=== PATIENT | male | born 1975 | race Caucasian/White ===

== ENCOUNTER → 2022-11-17 12:52 | Outpatient (BNVA) | payer OTHER, SELFPAY | PROVIDERS: Visit Provider Physician Assistant Medical | DX: S00.93XA Contusion of unspecified part of head, initial encounter (principal); S39.012A Strain of muscle, fascia and tendon of lower back, initial encounter; W17.89XA Other fall from one level to another, initial encounter; E11.9 Type 2 diabetes mellitus without complications; H54.62 Unqualified visual loss, left eye, normal vision right eye; Z91.148 Patient's other noncompliance with medication regimen for other reason | CPT/HCPCS: 99203 ==

== ENCOUNTER → 2022-12-01 14:37 | Outpatient (BNVA) | payer OTHER, SELFPAY | PROVIDERS: Visit Provider Physician Assistant Medical | DX: S00.93XA Contusion of unspecified part of head, initial encounter (principal); S39.012A Strain of muscle, fascia and tendon of lower back, initial encounter; W17.89XA Other fall from one level to another, initial encounter; H05.223 Edema of bilateral orbit | CPT/HCPCS: 72100; 99214 ==

== ENCOUNTER → 2022-12-12 09:30 | Outpatient (BNVA) | payer OTHER, SELFPAY | PROVIDERS: Visit Provider Physician Assistant Medical | DX: S00.93XD Contusion of unspecified part of head, subsequent encounter (principal); S39.012D Strain of muscle, fascia and tendon of lower back, subsequent encounter; W17.89XD Other fall from one level to another, subsequent encounter; H35.81 Retinal edema; H53.9 Unspecified visual disturbance | CPT/HCPCS: 99213 ==

== ENCOUNTER → 2023-01-05 09:33 | Outpatient (BNVA) | payer OTHER, SELFPAY | PROVIDERS: Visit Provider Physician Assistant Medical | DX: S06.9X0D Unspecified intracranial injury without loss of consciousness, subsequent encounter (principal); S39.012D Strain of muscle, fascia and tendon of lower back, subsequent encounter; W17.89XD Other fall from one level to another, subsequent encounter; H54.62 Unqualified visual loss, left eye, normal vision right eye | CPT/HCPCS: 99213 ==

== ENCOUNTER 2023-01-09 07:00 | Outpatient (RCR) | payer OTHER, SELFPAY ==
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
--- NOTE | 2023-02-16 14:16 | MHC.PT.DC ---
[facility] [place] Office [place] Office [place] Office [address] Claudine Thompson [address] [phone] F: [phone] F: [phone] F: [phone] F: [phone] Physical Therapy Discharge Report Diagnosis: lumbar strain from fall Date of Surgery: n/a Date of Evaluation: 12/18/22 Date of Discharge: 02/16/23 Treatments to Date: 5 Cancellations to Date: 2 No Shows to Date: 0 Discharge Status: Patient Elected to Stop Discharge Summary: 02/16/2023: Pt cancelled his last scheduled appointment. He has not reached out in >30 days to be scheduled so pt to be d/c at this time. Electronically signed by: Kinza Barr, PT, DPT, ATC Please sign and return to therapist. Thank you for your referral.
== END 2023-02-16 14:16 | disposition home or self-care (01) ==
LOC: HO.PTCHIC 07:00
PROVIDERS: Visit Provider Physician Assistant Medical
DX: S39.012D Strain of muscle, fascia and tendon of lower back, subsequent encounter (principal)
CPT/HCPCS: 97110; 97140; 97161

== ENCOUNTER → 2023-01-26 07:45 | Outpatient (BNVA) | payer OTHER, SELFPAY | PROVIDERS: Visit Provider Physician Assistant Medical | DX: S00.93XD Contusion of unspecified part of head, subsequent encounter (principal); S39.012D Strain of muscle, fascia and tendon of lower back, subsequent encounter; W17.89XD Other fall from one level to another, subsequent encounter; H35.81 Retinal edema | CPT/HCPCS: 99213 ==

== ENCOUNTER → 2023-02-26 07:54 | Outpatient (BNVA) | payer OTHER, SELFPAY | PROVIDERS: Visit Provider Physician Assistant Medical | DX: S00.93XD Contusion of unspecified part of head, subsequent encounter (principal); S39.012D Strain of muscle, fascia and tendon of lower back, subsequent encounter; W17.89XD Other fall from one level to another, subsequent encounter; H35.81 Retinal edema | CPT/HCPCS: 99213 ==

== ENCOUNTER 2023-12-29 11:51 | Inpatient (IN) | payer MEDICAID, SELFPAY ==
[2023-12-29] VITALS (8 sets, daily range): BP systolic 106–205; BP diastolic 65–111; PULSE 85–104; RESP 14–22; TEMP 36.2–37.4; O2SAT 97–99; BMI 32.4
--- NOTE | ~2023-12-29 | US_ITS ---
EXAMINATION: NONINVASIVE ASSESSMENT OF THE ARTERIES OF RIGHT LOWER EXTREMITY CLINICAL INFORMATION: Nonhealing wounds of the right lower extremity COMPARISON: None TECHNIQUE: duplex Doppler techniques with wave form analysis and measurement of velocities in the right common femoral, profunda femoral, superficial femoral, popliteal, tibial and peroneal arteries. The study was performed only at rest. FINDINGS: RIGHT LEG Common femoral artery: 128 cm/s, Multiphasic Profunda femoris artery: 110 cm/s, Multiphasic Superficial femoral artery (proximal): 95 cm/s, Multiphasic Superficial femoral artery (mid): 83 cm/s, Multiphasic Superficial femoral artery (distal): 196 cm/s, Multiphasic Proximal Popliteal artery: 88 cm/s, Multiphasic Mid posterior tibial artery: 135 cm/s, Multiphasic Prominent right inguinal lymph node measuring 1.9 cm. US/US arterial duplex LE RT IMPRESSION: No hemodynamically significant stenosis in the right lower extremity.
--- NOTE | 2023-12-29 12:13 | ED.GENADULT ---
HPI - General Adult General Chief complaint: ETOH/Substance Use Stated complaint: Dizziness, lightheaded Time Seen by Provider: 12/29/23 12:57 Source: patient Mode of arrival: ambulatory Limitations: no limitations History of Present Illness ED Provider: DALLAS WINSLOW PA-C HPI narrative: 48-year-old male with pmhx significant for uncontrolled T2DM, alcohol dependence presents to the ED today for evaluation of generalized weakness and lightheadedness which began prior to arrival in ED today. Patient reports recent concerns with his job as he has had to miss multiple shifts due to his health. After speaking with employer, he was advised to come to the ED for FMLA paperwork to save my job . On the drive over here, began to feel increasingly more weak and light headed. He had to last puller and sit down until someone was able to pick him up and drive him to the ED for further evaluation. Denies fevers, chills, nausea or vomiting, sore throat, syncope, headache, vision changes, abdominal pain, constipation, diarrhea, dysuria, hematuria. Patient reports history of T2DM however has not seen his PCP in over 15 years and does not currently take medications for this. He does not monitor his sugars at home. He admits to alcohol dependence. He currently drinks at least a 5th of vodka daily along with 10 alcoholic seltzers. His last etoh drink was around midnight. Admits to history of withdrawal however denies history of withdrawal seizures or DT. Endorses feeling tremulous at present. Related Data Previous Rx's ?Medication ?Instructions ?Recorded alcohol swabs 1 pad topical QIDACHS #100 ea 12/31/23 amlodipine 5 mg tablet 5 mg PO DAILY #30 tabs 12/31/23 blood sugar diagnostic (FreeStyle #100 ea 12/31/23 Lite Strips) blood-glucose meter (FreeStyle #1 ea 12/31/23 Lite Meter kit) cephalexin 500 mg capsule 500 mg PO Q8H #15 caps 12/31/23 glipizide 10 mg tablet, extended 10 mg PO DAILY #30 tabs 12/31/23 release 24 hr insulin glargine 100 unit/mL (3 25 unit (0.25 mL) subcut QPM #15 mL 12/31/23 mL) subcutaneous pen (Lantus Solostar U-100 Insulin) lancets 28 gauge (FreeStyle #100 ea 12/31/23 Lancets) magnesium oxide 400 mg (241.3 mg 400 mg PO BIDPC #60 tabs 12/31/23 magnesium) tablet pen needle, diabetic 32 gauge x #100 ea 12/31/23 1 Allergies Allergy/AdvReac Type Severity Reaction Status Date / Time No Known Allergies Allergy Unverified 12/29/23 12:11 Review of Systems Review of Systems: Constitutional: No fever, chills, fatigue, night sweats, weight changes ENT/Mouth: No ear pain, hearing loss, nasal congestion, sinus pain, rhinorrhea, sore throat Eyes: No eye pain, swelling, redness, vision changes, discharge Cardio: No chest pain, palpitations, NIELSON, orthopnea, peripheral edema Pulm: No SOB, cough, sputum, wheezing, dyspnea, hemoptysis GI: No nausea, vomiting, hematemesis, abdominal pain, diarrhea, constipation, hematochezia, melena : No irregular bleeding, dysuria, frequency, urgency, hesitancy, hematuria, flank pain, urinary flow changes, urinary incontinence or retention MSK: No back pain, neck pain, joint pain, myalgias Skin: No lesions, rashes Neuro: No numbness, paresthesias, LOC, headache, +weakness, +lightheaded Psych: No anxiety/panic, depression, SI/HI, AH/VH All other systems reviewed and are negative. [facility] Past Medical History Attestation statement: The following information was validated with the patient. Source: old records reviewed and nursing notes reviewed Medical History Alcohol use disorder Hypertension Type 2 diabetes mellitus Social History Social History Household Members: None Housing: Apartment Do you presently have visiting nurse or other home services: No Patient Tobacco Use Status: Never used Tobacco service: No Physical Exam ED Vital Signs: Vital Signs - 24 hr 12/29/23 12:06 12/29/23 14:18 12/29/23 15:25 Temperature 99.3 F 98.0 F 98.0 F Pulse Rate 94 98 104 H Respiratory Rate 18 18 15 Blood Pressure 106/65 165/87 H 205/111 H Pulse Oximetry 99 98 97 Oxygen Delivery Method Room Air Room Air Room Air 12/29/23 15:57 12/29/23 15:59 Temperature Pulse Rate 102 H Respiratory Rate 14 Blood Pressure 180/80 H 187/96 H Pulse Oximetry Oxygen Delivery Method BMI result Body Mass Index 32.4 Vital signs stable Const Other: tremulous General: cooperative and no acute distress Orientation/consciousness: patient oriented x3 Limitations: no limitations HENMT Head: Yes normal to inspection, Yes No palpable skull fracture present, Yes normocephalic and Yes atraumatic Eyes General: appearance normal, both eyes and all related structures Conjunctivae: conjunctivae normal Sclerae: sclerae normal Pupils: Equal, round and reactive pupils present Neck Neck: Yes normal visual inspection, Yes full ROM and Yes no lymphadenopathy Resp Effort & Inspection: normal respiratory effort and able to speak in complete sentences Auscultation: clear to auscultation bilaterally Cardio Rate: regular rate Rhythm: regular rhythm GI Inspection: Yes normal to inspection Skin Other: + areas of hyperpigmentation noted to RLE. Non-healing ulceration to anterior tbia and plantar surface of right great toe. no surrounding erythema or warmth. no purulent drainage. Neuro General: patient oriented x3 Cranial nerves: Yes Equal, round and reactive pupils present Course Course Course Narrative: RME: Done by ROSELINE Potts. [age] male history of alcohol abuse and diabetes presents to ED for dizziness and lightheadedness. Patient states drinks every day and last drink was around midnight. Patient also states she has diabetic has not taken medication in 10 years. Glucose POC 509. Labs ordered fluids or ordered. Charge nurse informed to bring patient in the ED. patient was detox Reevaluation(s) Reevaluation #1: 1300 -- CBC without leukocytosis or left shift. Slightly anemic to 12.9/36.9. No priors to compare to. No concern for acute blood loss at this time. Chemistry showing sodium of 130, BUN 25, creatinine 1.94 > patient receiving 2 L IV fluids. Initial POC glucose 509. Serum glucose 516. 10 insulin ordered. Will recheck POC. Beta hydroxybutyrate 0.39. No anion gap. Ethanol undetectable. No concern for acute intoxication however will observe for withdrawal symptoms. CIWA ordered. Total bili 1.7, AST 61 and ALT 50 > likely secondary to chronic ETOH abuse. 1425-- Repeat POC glucose improved to 362 after 2L and 10 insulin. will order another liter of fluids and re-evaluate. 1601-- Repeat POC improved to 273. His BP is noted to be elevated to 205/111 after 3 L of IV fluids. ativan ordered for CIWA 5. 1631-- BUN/Cr only slightly improved after 3L of fluid. No longer hyponatremic. random glucose 301. urine positive for UTI. IV abx ordered. will present to hospitalist for admission. 1700-- Hospitalist has accepted admission for CONSTANCE, hyperglycemia, and acute etoh withdrawal Medications Administered Discontinued Medications Generic Name Dose Route Start Last Admin Trade Name Freq PRN Reason Stop Dose Admin Amlodipine Besylate 5 mg 12/29/23 17:00 12/31/23 08:07 Amlodipine Besylate 5 Mg Tablet PO 5 mg DAILY AYO Administration Protocol Enoxaparin Sodium 40 mg 12/29/23 18:00 12/29/23 18:14 Enoxaparin Sodium 40 Mg/0.4 Ml Syringe SUBCUT 40 mg Q24H AYO Administration Glipizide 5 mg 12/30/23 13:45 12/31/23 08:08 Glipizide Xl 5 Mg Tab.Er.24 PO 5 mg DAILY AYO Administration Sodium Chloride 1,000 mls @ 999 mls/hr 12/29/23 12:13 12/29/23 13:46 Ns IV 12/29/23 13:13 Infused .Q1H1M STA Infusion Sodium Chloride 1,000 mls @ 999 mls/hr 12/29/23 12:14 12/29/23 13:46 Ns IV 12/29/23 13:14 Infused .Q1H1M STA Infusion Sodium Chloride 1,000 mls @ 999 mls/hr 12/29/23 14:30 12/29/23 15:30 Ns IV 12/29/23 15:30 Infused .Q1H1M AYO Infusion Ceftriaxone Sodium 1 gm/ 50 mls @ 100 mls/hr 12/29/23 15:47 12/29/23 16:30 Sodium Chloride IV 12/29/23 16:16 Infused ONCE ONE Infusion Thiamine HCl 100 mg/ Sodium 101 mls @ 202 mls/hr 12/29/23 17:00 12/31/23 09:09 Chloride IV Infused DAILY AYO Infusion Folic Acid 1 mg/ Sodium 50.2 mls @ 100.4 mls/hr 12/29/23 17:00 12/31/23 09:32 Chloride IV 12/31/23 09:29 Infused DAILY AYO Infusion Sodium Chloride 1,000 mls @ 100 mls/hr 12/29/23 17:00 12/30/23 15:42 Ns IVCONT Infused .Q10H AYO Infusion Magnesium Sulfate 2 gm in 50 mls @ 25 mls/hr 12/29/23 19:28 12/29/23 21:39 Magnesium Sulfate/H2o IV 12/29/23 21:27 Infused ONCE ONE Infusion Ceftriaxone Sodium 1 gm/ 50 mls @ 100 mls/hr 12/31/23 16:00 12/31/23 16:29 Sodium Chloride IV Not Given Q24H [facility] Insulin Glargine 18 unit 12/29/23 21:00 12/29/23 21:00 Insulin Glargine,Hum.Rec.Anlog 100 Unit/Ml 10 Ml Vial SUBCUT 18 unit BEDTIME AYO Administration Insulin Glargine 25 unit 12/30/23 21:00 12/30/23 23:24 Insulin Glargine,Hum.Rec.Anlog 100 Unit/Ml 10 Ml Vial SUBCUT 25 unit BEDTIME AYO Administration Insulin Human Lispro 0 unit 12/29/23 19:00 12/31/23 16:29 Insulin Lispro 100 Unit/Ml 3 Ml Vial SUBCUT Not Given QIDACHS [facility] Protocol Insulin Human Regular 10 unit 12/29/23 13:07 12/29/23 13:44 Insulin Regular, Human 100 Unit/Ml 10 Ml Vial IVPUSH 12/29/23 13:08 10 unit ONCE ONE Administration Lorazepam 2 mg 12/29/23 15:46 12/29/23 15:50 Lorazepam 1 Mg Tablet PO 12/29/23 15:47 2 mg ONCE ONE Administration Magnesium Oxide 400 mg 12/30/23 08:30 12/31/23 16:30 Magnesium Oxide 400 Mg Tablet PO Not Given BIDPC AYO Phenobarbital 45 mg 12/30/23 09:00 12/31/23 08:07 Phenobarbital 15 Mg Tablet PO 12/31/23 21:01 45 mg BID AYO Administration Phenobarbital Sodium 295 mg 12/29/23 17:15 12/29/23 18:05 Phenobarbital Sodium 130 Mg/Ml Im Once IM 12/29/23 17:16 295 mg ONCE ONE Administration Phenobarbital Sodium 221 mg 12/29/23 22:00 12/30/23 02:04 Phenobarbital Sodium 130 Mg/Ml Vial Im Q3hx2 IM 12/30/23 01:01 221 mg Q3H AYO Administration Phenobarbital Sodium 130 mg 12/29/23 19:52 12/29/23 20:01 Phenobarbital Sodium 130 Mg/Ml Vial IM 12/29/23 19:53 130 mg ONCE ONE Administration Sodium Chloride 3 ml 12/30/23 00:00 12/31/23 16:29 0.9 % Sodium Chloride Flush 3 Ml Syringe IVFLUSH Not Given QSHIFT [facility] Medical Decision Making Medical Decision Making [facility] Narrative: 48-year-old male with pmhx significant for uncontrolled T2DM, alcohol dependence presents to the ED today for evaluation of generalized weakness and lightheadedness which began prior to arrival in ED today. Vital signs stable. Patient tremulous on exam. No diaphoresis or asterixis. PERRLA. exam nonfocal. abdomen is soft, midly distended, nontender to palpation without rebound tenderness or guarding. normoactive bs x4. ambulating wtih steady gait. Differential diagnosis includes acute alcohol intoxication, alcohol withdrawal, hyperglycemia, DKA, anemia, electrolyte abnormality, dehydration Plan for labs, poc glucose, beta hydroxybutyrate, urinalysis, ethanol level, IVF, insulin, and re-evaluation. Differential Diagnosis Differential Diagnoses: The differential diagnosis associated with the presentation includes as above. Admission/Observation Consideration of admission/observation: Escalation of care including admission/observation considered Patient admitted to medicine for CONSTANCE, diabetic hyperglycemia, and etoh withdrawal. Consult Healthcare Provider Management of the patient was discussed with: Hospitalist (Toña Sandoval PA-C, Dr. David) Lab Data [facility] Lab Attestation statement: I reviewed the patient's lab results. As above 12/30/23 06:00 12/30/23 06:00 Labs: Lab Results 12/29/23 12/29/23 12/29/23 Range/Units 12:13 12:36 14:17 WBC 7.7 (4.8-10.8) X10*3/uL RBC 4.15 L (4.60-5.80) X10*6/uL Hgb 12.9 L (14.0-18.0) g/dl Hct 36.9 L (42.0-52.0) % MCV 88.9 (80.0-98.0) fL MCH 31.1 (27.0-33.0) pg MCHC 35.0 (31.0-36.0) g/dl RDW 11.5 (11.0-16.0) % Plt Count 137 L (160-400) X10*3/uL MPV 10.7 (9.4-12.4) fL Immature Gran % (Auto) 0.4 (0.0-0.4) % Neut % (Auto) 71.7 (45-73) % Lymph % (Auto) 17.9 L (20-40) % [place] % (Auto) 8.7 (2-11) % Eos % (Auto) 0.5 (0-4) % Baso % (Auto) 0.8 (0-2) % Lymph # (Auto) 1.4 (1.2-4.9) X10*3/uL [place] # (Auto) 0.7 (0.1-1.2) X10*3/uL Eos # (Auto) 0.0 (0.0-0.4) X10*3/uL Baso # (Auto) 0.1 (0.0-0.2) X10*3/uL Abs Immat Gran (auto) 0.03 (0.00-0.03) X10*3/uL Absolute Neuts (auto) 5.5 (2.0-8.3) x10*3/uL Absolute Nucleated RBC 0.000 (0.0-0.012) X10*3/uL Nucleated RBC % (auto) 0.0 (0.0-0.2) /100WBC Sodium 130 L (135-145) mmol/L Potassium 4.7 (3.3-5.1) mmol/L Chloride 90 L (96-108) mmol/L Carbon Dioxide 28 (22-29) mmol/L Anion Gap 17 (12-20) BUN 25 H (9-16) mg/dL Creatinine 1.94 H (0.5-1.4) mg/dL Estim Creat Clear Calc 46.5 Estimated GFR 37 POC Glucose 509 H* 362 H* (60-115) mg/dL Random Glucose 516 H* (60-115) mg/dL Calcium 9.8 (8.4-10.2) mg/dL Magnesium (1.6-2.6) mg/dL Total Bilirubin 1.7 H (0.0-1.0) mg/dL AST 61 H (5-37) U/L ALT 50 H (0-40) U/L Alkaline Phosphatase 115 (39-117) U/L Total Protein 8.7 H (6.5-8.0) g/dL Albumin 4.0 (3.5-5.0) g/dL Beta-Hydroxybutyrate 0.39 H (0.02-0.27) mmol/L Urine Color Urine Appearance Urine pH (5.0-9.0) Ur Specific [place] (1.005-1.025) Urine Protein (Neg-Trace) mg/dL Urine Glucose (UA) (Negative) mg/dL Urine Ketones (Negative) mg/dL Urine Blood (Negative) Urine Nitrite (Negative) Ur Leukocyte Esterase (Negative) Urine RBC (0-2) /HPF Urine WBC (0-5) /HPF Ur Squamous Epith Cells (0-2) /HPF Urine Bacteria (None Seen) Hyaline Casts (0-2) /LPF Urine Opiates Screen (Not Detect) Ur Buprenorphine Scrn (Not Detect) ng/mL Ur Oxycodone Screen (Not Detect) ng/mL Urine Methadone Screen (Not Detect) ng/mL Urine Fentanyl Screen (Not Detect) Ur Barbiturates Screen (Not Detect) Ur Phencyclidine Scrn (Not Detect) Ur Amphetamines Screen (Not Detect) U Benzodiazepines Scrn (Not Detect) Urine Cocaine Screen (Not Detect) U Marijuana (THC) Screen (Not Detect) Ethyl Alcohol < 10 mg/dL 12/29/23 12/29/23 12/29/23 Range/Units 14:57 14:58 15:42 WBC (4.8-10.8) X10*3/uL RBC (4.60-5.80) X10*6/uL Hgb (14.0-18.0) g/dl Hct (42.0-52.0) % MCV (80.0-98.0) fL MCH (27.0-33.0) pg MCHC (31.0-36.0) g/dl RDW (11.0-16.0) % Plt Count (160-400) X10*3/uL MPV (9.4-12.4) fL Immature Gran % (Auto) (0.0-0.4) % Neut % (Auto) (45-73) % Lymph % (Auto) (20-40) % [place]ferro % (Auto) (2-11) % Eos % (Auto) (0-4) % Baso % (Auto) (0-2) % Lymph # (Auto) (1.2-4.9) X10*3/uL [place] # (Auto) (0.1-1.2) X10*3/uL Eos # (Auto) (0.0-0.4) X10*3/uL Baso # (Auto) (0.0-0.2) X10*3/uL Abs Immat Gran (auto) (0.00-0.03) X10*3/uL Absolute Neuts (auto) (2.0-8.3) x10*3/uL Absolute Nucleated RBC (0.0-0.012) X10*3/uL Nucleated RBC % (auto) (0.0-0.2) /100WBC Sodium (135-145) mmol/L Potassium (3.3-5.1) mmol/L Chloride (96-108) mmol/L Carbon Dioxide (22-29) mmol/L Anion Gap (12-20) BUN (9-16) mg/dL Creatinine (0.5-1.4) mg/dL Estim Creat Clear Calc Estimated GFR POC Glucose 273 H (60-115) mg/dL Random Glucose (60-115) mg/dL Calcium (8.4-10.2) mg/dL Magnesium (1.6-2.6) mg/dL Total Bilirubin (0.0-1.0) mg/dL AST (5-37) U/L ALT (0-40) U/L Alkaline Phosphatase (39-117) U/L Total Protein (6.5-8.0) g/dL Albumin (3.5-5.0) g/dL Beta-Hydroxybutyrate (0.02-0.27) mmol/L Urine Color Yellow Urine Appearance Turbid Urine pH 6.5 (5.0-9.0) Ur Specific [place] 1.015 (1.005-1.025) Urine Protein 100 (2+) H (Neg-Trace) mg/dL Urine Glucose (UA) >=1000 H (Negative) mg/dL Urine Ketones Negative (Negative) mg/dL Urine Blood Moderate (2+) H (Negative) Urine Nitrite Negative (Negative) Ur Leukocyte Esterase Large (3+) H (Negative) Urine RBC 3-5 H (0-2) /HPF Urine WBC >50 H (0-5) /HPF Ur Squamous Epith Cells 6-10 (0-2) /HPF Urine Bacteria 3+ (None Seen) Hyaline Casts 0-2 (0-2) /LPF Urine Opiates Screen Not Detected (Not Detect) Ur Buprenorphine Scrn Not Detected (Not Detect) ng/mL Ur Oxycodone Screen Not Detected (Not Detect) ng/mL Urine Methadone Screen Not Detected (Not Detect) ng/mL Urine Fentanyl Screen Not Detected (Not Detect) Ur Barbiturates Screen Not Detected (Not Detect) Ur Phencyclidine Scrn Not Detected (Not Detect) Ur Amphetamines Screen Not Detected (Not Detect) U Benzodiazepines Scrn Not Detected (Not Detect) Urine Cocaine Screen Not Detected (Not Detect) U Marijuana (THC) Screen Not Detected (Not Detect) Ethyl Alcohol mg/dL 12/29/23 Range/Units 15:54 WBC (4.8-10.8) X10*3/uL RBC (4.60-5.80) X10*6/uL Hgb (14.0-18.0) g/dl Hct (42.0-52.0) % MCV (80.0-98.0) fL MCH (27.0-33.0) pg MCHC (31.0-36.0) g/dl RDW (11.0-16.0) % Plt Count (160-400) X10*3/uL MPV (9.4-12.4) fL Immature Gran % (Auto) (0.0-0.4) % Neut % (Auto) (45-73) % Lymph % (Auto) (20-40) % [place] % (Auto) (2-11) % Eos % (Auto) (0-4) % Baso % (Auto) (0-2) % Lymph # (Auto) (1.2-4.9) X10*3/uL [place] # (Auto) (0.1-1.2) X10*3/uL Eos # (Auto) (0.0-0.4) X10*3/uL Baso # (Auto) (0.0-0.2) X10*3/uL Abs Immat Gran (auto) (0.00-0.03) X10*3/uL Absolute Neuts (auto) (2.0-8.3) x10*3/uL Absolute Nucleated RBC (0.0-0.012) X10*3/uL Nucleated RBC % (auto) (0.0-0.2) /100WBC Sodium 140 (135-145) mmol/L Potassium 4.7 (3.3-5.1) mmol/L Chloride 101 (96-108) mmol/L Carbon Dioxide 30 H (22-29) mmol/L Anion Gap 14 (12-20) BUN 22 H (9-16) mg/dL Creatinine 1.52 H (0.5-1.4) mg/dL Estim Creat Clear Calc 59.4 Estimated GFR 49 POC Glucose (60-115) mg/dL Random Glucose 301 H (60-115) mg/dL Calcium 9.6 (8.4-10.2) mg/dL Magnesium 1.3 L* (1.6-2.6) mg/dL Total Bilirubin (0.0-1.0) mg/dL AST (5-37) U/L ALT (0-40) U/L Alkaline Phosphatase (39-117) U/L Total Protein (6.5-8.0) g/dL Albumin (3.5-5.0) g/dL Beta-Hydroxybutyrate (0.02-0.27) mmol/L Urine Color Urine Appearance Urine pH (5.0-9.0) Ur Specific [place] (1.005-1.025) Urine Protein (Neg-Trace) mg/dL Urine Glucose (UA) (Negative) mg/dL Urine Ketones (Negative) mg/dL Urine Blood (Negative) Urine Nitrite (Negative) Ur Leukocyte Esterase (Negative) Urine RBC (0-2) /HPF Urine WBC (0-5) /HPF Ur Squamous Epith Cells (0-2) /HPF Urine Bacteria (None Seen) Hyaline Casts (0-2) /LPF Urine Opiates Screen (Not Detect) Ur Buprenorphine Scrn (Not Detect) ng/mL Ur Oxycodone Screen (Not Detect) ng/mL Urine Methadone Screen (Not Detect) ng/mL Urine Fentanyl Screen (Not Detect) Ur Barbiturates Screen (Not Detect) Ur Phencyclidine Scrn (Not Detect) Ur Amphetamines Screen (Not Detect) U Benzodiazepines Scrn (Not Detect) Urine Cocaine Screen (Not Detect) U Marijuana (THC) Screen (Not Detect) Ethyl Alcohol mg/dL Chronic Conditions Patient?s care impacted by: Diabetes, Hypertension and Other (alcohol dependence) Social Determinants Patient?s care significantly limited by Social Determinants of Health including: Alcoholism and drug addiction in family and Other Social Determinant of Health Critical Care Time Critical Care Time Critical Care Time: Yes Total Critical Care Time: 33 Attestation: Critical care time in the amount of 33 minutes has been provided to the patient in terms of direct patient care, frequent reevaluation of labs after IVF, consultation with addiction med and hospitalist, review and interpretation of medical data and results, and management of potentially life-threatening conditions. This is all outside of any medical procedures. Discharge Plan Discharge Clinical Impression: CONSTANCE (acute kidney injury), Alcohol withdrawal, Elevated BP without diagnosis of hypertension Patient Disposition: Admitted As Inpatient Interventions: Admission Worksheet (ED) Last Done: 12/29/23 20:27 Discharge Date/Time: 12/29/23 21:22
[2023-12-29] MEDS: 0.9 % Sodium Chloride 1,000 ML 999 ML IV ×3 (12:37→14:56)
[2023-12-29 12:39] LABS: MANUAL DIFF FLAG NO
[2023-12-29 12:42] LABS: Basophils Absolute Auto 0.1 X10*3/uL (0.0-0.2); Basophils Percent Auto 0.8 % (0-2); Eosinophils Percent Auto 0.5 % (0-4); Hematocrit 36.9 % (42.0-52.0); Hemoglobin 12.9 g/dl (14.0-18.0); Imm Gran Abs Auto 0.03 X10*3/uL (0.00-0.03); Imm Gran Pct Auto 0.4 % (0.0-0.4); Lymphocytes Absolute Auto 1.4 X10*3/uL (1.2-4.9); Lymphocytes Percent Auto 17.9 % (20-40); Mean Corpuscular Hemoglobin 31.1 pg (27.0-33.0); Mean Corpuscular Volume 88.9 fL (80.0-98.0); Mean Platelet Volume 10.7 fL (9.4-12.4); Monocytes Absolute Auto 0.7 X10*3/uL (0.1-1.2); Monocytes Percent Auto 8.7 % (2-11); Neutrophils Absolute Auto 5.5 x10*3/uL (2.0-8.3); Neutrophils Percent Auto 71.7 % (45-73); Platelet Count 137 X10*3/uL (160-400); Red Blood Count 4.15 X10*6/uL (4.60-5.80); Red Cell Distribution Width 11.5 % (11.0-16.0); White Blood Count 7.7 X10*3/uL (4.8-10.8)
[2023-12-29 12:56] LABS: Beta-Hydroxybutyrate 0.39 mmol/L (0.02-0.27)
[2023-12-29 13:03] LABS: Alanine Aminotransferase 50 U/L (0-40); Alkaline Phosphatase 115 U/L (39-117); Anion Gap 17 (12-20); Aspartate Amino Transferase 61 U/L (5-37); Bilirubin Total 1.7 mg/dL (0.0-1.0); Blood Urea Nitrogen 25 mg/dL (9-16); Calcium 9.8 mg/dL (8.4-10.2); Carbon Dioxide 28 mmol/L (22-29); Chloride 90 mmol/L (96-108); Creatinine Clr Calc Pharmacy 46.5; Estimated Glomerular Filt Rate 37; Ethanol < 10 mg/dL; Glucose Random 516 mg/dL (60-115); Potassium 4.7 mmol/L (3.3-5.1); Sodium 130 mmol/L (135-145); Total Protein 8.7 g/dL (6.5-8.0)
[2023-12-29 13:19] LABS: Glucose, Whole Blood 509 mg/dL (60-115)
[2023-12-29] MEDS: Insulin Regular, Human 100 UNIT/ML 10 ML VIAL 10 UNIT IVPUSH (13:44)
[2023-12-29 14:22] LABS: Glucose, Whole Blood 362 mg/dL (60-115)
--- NOTE | 2023-12-29 14:39 | PC.NURSE ---
ambulating to the bathroom independently to provide urine sample. poc 362, plan to receive 3rd liter of fluids. patient continues to deny any pain at this time.
--- NOTE | 2023-12-29 14:56 | PC.NURSE ---
upon ambulating back from the bathroom, patient states he began to feel dizzy and lightheaded once again, states this improves with him laying down in bed.
[2023-12-29 15:08] LABS: Appearance Urine Turbid; Color Urine Yellow; Glucose Urine UA >=1000 mg/dL (Negative); Leukocyte Esterase Urine Large (3+) (Negative); Nitrite Urine Negative (Negative); PH 6.5 (5.0-9.0); Specific Gravity - Urine 1.015 (1.005-1.025); UMIC TRIGGER UACC YES; Urine Blood Moderate (2+) (Negative); Urine Ketones Negative (Negative); Urine Protein 100 (2+) mg/dL (Neg-Trace)
[2023-12-29 15:43] LABS: Bacteria Urine 3+ (None Seen); Hyaline Casts Urine 0-2 /LPF (0-2); UACC Culture Trigger YES; WBC Urine >50 /HPF (0-5)
[2023-12-29 15:47] LABS: Glucose, Whole Blood 273 mg/dL (60-115)
[2023-12-29] MEDS: LORazepam 1 MG TABLET 2 MG PO (15:50)
[2023-12-29 15:57] LABS: Amphetamine Screen Urine Not Detected (Not Detect); Barbiturates, Urine Not Detected (Not Detect); Benzodiazepines Screen Urine Not Detected (Not Detect); Buprenorphine Scr Not Detected (Not Detect); Cannabinoid Screen Urine Not Detected (Not Detect); Cocaine Screen Urine Not Detected (Not Detect); Fentanyl, urine Not Detected (Not Detect); Methadone Screen, Urine Not Detected (Not Detect); Opiate Screen Urine Not Detected (Not Detect); Oxycodone Screen Urine Not Detected (Not Detect); Phencyclidine Screen Urine Not Detected (Not Detect)
[2023-12-29] MEDS: cefTRIAXone sodium 1 GM in 0.9 % Sodium Chloride 50 ML IV (16:00)
--- NOTE | 2023-12-29 16:08 | ECG_ITS ---
Test Reason : ETOH Blood Pressure : / mmHG Vent. Rate : 096 BPM Atrial Rate : 096 BPM P-R Int : 154 ms QRS Dur : 086 ms QT Int : 346 ms P-R-T Axes : 033 -51 037 degrees QTc Int : 437 ms Normal sinus rhythm Possible Left atrial enlargement Left anterior fascicular block Abnormal ECG No previous ECGs available Referred By: Alisa Barillas Electronically Signed By:Jitendra Barr
[2023-12-29 16:25] LABS: Anion Gap 14 (12-20); Blood Urea Nitrogen 22 mg/dL (9-16); Calcium 9.6 mg/dL (8.4-10.2); Carbon Dioxide 30 mmol/L (22-29); Chloride 101 mmol/L (96-108); Creatinine Clr Calc Pharmacy 59.4; Estimated Glomerular Filt Rate 49; Glucose Random 301 mg/dL (60-115); Potassium 4.7 mmol/L (3.3-5.1); Sodium 140 mmol/L (135-145)
--- NOTE | 2023-12-29 16:50 | PHA.MEDREC ---
Pharmacy Consult ? Medication Reconciliation Pharmacy has completed the medication reconciliation.
--- NOTE | 2023-12-29 17:00 | P.HPHOSP_ITS ---
History of Present Illness Date of Service: 12/29/23 Attending physician on admission: Maral David Chief Complaint: alcohol detox 48-year-old male with history of uncontrolled type 2 diabetes, hypertension, alcohol use disorder who has been noncompliant with outpatient follow-up and has not seen a provider in 15 years presented to the ED earlier today desiring alcohol detox. He reports that he has been drinking nearly at least a fifth of vodka daily and alcoholic seltzers on a daily basis. He states he will drink throughout the day if he has no where to be but otherwise only drinks after work. He denies history of alcohol withdrawal, w/d seizures, or DTs. He states he has been increasingly weak and lightheadedness and today his job told him he could not safely work and needed FMLA paperwork so that he could manage his uncontrolled medical issues. Otherwise he has no complaints. Denies symptoms of current withdrawal. No fevers, chills, abdominal pain, nausea, vomiting, diarrhea, urinary symptoms, melena, hematochezia, cough, shortness of breath, palpitations, syncope, or chest pains. Since arrival, has been hypertensive to 205/111 improved to 187/96 on admission. Mild tachycardia of 104, vitals otherwise stable. Hematology studies show a normocytic anemia with H/H 12.9/36.9%. On arrival, creatinine 1.94, baseline unknown, improved to 1.52 with 3 L IVF. Initial sodium 130 improved to 140. Glucose on arrival 509, improved to 301 on admission following IV fluids and 10 units regular insulin. No evidence of acidosis or elevated anion gap. Total bilirubin 1.7, AST 61, ALT 50. Urinalysis significant for 3+ leukocytes, 2+ blood, negative nitrites, significant glucose, 2+ protein, positive urinary sediment with 6-10 squamous epithelial cells, 3+ bacteria. In ED, has been given 1 g ceftriaxone, 2 mg Ativan, 10 units regular insulin, and 3 L IVF. Review of Systems 2 Review of Systems: Yes all other systems are reviewed and are negative [facility] Medical History Alcohol use disorder Hypertension Type 2 diabetes mellitus Social History Advance Directives: No Advance Directives Information Provided: No Do you have a plan to hurt others: No Plan Meds Allergies Allergy/AdvReac Type Severity Reaction Status Date / Time No Known Allergies Allergy Unverified 12/29/23 12:11 Active Medications: Current Medications Acetaminophen (Acetaminophen 325 Mg Tablet) 650 mg PO Q6H PRN PRN Reason: Pain, Mild (Pain Scale 1-3), fever or headache Amlodipine Besylate (Amlodipine Besylate 5 Mg Tablet) 5 mg PO DAILY [facility]; Protocol Calcium Carbonate (Calcium Carbonate 750 Mg Tab.Chew) 750 mg PO Q4H PRN PRN Reason: Heartburn Enoxaparin Sodium (Enoxaparin Sodium 40 Mg/0.4 Ml Syringe) 40 mg SUBCUT Q24H [facility] Glucose (Glucose Gel 15 Gm Gel..Gram.) 15 gm PO Q15M PRN; Protocol PRN Reason: per Hypoglycemia Standing Ord. Thiamine HCl 100 mg/ Sodium (Chloride) 101 mls @ 202 mls/hr IV DAILY [facility] Folic Acid 1 mg/ Sodium (Chloride) 50.2 mls @ 100.4 mls/hr IV DAILY [facility] Stop: 12/31/23 09:29 Sodium Chloride (Ns) 1,000 mls @ 100 mls/hr IVCONT .Q10H [facility] Dextrose (D10) 250 mls @ 750 mls/hr IV Q15M PRN; Protocol PRN Reason: per Hypoglycemia Standing Ord. Insulin Human Lispro (Insulin Lispro 100 Unit/Ml 3 Ml Vial) 0 unit SUBCUT QIDACHS [facility]; Protocol Magnesium Hydroxide (Milk Of Magnesia 30 Ml Oral.Susp) 30 ml PO DAILY PRN PRN Reason: Constipation Melatonin (Melatonin 3 Mg Tablet) 6 mg PO BEDTIME PRN PRN Reason: Insomnia Pharmacy Consult (Consult Rx Etoh Phenob Im/Po) 1 each MISCELLANE ONCE PRN; Protocol PRN Reason: Consult order Sodium Chloride (0.9 % Sodium Chloride Flush 3 Ml Syringe) 3 ml IVFLUSH QSHIFT [facility] Home Medications ?Medication ?Instructions ?Recorded ?Confirmed ?Last Taken ?Type No Known Home Meds 12/29/23 12/29/23 Unknown History Physical Exam 2 Vital Signs and Narrative: Vital Signs: Last Vital Signs Temp 98.0 F 12/29/23 15:25 Pulse 102 H 12/29/23 15:57 Resp 14 12/29/23 15:57 BP 187/96 H 12/29/23 15:59 Pulse Ox 97 12/29/23 15:25 O2 Del Method Room Air 12/29/23 15:25 BMI result Body Mass Index 32.4 Constitutional - Awake and Alert, No apparent distress Eyes - PERRLA, EOMI Cardiovascular - S1S2, RRR, No edema. 2+ L pedal pulse, 1+/weak R pedal pulse Respiratory - Normal lung expansion, Normal respiratory effort, No respiratory distress, CTA bilaterally Gastrointestinal - NT / ND; +BS; No rebound or guarding Extremities - no calf tenderness bilaterally, no swelling Skin - Warm/Dry. Hyperpigmentation to RLE with nonhealing ulceration anterior tibia. Nonhealing ulceration/callus plantar surface R great toe. NO erythema or warmth. No purulent drainage Neurological - Alert & oriented x3, CN II-XII in tact, 5/5 strength BUE and BLE, decreased sensation distal aspect BLE Psychological - Appropriate affect Results Labs 12/29/23 12:36 12/29/23 15:54 Labs: Laboratory Results - last 24 hr 12/29/23 12/29/23 12/29/23 12:13 12:36 14:17 MCV 88.9 MCH 31.1 MCHC 35.0 RDW 11.5 Plt Count 137 L MPV 10.7 Immature Gran % (Auto) 0.4 Neut % (Auto) 71.7 Lymph % (Auto) 17.9 L [place] % (Auto) 8.7 Eos % (Auto) 0.5 Baso % (Auto) 0.8 Lymph # (Auto) 1.4 [place] # (Auto) 0.7 Eos # (Auto) 0.0 Baso # (Auto) 0.1 Abs Immat Gran (auto) 0.03 Absolute Neuts (auto) 5.5 Absolute Nucleated RBC 0.000 Nucleated RBC % (auto) 0.0 Anion Gap 17 Estim Creat Clear Calc 46.5 Estimated GFR 37 POC Glucose 509 H* 362 H* Random Glucose 516 H* Calcium 9.8 Total Bilirubin 1.7 H AST 61 H ALT 50 H Alkaline Phosphatase 115 Total Protein 8.7 H Albumin 4.0 Beta-Hydroxybutyrate 0.39 H Urine Color Urine Appearance Urine pH Ur Specific [place] Urine Protein Urine Glucose (UA) Urine Ketones Urine Blood Urine Nitrite Ur Leukocyte Esterase Urine RBC Urine WBC Ur Squamous Epith Cells Urine Bacteria Hyaline Casts Urine Opiates Screen Ur Buprenorphine Scrn Ur Oxycodone Screen Urine Methadone Screen Urine Fentanyl Screen Ur Barbiturates Screen Ur Phencyclidine Scrn Ur Amphetamines Screen U Benzodiazepines Scrn Urine Cocaine Screen U Marijuana (THC) Screen Ethyl Alcohol < 10 12/29/23 12/29/23 12/29/23 14:57 14:58 15:42 MCV MCH MCHC RDW Plt Count MPV Immature Gran % (Auto) Neut % (Auto) Lymph % (Auto) [place] % (Auto) Eos % (Auto) Baso % (Auto) Lymph # (Auto) [place] # (Auto) Eos # (Auto) Baso # (Auto) Abs Immat Gran (auto) Absolute Neuts (auto) Absolute Nucleated RBC Nucleated RBC % (auto) Anion Gap Estim Creat Clear Calc Estimated GFR POC Glucose 273 H Random Glucose Calcium Total Bilirubin AST ALT Alkaline Phosphatase Total Protein Albumin Beta-Hydroxybutyrate Urine Color Yellow Urine Appearance Turbid Urine pH 6.5 Ur Specific [place] 1.015 Urine Protein 100 (2+) H Urine Glucose (UA) >=1000 H Urine Ketones Negative Urine Blood Moderate (2+) H Urine Nitrite Negative Ur Leukocyte Esterase Large (3+) H Urine RBC 3-5 H Urine WBC >50 H Ur Squamous Epith Cells 6-10 Urine Bacteria 3+ Hyaline Casts 0-2 Urine Opiates Screen Not Detected Ur Buprenorphine Scrn Not Detected Ur Oxycodone Screen Not Detected Urine Methadone Screen Not Detected Urine Fentanyl Screen Not Detected Ur Barbiturates Screen Not Detected Ur Phencyclidine Scrn Not Detected Ur Amphetamines Screen Not Detected U Benzodiazepines Scrn Not Detected Urine Cocaine Screen Not Detected U Marijuana (THC) Screen Not Detected Ethyl Alcohol 12/29/23 15:54 MCV MCH MCHC RDW Plt Count MPV Immature Gran % (Auto) Neut % (Auto) Lymph % (Auto) [place] % (Auto) Eos % (Auto) Baso % (Auto) Lymph # (Auto) [place] # (Auto) Eos # (Auto) Baso # (Auto) Abs Immat Gran (auto) Absolute Neuts (auto) Absolute Nucleated RBC Nucleated RBC % (auto) Anion Gap 14 Estim Creat Clear Calc 59.4 Estimated GFR 49 POC Glucose Random Glucose 301 H Calcium 9.6 Total Bilirubin AST ALT Alkaline Phosphatase Total Protein Albumin Beta-Hydroxybutyrate Urine Color Urine Appearance Urine pH Ur Specific [place] Urine Protein Urine Glucose (UA) Urine Ketones Urine Blood Urine Nitrite Ur Leukocyte Esterase Urine RBC Urine WBC Ur Squamous Epith Cells Urine Bacteria Hyaline Casts Urine Opiates Screen Ur Buprenorphine Scrn Ur Oxycodone Screen Urine Methadone Screen Urine Fentanyl Screen Ur Barbiturates Screen Ur Phencyclidine Scrn Ur Amphetamines Screen U Benzodiazepines Scrn Urine Cocaine Screen U Marijuana (THC) Screen Ethyl Alcohol Assessment and Plan (1) Alcohol withdrawal: Status: Acute (2) CONSTANCE (acute kidney injury): Status: Acute (3) Hypertensive urgency: Status: Acute (4) Type 2 diabetes mellitus with hyperglycemia: Status: Acute Plan 48-year-old male with history of uncontrolled type 2 diabetes, hypertension, alcohol use disorder who has been noncompliant with outpatient follow-up and has not seen a provider in 15 years admitted for further management of CONSTANCE, hypertensive urgency, and acute alcohol withdrawal. #Acute kidney injury- likely prerenal -creat on arrival 1.96 improved to 1.5. Baseline unknown, suspect has some degree of CKD -continue ivf -avoid nephrotoxins -monitor I&O, low sodium diet -follow renal function/lytes #Alcohol use disorder with alcohol withdrawal -drinks at least a fifth per night with alcoholic seltzers, last drink last night. ethyl etoh on arrival <10 -monitor on ciwa -initiate phenobarbital per protocol -iv thiamine and folic acid -addiction medicine consult #Hypertensive urgency -likely long standing uncontrolled htn -initiate amlodipine 5mg daily now. Will likely benefit from TIM/ARB in setting of uncontrolled DM with probable diabetic nephropathy, but defer for now in setting of CONSTANCE -monitor blood pressures. Monitor on tele #Uncontrolled type 2 diabetes with hyperglycemia -POC 509 on arrival. 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 He will also require close glucose monitoring and medication titration due to uncontrolled glucose levels and blood pressures. Quality Stroke Does the patient have a stroke diagnosis?: No VTE Prior VTE?: No VTE Risk Level:: Medical - moderate - high VTE Device Contraindication: Treatment Not Indicated VTE Drug Contraindication: N/A - Med Ordered
[2023-12-29 17:37] LABS: Magnesium 1.3 mg/dL (1.6-2.6)
[2023-12-29] MEDS: PHENobarbitaL sodium 130 MG/ML IM ONCE 295 MG IM (18:05)
[2023-12-29] MEDS: Folic Acid 1 MG in 0.9 % Sodium Chloride 50 ML 100.4 MG IV (18:06)
[2023-12-29 18:09] LABS: Hemoglobin A1c % > 14.0 % (<6.0)
[2023-12-29] MEDS: amLODIPine Besylate 5 MG TABLET PO (18:12)
[2023-12-29] MEDS: 0.9 % Sodium Chloride 1,000 ML 100 ML IVCONT (18:12)
[2023-12-29] MEDS: Thiamine HCL 100 MG in 0.9 % Sodium Chloride 100 ML 202 MG IV (18:14)
[2023-12-29] MEDS: Enoxaparin Sodium 40 MG/0.4 ML SYRINGE SUBCUT (18:14)
[2023-12-29 18:32] LABS: Glucose, Whole Blood 271 mg/dL (60-115)
[2023-12-29] MEDS: Insulin Lispro 100 UNIT/ML 3 ML VIAL SUBCUT ×2 (19:03→21:00)
[2023-12-29] MEDS: Magnesium Sulfate/H2O 2 GM/50 ML PIGGYBACK IV (19:35)
[2023-12-29] MEDS: PHENobarbitaL sodium 130 MG/ML VIAL IM (20:01)
[2023-12-29 20:55] LABS: Glucose, Whole Blood 345 mg/dL (60-115)
[2023-12-29] MEDS: Insulin Glargine,Hum.rec.anlog 100 UNIT/ML 10 ML VIAL 18 UNIT SUBCUT (21:00)
[2023-12-29 21:41] LABS: Glucose, Whole Blood 292 mg/dL (60-115)
[2023-12-29] MEDS: PHENobarbitaL sodium 130 MG/ML VIAL IM Q3Hx2 221 MG IM (22:50)
[2023-12-30] VITALS (8 sets, daily range): BP systolic 133–181; BP diastolic 71–89; PULSE 79–87; RESP 18–20; TEMP 36.2–36.7; O2SAT 95–98
[2023-12-30] MEDS: 0.9 % Sodium Chloride Flush 3 ML SYRINGE IVFLUSH ×3 (02:03→15:38)
[2023-12-30] MEDS: PHENobarbitaL sodium 130 MG/ML VIAL IM Q3Hx2 221 MG IM (02:04)
[2023-12-30] MEDS: 0.9 % Sodium Chloride 1,000 ML 100 ML IVCONT ×2 (02:11→11:15)
[2023-12-30 06:11] LABS: MANUAL DIFF FLAG NO
[2023-12-30 06:17] LABS: Basophils Percent Auto 0.6 % (0-2); Eosinophils Absolute Auto 0.1 X10*3/uL (0.0-0.4); Eosinophils Percent Auto 0.8 % (0-4); Hematocrit 32.4 % (42.0-52.0); Hemoglobin 11.2 g/dl (14.0-18.0); Imm Gran Abs Auto 0.02 X10*3/uL (0.00-0.03); Imm Gran Pct Auto 0.3 % (0.0-0.4); Lymphocytes Absolute Auto 2.2 X10*3/uL (1.2-4.9); Lymphocytes Percent Auto 29.7 % (20-40); Mean Corpuscular HGB Conc 34.6 g/dl (31.0-36.0); Mean Corpuscular Hemoglobin 30.9 pg (27.0-33.0); Mean Corpuscular Volume 89.3 fL (80.0-98.0); Mean Platelet Volume 10.6 fL (9.4-12.4); Monocytes Absolute Auto 0.7 X10*3/uL (0.1-1.2); Monocytes Percent Auto 9.2 % (2-11); Neutrophils Absolute Auto 4.3 x10*3/uL (2.0-8.3); Neutrophils Percent Auto 59.4 % (45-73); Platelet Count 92 X10*3/uL (160-400); Red Blood Count 3.63 X10*6/uL (4.60-5.80); Red Cell Distribution Width 11.1 % (11.0-16.0); White Blood Count 7.3 X10*3/uL (4.8-10.8)
[2023-12-30 06:30] LABS: Anion Gap 12 (12-20); Blood Urea Nitrogen 20 mg/dL (9-16); Calcium 9.1 mg/dL (8.4-10.2); Carbon Dioxide 27 mmol/L (22-29); Chloride 99 mmol/L (96-108); Creatinine Clr Calc Pharmacy 72.2; Estimated Glomerular Filt Rate > 60; Glucose Random 255 mg/dL (60-115); Magnesium 1.6 mg/dL (1.6-2.6); Potassium 3.7 mmol/L (3.3-5.1); Sodium 134 mmol/L (135-145)
[2023-12-30 06:58] LABS: Glucose, Whole Blood 231 mg/dL (60-115)
[2023-12-30] MEDS: Thiamine HCL 100 MG in 0.9 % Sodium Chloride 100 ML 202 MG IV (08:18)
[2023-12-30] MEDS: Folic Acid 1 MG in 0.9 % Sodium Chloride 50 ML 100.4 MG IV (08:19)
[2023-12-30] MEDS: PHENobarbitaL 15 MG TABLET 45 MG PO ×2 (08:19→22:46)
[2023-12-30] MEDS: amLODIPine Besylate 5 MG TABLET PO (08:19)
[2023-12-30] MEDS: Insulin Lispro 100 UNIT/ML 3 ML VIAL SUBCUT ×4 (08:19→23:25)
[2023-12-30] MEDS: Magnesium Oxide 400 MG TABLET PO ×2 (08:19→16:54)
[2023-12-30 10:47] LABS: Glucose, Whole Blood 344 mg/dL (60-115)
--- NOTE | 2023-12-30 13:07 | HO.PM.IMPN ---
Subjective Subjective Date of Service: 12/30/23 Interval History: Being followed for alcohol withdrawal, hypertensive urgency and hyperglycemia. Feeling better this morning denies lightheadedness, no dizziness, tolerating diet, no acute events overnight. Review of Systems All other system reviewed and are negative. Physical Exam Vital Signs: Vital Signs: Last Vital Signs Temp 98.1 F 12/30/23 11:10 Pulse 86 12/30/23 11:10 Resp 20 12/30/23 11:10 BP 133/71 12/30/23 11:10 Pulse Ox 96 12/30/23 11:10 O2 Del Method Room Air 12/30/23 11:10 BMI result Body Mass Index 32.4 Const: Other: General awake alert x3, in no acute distress. Neck supple no JVD. CVS regular rate rhythm, Respiratory lungs clear to auscultation, no respiratory distress, no wheeze, no rhonchi. Gastrointestinal abdomen soft, non tender, bowel sounds audible. Extremities no edema. Neuro non focal Skin hyper pigmentation to right lower extremity with non healing ulceration anterior tibia, and callus plantar surface right great toe. Psych appropriate affect Objective Data Active Medications Acetaminophen (Acetaminophen 325 Mg Tablet) 650 mg PO Q6H PRN PRN Reason: Pain, Mild (Pain Scale 1-3), fever or headache Amlodipine Besylate (Amlodipine Besylate 5 Mg Tablet) 5 mg PO DAILY [facility]; Protocol Last Admin: 12/30/23 08:19 Dose: 5 mg Documented By: KEVIN Calcium Carbonate (Calcium Carbonate 750 Mg Tab.Chew) 750 mg PO Q4H PRN PRN Reason: Heartburn Enoxaparin Sodium (Enoxaparin Sodium 40 Mg/0.4 Ml Syringe) 40 mg SUBCUT Q24H [facility] Last Admin: 12/29/23 18:14 Dose: 40 mg Documented By: JOSE Glucose (Glucose Gel 15 Gm Gel..Gram.) 15 gm PO Q15M PRN; Protocol PRN Reason: per Hypoglycemia Standing Ord. Thiamine HCl 100 mg/ Sodium (Chloride) 101 mls @ 202 mls/hr IV DAILY [facility] Last Infusion: 12/30/23 08:55 Dose: Infused Documented By: KEVIN Folic Acid 1 mg/ Sodium (Chloride) 50.2 mls @ 100.4 mls/hr IV DAILY [facility] Stop: 12/31/23 09:29 Last Infusion: 12/30/23 09:30 Dose: Infused Documented By: KEVIN Sodium Chloride (Ns) 1,000 mls @ 100 mls/hr IVCONT .Q10H [facility] Last Admin: 12/30/23 11:15 Dose: 100 mls/hr Documented By: KEVIN Dextrose (D10) 250 mls @ 750 mls/hr IV Q15M PRN; Protocol PRN Reason: per Hypoglycemia Standing Ord. Insulin Glargine (Insulin Glargine,Hum.Rec.Anlog 100 Unit/Ml 10 Ml Vial) 18 unit SUBCUT BEDTIME [facility] Last Admin: 12/29/23 21:00 Dose: 18 unit Documented By: THAO Insulin Human Lispro (Insulin Lispro 100 Unit/Ml 3 Ml Vial) 0 unit SUBCUT QIDACHS [facility]; Protocol Last Admin: 12/30/23 11:14 Dose: 8 unit Documented By: KEVIN Magnesium Hydroxide (Milk Of Magnesia 30 Ml Oral.Susp) 30 ml PO DAILY PRN PRN Reason: Constipation Magnesium Oxide (Magnesium [facility]ide 400 Mg Tablet) [facility] Last Admin: 12/30/23 08:19 Dose: 400 mg Documented By: KEVIN Melatonin (Melatonin 3 Mg Tablet) 6 mg PO BEDTIME PRN PRN Reason: Insomnia Pharmacy Consult (Consult Rx Etoh Phenob Im/Po) 1 each MISCELLANE ONCE PRN; Protocol PRN Reason: Consult order Phenobarbital (Phenobarbital 15 Mg Tablet) 45 mg PO BID [facility] Stop: 12/31/23 21:01 Last Admin: 12/30/23 08:19 Dose: 45 mg Documented By: KEVIN Phenobarbital (Phenobarbital 30 Mg Tablet) 30 mg PO BID [facility] Stop: 01/02/24 21:01 Phenobarbital (Phenobarbital 15 Mg Tablet) 15 mg PO DAILY [facility] Stop: 01/04/24 09:01 Sodium Chloride (0.9 % Sodium Chloride Flush 3 Ml Syringe) 3 ml IVFLUSH QSHIFT [facility] Last Admin: 12/30/23 08:20 Dose: 3 ml Documented By: KEVIN Labs 12/30/23 06:00 12/30/23 06:00 Labs: Laboratory Results - last 24 hr 12/29/23 12/29/23 12/29/23 12:13 14:17 14:57 MCV MCH MCHC RDW Plt Count MPV Immature Gran % (Auto) Neut % (Auto) Lymph % (Auto) [place] % (Auto) Eos % (Auto) Baso % (Auto) Lymph # (Auto) [place]cd[place] # (Auto) Eos # (Auto) Baso # (Auto) Abs Immat Gran (auto) Absolute Neuts (auto) Absolute Nucleated RBC Nucleated RBC % (auto) Anion Gap Estim Creat Clear Calc Estimated GFR POC Glucose 509 H* 362 H* Random Glucose Estimat Average Glucose Hemoglobin A1c % Calcium Magnesium Urine Color Yellow Urine Appearance Turbid Urine pH 6.5 Ur Specific [place] 1.015 Urine Protein 100 (2+) H Urine Glucose (UA) >=1000 H Urine Ketones Negative Urine Blood Moderate (2+) H Urine Nitrite Negative Ur Leukocyte Esterase Large (3+) H Urine RBC 3-5 H Urine WBC >50 H Ur Squamous Epith Cells 6-10 Urine Bacteria 3+ Hyaline Casts 0-2 Urine Opiates Screen Ur Buprenorphine Scrn Ur Oxycodone Screen Urine Methadone Screen Urine Fentanyl Screen Ur Barbiturates Screen Ur Phencyclidine Scrn Ur Amphetamines Screen U Benzodiazepines Scrn Urine Cocaine Screen U Marijuana (THC) Screen 12/29/23 12/29/23 12/29/23 14:58 15:42 15:54 MCV MCH MCHC RDW Plt Count MPV Immature Gran % (Auto) Neut % (Auto) Lymph % (Auto) [place] % (Auto) Eos % (Auto) Baso % (Auto) Lymph # (Auto) [place]cd[place] # (Auto) Eos # (Auto) Baso # (Auto) Abs Immat Gran (auto) Absolute Neuts (auto) Absolute Nucleated RBC Nucleated RBC % (auto) Anion Gap 14 Estim Creat Clear Calc 59.4 Estimated GFR 49 POC Glucose 273 H Random Glucose 301 H Estimat Average Glucose Hemoglobin A1c % Calcium 9.6 Magnesium 1.3 L* Urine Color Urine Appearance Urine pH Ur Specific [place] Urine Protein Urine Glucose (UA) Urine Ketones Urine Blood Urine Nitrite Ur Leukocyte Esterase Urine RBC Urine WBC Ur Squamous Epith Cells Urine Bacteria Hyaline Casts Urine Opiates Screen Not Detected Ur Buprenorphine Scrn Not Detected Ur Oxycodone Screen Not Detected Urine Methadone Screen Not Detected Urine Fentanyl Screen Not Detected Ur Barbiturates Screen Not Detected Ur Phencyclidine Scrn Not Detected Ur Amphetamines Screen Not Detected U Benzodiazepines Scrn Not Detected Urine Cocaine Screen Not Detected U Marijuana (THC) Screen Not Detected 12/29/23 12/29/23 12/29/23 17:33 18:28 20:51 MCV MCH MCHC RDW Plt Count MPV Immature Gran % (Auto) Neut % (Auto) Lymph % (Auto) [place]cd[place] % (Auto) Eos % (Auto) Baso % (Auto) Lymph # (Auto) [place]cd[place] # (Auto) Eos # (Auto) Baso # (Auto) Abs Immat Gran (auto) Absolute Neuts (auto) Absolute Nucleated RBC Nucleated RBC % (auto) Anion Gap Estim Creat Clear Calc Estimated GFR POC Glucose 271 H 345 H Random Glucose Estimat Average Glucose TNP Hemoglobin A1c % > 14.0 H Calcium Magnesium Urine Color Urine Appearance Urine pH Ur Specific [place] Urine Protein Urine Glucose (UA) Urine Ketones Urine Blood Urine Nitrite Ur Leukocyte Esterase Urine RBC Urine WBC Ur Squamous Epith Cells Urine Bacteria Hyaline Casts Urine Opiates Screen Ur Buprenorphine Scrn Ur Oxycodone Screen Urine Methadone Screen Urine Fentanyl Screen Ur Barbiturates Screen Ur Phencyclidine Scrn Ur Amphetamines Screen U Benzodiazepines Scrn Urine Cocaine Screen U Marijuana (THC) Screen 12/29/23 12/30/23 12/30/23 21:35 06:00 06:54 MCV 89.3 MCH 30.9 MCHC 34.6 RDW 11.1 Plt Count 92 L D MPV 10.6 Immature Gran % (Auto) 0.3 Neut % (Auto) 59.4 Lymph % (Auto) 29.7 [place]cd[place] % (Auto) 9.2 Eos % (Auto) 0.8 Baso % (Auto) 0.6 Lymph # (Auto) 2.2 [place]cdonald # (Auto) 0.7 Eos # (Auto) 0.1 Baso # (Auto) 0.0 Abs Immat Gran (auto) 0.02 Absolute Neuts (auto) 4.3 Absolute Nucleated RBC 0.000 Nucleated RBC % (auto) 0.0 Anion Gap 12 Estim Creat Clear Calc 72.2 Estimated GFR > 60 POC Glucose 292 H 231 H Random Glucose 255 H Estimat Average Glucose Hemoglobin A1c % Calcium 9.1 Magnesium 1.6 Urine Color Urine Appearance Urine pH Ur Specific [place] Urine Protein Urine Glucose (UA) Urine Ketones Urine Blood Urine Nitrite Ur Leukocyte Esterase Urine RBC Urine WBC Ur Squamous Epith Cells Urine Bacteria Hyaline Casts Urine Opiates Screen Ur Buprenorphine Scrn Ur Oxycodone Screen Urine Methadone Screen Urine Fentanyl Screen Ur Barbiturates Screen Ur Phencyclidine Scrn Ur Amphetamines Screen U Benzodiazepines Scrn Urine Cocaine Screen U Marijuana (THC) Screen 12/30/23 10:44 MCV MCH MCHC RDW Plt Count MPV Immature Gran % (Auto) Neut % (Auto) Lymph % (Auto) [place]cd[place] % (Auto) Eos % (Auto) Baso % (Auto) Lymph # (Auto) [place]cd[place] # (Auto) Eos # (Auto) Baso # (Auto) Abs Immat Gran (auto) Absolute Neuts (auto) Absolute Nucleated RBC Nucleated RBC % (auto) Anion Gap Estim Creat Clear Calc Estimated GFR POC Glucose 344 H Random Glucose Estimat Average Glucose Hemoglobin A1c % Calcium Magnesium Urine Color Urine Appearance Urine pH Ur Specific [place] Urine Protein Urine Glucose (UA) Urine Ketones Urine Blood Urine Nitrite Ur Leukocyte Esterase Urine RBC Urine WBC Ur Squamous Epith Cells Urine Bacteria Hyaline Casts Urine Opiates Screen Ur Buprenorphine Scrn Ur Oxycodone Screen Urine Methadone Screen Urine Fentanyl Screen Ur Barbiturates Screen Ur Phencyclidine Scrn Ur Amphetamines Screen U Benzodiazepines Scrn Urine Cocaine Screen U Marijuana (THC) Screen Assessment and Plan (1) Type 2 diabetes mellitus with hyperglycemia: Status: Acute (2) Hypertensive urgency: Status: Acute (3) CONSTANCE (acute kidney injury): Status: Acute (4) Alcohol withdrawal: Status: Acute Plan 48-year-old male with history of uncontrolled type 2 diabetes, hypertension, alcohol use disorder who has been noncompliant with outpatient follow-up and has not seen a provider in 15 years admitted for further management of CONSTANCE, hypertensive urgency, and acute alcohol withdrawal. #Acute kidney injury- likely prerenal -creat on arrival 1.96 improved to 1.25. -dc ivf, avoid nephrotoxins #Alcohol use disorder with alcohol withdrawal -ethyl etoh on arrival <10, continue phenobarb protocol,thiamine and folic acid -follow addiction medicine consult #Hypertensive urgency -likely long standing uncontrolled htn -on amlodipine 5mg daily,will need TIM/ARB in setting of uncontrolled DM with probable diabetic nephropathy, but defer for now in setting of CONSTANCE -monitor blood pressures. #Uncontrolled type 2 diabetes with hyperglycemia -POC 509 on arrival. No DKA -hgb a1c >14 -increase dose of lantus to 25 u nightly, add glipizide XL 5 mg, continue ISS, obtain nutrition consult, provide teaching so to administer insulin and check blood sugars # acute hypo magnesemia likely due to poor nutrition repleted #Nonhealing non pressure ulcer R anterior tibia/nonhealing stage 2 pressure ulcer/callus plantar surface R great toe -underlying PAD given weak pulses, RLE arterial doppler showed no hemodynamically significant stenosis. 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 #Thombocytopenia- likely chronic in setting of alcohol use avoid blood thinners #Normocytic anemia- suspect chronic -h/h above transfusion threshold, monitor h/h #Elevated LFTs -due to etoh use, no abdominal pain, no nausea recommend to abstain from alcohol dvt prophylaxis-dc lovenox due to thrombocytopenia, recommend early ambulation. full code pt requires continued inpt stay for management of acute kidney injury , as well as management of acute alcohol withdrawal and patient desiring detox on phenobarbital per protocol,will also require close glucose monitoring and medication titration due to uncontrolled glucose levels and blood pressures. Quality Stroke Does the patient have a stroke diagnosis?: No VTE Prior VTE?: No VTE Risk Level:: Medical - moderate - high VTE Device Contraindication: Treatment Not Indicated VTE Drug Contraindication: N/A - Med Ordered
--- NOTE | 2023-12-30 13:34 | MHC.CM.PN ---
Pt lives alone, is independent, does not have health insurance, referral submitted to financial counselors. He does not have a PCP. He does not use DME or health services. HCP to be completed here and added to chart. DCP: home, self care. CM to follow for DC planning needs.
--- NOTE | 2023-12-30 14:06 | MHC.CLN ---
Re: CONSULT pt referred for diabetic education with a1c level 14%. reviewed foods that affect blood sugar ie Carbohydrates, dairy products and fruit/juices. Pt reports he does consume soda and juices often-willing to switch to zero calorie soda at this time. Pt has not seen provider in over 15 years. Recommend referral to out patient RD for future F/U and re-enforcement, handout with RD names and contact info given to pt see teaching record
[2023-12-30] MEDS: glipiZIDE XL 5 MG TAB.ER.24 PO (15:38)
[2023-12-30 16:01] LABS: Glucose, Whole Blood 334 mg/dL (60-115)
[2023-12-30 21:58] LABS: Glucose, Whole Blood 173 mg/dL (60-115)
[2023-12-30] MEDS: Insulin Glargine,Hum.rec.anlog 100 UNIT/ML 10 ML VIAL 25 UNIT SUBCUT (23:24)
[2023-12-30 23:40] LABS: Glucose, Whole Blood 198 mg/dL (60-115)
[2023-12-31] VITALS: BP 167/85; PULSE 85; RESP 20; TEMP 36.3; O2SAT 94
[2023-12-31] MEDS: 0.9 % Sodium Chloride Flush 3 ML SYRINGE IVFLUSH ×2 (00:29→08:09)
[2023-12-31 04:00] VITALS: BP 103/60; PULSE 92; RESP 18; TEMP 36.1; O2SAT 96
[2023-12-31 06:58] LABS: Glucose, Whole Blood 213 mg/dL (60-115)
[2023-12-31 07:24] VITALS: BP 159/84; PULSE 85; RESP 20; TEMP 36.2; O2SAT 96
[2023-12-31 08:07] VITALS: BP 159/84
[2023-12-31] MEDS: PHENobarbitaL 15 MG TABLET 45 MG PO (08:07)
[2023-12-31] MEDS: Magnesium Oxide 400 MG TABLET PO (08:07)
[2023-12-31] MEDS: amLODIPine Besylate 5 MG TABLET PO (08:07)
[2023-12-31] MEDS: Thiamine HCL 100 MG in 0.9 % Sodium Chloride 100 ML 202 MG IV (08:08)
[2023-12-31] MEDS: glipiZIDE XL 5 MG TAB.ER.24 PO (08:08)
[2023-12-31] MEDS: Folic Acid 1 MG in 0.9 % Sodium Chloride 50 ML 100.4 MG IV (08:09)
[2023-12-31] MEDS: Insulin Lispro 100 UNIT/ML 3 ML VIAL SUBCUT ×2 (08:10→12:05)
--- NOTE | 2023-12-31 10:47 | HO.ADDICT_ITS ---
History of Present Illness Date of Service: 12/31/2023 Chief Complaint: Hypertensive urgency, etoh withdrawal, neo Reason for Consult: alcohol use disorder Sources of Information: patient interviewed and chart reviewed HPI Narrative: Patient is a 48 year old male who presented to ED seeking treatment for AUD and ultimately admitted with hypertensive urgency and alcohol withdrawal. Patient seen in room 473. He is awake, alert, and engaged in interview. He reports he has been drinking daily for the last 15 years. Several shots of vodka along with High Noon seltzers after work. Over the last 2 years he has been getting several warnings from work related to attendance and just prior to admission he was told that unless he sought treatment he could not return to work. Denies any history of treatment for AUD. Has attempted to stop on his own several time, but becomes tremulous and anxious and begins drinking again. Denies any history of alcohol withdrawal seizures. Denies family history of AUD Denies any other substance use Denies any BH history States that he is single and lives alone Employed FT at a [employer] (unsure if he still has a job) Reporting that his goal is to completely abstain from alcohol and would like to enter treatment Review of Systems Constitutional: Reports lethargy and Reports malaise Psychiatric: Reports depression, Reports difficulty concentrating, Reports anhedonia and Denies suicidal ideation Diagnostics Vital Signs (24Hr): Vital Signs - 24 hr 12/30/23 11:10 12/30/23 15:44 12/30/23 15:48 Temperature 98.1 F 97.3 F Pulse Rate 86 86 Respiratory Rate 20 18 Blood Pressure 133/71 181/87 H 156/88 H Pulse Oximetry 96 95 Oxygen Delivery Method Room Air Room Air 12/30/23 19:59 12/31/23 00:00 12/31/23 04:00 Temperature 97.6 F 97.3 F 97.0 F Pulse Rate 87 85 92 Respiratory Rate 18 20 18 Blood Pressure 133/73 167/85 H 103/60 Pulse Oximetry 97 94 96 Oxygen Delivery Method Room Air Room Air Room Air 12/31/23 07:24 12/31/23 08:07 Temperature 97.2 F Pulse Rate 85 Respiratory Rate 20 Blood Pressure 159/84 H 159/84 H Pulse Oximetry 96 Oxygen Delivery Method Room Air BMI result Body Mass Index 32.4 Labs 12/30/23 06:00 12/30/23 06:00 Labs: Laboratory Results - last 48 hr 12/29/23 12/29/23 12/29/23 12:13 12:36 14:17 WBC 7.7 RBC 4.15 L Hgb 12.9 L Hct 36.9 L MCV 88.9 MCH 31.1 MCHC 35.0 RDW 11.5 Plt Count 137 L MPV 10.7 Immature Gran % (Auto) 0.4 Neut % (Auto) 71.7 Lymph % (Auto) 17.9 L [place] % (Auto) 8.7 Eos % (Auto) 0.5 Baso % (Auto) 0.8 Lymph # (Auto) 1.4 [place] # (Auto) 0.7 Eos # (Auto) 0.0 Baso # (Auto) 0.1 Abs Immat Gran (auto) 0.03 Absolute Neuts (auto) 5.5 Absolute Nucleated RBC 0.000 Nucleated RBC % (auto) 0.0 Sodium 130 L Potassium 4.7 Chloride 90 L Carbon Dioxide 28 Anion Gap 17 BUN 25 H Creatinine 1.94 H Estim Creat Clear Calc 46.5 Estimated GFR 37 POC Glucose 509 H* 362 H* Random Glucose 516 H* Estimat Average Glucose Hemoglobin A1c % Calcium 9.8 Magnesium Total Bilirubin 1.7 H AST 61 H ALT 50 H Alkaline Phosphatase 115 Total Protein 8.7 H Albumin 4.0 Beta-Hydroxybutyrate 0.39 H Urine Color Urine Appearance Urine pH Ur Specific [place] Urine Protein Urine Glucose (UA) Urine Ketones Urine Blood Urine Nitrite Ur Leukocyte Esterase Urine RBC Urine WBC Ur Squamous Epith Cells Urine Bacteria Hyaline Casts Urine Opiates Screen Ur Buprenorphine Scrn Ur Oxycodone Screen Urine Methadone Screen Urine Fentanyl Screen Ur Barbiturates Screen Ur Phencyclidine Scrn Ur Amphetamines Screen U Benzodiazepines Scrn Urine Cocaine Screen U Marijuana (THC) Screen Ethyl Alcohol < 10 12/29/23 12/29/23 12/29/23 14:57 14:58 15:42 WBC RBC Hgb Hct MCV MCH MCHC RDW Plt Count MPV Immature Gran % (Auto) Neut % (Auto) Lymph % (Auto) [place] % (Auto) Eos % (Auto) Baso % (Auto) Lymph # (Auto) [place] # (Auto) Eos # (Auto) Baso # (Auto) Abs Immat Gran (auto) Absolute Neuts (auto) Absolute Nucleated RBC Nucleated RBC % (auto) Sodium Potassium Chloride Carbon Dioxide Anion Gap BUN Creatinine Estim Creat Clear Calc Estimated GFR POC Glucose 273 H Random Glucose Estimat Average Glucose Hemoglobin A1c % Calcium Magnesium Total Bilirubin AST ALT Alkaline Phosphatase Total Protein Albumin Beta-Hydroxybutyrate Urine Color Yellow Urine Appearance Turbid Urine pH 6.5 Ur Specific [place] 1.015 Urine Protein 100 (2+) H Urine Glucose (UA) >=1000 H Urine Ketones Negative Urine Blood Moderate (2+) H Urine Nitrite Negative Ur Leukocyte Esterase Large (3+) H Urine RBC 3-5 H Urine WBC >50 H Ur Squamous Epith Cells 6-10 Urine Bacteria 3+ Hyaline Casts 0-2 Urine Opiates Screen Not Detected Ur Buprenorphine Scrn Not Detected Ur Oxycodone Screen Not Detected Urine Methadone Screen Not Detected Urine Fentanyl Screen Not Detected Ur Barbiturates Screen Not Detected Ur Phencyclidine Scrn Not Detected Ur Amphetamines Screen Not Detected U Benzodiazepines Scrn Not Detected Urine Cocaine Screen Not Detected U Marijuana (THC) Screen Not Detected Ethyl Alcohol 12/29/23 12/29/23 12/29/23 15:54 17:33 18:28 WBC RBC Hgb Hct MCV MCH MCHC RDW Plt Count MPV Immature Gran % (Auto) Neut % (Auto) Lymph % (Auto) [place] % (Auto) Eos % (Auto) Baso % (Auto) Lymph # (Auto) [place] # (Auto) Eos # (Auto) Baso # (Auto) Abs Immat Gran (auto) Absolute Neuts (auto) Absolute Nucleated RBC Nucleated RBC % (auto) Sodium 140 Potassium 4.7 Chloride 101 Carbon Dioxide 30 H Anion Gap 14 BUN 22 H Creatinine 1.52 H Estim Creat Clear Calc 59.4 Estimated GFR 49 POC Glucose 271 H Random Glucose 301 H Estimat Average Glucose TNP Hemoglobin A1c % > 14.0 H Calcium 9.6 Magnesium 1.3 L* Total Bilirubin AST ALT Alkaline Phosphatase Total Protein Albumin Beta-Hydroxybutyrate Urine Color Urine Appearance Urine pH Ur Specific [place] Urine Protein Urine Glucose (UA) Urine Ketones Urine Blood Urine Nitrite Ur Leukocyte Esterase Urine RBC Urine WBC Ur Squamous Epith Cells Urine Bacteria Hyaline Casts Urine Opiates Screen Ur Buprenorphine Scrn Ur Oxycodone Screen Urine Methadone Screen Urine Fentanyl Screen Ur Barbiturates Screen Ur Phencyclidine Scrn Ur Amphetamines Screen U Benzodiazepines Scrn Urine Cocaine Screen U Marijuana (THC) Screen Ethyl Alcohol 12/29/23 12/29/23 12/30/23 20:51 21:35 06:00 WBC 7.3 RBC 3.63 L Hgb 11.2 L Hct 32.4 L MCV 89.3 MCH 30.9 MCHC 34.6 RDW 11.1 Plt Count 92 L D MPV 10.6 Immature Gran % (Auto) 0.3 Neut % (Auto) 59.4 Lymph % (Auto) 29.7 [place] % (Auto) 9.2 Eos % (Auto) 0.8 Baso % (Auto) 0.6 Lymph # (Auto) 2.2 [place] # (Auto) 0.7 Eos # (Auto) 0.1 Baso # (Auto) 0.0 Abs Immat Gran (auto) 0.02 Absolute Neuts (auto) 4.3 Absolute Nucleated RBC 0.000 Nucleated RBC % (auto) 0.0 Sodium 134 L Potassium 3.7 D Chloride 99 Carbon Dioxide 27 Anion Gap 12 BUN 20 H Creatinine 1.25 Estim Creat Clear Calc 72.2 Estimated GFR > 60 POC Glucose 345 H 292 H Random Glucose 255 H Estimat Average Glucose Hemoglobin A1c % Calcium 9.1 Magnesium 1.6 Total Bilirubin AST ALT Alkaline Phosphatase Total Protein Albumin Beta-Hydroxybutyrate Urine Color Urine Appearance Urine pH Ur Specific [place] Urine Protein Urine Glucose (UA) Urine Ketones Urine Blood Urine Nitrite Ur Leukocyte Esterase Urine RBC Urine WBC Ur Squamous Epith Cells Urine Bacteria Hyaline Casts Urine Opiates Screen Ur Buprenorphine Scrn Ur Oxycodone Screen Urine Methadone Screen Urine Fentanyl Screen Ur Barbiturates Screen Ur Phencyclidine Scrn Ur Amphetamines Screen U Benzodiazepines Scrn Urine Cocaine Screen U Marijuana (THC) Screen Ethyl Alcohol 12/30/23 12/30/23 12/30/23 06:54 10:44 15:39 WBC RBC Hgb Hct MCV MCH MCHC RDW Plt Count MPV Immature Gran % (Auto) Neut % (Auto) Lymph % (Auto) [place] % (Auto) Eos % (Auto) Baso % (Auto) Lymph # (Auto) [place] # (Auto) Eos # (Auto) Baso # (Auto) Abs Immat Gran (auto) Absolute Neuts (auto) Absolute Nucleated RBC Nucleated RBC % (auto) Sodium Potassium Chloride Carbon Dioxide Anion Gap BUN Creatinine Estim Creat Clear Calc Estimated GFR POC Glucose 231 H 344 H 334 H Random Glucose Estimat Average Glucose Hemoglobin A1c % Calcium Magnesium Total Bilirubin AST ALT Alkaline Phosphatase Total Protein Albumin Beta-Hydroxybutyrate Urine Color Urine Appearance Urine pH Ur Specific [place] Urine Protein Urine Glucose (UA) Urine Ketones Urine Blood Urine Nitrite Ur Leukocyte Esterase Urine RBC Urine WBC Ur Squamous Epith Cells Urine Bacteria Hyaline Casts Urine Opiates Screen Ur Buprenorphine Scrn Ur Oxycodone Screen Urine Methadone Screen Urine Fentanyl Screen Ur Barbiturates Screen Ur Phencyclidine Scrn Ur Amphetamines Screen U Benzodiazepines Scrn Urine Cocaine Screen U Marijuana (THC) Screen Ethyl Alcohol 12/30/23 12/30/23 12/31/23 21:32 23:32 06:54 WBC RBC Hgb Hct MCV MCH MCHC RDW Plt Count MPV Immature Gran % (Auto) Neut % (Auto) Lymph % (Auto) [place] % (Auto) Eos % (Auto) Baso % (Auto) Lymph # (Auto) [place] # (Auto) Eos # (Auto) Baso # (Auto) Abs Immat Gran (auto) Absolute Neuts (auto) Absolute Nucleated RBC Nucleated RBC % (auto) Sodium Potassium Chloride Carbon Dioxide Anion Gap BUN Creatinine Estim Creat Clear Calc Estimated GFR POC Glucose 173 H 198 H 213 H Random Glucose Estimat Average Glucose Hemoglobin A1c % Calcium Magnesium Total Bilirubin AST ALT Alkaline Phosphatase Total Protein Albumin Beta-Hydroxybutyrate Urine Color Urine Appearance Urine pH Ur Specific [place] Urine Protein Urine Glucose (UA) Urine Ketones Urine Blood Urine Nitrite Ur Leukocyte Esterase Urine RBC Urine WBC Ur Squamous Epith Cells Urine Bacteria Hyaline Casts Urine Opiates Screen Ur Buprenorphine Scrn Ur Oxycodone Screen Urine Methadone Screen Urine Fentanyl Screen Ur Barbiturates Screen Ur Phencyclidine Scrn Ur Amphetamines Screen U Benzodiazepines Scrn Urine Cocaine Screen U Marijuana (THC) Screen Ethyl Alcohol Imaging Radiology Impressions: ITS Impressions Duplex Scan Lower Extremity Artery 12/29/23 18:17 IMPRESSION: No hemodynamically significant stenosis in the right lower extremity. Mental Status Exam Mental Status Exam Level of Consciousness: Awake and Appropriate Patient Behavior: Appropriate Mood Description: Flat Affect Description: Flat Speech Pattern: Clear Medications Medications Current Medications Acetaminophen (Acetaminophen 325 Mg Tablet) 650 mg PO Q6H PRN PRN Reason: Pain, Mild (Pain Scale 1-3), fever or headache Amlodipine Besylate (Amlodipine Besylate 5 Mg Tablet) 5 mg PO DAILY AY[facility]; Protocol Last Admin: 12/31/23 08:07 Dose: 5 mg Calcium Carbonate (Calcium Carbonate 750 Mg Tab.Chew) 750 mg PO Q4H PRN PRN Reason: Heartburn Glipizide (Glipizide Xl 5 Mg Tab.Er.24) 5 mg PO DAILY [facility] Last Admin: 12/31/23 08:08 Dose: 5 mg Glucose (Glucose Gel 15 Gm Gel..Gram.) 15 gm PO Q15M PRN; Protocol PRN Reason: per Hypoglycemia Standing Ord. Thiamine HCl 100 mg/ Sodium (Chloride) 101 mls @ 202 mls/hr IV DAILY [facility] Last Infusion: 12/31/23 09:09 Dose: Infused Dextrose (D10) 250 mls @ 750 mls/hr IV Q15M PRN; Protocol PRN Reason: per Hypoglycemia Standing Ord. Ceftriaxone Sodium 1 gm/ (Sodium Chloride) 50 mls @ 100 mls/hr IV Q24H [facility] Insulin Glargine (Insulin Glargine,Hum.Rec.Anlog 100 Unit/Ml 10 Ml Vial) 25 unit SUBCUT BEDTIME [facility] Last Admin: 12/30/23 23:24 Dose: 25 unit Insulin Human Lispro (Insulin Lispro 100 Unit/Ml 3 Ml Vial) 0 unit SUBCUT QIDACHS [facility]; Protocol Last Admin: 12/31/23 08:10 Dose: 4 unit Magnesium Hydroxide (Milk Of Magnesia 30 Ml Oral.Susp) 30 ml PO DAILY PRN PRN Reason: Constipation Magnesium Oxide (Magnesium [facility]ide 400 Mg Tablet) [facility] Last Admin: 12/31/23 08:07 Dose: 400 mg Melatonin (Melatonin 3 Mg Tablet) 6 mg PO BEDTIME PRN PRN Reason: Insomnia Pharmacy Consult (Consult Rx Etoh Phenob Im/Po) 1 each MISCELLANE ONCE PRN; Protocol PRN Reason: Consult order Phenobarbital (Phenobarbital 15 Mg Tablet) 45 mg PO BID [facility] Stop: 12/31/23 21:01 Last Admin: 12/31/23 08:07 Dose: 45 mg Phenobarbital (Phenobarbital 30 Mg Tablet) 30 mg PO BID [facility] Stop: 01/02/24 21:01 Phenobarbital (Phenobarbital 15 Mg Tablet) 15 mg PO DAILY [facility] Stop: 01/04/24 09:01 Sodium Chloride (0.9 % Sodium Chloride Flush 3 Ml Syringe) 3 ml IVFLUSH QSHIFT [facility] Last Admin: 12/31/23 08:09 Dose: 3 ml Allergies Allergies Allergy/AdvReac Type Severity Reaction Status Date / Time No Known Allergies Allergy Unverified 12/29/23 12:11 Assessment & Plan Assessment & Plan (1) Alcohol use disorder, severe, dependence: Status: Acute Code(s): F10.20 - Alcohol dependence, uncomplicated Assessment and Plan: * per hospitalist medically cleared * referrals to be placed for continuation of ATS * additional resources provided to patient to review Total time managing care of this patient today _45___ minutes. PMFSH Past Medical History Medical History Alcohol use disorder Hypertension Type 2 diabetes mellitus Social History Social History Household Members: None Housing: Apartment Do you presently have visiting nurse or other home services: No Patient Tobacco Use Status: Never used Tobacco service: No
[2023-12-31 11:02] LABS: Glucose, Whole Blood 333 mg/dL (60-115)
[2023-12-31 11:10] VITALS: BP 174/88; PULSE 85; RESP 18; TEMP 36.2; O2SAT 95
--- NOTE | 2023-12-31 14:52 | MHC.RECOVRN ---
Met with pt in 473 to discuss ATS placement. Pts insurance is accepted at [facility]. T/w and pt both spoke with [facility] rep, James, who reports pt can obtain bed at ATS tomorrow 12/31. [place] plan for pt to dc today to go home and gather clothes/belongings. Pt to call James at [phone] at 8 am to schedule transportation to facility. Pt denies questions or concerns. Luna Vergara APRN, as well as provider aware.
--- NOTE | 2023-12-31 15:10 | MHC.CM.PN ---
Pt has been medically cleared for DC, he will go home via private transport, self care.
--- NOTE | 2023-12-31 15:49 | PM.DS ---
DS: Providers Provider Date of Service: 12/31/23 Date of admission: 12/29/23 16:51 Primary care physician: None Physician Consults: 12/29/23 14:03 Addiction Medicine Stat Consulting Provider: Addiction Covering Reason for consultation: seeking detox from etoh 12/29/23 16:55 Consult to Wound Care Routine Reason for consultation: non healing wounds RLE 12/29/23 17:24 Addiction Medicine Routine Consulting Provider: Addiction Covering Reason for consultation: etoh use disorder, desires detox 12/31/23 05:57 Consult to Wound Care Routine Reason for consultation: blisters to fingers, non-healing ulcers to [place] and foot DS: Diagnosis Discharge Diagnosis (1) Alcohol use disorder, severe, dependence: Status: Acute DS: Summary Hospital Course Hospital Course: Date of Service: 12/29/23 Attending physician on admission: Maral David Chief Complaint: alcohol detox 48-year-old male with history of uncontrolled type 2 diabetes, hypertension, alcohol use disorder who has been noncompliant with outpatient follow-up and has not seen a provider in 15 years presented to the ED earlier today desiring alcohol detox. He reports that he has been drinking nearly at least a fifth of vodka daily and alcoholic seltzers on a daily basis. He states he will drink throughout the day if he has no where to be but otherwise only drinks after work. He denies history of alcohol withdrawal, w/d seizures, or DTs. He states he has been increasingly weak and lightheadedness and today his job told him he could not safely work and needed FMLA paperwork so that he could manage his uncontrolled medical issues. Otherwise he has no complaints. Denies symptoms of current withdrawal. No fevers, chills, abdominal pain, nausea, vomiting, diarrhea, urinary symptoms, melena, hematochezia, cough, shortness of breath, palpitations, syncope, or chest pains. Since arrival, has been hypertensive to 205/111 improved to 187/96 on admission. Mild tachycardia of 104, vitals otherwise stable. Hematology studies show a normocytic anemia with H/H 12.9/36.9%. On arrival, creatinine 1.94, baseline unknown, improved to 1.52 with 3 L IVF. Initial sodium 130 improved to 140. Glucose on arrival 509, improved to 301 on admission following IV fluids and 10 units regular insulin. No evidence of acidosis or elevated anion gap. Total bilirubin 1.7, AST 61, ALT 50. Urinalysis significant for 3+ leukocytes, 2+ blood, negative nitrites, significant glucose, 2+ protein, positive urinary sediment with 6-10 squamous epithelial cells, 3+ bacteria. In ED, has been given 1 g ceftriaxone, 2 mg Ativan, 10 units regular insulin, and 3 L IVF. Hospital course: 48-year-old male with history of uncontrolled type 2 diabetes, hypertension, alcohol use disorder who has been noncompliant with outpatient follow-up and has not seen a provider in 15 years admitted for further management of CONSTANCE, diabetes mellitus with hyperglycemia, hypertensive urgency, and acute alcohol withdrawal. #Acute kidney injury- likely prerenal in the setting of hyperglycemia resolved with IV fluids. #Alcohol use disorder with alcohol withdrawal, admitted to medical floor treated with phenobarb protocol thiamine and folic acid seen by Addiction Team ,and arrangements have been made for inpatient detox patient will be picked up by [facility] tomorrow for detox. # in regard to Hypertensive urgency likely due to alcohol withdrawal and longstanding uncontrolled hypertension patient treated with amlodipine 5 mg with good affect he might benefit with TIM inhibitors that were deferred due to CONSTANCE. #Uncontrolled type 2 diabetes with hyperglycemia, patient aware of history of diabetes but was not taking medication has not seen a physician in last 15 years no DKA noted hemoglobin A1c greater than 14 patient placed on Lantus 25 units nightly and glipizide 10 mg daily he receive nutrition consult, patient given teaching staff to administer insulin and check blood sugars but he has not comfortable to check blood sugar 3 times a day and use pre meal insulin recommend close outpatient follow-up with primary care physician for medication adjustment. # acute hypo magnesemia likely due to poor nutrition repleted and being discharged on Mag oxide 400 b.i.d. #Asymptomatic bacteriuria, urine culture grew strep agalactie will finish course of antibiotic for 7 days. #Thombocytopenia- likely chronic in setting of alcohol use. Time Attestation Discharge Coordination Time (in mins): 38 Quality: Safe Use of Opioids Does Pt have an Active Cancer Diagnosis on the Problem List?: No Quality: Stroke Does the patient have a stroke diagnosis?: No Physical Exam Vital Signs: Vital Signs: Last Vital Signs Temp 97.1 F 12/31/23 11:10 Pulse 85 12/31/23 11:10 Resp 18 12/31/23 11:10 BP 174/88 H 12/31/23 11:10 Pulse Ox 95 12/31/23 11:10 O2 Del Method Room Air 12/31/23 11:10 BMI result Body Mass Index 32.4 Const: Other: General awake alert x3, in no acute distress. Neck supple no JVD. CVS regular rate rhythm, Respiratory lungs clear to auscultation, no respiratory distress, no wheeze, no rhonchi. Gastrointestinal abdomen soft, non tender, bowel sounds audible. Extremities no edema. Neuro non focal Psych appropriate affect DS: Data Data Completed and Pending Labs on day of discharge: Laboratory Results - last 24 hr 12/30/23 12/30/23 12/30/23 15:39 21:32 23:32 POC Glucose 334 H 173 H 198 H 12/31/23 12/31/23 06:54 10:58 POC Glucose 213 H 333 H Preliminary micro results at discharge 12/29/23 18:45 Blood Culture - Preliminary Blood - Venous No growth after 24 hours. 12/29/23 17:19 Blood Culture - Preliminary Blood - Venous No growth after 24 hours. Discharge Plan Discharge Anticipated Discharge Date/Time: 12/31/23 14:43 Patient Disposition: Home, Self-Care Discharge Diagnosis: Diabetes mellitus with hyperglycemia Alcohol use disorder with alcohol withdrawal Hypertensive urgency Acute kidney injury Referrals: Physician,None [Primary Care Provider] - 1 Week Discharge Medications: New amlodipine 5 mg Tablet 5 mg PO DAILY Qty: 30 0RF Protocol: Hold for SBP< HOLD for SBP < : 90 magnesium oxide 400 mg (241.3 mg magnesium) Tablet 400 mg PO BIDPC Qty: 60 0RF cephalexin 500 mg capsule 500 mg PO Q8H Qty: 15 0RF glipizide 10 mg tablet extended release 24hr 10 mg PO DAILY Qty: 30 0RF (DME) FreeStyle Lite Strips Strip Qty: 100 0RF Rx Instructions: Test four times a day or as directed. (DME) blood-glucose meter [FreeStyle Lite Meter] Kit Qty: 1 0RF Rx Instructions: As Directed alcohol swabs Pads, Medicated 1 pad TOPICAL QIDACHS Qty: 100 0RF Rx Instructions: Use four times a day or as directed. (DME) pen needle, diabetic 32 gauge x 1/4 needle Qty: 100 0RF Rx Instructions: Use four times a day or as directed. (DME) lancets [FreeStyle Lancets] 28 gauge misc Qty: 100 0RF Rx Instructions: Test four times a day or as directed. insulin glargine [Lantus Solostar U-100 Insulin] 100 unit/mL (3 mL) Insulin Pen 25 unit SUBCUT QPM Qty: 15 2RF Discharge Orders: Discharge Order (Routine); Ordered 12/31/23 Ordered By: Maral David Diet: Diabetic diet Activity on Discharge: As tolerated Stand Alone Forms: Patient Portal Discharge page Print Language: Citizen Of [place] Care Plan Goals: Monitor blood sugars before meals 3 times a day and document in a diary for PCP Take Lantus 25 units at bedtime and glipizide 10 mg daily follow diabetic diet Take Keflex for urine infection Take Norvasc for blood pressure Health Concerns: Alcohol use disorder , recommend complete abstinence from alcohol Will be picked up by ad care at a.m. Plan of Treatment: Outpatient follow-up with primary care physician call for appointment in next 2-3 weeks Assessment: As above
[2023-12-31 16:00] VITALS: BP 157/84; PULSE 87; RESP 18; TEMP 36.6; O2SAT 94
[2023-12-31 16:24] LABS: Glucose, Whole Blood 258 mg/dL (60-115)
== END 2023-12-31 16:55 | disposition home or self-care (01) | DRG 425 ==
LOC: HO.ED 16:34 → HO.EDOVER 17:17 → HO.IMC 19:25
PROVIDERS: Physician Assistant; Physician Assistant Medical; Admitting Provider Physician Assistant; Emergency Provider Emergency Medicine Emergency Medical Services; Visit Provider Hospitalist
DX: E83.42 Hypomagnesemia (principal); N17.9 Acute kidney failure, unspecified; E11.51 Type 2 diabetes mellitus with diabetic peripheral angiopathy without gangrene; D69.59 Other secondary thrombocytopenia; L89.899 Pressure ulcer of other site, unspecified stage; E11.65 Type 2 diabetes mellitus with hyperglycemia; F10.239 Alcohol dependence with withdrawal, unspecified; L97.819 Non-pressure chronic ulcer of other part of right lower leg with unspecified severity; I10 Essential (primary) hypertension; I16.0 Hypertensive urgency; L84 Corns and callosities; Z91.199 Patient's noncompliance with other medical treatment and regimen due to unspecified reason; Z91.148 Patient's other noncompliance with medication regimen for other reason; Z79.899 Other long term (current) drug therapy
CPT/HCPCS: 36415; 80048; 80053; 80307; 81001; 82010; 82947; 83036; 83735; 85025; 87040; 87086; 87147; 93005; 93926; 99285; J0696; J1650; J2560; J3411; J3475

== ENCOUNTER → 2023-12-29 16:08 | Outpatient (BNV) | payer MEDICAID, SELFPAY | PROVIDERS: Admitting Provider Physician Assistant; Emergency Provider Emergency Medicine Emergency Medical Services; Visit Provider Internal Medicine Cardiovascular Disease | DX: R94.31 Abnormal electrocardiogram [ECG] [EKG] (principal) | CPT/HCPCS: 93010 ==

== ENCOUNTER → 2023-12-29 16:51 | Outpatient (BNV) | payer MEDICAID, SELFPAY | PROVIDERS: Admitting Provider Physician Assistant; Emergency Provider Emergency Medicine Emergency Medical Services; Visit Provider Physician Assistant | DX: E11.65 Type 2 diabetes mellitus with hyperglycemia (principal); I16.0 Hypertensive urgency; N17.9 Acute kidney failure, unspecified; F10.939 Alcohol use, unspecified with withdrawal, unspecified | CPT/HCPCS: 99223; 99233; 99239 ==

== ENCOUNTER → 2023-12-29 16:51 | Outpatient (BNV) | payer MEDICAID, SELFPAY | PROVIDERS: Admitting Provider Physician Assistant; Emergency Provider Emergency Medicine Emergency Medical Services; Visit Provider Nurse Practitioner Psychiatric/Mental Health | DX: F10.20 Alcohol dependence, uncomplicated (principal) | CPT/HCPCS: 99232 ==

== ENCOUNTER 2024-01-21 10:59 | Inpatient (IN) | payer OTHER, SELFPAY ==
[2024-01-21] VITALS (8 sets, daily range): BP systolic 105–179; BP diastolic 66–89; PULSE 92–104; RESP 15–26; TEMP 36.8–38.1; O2SAT 95–100
--- NOTE | ~2024-01-21 | CT_ITS ---
EXAMINATION: CT PELVIS WITHOUT CONTRAST CLINICAL INFORMATION: Scrotal abscess. COMPARISON: Ultrasound same day. CT abdomen and pelvis 12/22/2023. TECHNIQUE: Helical scanning was performed with submillimeter collimation through the pelvis. Sagittal and coronal multiplanar 2-D reconstructions were obtained. This CT examination was performed using dose optimization techniques as appropriate, variously including the following: *Automated exposure control *Adjustment of mA and/or kV according to patient size (this includes techniques or standardized protocols for targeted exams where dose is matched to indication/reason for exam; i.e. extremities or head) *Use of iterative reconstruction technique DLP: 431 mGy-cm FINDINGS: Significant scrotal skin thickening and edema. There is an ill-defined collection with numerous small locules of air in the left hemiscrotum extending posteriorly to the perineum and right gluteal region. Measuring approximately 3.9 cm in depth by 1.6 cm in width and approximately 12 cm in anterior to posterior length. This appears to be contained within the superficial subcutaneous tissues and not within the deep pelvis. No discrete fistula to the anorectal tissues but this would need to be correlated clinically There are mildly enlarged bilateral inguinal lymph nodes which are presumably reactive. Diffuse bladder wall thickening. Prostate appears normal in size. Visualized small and large bowel are normal in caliber with no acute inflammatory changes demonstrated. CT/CT pelvis wo IV con IMPRESSION: Diffuse cellulitis of the scrotum, perineum, and right gluteal region with a 3.9 x 1.6 x 2 12 cm air-filled collection concerning for gas-forming organism. This appears to be confined to the subcutaneous tissues without involvement of the musculature or deep pelvic tissues. No discrete anorectal fistula is seen but this needs to be correlated clinically.
--- NOTE | ~2024-01-21 | CT_ITS ---
EXAMINATION: CT ABDOMEN AND PELVIS WITHOUT CONTRAST CLINICAL INFORMATION: Abdominal pain COMPARISON: None available. TECHNIQUE: Multidetector volumetric imaging was performed from the superior aspect of the liver through the pubic symphysis. Sagittal and coronal reformatted images were obtained on the technologist's workstation. This CT examination was performed using dose optimization techniques as appropriate, variously including the following: *Automated exposure control *Adjustment of mA and/or kV according to patient size (this includes techniques or standardized protocols for targeted exams where dose is matched to indication/reason for exam; i.e. extremities or head) *Use of iterative reconstruction technique DLP: 554 mGy-cm FINDINGS: LUNG BASES: The visualized lung bases are unremarkable. LIVER, GALLBLADDER, AND BILIARY TREE: The liver is normal in size, shape, and attenuation. No focal hepatic lesion or biliary ductal dilatation is present. There are small calcified gallstones layer dependently in the gallbladder. Sludge within the gallbladder. No edema around the gallbladder. No dilatation of the bile ducts. PANCREAS: Unremarkable. SPLEEN: Unremarkable. ADRENAL GLANDS: Unremarkable. KIDNEYS AND URETERS: The kidneys are normal in size, shape, and attenuation. No hydronephrosis, hydroureter, or calculi seen. No perinephric stranding. BLADDER: Unremarkable. GASTROINTESTINAL TRACT: The small and large bowel are unremarkable. The appendix is unremarkable. ABDOMINAL WALL: No significant hernia is appreciated. LYMPH NODES: There are borderline lymph nodes in the groin bilaterally. VASCULAR: Vascular wall calcifications of aorta and iliac arteries. There is no aneurysm. PELVIC VISCERA: Unremarkable. OSSEOUS STRUCTURES: Unremarkable. CT/CT abdomen pelvis wo IV con IMPRESSION: No significant abnormality. Fleischner guidelines were followed.
--- NOTE | ~2024-01-21 | CT_ITS ---
EXAMINATION: CT CHEST WITHOUT CONTRAST CLINICAL INFORMATION: Cough and fever COMPARISON: None available. TECHNIQUE: Multidetector volumetric CT imaging of the chest was done. Axial MIP volume rendering provided. Sagittal and coronal reformatted images were obtained. This CT examination was performed using dose optimization techniques as appropriate, variously including the following: *Automated exposure control *Adjustment of mA and/or kV according to patient size (this includes techniques or standardized protocols for targeted exams where dose is matched to indication/reason for exam; i.e. extremities or head) *Use of iterative reconstruction technique DLP: 161 mGy-cm FINDINGS: FASHION PATTERNMAKER: Unremarkable LUNGS: The lungs are clear with no evidence of inflammation or nodules. MEDIASTINUM: The mediastinum is normal. CORONARY ARTERY CALCIFICATION: Mild PLEURA: There is no pleural effusion. No pleural mass or thickening. AXILLA: No lymphadenopathy. UPPER ABDOMEN: Unremarkable. OSSEOUS STRUCTURES: Unremarkable. CT/CT chest wo IV con IMPRESSION: Unremarkable examination. Fleischner guidelines were followed.
--- NOTE | ~2024-01-21 | US_ITS ---
EXAMINATION: US SCROTUM CLINICAL INFORMATION: Scrotal abscess. COMPARISON: CT pelvis same day. TECHNIQUE: A sonogram of the scrotum was performed assessing wright-scale appearance and color Doppler flow. Spectral Doppler analysis of the arterial and venous flow were performed in the testes bilaterally. FINDINGS: RIGHT: Right testicle measures 4.5 x 2.1 x 3.2 cm, volume 15.9 mL. No focal testicular parenchymal lesions are visualized. Spectral Doppler analysis of the arterial and venous flow is normal in the right testis. Small right epididymal head cyst measuring 4 mm. No right hydrocele or varicocele is seen. Right epididymal Doppler flow is normal. LEFT: Left testicle measures 4.2 x 2.2 x 3.3 cm, volume 15.7 mL. No focal testicular parenchymal lesions are visualized. Spectral Doppler analysis of the arterial and venous flow is normal in the left testis. Small left epididymal head cyst measuring 3 mm. No left hydrocele or varicocele is seen. Left epididymal Doppler flow is normal. Left scrotal skin thickening within ill-defined heterogeneous collection with echogenic reflectors and 30 shadowing consistent with air. Findings are consistent with reported scrotal abscess. This measures at least 2.6 x 4.5 cm. Depth is difficult to discern due to the acoustic shadowing from the air. US/US scrotum IMPRESSION: Collection of air in the left hemiscrotum consistent with reported history of abscess. Correlation with physical exam is recommended. If there is no opening to the skin surface, gas-forming organism is suspected.
--- NOTE | ~2024-01-21 | XR_ITS ---
EXAMINATION: XR CHEST CLINICAL INFORMATION: Shortness of breath. COMPARISON: None available. TECHNIQUE: Frontal view of the chest was obtained. FINDINGS: Lungs are well-inflated and clear. Trachea is midline in position. No interstitial disease, consolidation or mass. No pleural effusion or pneumothorax. Cardiac silhouette and pulmonary vessels are normal in size. The mediastinum and cassandra have normal contour. The visualized bones and upper abdomen are unremarkable. XR/XR chest 1V IMPRESSION: Lungs have a normal appearance. No acute cardiopulmonary abnormality.
--- NOTE | 2024-01-21 11:15 | ECG_ITS ---
Test Reason : weakness Blood Pressure : / mmHG Vent. Rate : 097 BPM Atrial Rate : 097 BPM P-R Int : 144 ms QRS Dur : 086 ms QT Int : 350 ms P-R-T Axes : 043 -40 025 degrees QTc Int : 444 ms Normal sinus rhythm Left axis deviation Pulmonary disease pattern Abnormal ECG When compared with ECG of 29-DEC-2023 16:58, No significant change was found Referred By: Generic ED Physician Electronically Signed By:Jitendra Barr
[2024-01-21 11:26] LABS: Glucose, Whole Blood 267 mg/dL (60-115)
[2024-01-21 11:50] LABS: Basophils Absolute Auto 0.1 X10*3/uL (0.0-0.2); Basophils Percent Auto 0.3 % (0-2); Eosinophils Absolute Auto 0.1 X10*3/uL (0.0-0.4); Eosinophils Percent Auto 0.3 % (0-4); Hematocrit 33.3 % (42.0-52.0); Hemoglobin 11.8 g/dl (14.0-18.0); Imm Gran Abs Auto 0.12 X10*3/uL (0.00-0.03); Imm Gran Pct Auto 0.6 % (0.0-0.4); Lymphocytes Absolute Auto 2.1 X10*3/uL (1.2-4.9); Lymphocytes Percent Auto 10.5 % (20-40); MANUAL DIFF FLAG SCAN; Mean Corpuscular HGB Conc 35.4 g/dl (31.0-36.0); Mean Corpuscular Hemoglobin 30.7 pg (27.0-33.0); Mean Corpuscular Volume 86.7 fL (80.0-98.0); Mean Platelet Volume 9.6 fL (9.4-12.4); Monocytes Absolute Auto 1.8 X10*3/uL (0.1-1.2); Monocytes Percent Auto 8.9 % (2-11); Neutrophils Absolute Auto 15.6 x10*3/uL (2.0-8.3); Neutrophils Percent Auto 79.4 % (45-73); Platelet Count 265 X10*3/uL (160-400); Red Blood Count 3.84 X10*6/uL (4.60-5.80); Red Cell Distribution Width 11.3 % (11.0-16.0); SCAN SMEAR FLAG 1; White Blood Count 19.6 X10*3/uL (4.8-10.8)
[2024-01-21 12:05] LABS: Beta-Hydroxybutyrate 1.25 mmol/L (0.02-0.27)
[2024-01-21 12:06] LABS: Alanine Aminotransferase 22 U/L (0-40); Albumin Level 3.5 g/dL (3.5-5.0); Alkaline Phosphatase 110 U/L (39-117); Anion Gap 15 (12-20); Aspartate Amino Transferase 30 U/L (5-37); Blood Urea Nitrogen 33 mg/dL (9-16); Calcium 9.8 mg/dL (8.4-10.2); Carbon Dioxide 25 mmol/L (22-29); Chloride 95 mmol/L (96-108); Creatinine Clr Calc Pharmacy 35.9; Estimated Glomerular Filt Rate 29; Glucose Random 285 mg/dL (60-115); Potassium 4.3 mmol/L (3.3-5.1); Sodium 131 mmol/L (135-145); Total Protein 8.1 g/dL (6.5-8.0)
[2024-01-21 12:17] LABS: SLIDE REVIEW VERIFIED
--- NOTE | 2024-01-21 12:33 | ED_ITS ---
HPI - Male Genitourinary General Chief complaint: Urogenital-Male Stated complaint: WEAK,BS 301,DIZZY PER EMS Time Seen by Provider: 01/21/24 12:08 History of Present Illness HPI Narrative: Patient is a 48-year-old male with a history of generalized malaise weakness. Positive history of urinary tract infection in the past. Patient has not been compliant with his medication on a daily basis. He drinks alcohol regularly. Slightly less than usual. Patient has not been checking his sugar or use his insulin. Has not been eating and feels generalized malaise. Patient is from home. Unable to urinate. Positive long history of coughing not new. Related Data Previous Rx's ?Medication ?Instructions ?Recorded alcohol swabs 1 pad topical QIDACHS #100 ea 12/31/23 amlodipine 5 mg tablet 5 mg PO DAILY #30 tabs 12/31/23 blood sugar diagnostic (FreeStyle #100 ea 12/31/23 Lite Strips) blood-glucose meter (FreeStyle #1 ea 12/31/23 Lite Meter kit) cephalexin 500 mg capsule 500 mg PO Q8H #15 caps 12/31/23 glipizide 10 mg tablet, extended 10 mg PO DAILY #30 tabs 12/31/23 release 24 hr insulin glargine 100 unit/mL (3 25 unit (0.25 mL) subcut QPM #15 mL 12/31/23 mL) subcutaneous pen (Lantus Solostar U-100 Insulin) lancets 28 gauge (FreeStyle #100 ea 12/31/23 Lancets) magnesium oxide 400 mg (241.3 mg 400 mg PO BIDPC #60 tabs 12/31/23 magnesium) tablet pen needle, diabetic 32 gauge x #100 ea 12/31/23 1/ Allergies Allergy/AdvReac Type Severity Reaction Status Date / Time No Known Allergies Allergy Verified 01/21/24 11:13 Review of Systems 2 Review of Systems: Positive generalized malaise weakness PMFSH Past Medical History Attestation statement: The following information was validated with the patient. Medical History Alcohol use disorder Hypertension Type 2 diabetes mellitus Social History Social History Household Members: None Housing: Apartment Do you presently have visiting nurse or other home services: No Alcohol intake: current Alcohol intake frequency: 3 or more drinks per day Alcohol type: hard liquor Patient Tobacco Use Status: Never used Tobacco Smoked in Last 30 Days: No Use of substances other than those prescribed or required for medical reasons: No Advance Directives: No Do you have a plan to hurt others: No Plan service: No Physical Exam 2 Vital Signs: Vital Signs: Last Vital Signs Temp 99.8 F 01/21/24 13:56 Pulse 101 H 01/21/24 13:56 Resp 24 H 01/21/24 13:56 BP 179/89 H 01/21/24 13:56 Pulse Ox 97 01/21/24 13:56 O2 Del Method Room Air 01/21/24 13:56 BMI result Body Mass Index 30.0 Appearance: Alert. Oriented X3. No acute distress. Eyes: Pupils equal, round and reactive to light. ENT: Pharynx normal. Neck: Normal inspection. Neck supple. No lymph nodes noted. No crepitus CVS: Normal heart rate and rhythm. Pulses normal. Normal S1 and S2 Respiratory: No respiratory distress. Breath sounds normal. No Wheezing. No rales Abdomen: Soft and nontender. No rigidity. No distention. good BS x4 Skin: Skin warm and dry. Normal skin color. Normal skin turgor. Extremities: No lower extremity edema. Neurovascular intact to all extremities. No Lacerations. No Rash Neuro: Oriented X 3. No motor deficit. No sensory deficit. Moving all extermities. No slurred speech Medications Administered Discontinued Medications Generic Name Dose Route Start Last Admin Trade Name Freq PRN Reason Stop Dose Admin Sodium Chloride 1,000 mls @ 999 mls/hr 01/21/24 12:45 01/21/24 13:57 Ns IV 01/21/24 13:45 Infused .Q1H1M AYO Infusion Sodium Chloride 1,000 mls @ 999 mls/hr 01/21/24 12:45 01/21/24 14:28 Ns IV 01/21/24 13:45 Infused .Q1H1M AYO Infusion Ceftriaxone Sodium 1 gm/ 50 mls @ 100 mls/hr 01/21/24 14:15 01/21/24 15:01 Sodium Chloride IV 01/21/24 14:44 Infused ONCE ONE Infusion Medical Decision Making Medical Decision Making MDM Narrative: Patient is 48 years old presents today with having generalized malaise weakness. Had a previous history of diabetes been noncompliant with medication. Also had a history of UTI was on an off antibiotics. Patient's bladder scan showed 150 cc of urine. When urine was finally obtained my interpretation is that is not grossly infected. Patient's electrolytes however show elevated creatinine acute on renal insufficiency. Will require admission for further evaluation IV hydration. Placed on a phenobarb protocol for alcohol withdrawal. CT scan of the abdomen by my interpretation was grossly okay. I reviewed radiology's reading which was no acute finding. Patient case discussed with him. Alcohol was negative. He is in stable condition will hydrate will monitor Differential Diagnosis Differential Diagnoses: The differential diagnosis associated with the presentation includes Acute on chronic renal insufficiency, alcohol withdrawal Admission/Observation Consideration of admission/observation: Escalation of care including admission/observation considered Consult Healthcare Provider Management of the patient was discussed with: Hospitalist Lab Data [facility] Lab Attestation statement: I reviewed the patient's lab results. 01/21/24 11:45 01/21/24 11:45 Labs: Lab Results 01/21/24 01/21/24 01/21/24 Range/Units 11:18 11:45 13:05 WBC 19.6 H (4.8-10.8) X10*3/uL RBC 3.84 L (4.60-5.80) X10*6/uL Hgb 11.8 L (14.0-18.0) g/dl Hct 33.3 L (42.0-52.0) % MCV 86.7 (80.0-98.0) fL MCH 30.7 (27.0-33.0) pg MCHC 35.4 (31.0-36.0) g/dl RDW 11.3 (11.0-16.0) % Plt Count 265 D (160-400) X10*3/uL MPV 9.6 (9.4-12.4) fL Immature Gran % (Auto) 0.6 H (0.0-0.4) % Neut % (Auto) 79.4 H (45-73) % Lymph % (Auto) 10.5 L (20-40) % Harris % (Auto) 8.9 (2-11) % Eos % (Auto) 0.3 (0-4) % Baso % (Auto) 0.3 (0-2) % Lymph # (Auto) 2.1 (1.2-4.9) X10*3/uL [place] # (Auto) 1.8 H (0.1-1.2) X10*3/uL Eos # (Auto) 0.1 (0.0-0.4) X10*3/uL Baso # (Auto) 0.1 (0.0-0.2) X10*3/uL Abs Immat Gran (auto) 0.12 H (0.00-0.03) X10*3/uL Absolute Neuts (auto) 15.6 H (2.0-8.3) x10*3/uL Absolute Nucleated RBC 0.000 (0.0-0.012) X10*3/uL Nucleated RBC % (auto) 0.0 (0.0-0.2) /100WBC Smear Tech's Comments VERIFIED VBG pH (7.32-7.43) VBG pCO2 mmHg VBG pO2 mmHg VBG HCO3 (22-26) mmol/L VBG O2 Saturation % VBG Base Excess mmol/L Sodium 131 L (135-145) mmol/L Potassium 4.3 (3.3-5.1) mmol/L Chloride 95 L (96-108) mmol/L Carbon Dioxide 25 (22-29) mmol/L Anion Gap 15 (12-20) BUN 33 H (9-16) mg/dL Creatinine 2.42 H (0.5-1.4) mg/dL Estim Creat Clear Calc 35.9 Estimated GFR 29 POC Glucose 267 H (60-115) mg/dL Random Glucose 285 H (60-115) mg/dL Lactic Acid 1.2 (0.5-2.0) mmol/L Calcium 9.8 D (8.4-10.2) mg/dL Total Bilirubin 1.0 (0.0-1.0) mg/dL AST 30 (5-37) U/L ALT 22 (0-40) U/L Alkaline Phosphatase 110 (39-117) U/L Total Protein 8.1 H (6.5-8.0) g/dL Albumin 3.5 (3.5-5.0) g/dL Beta-Hydroxybutyrate 1.25 H (0.02-0.27) mmol/L Urine Color Urine Appearance Urine pH (5.0-9.0) Ur Specific [place] (1.005-1.025) Urine Protein (Neg-Trace) mg/dL Urine Glucose (UA) (Negative) mg/dL Urine Ketones (Negative) mg/dL Urine Blood (Negative) Urine Nitrite (Negative) Ur Leukocyte Esterase (Negative) Urine RBC (0-2) /HPF Urine WBC (0-5) /HPF Ur Squamous Epith Cells (0-2) /HPF Urine Bacteria (None Seen) Hyaline Casts (0-2) /LPF Urine Opiates Screen (Not Detect) Ur Buprenorphine Scrn (Not Detect) ng/mL Ur Oxycodone Screen (Not Detect) ng/mL Urine Methadone Screen (Not Detect) ng/mL Urine Fentanyl Screen (Not Detect) Ur Barbiturates Screen (Not Detect) Ur Phencyclidine Scrn (Not Detect) Ur Amphetamines Screen (Not Detect) U Benzodiazepines Scrn (Not Detect) Urine Cocaine Screen (Not Detect) U Marijuana (THC) Screen (Not Detect) Ethyl Alcohol < 10 mg/dL Influenza Type A (PCR) NEGATIVE (Negative) Influenza Type B (PCR) NEGATIVE (Negative) RSV RNA Qual (PCR) NEGATIVE (Negative) SARS-CoV-2 RNA (RT-PCR) NEGATIVE (Negative) 01/21/24 01/21/24 01/21/24 Range/Units 13:09 14:21 14:22 WBC (4.8-10.8) X10*3/uL RBC (4.60-5.80) X10*6/uL Hgb (14.0-18.0) g/dl Hct (42.0-52.0) % MCV (80.0-98.0) fL MCH (27.0-33.0) pg MCHC (31.0-36.0) g/dl RDW (11.0-16.0) % Plt Count (160-400) X10*3/uL MPV (9.4-12.4) fL Immature Gran % (Auto) (0.0-0.4) % Neut % (Auto) (45-73) % Lymph % (Auto) (20-40) % [place] % (Auto) (2-11) % Eos % (Auto) (0-4) % Baso % (Auto) (0-2) % Lymph # (Auto) (1.2-4.9) X10*3/uL [place] # (Auto) (0.1-1.2) X10*3/uL Eos # (Auto) (0.0-0.4) X10*3/uL Baso # (Auto) (0.0-0.2) X10*3/uL Abs Immat Gran (auto) (0.00-0.03) X10*3/uL Absolute Neuts (auto) (2.0-8.3) x10*3/uL Absolute Nucleated RBC (0.0-0.012) X10*3/uL Nucleated RBC % (auto) (0.0-0.2) /100WBC Smear Tech's Comments VBG pH 7.42 (7.32-7.43) VBG pCO2 44 mmHg VBG pO2 41 mmHg VBG HCO3 29 H (22-26) mmol/L VBG O2 Saturation 63.0 % VBG Base Excess 4.5 mmol/L Sodium (135-145) mmol/L Potassium (3.3-5.1) mmol/L Chloride (96-108) mmol/L Carbon Dioxide (22-29) mmol/L Anion Gap (12-20) BUN (9-16) mg/dL Creatinine (0.5-1.4) mg/dL Estim Creat Clear Calc Estimated GFR POC Glucose (60-115) mg/dL Random Glucose (60-115) mg/dL Lactic Acid (0.5-2.0) mmol/L Calcium (8.4-10.2) mg/dL Total Bilirubin (0.0-1.0) mg/dL AST (5-37) U/L ALT (0-40) U/L Alkaline Phosphatase (39-117) U/L Total Protein (6.5-8.0) g/dL Albumin (3.5-5.0) g/dL Beta-Hydroxybutyrate (0.02-0.27) mmol/L Urine Color Yellow Urine Appearance Clear Urine pH 6.0 (5.0-9.0) Ur Specific [place] 1.015 (1.005-1.025) Urine Protein 300 (3+) H (Neg-Trace) mg/dL Urine Glucose (UA) >=1000 H (Negative) mg/dL Urine Ketones Trace (Negative) mg/dL Urine Blood Moderate (2+) H (Negative) Urine Nitrite Negative (Negative) Ur Leukocyte Esterase Negative (Negative) Urine RBC 0-2 (0-2) /HPF Urine WBC 0-5 (0-5) /HPF Ur Squamous Epith Cells 0-2 (0-2) /HPF Urine Bacteria None Seen (None Seen) Hyaline Casts 3-5 (0-2) /LPF Urine Opiates Screen Not Detected (Not Detect) Ur Buprenorphine Scrn Not Detected (Not Detect) ng/mL Ur Oxycodone Screen Not Detected (Not Detect) ng/mL Urine Methadone Screen Not Detected (Not Detect) ng/mL Urine Fentanyl Screen Not Detected (Not Detect) Ur Barbiturates Screen POSITIVE H (Not Detect) Ur Phencyclidine Scrn Not Detected (Not Detect) Ur Amphetamines Screen Not Detected (Not Detect) U Benzodiazepines Scrn Not Detected (Not Detect) Urine Cocaine Screen Not Detected (Not Detect) U Marijuana (THC) Screen Not Detected (Not Detect) Ethyl Alcohol mg/dL Influenza Type A (PCR) (Negative) Influenza Type B (PCR) (Negative) RSV RNA Qual (PCR) (Negative) SARS-CoV-2 RNA (RT-PCR) (Negative) Independent Interpretation I performed an independent interpretation of an: CT Scan (CT scan of the abdomen did not show any acute finding) Radiology Impression Discussion of test interpretation with radiology: I have reviewed the radiologist's reading. External Record Review External record reviewed: Inpatient record Discharge Plan Discharge Clinical Impression: Acute kidney insufficiency Patient Disposition: Admitted As Inpatient Prescriptions: No Action amlodipine 5 mg Tablet 5 mg PO DAILY Qty: 30 0RF Protocol: Hold for SBP< HOLD for SBP < : 90 magnesium oxide 400 mg (241.3 mg magnesium) Tablet 400 mg PO BIDPC Qty: 60 0RF cephalexin 500 mg capsule 500 mg PO Q8H Qty: 15 0RF glipizide 10 mg tablet extended release 24hr 10 mg PO DAILY Qty: 30 0RF (DME) FreeStyle Lite Strips Strip Qty: 100 0RF Rx Instructions: Test four times a day or as directed. (DME) blood-glucose meter [FreeStyle Lite Meter] Kit Qty: 1 0RF Rx Instructions: As Directed alcohol swabs Pads, Medicated 1 pad TOPICAL QIDACHS Qty: 100 0RF Rx Instructions: Use four times a day or as directed. (DME) pen needle, diabetic 32 gauge x 1/4 needle Qty: 100 0RF Rx Instructions: Use four times a day or as directed. (DME) lancets [FreeStyle Lancets] 28 gauge misc Qty: 100 0RF Rx Instructions: Test four times a day or as directed. insulin glargine [Lantus Solostar U-100 Insulin] 100 unit/mL (3 mL) Insulin Pen 25 unit SUBCUT QPM Qty: 15 2RF Print Language: Persian
[2024-01-21 12:41] LABS: Influenza A PCR NEGATIVE (Negative); Influenza B PCR NEGATIVE (Negative); Resp Syncy Virus RNA Qual PCR NEGATIVE (Negative); SARS COV2 PCR INHOUSE NEGATIVE (Negative)
[2024-01-21] MEDS: 0.9 % Sodium Chloride 1,000 ML 999 ML IV ×2 (12:57→13:17)
[2024-01-21 13:18] LABS: VBG Base Excess 4.5 mmol/L; VBG HCO3 29 mmol/L (22-26); VBG pCO2 44 mmHg; VBG pH 7.42 (7.32-7.43); VBG pO2 41 mmHg
[2024-01-21 13:30] LABS: Lactic Acid 1.2 mmol/L (0.5-2.0)
[2024-01-21 13:36] LABS: Ethanol < 10 mg/dL
[2024-01-21] MEDS: cefTRIAXone sodium 1 GM in 0.9 % Sodium Chloride 50 ML IV (14:26)
[2024-01-21 14:34] LABS: Appearance Urine Clear; Color Urine Yellow; Glucose Urine UA >=1000 mg/dL (Negative); Urine Blood Moderate (2+) (Negative)
[2024-01-21 14:35] LABS: Leukocyte Esterase Urine Negative (Negative); Nitrite Urine Negative (Negative); Specific Gravity - Urine 1.015 (1.005-1.025); UMIC TRIGGER UACC YES; Urine Ketones Trace mg/dL (Negative); Urine Protein 300 (3+) mg/dL (Neg-Trace)
[2024-01-21 14:41] LABS: Amphetamine Screen Urine Not Detected (Not Detect); Barbiturates, Urine POSITIVE (Not Detect); Benzodiazepines Screen Urine Not Detected (Not Detect); Buprenorphine Scr Not Detected (Not Detect); Cannabinoid Screen Urine Not Detected (Not Detect); Cocaine Screen Urine Not Detected (Not Detect); Fentanyl, urine Not Detected (Not Detect); Methadone Screen, Urine Not Detected (Not Detect); Opiate Screen Urine Not Detected (Not Detect); Oxycodone Screen Urine Not Detected (Not Detect); Phencyclidine Screen Urine Not Detected (Not Detect)
[2024-01-21 14:49] LABS: Venous Blood Gas Refer to POC result
[2024-01-21 15:04] LABS: Bacteria Urine None Seen (None Seen); RBC Urine 0-2 /HPF (0-2); Squamous Epithelial Cell Urine 0-2 /HPF (0-2); WBC Urine 0-5 /HPF (0-5)
--- NOTE | 2024-01-21 15:10 | PC.NURSE ---
Provider aware of BP and temp.
--- NOTE | 2024-01-21 16:15 | P.HPHOSP_ITS ---
History of Present Illness Date of Service: 01/21/24 Chief Complaint: Generalized weakness This is a 48 yaer old male with pertinent history of medication noncompliance, uncontrolled blood pressure, insulin-dependent diabetes mellitus, alcohol use disorder who presents to the emergency department for evaluation of generalized weakness. Patient admits that he has not been compliant with p.o. prescription medications. Patient states that for the last 2-3 days he has been feeling unwell. Reduced p.o. intake. He is only consuming alcohol. His last alcohol drink was on the day of presentation. Does have a history of alcohol withdrawal. No fever, chills, nausea, vomiting, abdominal pain, diarrhea. No chest discomfort, palpitations or shortness of breath. In the emergency department, creatinine found to be elevated. Patient was initiated on phenobarb protocol for concerns of alcohol withdrawal. Review of Systems 2 Constitutional: Constitutional: Reports fatigue, Reports malaise, Reports poor appetite and Reports weakness Cardiovascular: Cardiovascular: Reports no additional cardiovascular complaints Respiratory: Respiratory: Reports no additional respiratory complaints Gastrointestinal: Gastrointestinal: Reports no additional gastrointestinal complaints Genitourinary: Genitourinary: Reports no additional male genitourinary complaints Neurologic: Reports weakness Endocrine: Endocrine: Reports fatigue [facility] Medical History Alcohol use disorder Hypertension Type 2 diabetes mellitus Pertinent family history: No family history of early CAD Social History Household Members: None Housing: Apartment Do you presently have visiting nurse or other home services: No Alcohol intake: current Alcohol intake frequency: 3 or more drinks per day Alcohol type: hard liquor Patient Tobacco Use Status: Never used Tobacco Smoked in Last 30 Days: No Use of substances other than those prescribed or required for medical reasons: No Advance Directives: No Do you have a plan to hurt others: No Plan service: No Meds Allergies Allergy/AdvReac Type Severity Reaction Status Date / Time No Known Allergies Allergy Verified 01/21/24 11:13 Active Medications: Current Medications Pharmacy Consult (Consult Rx Etoh Phenob Po Only) 1 each MISCELLANE ONCE PRN; Protocol PRN Reason: Consult order Physical Exam 2 Vital Signs and Narrative: Vital Signs: Last Vital Signs Temp 99.8 F 07/11/24 13:56 Pulse 101 H 01/21/24 13:56 Resp 24 H 01/21/24 13:56 BP 179/89 H 01/21/24 13:56 Pulse Ox 97 01/21/24 13:56 O2 Del Method Room Air 01/21/24 13:56 BMI result Body Mass Index 30.0 Middle-aged male lying in bed in no distress Neck supple, no JVD Regular rate and rhythm, S1-S2 heard Regular breath sounds bilaterally, no wheezing or crackles appreciated Abdomen soft nontender, no guarding, no rigidity Patient is awake, alert and oriented to self, place, time and person ; no focal motor deficit Psych: Anxious No pedal edema Results Labs 01/21/24 11:45 01/21/24 11:45 Labs: Laboratory Results - last 24 hr 01/21/24 01/21/24 01/21/24 11:18 11:45 13:05 MCV 86.7 MCH 30.7 MCHC 35.4 RDW 11.3 Plt Count 265 D MPV 9.6 Immature Gran % (Auto) 0.6 H Neut % (Auto) 79.4 H Lymph % (Auto) 10.5 L [place] % (Auto) 8.9 Eos % (Auto) 0.3 Baso % (Auto) 0.3 Lymph # (Auto) 2.1 [place] # (Auto) 1.8 H Eos # (Auto) 0.1 Baso # (Auto) 0.1 Abs Immat Gran (auto) 0.12 H Absolute Neuts (auto) 15.6 H Absolute Nucleated RBC 0.000 Nucleated RBC % (auto) 0.0 Smear Tech's Comments VERIFIED VBG pH VBG pCO2 VBG pO2 VBG HCO3 VBG O2 Saturation VBG Base Excess Anion Gap 15 Estim Creat Clear Calc 35.9 Estimated GFR 29 POC Glucose 267 H Random Glucose 285 H Lactic Acid 1.2 Calcium 9.8 D Total Bilirubin 1.0 AST 30 ALT 22 Alkaline Phosphatase 110 Total Protein 8.1 H Albumin 3.5 Beta-Hydroxybutyrate 1.25 H Urine Color Urine Appearance Urine pH Ur Specific [place] Urine Protein Urine Glucose (UA) Urine Ketones Urine Blood Urine Nitrite Ur Leukocyte Esterase Urine RBC Urine WBC Ur Squamous Epith Cells Urine Bacteria Hyaline Casts Urine Opiates Screen Ur Buprenorphine Scrn Ur Oxycodone Screen Urine Methadone Screen Urine Fentanyl Screen Ur Barbiturates Screen Ur Phencyclidine Scrn Ur Amphetamines Screen U Benzodiazepines Scrn Urine Cocaine Screen U Marijuana (THC) Screen Ethyl Alcohol < 10 Influenza Type A (PCR) NEGATIVE Influenza Type B (PCR) NEGATIVE RSV RNA Qual (PCR) NEGATIVE SARS-CoV-2 RNA (RT-PCR) NEGATIVE 01/21/24 01/21/24 01/21/24 13:09 14:21 14:22 MCV MCH MCHC RDW Plt Count MPV Immature Gran % (Auto) Neut % (Auto) Lymph % (Auto) [place] % (Auto) Eos % (Auto) Baso % (Auto) Lymph # (Auto) [place] # (Auto) Eos # (Auto) Baso # (Auto) Abs Immat Gran (auto) Absolute Neuts (auto) Absolute Nucleated RBC Nucleated RBC % (auto) Smear Tech's Comments VBG pH 7.42 VBG pCO2 44 VBG pO2 41 VBG HCO3 29 H VBG O2 Saturation 63.0 VBG Base Excess 4.5 Anion Gap Estim Creat Clear Calc Estimated GFR POC Glucose Random Glucose Lactic Acid Calcium Total Bilirubin AST ALT Alkaline Phosphatase Total Protein Albumin Beta-Hydroxybutyrate Urine Color Yellow Urine Appearance Clear Urine pH 6.0 Ur Specific [place] 1.015 Urine Protein 300 (3+) H Urine Glucose (UA) >=1000 H Urine Ketones Trace Urine Blood Moderate (2+) H Urine Nitrite Negative Ur Leukocyte Esterase Negative Urine RBC 0-2 Urine WBC 0-5 Ur Squamous Epith Cells 0-2 Urine Bacteria None Seen Hyaline Casts 3-5 Urine Opiates Screen Not Detected Ur Buprenorphine Scrn Not Detected Ur Oxycodone Screen Not Detected Urine Methadone Screen Not Detected Urine Fentanyl Screen Not Detected Ur Barbiturates Screen POSITIVE H Ur Phencyclidine Scrn Not Detected Ur Amphetamines Screen Not Detected U Benzodiazepines Scrn Not Detected Urine Cocaine Screen Not Detected U Marijuana (THC) Screen Not Detected Ethyl Alcohol Influenza Type A (PCR) Influenza Type B (PCR) RSV RNA Qual (PCR) SARS-CoV-2 RNA (RT-PCR) Imaging Radiologist's Impressions: Impressions Abdomen/Pelvis CT 01/21/24 13:50 IMPRESSION: No significant abnormality. Fleischner guidelines were followed. Chest X-Ray 01/21/24 13:54 IMPRESSION: Lungs have a normal appearance. No acute cardiopulmonary abnormality. Assessment and Plan (1) Alcohol use disorder, severe, dependence: Status: Acute (2) Type 2 diabetes mellitus with hyperglycemia: Status: Acute Plan This is a 48 yaer old male with pertinent history of medication noncompliance, uncontrolled blood pressure, insulin-dependent diabetes mellitus, alcohol use disorder who presents to the emergency department for evaluation of generalized weakness. #. Alcohol use disorder with concerns for alcohol withdrawal: Initiated phenobarb protocol in the ER. Monitor CIWA. Initiated thiamine and folic acid. Consulting Addiction Team #. Acute kidney injury, nonoliguric: Monitor creatinine and urine output with crystalloid resuscitation. Avoid nephrotoxins #. Hypertensive urgency due to medication noncompliance: Continue amlodipine. Adding Coreg. Will initiate ACEI/ARB once CONSTANCE resolves #. Uncontrolled insulin-dependent diabetes mellitus with hyperglycemia: Due to medication compliance. Initiating basal plus regimen. #. Reactive leukocytosis DVT prophylaxis: Lovenox Full code Admit as inpatient and will require two night minimum hospital stay for monitoring of creatinine and kidney function (as above), which is not possible in a lesser acute setting. Quality Stroke Does the patient have a stroke diagnosis?: No VTE Prior VTE?: No VTE Risk Level:: Medical - moderate - high VTE Device Contraindication: Treatment Not Indicated VTE Drug Contraindication: N/A - Med Ordered
[2024-01-21] MEDS: Enoxaparin Sodium 40 MG/0.4 ML SYRINGE SUBCUT (16:51)
[2024-01-21] MEDS: Thiamine HCL 100 MG TABLET PO (16:52)
[2024-01-21] MEDS: PHENobarbitaL 30 MG TABLET 120 MG PO (16:52)
[2024-01-21 16:54] LABS: Glucose, Whole Blood 226 mg/dL (60-115)
[2024-01-21] MEDS: Insulin Regular, Human 100 UNIT/ML 10 ML VIAL IVPUSH (16:54)
[2024-01-21] MEDS: carvediloL 6.25 MG TABLET PO (16:59)
[2024-01-21] MEDS: Insulin Lispro 100 UNIT/ML 3 ML VIAL SUBCUT ×2 (17:15→20:28)
--- NOTE | 2024-01-21 17:15 | PC.NURSE ---
Confirmed w/ Dr. Rodrigues patient is to get both IV and subq insulin, medicated per SEP.
--- NOTE | 2024-01-21 18:03 | PHA.MEDREC ---
Pharmacy Consult ? Medication Reconciliation Pharmacy has completed the medication reconciliation. Patient was a poor historian. Patient didn't know how many units he injects of Lantus. Claim says 25 units QPM. Patient says he is on an antibiotics, however he didn't know the name. On claims is Cephalexin 500 mg q 8 h, so I called [facility] and they states patient last picked up 12-31-23 for a 5 day supply.
[2024-01-21] MEDS: amLODIPine Besylate 5 MG TABLET PO (19:07)
[2024-01-21 19:51] LABS: Glucose, Whole Blood 163 mg/dL (60-115)
[2024-01-21] MEDS: PHENobarbitaL 30 MG TABLET 60 MG PO (20:28)
[2024-01-21] MEDS: Acetaminophen 325 MG TABLET 650 MG PO (20:28)
[2024-01-21] MEDS: Insulin Glargine,Hum.rec.anlog 100 UNIT/ML 10 ML VIAL 16 UNIT SUBCUT (20:28)
--- NOTE | 2024-01-21 20:36 | MHC.EDTECH ---
Patient given dinner tray
[2024-01-21 21:45] LABS: Glucose, Whole Blood 211 mg/dL (60-115)
[2024-01-22 00:36] VITALS: BP 167/89; PULSE 92; RESP 17; TEMP 36.7; O2SAT 98
[2024-01-22] MEDS: 0.9 % Sodium Chloride Flush 3 ML SYRINGE IVFLUSH ×5 (01:25→21:07)
[2024-01-22 01:33] VITALS: BP 144/81; PULSE 92; RESP 17
[2024-01-22] MEDS: PHENobarbitaL 30 MG TABLET 60 MG PO ×3 (01:33→08:39)
[2024-01-22 05:37] LABS: Basophils Absolute Auto 0.1 X10*3/uL (0.0-0.2); Basophils Percent Auto 0.4 % (0-2); Eosinophils Absolute Auto 0.1 X10*3/uL (0.0-0.4); Eosinophils Percent Auto 0.2 % (0-4); Hematocrit 31.9 % (42.0-52.0); Hemoglobin 11.1 g/dl (14.0-18.0); Imm Gran Abs Auto 0.17 X10*3/uL (0.00-0.03); Imm Gran Pct Auto 0.8 % (0.0-0.4); Lymphocytes Absolute Auto 2.3 X10*3/uL (1.2-4.9); Lymphocytes Percent Auto 10.2 % (20-40); MANUAL DIFF FLAG SCAN; Mean Corpuscular HGB Conc 34.8 g/dl (31.0-36.0); Mean Corpuscular Hemoglobin 30.6 pg (27.0-33.0); Mean Corpuscular Volume 87.9 fL (80.0-98.0); Mean Platelet Volume 10.2 fL (9.4-12.4); Monocytes Absolute Auto 2.2 X10*3/uL (0.1-1.2); Monocytes Percent Auto 9.9 % (2-11); Neutrophils Absolute Auto 17.7 x10*3/uL (2.0-8.3); Neutrophils Percent Auto 78.5 % (45-73); Platelet Count 269 X10*3/uL (160-400); Red Blood Count 3.63 X10*6/uL (4.60-5.80); Red Cell Distribution Width 11.1 % (11.0-16.0); SCAN SMEAR FLAG 1; White Blood Count 22.5 X10*3/uL (4.8-10.8)
[2024-01-22 05:55] LABS: Anion Gap 15 (12-20); Blood Urea Nitrogen 30 mg/dL (9-16); Carbon Dioxide 23 mmol/L (22-29); Chloride 98 mmol/L (96-108); Estimated Glomerular Filt Rate 38; Glucose Random 263 mg/dL (60-115); Magnesium 1.3 mg/dL (1.6-2.6); Potassium 4.2 mmol/L (3.3-5.1); Sodium 132 mmol/L (135-145)
[2024-01-22 06:36] VITALS: BP 162/80; PULSE 99; RESP 18; TEMP 37.4; O2SAT 97
[2024-01-22] MEDS: Magnesium Sulfate/H2O 2 GM/50 ML PIGGYBACK IV ×2 (07:21→08:38)
[2024-01-22 07:58] LABS: Glucose, Whole Blood 237 mg/dL (60-115)
[2024-01-22 08:00] VITALS: BP 174/88; PULSE 60; RESP 12; TEMP 37.4; O2SAT 94
[2024-01-22 08:39] LABS: SLIDE REVIEW VERIFIED
[2024-01-22] MEDS: Multivitamin TABLET 1 TAB PO (08:39)
[2024-01-22] MEDS: Folic Acid 1 MG TABLET PO (08:39)
[2024-01-22] MEDS: carvediloL 6.25 MG TABLET PO ×2 (08:39→21:05)
[2024-01-22] MEDS: glipiZIDE XL 10 MG TAB.ER.24 PO (08:39)
[2024-01-22] MEDS: amLODIPine Besylate 5 MG TABLET PO (08:39)
[2024-01-22] MEDS: Magnesium Oxide 400 MG TABLET PO ×2 (08:40→16:46)
[2024-01-22] MEDS: Thiamine HCL 100 MG TABLET PO (08:40)
[2024-01-22] MEDS: Insulin Lispro 100 UNIT/ML 3 ML VIAL SUBCUT ×4 (08:42→21:06)
--- NOTE | 2024-01-22 09:13 | P.PNIM_ITS ---
Subjective Subjective Date of Service: 01/22/24 Interval History: Had an episode of fever overnight 100.5. Admits cough and loose stools. No abdominal pain. Right lower extremity area of warmth and erythema seen Constitutional Constitutional: Reports fatigue, Reports fever(s) and Reports weakness Cardiovascular Cardiovascular: Reports no additional cardiovascular complaints Respiratory Respiratory: Reports no additional respiratory complaints Gastrointestinal Gastrointestinal: Reports no additional gastrointestinal complaints Genitourinary Genitourinary: Reports no additional male genitourinary complaints Neurologic Neurologic: Reports weakness Endocrine Endocrine: Reports fatigue Physical Exam 2 Vital Signs: Vital Signs: Last Vital Signs Temp 99.3 F 01/22/24 08:00 Pulse 60 01/22/24 08:00 Resp 12 01/22/24 08:00 BP 174/88 H 01/22/24 08:00 Pulse Ox 94 01/22/24 08:00 O2 Del Method Room Air 01/22/24 08:00 BMI result Body Mass Index 30.0 Middle-aged male lying in bed in no distress Neck supple, no JVD Regular rate and rhythm, S1-S2 heard No wheezing present Abdomen soft nontender, no guarding, no rigidity Patient is awake, alert and oriented to self, place, time and person ; no focal motor deficit Psych: Anxious Right leg with area of erythema and warmth Objective Data Active Medications Acetaminophen (Acetaminophen 325 Mg Tablet) 650 mg PO Q6H PRN PRN Reason: Pain, Mild (Pain Scale 1-3), fever or headache Last Admin: 01/21/24 20:28 Dose: 650 mg Documented By: BRENDA Amlodipine Besylate (Amlodipine Besylate 5 Mg Tablet) 5 mg PO DAILY [facility]; Protocol Last Admin: 01/22/24 08:39 Dose: 5 mg Documented By: NICOLA Calcium Carbonate (Calcium Carbonate 750 Mg Tab.Chew) 750 mg PO Q4H PRN PRN Reason: Heartburn Carvedilol (Carvedilol 6.25 Mg Tablet) 6.25 mg PO BID [facility]; Protocol Last Admin: 01/22/24 08:39 Dose: 6.25 mg Documented By: NICOLA Enoxaparin Sodium (Enoxaparin Sodium 40 Mg/0.4 Ml Syringe) 40 mg SUBCUT Q24H [facility] Last Admin: 01/21/24 16:51 Dose: 40 mg Documented By: BRENDA Folic Acid (Folic Acid 1 Mg Tablet) 1 mg PO DAILY [facility] Last Admin: 01/22/24 08:39 Dose: 1 mg Documented By: NICOLA Glipizide (Glipizide Xl 10 Mg Tab.Er.24) 10 mg PO DAILY [facility] Last Admin: 01/22/24 08:39 Dose: 10 mg Documented By: NICOLA Glucose (Glucose Gel 15 Gm Gel..Gram.) 15 gm PO Q15M PRN; Protocol PRN Reason: per Hypoglycemia Standing Ord. Dextrose (D10) 250 mls @ 750 mls/hr IV Q15M PRN; Protocol PRN Reason: per Hypoglycemia Standing Ord. Magnesium Sulfate (Magnesium Sulfate/H2o) 2 gm in 50 mls @ 25 mls/hr IV ONCE ONE Stop: 01/22/24 09:25 Last Admin: 01/22/24 08:38 Dose: 25 mls/hr Documented By: NICOLA Insulin Glargine (Insulin Glargine,Hum.Rec.Anlog 100 Unit/Ml 10 Ml Vial) 16 unit SUBCUT BEDTIME [facility] Last Admin: 01/21/24 20:28 Dose: 16 unit Documented By: BRENDA Insulin Human Lispro (Insulin Lispro 100 Unit/Ml 3 Ml Vial) 0 unit SUBCUT QIDACHS [facility]; Protocol Last Admin: 01/22/24 08:42 Dose: 4 unit Documented By: NICOLA Magnesium Hydroxide (Milk Of Magnesia 30 Ml Oral.Susp) 30 ml PO DAILY PRN PRN Reason: Constipation Magnesium Oxide (Magnesium Oxide 400 Mg Tablet) 400 mg PO BIDPC [facility] Last Admin: 01/22/24 08:40 Dose: 400 mg Documented By: NICOLA Melatonin (Melatonin 3 Mg Tablet) 6 mg PO BEDTIME PRN PRN Reason: Insomnia Multivitamins/Vitamin C (Multivitamin Tablet) 1 tab PO DAILY [facility] Last Admin: 01/22/24 08:39 Dose: 1 tab Documented By: NICOLA Ondansetron HCl (Ondansetron Hcl 4 Mg/2 Ml Vial) 4 mg IVPUSH Q8H PRN PRN Reason: Nausea and Vomiting Pharmacy Consult (Consult Rx Etoh Phenob Po Only) 1 each MISCELLANE ONCE PRN; Protocol PRN Reason: Consult order Phenobarbital (Phenobarbital 30 Mg Tablet) 120 mg PO ONCE [facility]; Protocol Last Admin: 01/21/24 16:52 Dose: 120 mg Documented By: DITOLC Sodium Chloride (0.9 % Sodium Chloride Flush 3 Ml Syringe) 3 ml IVFLUSH QSHIFT [facility] Last Admin: 01/22/24 07:24 Dose: 3 ml Documented By: NICOLA Thiamine HCl (Thiamine Hcl 100 Mg Tablet) 100 mg PO DAILY [facility] Last Admin: 01/22/24 08:40 Dose: 100 mg Documented By: NICOLA Labs 01/22/24 04:50 01/22/24 04:50 Labs: Laboratory Results - last 24 hr 01/21/24 01/21/24 01/21/24 11:18 11:45 13:05 MCV 86.7 MCH 30.7 MCHC 35.4 RDW 11.3 Plt Count 265 D MPV 9.6 Immature Gran % (Auto) 0.6 H Neut % (Auto) 79.4 H Lymph % (Auto) 10.5 L Creek % (Auto) 8.9 Eos % (Auto) 0.3 Baso % (Auto) 0.3 Lymph # (Auto) 2.1 Creek # (Auto) 1.8 H Eos # (Auto) 0.1 Baso # (Auto) 0.1 Abs Immat Gran (auto) 0.12 H Absolute Neuts (auto) 15.6 H Absolute Nucleated RBC 0.000 Nucleated RBC % (auto) 0.0 Smear Tech's Comments VERIFIED VBG pH VBG pCO2 VBG pO2 VBG HCO3 VBG O2 Saturation VBG Base Excess Anion Gap 15 Estim Creat Clear Calc 35.9 Estimated GFR 29 POC Glucose 267 H Random Glucose 285 H Lactic Acid 1.2 Calcium 9.8 D Magnesium Total Bilirubin 1.0 AST 30 ALT 22 Alkaline Phosphatase 110 Total Protein 8.1 H Albumin 3.5 Beta-Hydroxybutyrate 1.25 H Urine Color Urine Appearance Urine pH Ur Specific [place] Urine Protein Urine Glucose (UA) Urine Ketones Urine Blood Urine Nitrite Ur Leukocyte Esterase Urine RBC Urine WBC Ur Squamous Epith Cells Urine Bacteria Hyaline Casts Urine Opiates Screen Ur Buprenorphine Scrn Ur Oxycodone Screen Urine Methadone Screen Urine Fentanyl Screen Ur Barbiturates Screen Ur Phencyclidine Scrn Ur Amphetamines Screen U Benzodiazepines Scrn Urine Cocaine Screen U Marijuana (THC) Screen Ethyl Alcohol < 10 Influenza Type A (PCR) NEGATIVE Influenza Type B (PCR) NEGATIVE RSV RNA Qual (PCR) NEGATIVE SARS-CoV-2 RNA (RT-PCR) NEGATIVE 01/21/24 01/21/24 01/21/24 13:09 14:21 14:22 MCV MCH MCHC RDW Plt Count MPV Immature Gran % (Auto) Neut % (Auto) Lymph % (Auto) Creek % (Auto) Eos % (Auto) Baso % (Auto) Lymph # (Auto) Creek # (Auto) Eos # (Auto) Baso # (Auto) Abs Immat Gran (auto) Absolute Neuts (auto) Absolute Nucleated RBC Nucleated RBC % (auto) Smear Tech's Comments VBG pH 7.42 VBG pCO2 44 VBG pO2 41 VBG HCO3 29 H VBG O2 Saturation 63.0 VBG Base Excess 4.5 Anion Gap Estim Creat Clear Calc Estimated GFR POC Glucose Random Glucose Lactic Acid Calcium Magnesium Total Bilirubin AST ALT Alkaline Phosphatase Total Protein Albumin Beta-Hydroxybutyrate Urine Color Yellow Urine Appearance Clear Urine pH 6.0 Ur Specific [place] 1.015 Urine Protein 300 (3+) H Urine Glucose (UA) >=1000 H Urine Ketones Trace Urine Blood Moderate (2+) H Urine Nitrite Negative Ur Leukocyte Esterase Negative Urine RBC 0-2 Urine WBC 0-5 Ur Squamous Epith Cells 0-2 Urine Bacteria None Seen Hyaline Casts 3-5 Urine Opiates Screen Not Detected Ur Buprenorphine Scrn Not Detected Ur Oxycodone Screen Not Detected Urine Methadone Screen Not Detected Urine Fentanyl Screen Not Detected Ur Barbiturates Screen POSITIVE H Ur Phencyclidine Scrn Not Detected Ur Amphetamines Screen Not Detected U Benzodiazepines Scrn Not Detected Urine Cocaine Screen Not Detected U Marijuana (THC) Screen Not Detected Ethyl Alcohol Influenza Type A (PCR) Influenza Type B (PCR) RSV RNA Qual (PCR) SARS-CoV-2 RNA (RT-PCR) 01/21/24 01/21/24 01/21/24 16:50 19:46 21:41 MCV MCH MCHC RDW Plt Count MPV Immature Gran % (Auto) Neut % (Auto) Lymph % (Auto) Creek % (Auto) Eos % (Auto) Baso % (Auto) Lymph # (Auto) Creek # (Auto) Eos # (Auto) Baso # (Auto) Abs Immat Gran (auto) Absolute Neuts (auto) Absolute Nucleated RBC Nucleated RBC % (auto) Smear Tech's Comments VBG pH VBG pCO2 VBG pO2 VBG HCO3 VBG O2 Saturation VBG Base Excess Anion Gap Estim Creat Clear Calc Estimated GFR POC Glucose 226 H 163 H 211 H Random Glucose Lactic Acid Calcium Magnesium Total Bilirubin AST ALT Alkaline Phosphatase Total Protein Albumin Beta-Hydroxybutyrate Urine Color Urine Appearance Urine pH Ur Specific [place] Urine Protein Urine Glucose (UA) Urine Ketones Urine Blood Urine Nitrite Ur Leukocyte Esterase Urine RBC Urine WBC Ur Squamous Epith Cells Urine Bacteria Hyaline Casts Urine Opiates Screen Ur Buprenorphine Scrn Ur Oxycodone Screen Urine Methadone Screen Urine Fentanyl Screen Ur Barbiturates Screen Ur Phencyclidine Scrn Ur Amphetamines Screen U Benzodiazepines Scrn Urine Cocaine Screen U Marijuana (THC) Screen Ethyl Alcohol Influenza Type A (PCR) Influenza Type B (PCR) RSV RNA Qual (PCR) SARS-CoV-2 RNA (RT-PCR) 01/22/24 01/22/24 04:50 07:27 MCV 87.9 MCH 30.6 MCHC 34.8 RDW 11.1 Plt Count 269 MPV 10.2 Immature Gran % (Auto) 0.8 H Neut % (Auto) 78.5 H Lymph % (Auto) 10.2 L Creek % (Auto) 9.9 Eos % (Auto) 0.2 Baso % (Auto) 0.4 Lymph # (Auto) 2.3 Creek # (Auto) 2.2 H Eos # (Auto) 0.1 Baso # (Auto) 0.1 Abs Immat Gran (auto) 0.17 H Absolute Neuts (auto) 17.7 H Absolute Nucleated RBC 0.000 Nucleated RBC % (auto) 0.0 Smear Tech's Comments VERIFIED VBG pH VBG pCO2 VBG pO2 VBG HCO3 VBG O2 Saturation VBG Base Excess Anion Gap 15 Estim Creat Clear Calc 46.0 Estimated GFR 38 POC Glucose 237 H Random Glucose 263 H Lactic Acid Calcium 9.0 D Magnesium 1.3 L* Total Bilirubin AST ALT Alkaline Phosphatase Total Protein Albumin Beta-Hydroxybutyrate Urine Color Urine Appearance Urine pH Ur Specific [place] Urine Protein Urine Glucose (UA) Urine Ketones Urine Blood Urine Nitrite Ur Leukocyte Esterase Urine RBC Urine WBC Ur Squamous Epith Cells Urine Bacteria Hyaline Casts Urine Opiates Screen Ur Buprenorphine Scrn Ur Oxycodone Screen Urine Methadone Screen Urine Fentanyl Screen Ur Barbiturates Screen Ur Phencyclidine Scrn Ur Amphetamines Screen U Benzodiazepines Scrn Urine Cocaine Screen U Marijuana (THC) Screen Ethyl Alcohol Influenza Type A (PCR) Influenza Type B (PCR) RSV RNA Qual (PCR) SARS-CoV-2 RNA (RT-PCR) Assessment and Plan (1) Fever: Status: Acute (2) Alcohol use disorder, severe, dependence: Status: Acute Plan This is a 48 yaer old male with pertinent history of medication noncompliance, uncontrolled blood pressure, insulin-dependent diabetes mellitus, alcohol use disorder who presents to the emergency department for evaluation of generalized weakness. #. Sepsis due to right lower extremity cellulitis: Initiated IV vancomycin and ceftriaxone (start date: 01/21). Patient also reports a cough and diarrhea. Obtaining CT chest and GI panel with C diff. Monitor blood cultures #. Acute kidney injury, nonoliguric: Improving with IV crystalloids. Continue to monitor and avoid nephrotoxins #. Alcohol use disorder with concerns for alcohol withdrawal: Initiated phenobarb protocol in the ER. Monitor CIWA. Initiated thiamine and folic acid. Consulting Addiction Team #. Hypertensive urgency due to medication noncompliance: Continue amlodipine. Added Coreg. Will initiate ACEI/ARB once CONSTANCE resolves. Continue to monitor and optimize #. Uncontrolled insulin-dependent diabetes mellitus with hyperglycemia: Due to medication compliance. Increase basal regimen. Continue Accu-Cheks with sliding scale insulin DVT prophylaxis: Lovenox Full code Reason for continued hospitalization: Monitoring of kidney function and IV antibiotics. Quality Stroke Does the patient have a stroke diagnosis?: No VTE Prior VTE?: No VTE Risk Level:: Medical - moderate - high VTE Device Contraindication: Treatment Not Indicated VTE Drug Contraindication: N/A - Med Ordered
[2024-01-22] MEDS: cefTRIAXone sodium 1 GM in 0.9 % Sodium Chloride 50 ML IV (10:23)
[2024-01-22] MEDS: 0.9 % Sodium Chloride 500 ML IV (10:23)
[2024-01-22 10:38] LABS: Lactic Acid 3.1 mmol/L (0.5-2.0)
[2024-01-22] MEDS: vancomycin/NS 2,000 MG/500 ML PLAST..BAG 250 MG IV (11:17)
[2024-01-22 11:35] LABS: CDiff Gene PCR POSITIVE (Negative)
[2024-01-22 11:35] LABS: Glucose, Whole Blood 231 mg/dL (60-115)
[2024-01-22 12:19] LABS: CDIFF Internal ctrl Dots and bkg OK (V); CDiff Toxin Negative (Negative)
[2024-01-22 12:24] LABS: Reflex Lactate? Lactic Acid Added
--- NOTE | 2024-01-22 12:57 | HO.WOUND ---
Wound Consult: Initial 48yr old? admitted to [facility] on 01/21/24 - See progress notes and H&P for detailed history.? Wound consult placed for Bilateral Lower Legs.? Patient agreeable to assessment and photo documentation.? 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 He reports significant tenderness and nerve pain due to medication being stopped. He reports providers are aware he is not receiving his neuropathy mediation. The patient mutli scabs / injuries are all stable and dry. They appear in various stages of healing and do not need topical intervention at this time.
[2024-01-22] MEDS: Acetaminophen 325 MG TABLET 650 MG PO ×2 (13:16→21:07)
--- NOTE | 2024-01-22 13:22 | MHC.CM.PN ---
CM ATTEMPTED TO SEE PT WHO WAS RECEIVING RN CARE CM WILL REVISIT
--- NOTE | 2024-01-22 13:27 | MHC.RECOVRN ---
Met with pt in 375 after consult placed to Addiction Medicine for alcohol use. Pt had presented to the ED for evaluation of generalized weakness. Upon evaluation, pt admitted for sepsis due to right lower extremity cellulitis, CONSTANCE, AUD, hypertensive urgency and uncontrolled DM with hyperglycemia. Pt sitting in bed, awake, alert, difficult to engage in conversation as he reports bilateral lower extremity pain due to neuropathy. Pt reports since last hospital admission having reduced alcohol use. Pt reports he had been drinking 7-8 shots daily, is currently drinking about 2. Pt states it's not as enjoyable. Pt reports historically he would eat and drink water while drinking, recently has not been which prompted him to have dizzy spells and come to the ED. Attempted to discuss recovery resources and supports, pt continually winces in pain due to lower extremity pain. Pt agreeable to resources left at the bedside. Pt denies questions or concerns for t/w. Encouraged pt to reach out if needed.
--- NOTE | 2024-01-22 14:04 | PHA.PROG ---
Admission Date/Time: January 21, 2024 16:14 Indication: SKIN Weight in k.8 kg Adjusted body weight in Kg: [place] body weight in Kg: Obesity Dosing Indication % IBW: Serum Creatinine - Last 168 Hours 01/21/24 01/22/24 11:45 04:50 Creatinine 2.42 H 1.89 H Estimated CrCl and GFR - Last 168 Hours 01/21/24 01/22/24 11:45 04:50 Estim Creat Clear Calc 35.9 46.0 Estimated GFR 29 38 Vancomycin Loading Dose: 2000 MG Current Vancomycin Dosing Regimen: 1000 MG Q24H Vancomycin Monitoring using AUC goal of 400 - 600 range with trough as surrogate marker: [id number]=[id number] Date and Time for next Vancomycin Level to be drawn: 01/24/24 @0900 Pharmacist Comments on Vancomycin Plan: Vancomycin dosing will take advantage of [employer] as a clinical decision support tool that uses Bayesian modeling to calculate individual patient's pharmacokinetic parameters and forecast the patient's drug concentration time course with the target goal AUC 24 range of 400 - 600 mg/L/hr.
[2024-01-22 14:08] LABS: ~Lactic Acid-LAB USE ONLY 2.5 mmol/L (0.5-2.0)
[2024-01-22 15:14] LABS: Adenovirus F 40/41 Not Detected (Not Detect.); Astrovirus Not Detected (Not Detect.); Campylobacter Not Detected (Not Detect.); Cryptosporidium Not Detected (Not Detect.); Cyclospora cayetanensis Not Detected (Not Detect.); E. coli EAEC Not Detected (Not Detect.); E. coli EPEC Not Detected (Not Detect.); E. coli ETEC Not Detected (Not Detect.); E. coli STEC Not Detected (Not Detect.); Entamoeba histolytica Not Detected (Not Detect.); Giardia lamblia Not Detected (Not Detect.); Norovirus GI/GII Not Detected (Not Detect.); Plesiomonas shigelloides Not Detected (Not Detect.); Rotavirus A Not Detected (Not Detect.); Salmonella Not Detected (Not Detect.); Sapovirus Not Detected (Not Detect.); Shigella sp./EIEC Not Detected (Not Detect.); Vibrio Not Detected (Not Detect.); Vibrio Cholerae Not Detected (Not Detect.); Yersinia enterocolitica Not Detected (Not Detect.)
[2024-01-22 15:17] VITALS: BP 108/56; PULSE 90; RESP 18; TEMP 37.1; O2SAT 93
[2024-01-22] MEDS: Enoxaparin Sodium 40 MG/0.4 ML SYRINGE SUBCUT (15:25)
[2024-01-22 16:32] LABS: Glucose, Whole Blood 231 mg/dL (60-115)
[2024-01-22 19:44] VITALS: BP 169/81; PULSE 89; RESP 20; TEMP 37.6; O2SAT 92
[2024-01-22 20:40] LABS: Glucose, Whole Blood 239 mg/dL (60-115)
[2024-01-22] MEDS: Insulin Glargine,Hum.rec.anlog 100 UNIT/ML 10 ML VIAL 20 UNIT SUBCUT (21:05)
--- NOTE | 2024-01-22 22:54 | HO.SKINPHOTO ---
Location: rt buttocks Category: pressure? Stage: unstage Length: Width: Depth: cm Location: scrotum Category: pressure? Stage: unstage Length: Width: Depth: cm Location: Category: Stage: Length: Width: Depth: cm Location: Category: Stage: Length: Width: Depth: cm Location: Category: Stage: Length: Width: Depth: cm Location: Category: Stage: Length: Width: Depth: cm
--- NOTE | 2024-01-23 02:58 | MHC.PIE ---
p; pt known hx of etho, placed on pheno protocol. ?pheno dc'd? i; dr bejarano made aware e; will cont to moniotor
[2024-01-23] MEDS: Acetaminophen 325 MG TABLET 650 MG PO (03:37)
[2024-01-23 03:52] VITALS: BP 131/69; PULSE 102; RESP 16; TEMP 37.6; O2SAT 94
[2024-01-23 06:13] LABS: Basophils Absolute Auto 0.1 X10*3/uL (0.0-0.2); Basophils Percent Auto 0.3 % (0-2); Eosinophils Percent Auto 0.1 % (0-4); Hematocrit 31.1 % (42.0-52.0); Imm Gran Abs Auto 0.42 X10*3/uL (0.00-0.03); Imm Gran Pct Auto 1.6 % (0.0-0.4); Lymphocytes Absolute Auto 1.8 X10*3/uL (1.2-4.9); Lymphocytes Percent Auto 6.6 % (20-40); MANUAL DIFF FLAG SCAN; Mean Corpuscular HGB Conc 35.4 g/dl (31.0-36.0); Mean Corpuscular Hemoglobin 30.9 pg (27.0-33.0); Mean Corpuscular Volume 87.4 fL (80.0-98.0); Mean Platelet Volume 10.1 fL (9.4-12.4); Monocytes Absolute Auto 2.2 X10*3/uL (0.1-1.2); Monocytes Percent Auto 8.2 % (2-11); Neutrophils Absolute Auto 22.1 x10*3/uL (2.0-8.3); Neutrophils Percent Auto 83.2 % (45-73); Platelet Count 269 X10*3/uL (160-400); Red Blood Count 3.56 X10*6/uL (4.60-5.80); Red Cell Distribution Width 11.2 % (11.0-16.0); SCAN SMEAR FLAG 1; White Blood Count 26.6 X10*3/uL (4.8-10.8)
[2024-01-23 06:14] VITALS: TEMP 36.7
[2024-01-23 06:39] LABS: Anion Gap 13 (12-20); Blood Urea Nitrogen 26 mg/dL (9-16); Calcium 9.5 mg/dL (8.4-10.2); Carbon Dioxide 23 mmol/L (22-29); Chloride 99 mmol/L (96-108); Creatinine Clr Calc Pharmacy 55.7; Estimated Glomerular Filt Rate 47; Glucose Random 266 mg/dL (60-115); Potassium 3.9 mmol/L (3.3-5.1); SLIDE REVIEW VERIFIED; Sodium 131 mmol/L (135-145)
[2024-01-23 06:51] LABS: Magnesium 1.8 mg/dL (1.6-2.6)
[2024-01-23 08:00] VITALS: BP 117/67; PULSE 84; RESP 16; TEMP 36.3; O2SAT 96
[2024-01-23 08:00] LABS: Glucose, Whole Blood 227 mg/dL (60-115)
[2024-01-23] MEDS: Insulin Lispro 100 UNIT/ML 3 ML VIAL SUBCUT ×4 (08:27→21:05)
[2024-01-23] MEDS: carvediloL 6.25 MG TABLET PO ×2 (08:28→21:05)
[2024-01-23] MEDS: amLODIPine Besylate 5 MG TABLET PO (08:28)
[2024-01-23] MEDS: Folic Acid 1 MG TABLET PO (08:28)
[2024-01-23] MEDS: glipiZIDE XL 10 MG TAB.ER.24 PO (08:28)
[2024-01-23] MEDS: Thiamine HCL 100 MG TABLET PO (08:28)
[2024-01-23] MEDS: Magnesium Oxide 400 MG TABLET PO ×2 (08:28→16:53)
[2024-01-23] MEDS: Multivitamin TABLET 1 TAB PO (08:28)
[2024-01-23] MEDS: cefTRIAXone sodium 1 GM in 0.9 % Sodium Chloride 50 ML IV (09:31)
[2024-01-23] MEDS: vancomycin HCL 1,000 MG in 0.9 % Sodium Chloride 250 ML 270 MG IV (10:33)
[2024-01-23 11:12] LABS: Glucose, Whole Blood 229 mg/dL (60-115)
--- NOTE | 2024-01-23 11:25 | PC.NURSE ---
Phenobarb noted to have reached renew stop date in [facility], made aware, LEANDRO updated and notified, new order for phenobarb protocol placed.
[2024-01-23] MEDS: PHENobarbitaL 100 MG, PHENobarbitaL 30 MG, PHENobarbitaL 15 MG 145 MG PO (12:00)
--- NOTE | 2024-01-23 12:10 | MHC.CM.PN ---
Patient lives in an apartment alone. Reports he is functionally independent. Denies use of DME or services. Also reports he struggles w/ ETOH use. financial operations analyst is following and patient is open to supports. No PCP. CM provided [facility] physician brochure and discussed importance of establishing care. Patient will schedule appt. HCP on file and verified. DP: Home self care vs recovery team intervention. Will need transport via [facility] shuttle or [employer]. CM will continue to follow.
[2024-01-23] MEDS: 0.9 % Sodium Chloride Flush 3 ML SYRINGE IVFLUSH ×3 (14:40→21:06)
--- NOTE | 2024-01-23 15:11 | P.PNIM_ITS ---
Subjective Subjective Date of Service: 01/23/24 Interval History: Jittery/anxious looking. No overt seizures Review of Systems Denies chest pain Denies shortness of breath Denies nausea vomiting diarrhea Denies fever chills Physical Exam 2 Vital Signs: Vital Signs: Last Vital Signs Temp 97.4 F 01/23/24 08:00 Pulse 84 01/23/24 08:00 Resp 16 01/23/24 08:00 BP 117/67 01/23/24 08:00 Pulse Ox 96 01/23/24 08:00 O2 Del Method Room Air 01/23/24 08:00 BMI result Body Mass Index 30.0 Const: Other: Awake/tremulous Resp: Other: Clear to auscultation bilaterally no rales rhonchi or wheezes Cardio: Other: No S4; positive S1-S2; no S3 murmurs rubs or gallops GI: Other: Soft nontender nondistended normoactive bowel sounds Extrem: Other: No edema bilaterally Objective Data Active Medications Acetaminophen (Acetaminophen 325 Mg Tablet) 650 mg PO Q6H PRN PRN Reason: Pain, Mild (Pain Scale 1-3), fever or headache Last Admin: 01/23/24 03:37 Dose: 650 mg Documented By: ELA Amlodipine Besylate (Amlodipine Besylate 5 Mg Tablet) 5 mg PO DAILY [facility]; Protocol Last Admin: 01/23/24 08:28 Dose: 5 mg Documented By: MARIAM Calcium Carbonate (Calcium Carbonate 750 Mg Tab.Chew) 750 mg PO Q4H PRN PRN Reason: Heartburn Carvedilol (Carvedilol 6.25 Mg Tablet) 6.25 mg PO BID [facility]; Protocol Last Admin: 01/23/24 08:28 Dose: 6.25 mg Documented By: MARIAM Enoxaparin Sodium (Enoxaparin Sodium 40 Mg/0.4 Ml Syringe) 40 mg SUBCUT Q24H [facility] Last Admin: 01/22/24 15:25 Dose: 40 mg Documented By: NICOLA Folic Acid (Folic Acid 1 Mg Tablet) 1 mg PO DAILY [facility] Last Admin: 01/23/24 08:28 Dose: 1 mg Documented By: MARIAM Glipizide (Glipizide Xl 10 Mg Tab.Er.24) 10 mg PO DAILY [facility] Last Admin: 01/23/24 08:28 Dose: 10 mg Documented By: MARIAM Glucose (Glucose Gel 15 Gm Gel..Gram.) 15 gm PO Q15M PRN; Protocol PRN Reason: per Hypoglycemia Standing Ord. Dextrose (D10) 250 mls @ 750 mls/hr IV Q15M PRN; Protocol PRN Reason: per Hypoglycemia Standing Ord. Ceftriaxone Sodium 1 gm/ (Sodium Chloride) 50 mls @ 100 mls/hr IV Q24H [facility] Last Infusion: 01/23/24 10:31 Dose: Infused Documented By: AUDIE Vancomycin HCl 1,000 mg/ (Sodium Chloride) 270 mls @ 270 mls/hr IV Q24H [facility] Last Infusion: 01/23/24 12:01 Dose: Infused Documented By: MARIAM Insulin Glargine (Insulin Glargine,Hum.Rec.Anlog 100 Unit/Ml 10 Ml Vial) 20 unit SUBCUT BEDTIME [facility] Last Admin: 01/22/24 21:05 Dose: 20 unit Documented By: ELA Insulin Human Lispro (Insulin Lispro 100 Unit/Ml 3 Ml Vial) 0 unit SUBCUT QIDACHS [facility]; Protocol Last Admin: 01/23/24 11:59 Dose: 4 unit Documented By: MARIAM Magnesium Hydroxide (Milk Of Magnesia 30 Ml Oral.Susp) 30 ml PO DAILY PRN PRN Reason: Constipation Magnesium Oxide (Magnesium Oxide 400 Mg Tablet) 400 mg PO BIDPC [facility] Last Admin: 01/23/24 08:28 Dose: 400 mg Documented By: MARIAM Melatonin (Melatonin 3 Mg Tablet) 6 mg PO BEDTIME PRN PRN Reason: Insomnia Multivitamins/Vitamin C (Multivitamin Tablet) 1 tab PO DAILY [facility] Last Admin: 01/23/24 08:28 Dose: 1 tab Documented By: MARIAM Ondansetron HCl (Ondansetron Hcl 4 Mg/2 Ml Vial) 4 mg IVPUSH Q8H PRN PRN Reason: Nausea and Vomiting Pharmacy Consult (Consult Rx Etoh Phenob Po Only) 1 each MISCELLANE ONCE PRN; Protocol PRN Reason: Consult order Pharmacy Consult (Consult Rx Vancomycin Dosing) 1 each MISCELLANE DAILY PRN PRN Reason: Consult order Pharmacy Consult (Consult Rx Etoh Phenob Po Only) 1 each MISCELLANE ONCE PRN; Protocol PRN Reason: Consult order Phenobarbital (Phenobarbital 30 Mg Tablet) 120 mg PO ONCE [facility]; Protocol Last Admin: 01/21/24 16:52 Dose: 120 mg Documented By: BRENDA Phenobarbital 100 mg/ (Phenobarbital 15 mg) 115 mg PO Q3H [facility]; Protocol Stop: 01/23/24 17:01 Last Admin: 01/23/24 14:39 Dose: 115 mg Documented By: MARIAM Phenobarbital (Phenobarbital 15 Mg Tablet) 45 mg PO BID [facility]; Protocol Stop: 01/25/24 21:01 Phenobarbital (Phenobarbital 15 Mg Tablet) 15 mg PO BID [facility]; Protocol Stop: 01/27/24 21:01 Phenobarbital (Phenobarbital 15 Mg Tablet) 15 mg PO DAILY [facility]; Protocol Stop: 01/29/24 09:01 Sodium Chloride (0.9 % Sodium Chloride Flush 3 Ml Syringe) [facility] Last Admin: 01/23/24 14:40 Dose: 3 ml Documented By: MARIAM Thiamine HCl (Thiamine Hcl 100 Mg Tablet) 100 mg PO DAILY [facility] Last Admin: 01/23/24 08:28 Dose: 100 mg Documented By: MARIAM Labs 01/23/24 05:51 01/23/24 05:51 Labs: Laboratory Results - last 24 hr 01/22/24 01/22/24 01/22/24 10:16 16:14 20:37 MCV MCH MCHC RDW Plt Count MPV Immature Gran % (Auto) Neut % (Auto) Lymph % (Auto) [place] % (Auto) Eos % (Auto) Baso % (Auto) Lymph # (Auto) [place] # (Auto) Eos # (Auto) Baso # (Auto) Abs Immat Gran (auto) Absolute Neuts (auto) Absolute Nucleated RBC Nucleated RBC % (auto) Smear Tech's Comments Anion Gap Estim Creat Clear Calc Estimated GFR POC Glucose 231 H 239 H Random Glucose Calcium Magnesium Stl C. cayetanensis PCR Not Detected Stool Rotavirus A PCR Not Detected Stl Adenov F 40/41 PCR Not Detected Stool Astrovirus (PCR) Not Detected Stool Campylobacter PCR Not Detected Stool Cryptosporidium PCR Not Detected Stl Sh Tox Pr E STEC PCR Not Detected Stool E coli O157 PCR Not applicable Stl Enterotoxigenic E PCR Not Detected Stool EPEC (PCR) Not Detected Stool EAEC (PCR) Not Detected Stl E. histolytica PCR Not Detected Stool Giardia Lamblia PCR Not Detected Stl P. shigelloides PCR Not Detected Stool Salmonella PCR Not Detected Stool Sapovirus (PCR) Not Detected Stl Shigella/EIEC PCR Not Detected St Y.enterocolitica PCR Not Detected Stool Vibrio (PCR) Not Detected Stl Vibrio cholerae PCR Not Detected Stl Norovirus GI/GII PCR Not Detected C. difficile Toxin A&B Negative C. difficile Interpret SEE NOTE 01/23/24 01/23/24 01/23/24 05:51 07:47 11:07 MCV 87.4 MCH 30.9 MCHC 35.4 RDW 11.2 Plt Count 269 MPV 10.1 Immature Gran % (Auto) 1.6 H Neut % (Auto) 83.2 H Lymph % (Auto) 6.6 L [place] % (Auto) 8.2 Eos % (Auto) 0.1 Baso % (Auto) 0.3 Lymph # (Auto) 1.8 [place] # (Auto) 2.2 H Eos # (Auto) 0.0 Baso # (Auto) 0.1 Abs Immat Gran (auto) 0.42 H Absolute Neuts (auto) 22.1 H Absolute Nucleated RBC 0.000 Nucleated RBC % (auto) 0.0 Smear Tech's Comments VERIFIED Anion Gap 13 Estim Creat Clear Calc 55.7 Estimated GFR 47 POC Glucose 227 H 229 H Random Glucose 266 H Calcium 9.5 Magnesium 1.8 Stl C. cayetanensis PCR Stool Rotavirus A PCR Stl Adenov F 40/41 PCR Stool Astrovirus (PCR) Stool Campylobacter PCR Stool Cryptosporidium PCR Stl Sh Tox Pr E STEC PCR Stool E coli O157 PCR Stl Enterotoxigenic E PCR Stool EPEC (PCR) Stool EAEC (PCR) Stl E. histolytica PCR Stool Giardia Lamblia PCR Stl P. shigelloides PCR Stool Salmonella PCR Stool Sapovirus (PCR) Stl Shigella/EIEC PCR St Y.enterocolitica PCR Stool Vibrio (PCR) Stl Vibrio cholerae PCR Stl Norovirus GI/GII PCR C. difficile Toxin A&B C. difficile Interpret Microbiology Microbiology Results: Microbiology 01/21/24 13:05 Blood Culture - Preliminary Blood - Venous No growth after 48 hours. 01/21/24 13:05 Blood Culture - Preliminary Blood - Venous No growth after 48 hours. 01/22/24 09:55 Blood Culture - Preliminary Blood - Venous No growth after 24 hours. 01/22/24 09:40 Blood Culture - Preliminary Blood - Venous No growth after 24 hours. Assessment and Plan (1) Cellulitis of right lower extremity: Status: Acute (2) Alcohol use disorder, severe, dependence: Status: Acute (3) Type 2 diabetes mellitus with hyperglycemia: Status: Acute (4) Hypertension: Status: Acute Plan This is a 48 yaer old male with pertinent history of medication noncompliance, uncontrolled blood pressure, insulin-dependent diabetes mellitus, alcohol use disorder who presents to the emergency department for evaluation of generalized weakness and early alcohol withdrawal 1.Sepsis due to right lower extremity cellulitis -sepsis resolved -ceftriaxone/vancomycin (2) -await blood cultures -daily CBC 2.Acute kidney injury -responding to volume repletion -follow renals/divalents 3.Alcohol use disorder with concerns for alcohol withdrawal -phenobarb protocol -follow on CIWA protocol -addiction Medicine consult 3.Hypertensive urgency.. Resolved -acceptable control on current therapies -adjust as indicated by clinical presentation and renal function 4. Diabetes mellitus type 2 -lispro correctional scale -basal insulin as clinically indicated -adjust therapies as indicated Lovenox Full code Requires ongoing hospitalization for IV antibiotics to treat cellulitis and for monitoring/phenobarb protocol for alcohol withdrawal. High risk for outpatient failure Quality Stroke Does the patient have a stroke diagnosis?: No VTE Prior VTE?: No VTE Risk Level:: Medical - moderate - high VTE Device Contraindication: Treatment Not Indicated VTE Drug Contraindication: N/A - Med Ordered
[2024-01-23 15:19] VITALS: BP 97/58; PULSE 89; RESP 16; TEMP 37.1; O2SAT 92
[2024-01-23 16:22] LABS: Glucose, Whole Blood 275 mg/dL (60-115)
[2024-01-23] MEDS: Enoxaparin Sodium 40 MG/0.4 ML SYRINGE SUBCUT (16:53)
[2024-01-23 17:36] VITALS: BP 116/60; PULSE 91
[2024-01-23 20:00] VITALS: BP 108/55; PULSE 88; RESP 18; TEMP 36.6; O2SAT 94
[2024-01-23 20:52] LABS: Glucose, Whole Blood 277 mg/dL (60-115)
[2024-01-23] MEDS: Insulin Glargine,Hum.rec.anlog 100 UNIT/ML 10 ML VIAL 20 UNIT SUBCUT (21:05)
[2024-01-24 03:51] VITALS: BP 110/65; PULSE 80; RESP 20; TEMP 36.9; O2SAT 96
[2024-01-24 07:40] LABS: Glucose, Whole Blood 187 mg/dL (60-115)
[2024-01-24 07:44] VITALS: BP 127/69; PULSE 84; RESP 16; TEMP 37; O2SAT 92
[2024-01-24] MEDS: PHENobarbitaL 15 MG TABLET 45 MG PO ×2 (08:24→21:13)
[2024-01-24] MEDS: Multivitamin TABLET 1 TAB PO (08:24)
[2024-01-24] MEDS: amLODIPine Besylate 5 MG TABLET PO (08:24)
[2024-01-24] MEDS: 0.9 % Sodium Chloride Flush 3 ML SYRINGE IVFLUSH ×3 (08:24→21:16)
[2024-01-24] MEDS: Thiamine HCL 100 MG TABLET PO (08:24)
[2024-01-24] MEDS: glipiZIDE XL 10 MG TAB.ER.24 PO (08:24)
[2024-01-24] MEDS: carvediloL 6.25 MG TABLET PO ×2 (08:24→21:13)
[2024-01-24] MEDS: Folic Acid 1 MG TABLET PO (08:24)
[2024-01-24] MEDS: Magnesium Oxide 400 MG TABLET PO ×2 (08:24→16:32)
[2024-01-24] MEDS: Insulin Lispro 100 UNIT/ML 3 ML VIAL SUBCUT ×4 (08:25→21:15)
[2024-01-24] MEDS: cefTRIAXone sodium 1 GM in 0.9 % Sodium Chloride 50 ML IV (09:08)
[2024-01-24 09:40] LABS: Basophils Absolute Auto 0.1 X10*3/uL (0.0-0.2); Basophils Percent Auto 0.6 % (0-2); Eosinophils Absolute Auto 0.1 X10*3/uL (0.0-0.4); Eosinophils Percent Auto 0.7 % (0-4); Hematocrit 30.9 % (42.0-52.0); Hemoglobin 10.5 g/dl (14.0-18.0); Imm Gran Abs Auto 0.15 X10*3/uL (0.00-0.03); Imm Gran Pct Auto 0.8 % (0.0-0.4); Lymphocytes Percent Auto 10.8 % (20-40); MANUAL DIFF FLAG SCAN; Mean Corpuscular Hemoglobin 30.4 pg (27.0-33.0); Mean Corpuscular Volume 89.6 fL (80.0-98.0); Mean Platelet Volume 10.3 fL (9.4-12.4); Monocytes Absolute Auto 1.6 X10*3/uL (0.1-1.2); Monocytes Percent Auto 8.8 % (2-11); Neutrophils Absolute Auto 14.1 x10*3/uL (2.0-8.3); Neutrophils Percent Auto 78.3 % (45-73); Platelet Count 255 X10*3/uL (160-400); Red Blood Count 3.45 X10*6/uL (4.60-5.80); Red Cell Distribution Width 11.2 % (11.0-16.0); SCAN SMEAR FLAG 1; White Blood Count 18.1 X10*3/uL (4.8-10.8)
[2024-01-24 09:43] LABS: Vancomycin Random 12.9 mcg/mL (15-20)
[2024-01-24 09:46] LABS: Alanine Aminotransferase 22 U/L (0-40); Albumin Level 2.9 g/dL (3.5-5.0); Alkaline Phosphatase 111 U/L (39-117); Anion Gap 14 (12-20); Aspartate Amino Transferase 28 U/L (5-37); Bilirubin Total 0.4 mg/dL (0.0-1.0); Blood Urea Nitrogen 27 mg/dL (9-16); Calcium 8.9 mg/dL (8.4-10.2); Carbon Dioxide 22 mmol/L (22-29); Chloride 99 mmol/L (96-108); Creatinine Clr Calc Pharmacy 54.3; Estimated Glomerular Filt Rate 46; Glucose Fasting 279 mg/dL (60-99); Potassium 3.9 mmol/L (3.3-5.1); Sodium 131 mmol/L (135-145); Total Protein 7.3 g/dL (6.5-8.0)
[2024-01-24 10:04] LABS: SLIDE REVIEW VERIFIED
--- NOTE | 2024-01-24 10:04 | HE.PHANOTE ---
MONIKA RODRIGUEZ Patients level came back this morning at 12.9. Will increase dose to 1250 mg Q24H as patients indication has evolved to sepsis from cellulitis. Next level will be 07.16 @0900. Predicted AUC 516 TROUGH 15.7
[2024-01-24] MEDS: vancomycin HCL 1,250 MG in 0.9 % Sodium Chloride 250 ML 166.67 MG IV (10:27)
[2024-01-24 11:14] LABS: Glucose, Whole Blood 233 mg/dL (60-115)
--- NOTE | 2024-01-24 13:13 | P.PNIM_ITS ---
Subjective Subjective Date of Service: 01/24/24 Interval History: Much calmer today with phenobarb protocol. Looks peaceful no acute events overnight Review of Systems Denies chest pain Denies shortness of breath Denies nausea vomiting diarrhea Denies fever chills Physical Exam 2 Vital Signs: Vital Signs: Last Vital Signs Temp 98.6 F 01/24/24 07:44 Pulse 84 01/24/24 07:44 Resp 16 01/24/24 07:44 BP 127/69 01/24/24 07:44 Pulse Ox 92 01/24/24 07:44 O2 Del Method Room Air 01/24/24 07:44 BMI result Body Mass Index 30.0 Const: Other: Awake/tremulous Resp: Other: Clear to auscultation bilaterally no rales rhonchi or wheezes Cardio: Other: No S4; positive S1-S2; no S3 murmurs rubs or gallops GI: Other: Soft nontender nondistended normoactive bowel sounds Extrem: Other: No edema bilaterally Objective Data Active Medications Acetaminophen (Acetaminophen 325 Mg Tablet) 650 mg PO Q6H PRN PRN Reason: Pain, Mild (Pain Scale 1-3), fever or headache Last Admin: 01/23/24 03:37 Dose: 650 mg Documented By: ELA Amlodipine Besylate (Amlodipine Besylate 5 Mg Tablet) 5 mg PO DAILY [facility]; Protocol Last Admin: 01/24/24 08:24 Dose: 5 mg Documented By: MARIAM Calcium Carbonate (Calcium Carbonate 750 Mg Tab.Chew) 750 mg PO Q4H PRN PRN Reason: Heartburn Carvedilol (Carvedilol 6.25 Mg Tablet) 6.25 mg PO BID [facility]; Protocol Last Admin: 01/24/24 08:24 Dose: 6.25 mg Documented By: MARIAM Enoxaparin Sodium (Enoxaparin Sodium 40 Mg/0.4 Ml Syringe) 40 mg SUBCUT Q24H [facility] Last Admin: 01/23/24 16:53 Dose: 40 mg Documented By: MARIAM Folic Acid (Folic Acid 1 Mg Tablet) 1 mg PO DAILY [facility] Last Admin: 01/24/24 08:24 Dose: 1 mg Documented By: MARIAM Glipizide (Glipizide Xl 10 Mg Tab.Er.24) 10 mg PO DAILY [facility] Last Admin: 01/24/24 08:24 Dose: 10 mg Documented By: MARIAM Glucose (Glucose Gel 15 Gm Gel..Gram.) 15 gm PO Q15M PRN; Protocol PRN Reason: per Hypoglycemia Standing Ord. Dextrose (D10) 250 mls @ 750 mls/hr IV Q15M PRN; Protocol PRN Reason: per Hypoglycemia Standing Ord. Ceftriaxone Sodium 1 gm/ (Sodium Chloride) 50 mls @ 100 mls/hr IV Q24H [facility] Last Infusion: 01/24/24 09:45 Dose: Infused Documented By: MARIAM Vancomycin HCl 1,250 mg/ (Sodium Chloride) 250 mls @ 166.667 mls/hr IV Q24H [facility] Last Infusion: 01/24/24 12:01 Dose: Infused Documented By: MARIAM Insulin Glargine (Insulin Glargine,Hum.Rec.Anlog 100 Unit/Ml 10 Ml Vial) 20 unit SUBCUT BEDTIME [facility] Last Admin: 01/23/24 21:05 Dose: 20 unit Documented By: ELA Insulin Human Lispro (Insulin Lispro 100 Unit/Ml 3 Ml Vial) 0 unit SUBCUT QIDACHS [facility]; Protocol Last Admin: 01/24/24 11:47 Dose: 4 unit Documented By: MARIAM Magnesium Hydroxide (Milk Of Magnesia 30 Ml Oral.Susp) 30 ml PO DAILY PRN PRN Reason: Constipation Magnesium Oxide (Magnesium Oxide 400 Mg Tablet) 400 mg PO BIDPC [facility] Last Admin: 01/24/24 08:24 Dose: 400 mg Documented By: MARIAM Melatonin (Melatonin 3 Mg Tablet) 6 mg PO BEDTIME PRN PRN Reason: Insomnia Multivitamins/Vitamin C (Multivitamin Tablet) 1 tab PO DAILY [facility] Last Admin: 01/24/24 08:24 Dose: 1 tab Documented By: MARIAM Ondansetron HCl (Ondansetron Hcl 4 Mg/2 Ml Vial) 4 mg IVPUSH Q8H PRN PRN Reason: Nausea and Vomiting Pharmacy Consult (Consult Rx Etoh Phenob Po Only) 1 each MISCELLANE ONCE PRN; Protocol PRN Reason: Consult order Pharmacy Consult (Consult Rx Vancomycin Dosing) 1 each MISCELLANE DAILY PRN PRN Reason: Consult order Pharmacy Consult (Consult Rx Etoh Phenob Po Only) 1 each MISCELLANE ONCE PRN; Protocol PRN Reason: Consult order Phenobarbital (Phenobarbital 30 Mg Tablet) 120 mg PO ONCE [facility]; Protocol Last Admin: 01/21/24 16:52 Dose: 120 mg Documented By: BRENDA Phenobarbital (Phenobarbital 15 Mg Tablet) 45 mg PO BID [facility]; Protocol Stop: 01/25/24 21:01 Last Admin: 01/24/24 08:24 Dose: 45 mg Documented By: MARIAM Phenobarbital (Phenobarbital 15 Mg Tablet) 15 mg PO BID [facility]; Protocol Stop: 01/27/24 21:01 Phenobarbital (Phenobarbital 15 Mg Tablet) 15 mg PO DAILY [facility]; Protocol Stop: 01/29/24 09:01 Sodium Chloride (0.9 % Sodium Chloride Flush 3 Ml Syringe) 3 ml IVFLUSH QSHIFT [facility] Last Admin: 01/24/24 08:24 Dose: 3 ml Documented By: MARIAM Thiamine HCl (Thiamine Hcl 100 Mg Tablet) 100 mg PO DAILY [facility] Last Admin: 01/24/24 08:24 Dose: 100 mg Documented By: MARIAM Labs 01/24/24 09:16 01/24/24 09:16 Labs: Laboratory Results - last 24 hr 01/23/24 01/23/24 01/24/24 16:05 20:37 07:21 MCV MCH MCHC RDW Plt Count MPV Immature Gran % (Auto) Neut % (Auto) Lymph % (Auto) [place] % (Auto) Eos % (Auto) Baso % (Auto) Lymph # (Auto) [place] # (Auto) Eos # (Auto) Baso # (Auto) Abs Immat Gran (auto) Absolute Neuts (auto) Absolute Nucleated RBC Nucleated RBC % (auto) Smear Tech's Comments Anion Gap Estim Creat Clear Calc Estimated GFR POC Glucose 275 H 277 H 187 H Fasting Glucose Calcium Total Bilirubin AST ALT Alkaline Phosphatase Total Protein Albumin Random Vancomycin 01/24/24 01/24/24 01/24/24 09:15 09:16 11:04 MCV 89.6 MCH 30.4 MCHC 34.0 RDW 11.2 Plt Count 255 MPV 10.3 Immature Gran % (Auto) 0.8 H Neut % (Auto) 78.3 H Lymph % (Auto) 10.8 L [place] % (Auto) 8.8 Eos % (Auto) 0.7 Baso % (Auto) 0.6 Lymph # (Auto) 2.0 [place] # (Auto) 1.6 H Eos # (Auto) 0.1 Baso # (Auto) 0.1 Abs Immat Gran (auto) 0.15 H Absolute Neuts (auto) 14.1 H Absolute Nucleated RBC 0.000 Nucleated RBC % (auto) 0.0 Smear Tech's Comments VERIFIED Anion Gap 14 Estim Creat Clear Calc 54.3 Estimated GFR 46 POC Glucose 233 H Fasting Glucose 279 H Calcium 8.9 D Total Bilirubin 0.4 AST 28 ALT 22 Alkaline Phosphatase 111 Total Protein 7.3 Albumin 2.9 L Random Vancomycin 12.9 L Microbiology Microbiology Results: Microbiology 01/22/24 09:55 Blood Culture - Preliminary Blood - Venous No growth after 48 hours. 01/22/24 09:40 Blood Culture - Preliminary Blood - Venous No growth after 48 hours. 01/21/24 13:05 Blood Culture - Preliminary Blood - Venous No growth after 48 hours. 01/21/24 13:05 Blood Culture - Preliminary Blood - Venous No growth after 48 hours. Assessment and Plan (1) Cellulitis of right lower extremity: Status: Acute (2) Type 2 diabetes mellitus with hyperglycemia: Status: Acute Plan This is a 48 yaer old male with pertinent history of medication noncompliance, uncontrolled blood pressure, insulin-dependent diabetes mellitus, alcohol use disorder who presents to the emergency department for evaluation of generalized weakness and early alcohol withdrawal 1.Sepsis due to right lower extremity cellulitis -sepsis resolved -ceftriaxone/vancomycin (3) -await blood cultures -daily CBC 2.Acute kidney injury -responding to volume repletion -follow renals/divalents 3.Alcohol use disorder with concerns for alcohol withdrawal -phenobarb protocol -follow on CIWA protocol... Doing well with same -addiction Medicine consult 3.Hypertensive urgency.. Resolved -acceptable control on current therapies -adjust as indicated by clinical presentation and renal function 4. Diabetes mellitus type 2 -lispro correctional scale -basal insulin as clinically indicated -adjust therapies as indicated Lovenox Full code Requires ongoing hospitalization for IV antibiotics to treat cellulitis and for monitoring/phenobarb protocol for alcohol withdrawal. High risk for outpatient failure Quality Stroke Does the patient have a stroke diagnosis?: No VTE Prior VTE?: No VTE Risk Level:: Medical - moderate - high VTE Device Contraindication: Treatment Not Indicated VTE Drug Contraindication: N/A - Med Ordered
[2024-01-24 15:05] VITALS: BP 133/72; PULSE 82; RESP 18; TEMP 36.6; O2SAT 94
[2024-01-24 16:13] LABS: Glucose, Whole Blood 265 mg/dL (60-115)
[2024-01-24] MEDS: Enoxaparin Sodium 40 MG/0.4 ML SYRINGE SUBCUT (16:32)
[2024-01-24 18:55] VITALS: BP 135/71; PULSE 84; RESP 18; TEMP 36.6; O2SAT 93
[2024-01-24 20:21] LABS: Glucose, Whole Blood 309 mg/dL (60-115)
[2024-01-24 21:13] VITALS: BP 135/71; PULSE 84
[2024-01-24] MEDS: Insulin Glargine,Hum.rec.anlog 100 UNIT/ML 10 ML VIAL 20 UNIT SUBCUT (21:14)
[2024-01-25 03:55] VITALS: BP 156/80; PULSE 78; RESP 16; TEMP 36.5; O2SAT 96
[2024-01-25 06:32] LABS: MANUAL DIFF FLAG NO
[2024-01-25 06:45] LABS: Basophils Absolute Auto 0.1 X10*3/uL (0.0-0.2); Basophils Percent Auto 0.6 % (0-2); Eosinophils Absolute Auto 0.2 X10*3/uL (0.0-0.4); Eosinophils Percent Auto 1.1 % (0-4); Hematocrit 31.2 % (42.0-52.0); Hemoglobin 10.7 g/dl (14.0-18.0); Imm Gran Abs Auto 0.06 X10*3/uL (0.00-0.03); Imm Gran Pct Auto 0.4 % (0.0-0.4); Lymphocytes Absolute Auto 2.3 X10*3/uL (1.2-4.9); Lymphocytes Percent Auto 17.5 % (20-40); Mean Corpuscular HGB Conc 34.3 g/dl (31.0-36.0); Mean Corpuscular Hemoglobin 30.3 pg (27.0-33.0); Mean Corpuscular Volume 88.4 fL (80.0-98.0); Mean Platelet Volume 10.2 fL (9.4-12.4); Monocytes Absolute Auto 1.4 X10*3/uL (0.1-1.2); Monocytes Percent Auto 10.2 % (2-11); Neutrophils Absolute Auto 9.4 x10*3/uL (2.0-8.3); Neutrophils Percent Auto 70.2 % (45-73); Platelet Count 274 X10*3/uL (160-400); Red Blood Count 3.53 X10*6/uL (4.60-5.80); Red Cell Distribution Width 11.3 % (11.0-16.0); White Blood Count 13.4 X10*3/uL (4.8-10.8)
[2024-01-25 06:53] LABS: Alanine Aminotransferase 24 U/L (0-40); Albumin Level 2.9 g/dL (3.5-5.0); Alkaline Phosphatase 119 U/L (39-117); Anion Gap 13 (12-20); Aspartate Amino Transferase 30 U/L (5-37); Bilirubin Total 0.3 mg/dL (0.0-1.0); Blood Urea Nitrogen 21 mg/dL (9-16); Calcium 9.6 mg/dL (8.4-10.2); Carbon Dioxide 24 mmol/L (22-29); Chloride 102 mmol/L (96-108); Creatinine Clr Calc Pharmacy 68.5; Estimated Glomerular Filt Rate > 60; Glucose Fasting 200 mg/dL (60-99); Potassium 4.2 mmol/L (3.3-5.1); Sodium 135 mmol/L (135-145); Total Protein 7.6 g/dL (6.5-8.0)
[2024-01-25 07:24] VITALS: BP 141/80; PULSE 80; RESP 16; TEMP 36.6; O2SAT 95
[2024-01-25] MEDS: 0.9 % Sodium Chloride Flush 3 ML SYRINGE IVFLUSH ×4 (07:34→20:40)
[2024-01-25 07:36] LABS: Glucose, Whole Blood 176 mg/dL (60-115)
[2024-01-25] MEDS: glipiZIDE XL 10 MG TAB.ER.24 PO (07:49)
[2024-01-25] MEDS: amLODIPine Besylate 5 MG TABLET PO (07:49)
[2024-01-25] MEDS: Folic Acid 1 MG TABLET PO (07:50)
[2024-01-25] MEDS: PHENobarbitaL 15 MG TABLET 45 MG PO (07:50)
[2024-01-25] MEDS: carvediloL 6.25 MG TABLET PO ×2 (07:50→20:40)
[2024-01-25] MEDS: Insulin Lispro 100 UNIT/ML 3 ML VIAL SUBCUT ×4 (07:51→20:40)
[2024-01-25] MEDS: Thiamine HCL 100 MG TABLET PO (07:51)
[2024-01-25] MEDS: Magnesium Oxide 400 MG TABLET PO ×2 (07:51→16:28)
[2024-01-25] MEDS: Multivitamin TABLET 1 TAB PO (07:51)
[2024-01-25] MEDS: cefTRIAXone sodium 1 GM in 0.9 % Sodium Chloride 50 ML IV (10:28)
[2024-01-25 11:26] LABS: Glucose, Whole Blood 218 mg/dL (60-115)
[2024-01-25] MEDS: vancomycin HCL 1,250 MG in 0.9 % Sodium Chloride 250 ML 166.67 MG IV (11:30)
--- NOTE | 2024-01-25 12:04 | MHC.CLN ---
NUTRITION CONSULT FOR SKIN INTEGRITY. SKIN WITH DTI TO SCROTUM AND UNSTAGEABLE AREA TO RIGHT BUTTOCKS IDENTIFIED 01/21. DIET=DIABETIC 2000 KCALS, CARDIAC. ADDING ENSURE MAX BID TO PROMOTE WOUND HEALING. SUPPLEMENT PROVIDES 300 KCALS, 60 G PROTEIN. INTAKE AT MEALS USUALLY 100%. FOLLOW FOR INTAKE AND SKIN INTEGRITY. SEE CLINICAL NUTRITION ASSESSMENT 01/25/24.
--- NOTE | 2024-01-25 12:21 | HO.PM.IMPN ---
Subjective Subjective Date of Service: 01/25/24 Interval History: LEANDRO remains flat; states he feels better just tired Review of Systems Denies chest pain Denies shortness of breath Denies nausea vomiting diarrhea Denies fever chills Physical Exam Vital Signs: Vital Signs: Last Vital Signs Temp 97.9 F 01/25/24 07:24 Pulse 80 01/25/24 07:24 Resp 16 01/25/24 07:24 BP 141/80 H 01/25/24 07:24 Pulse Ox 95 01/25/24 07:24 O2 Del Method Room Air 01/25/24 07:24 BMI result Body Mass Index 30.0 Const: Other: Awake/tremulous Resp: Other: Clear to auscultation bilaterally no rales rhonchi or wheezes Cardio: Other: No S4; positive S1-S2; no S3 murmurs rubs or gallops GI: Other: Soft nontender nondistended normoactive bowel sounds Extrem: Other: No edema bilaterally Objective Data Active Medications Acetaminophen (Acetaminophen 325 Mg Tablet) 650 mg PO Q6H PRN PRN Reason: Pain, Mild (Pain Scale 1-3), fever or headache Last Admin: 01/23/24 03:37 Dose: 650 mg Documented By: ELA Amlodipine Besylate (Amlodipine Besylate 5 Mg Tablet) 5 mg PO DAILY [facility]; Protocol Last Admin: 01/25/24 07:49 Dose: 5 mg Documented By: PANFILO Calcium Carbonate (Calcium Carbonate 750 Mg Tab.Chew) 750 mg PO Q4H PRN PRN Reason: Heartburn Carvedilol (Carvedilol 6.25 Mg Tablet) 6.25 mg PO BID [facility]; Protocol Last Admin: 01/25/24 07:50 Dose: 6.25 mg Documented By: PANFILO Enoxaparin Sodium (Enoxaparin Sodium 40 Mg/0.4 Ml Syringe) 40 mg SUBCUT Q24H [facility] Last Admin: 01/24/24 16:32 Dose: 40 mg Documented By: MARIAM Folic Acid (Folic Acid 1 Mg Tablet) 1 mg PO DAILY [facility] Last Admin: 01/25/24 07:50 Dose: 1 mg Documented By: PANFILO Glipizide (Glipizide Xl 10 Mg Tab.Er.24) 10 mg PO DAILY [facility] Last Admin: 01/25/24 07:49 Dose: 10 mg Documented By: PANFILO Glucose (Glucose Gel 15 Gm Gel..Gram.) 15 gm PO Q15M PRN; Protocol PRN Reason: per Hypoglycemia Standing Ord. Dextrose (D10) 250 mls @ 750 mls/hr IV Q15M PRN; Protocol PRN Reason: per Hypoglycemia Standing Ord. Ceftriaxone Sodium 1 gm/ (Sodium Chloride) 50 mls @ 100 mls/hr IV Q24H [facility] Last Infusion: 01/25/24 11:29 Dose: Infused Documented By: PANFILO Vancomycin HCl 1,250 mg/ (Sodium Chloride) 250 mls @ 166.667 mls/hr IV Q24H [facility] Last Admin: 01/25/24 11:30 Dose: 166.67 mls/hr Documented By: PANFILO Insulin Glargine (Insulin Glargine,Hum.Rec.Anlog 100 Unit/Ml 10 Ml Vial) 20 unit SUBCUT BEDTIME [facility] Last Admin: 01/24/24 21:14 Dose: 20 unit Documented By: KENDRA Comments: BS 309 Insulin Human Lispro (Insulin Lispro 100 Unit/Ml 3 Ml Vial) 0 unit SUBCUT QIDACHS [facility]; Protocol Last Admin: 01/25/24 11:44 Dose: 4 unit Documented By: PANFILO Magnesium Hydroxide (Milk Of Magnesia 30 Ml Oral.Susp) 30 ml PO DAILY PRN PRN Reason: Constipation Magnesium Oxide (Magnesium Oxide 400 Mg Tablet) 400 mg PO BIDPC [facility] Last Admin: 01/25/24 07:51 Dose: 400 mg Documented By: PANFILO Melatonin (Melatonin 3 Mg Tablet) 6 mg PO BEDTIME PRN PRN Reason: Insomnia Multivitamins/Vitamin C (Multivitamin Tablet) 1 tab PO DAILY [facility] Last Admin: 01/25/24 07:51 Dose: 1 tab Documented By: PANFILO Ondansetron HCl (Ondansetron Hcl 4 Mg/2 Ml Vial) 4 mg IVPUSH Q8H PRN PRN Reason: Nausea and Vomiting Pharmacy Consult (Consult Rx Etoh Phenob Po Only) 1 each MISCELLANE ONCE PRN; Protocol PRN Reason: Consult order Pharmacy Consult (Consult Rx Vancomycin Dosing) 1 each MISCELLANE DAILY PRN PRN Reason: Consult order Pharmacy Consult (Consult Rx Etoh Phenob Po Only) 1 each MISCELLANE ONCE PRN; Protocol PRN Reason: Consult order Sodium Chloride (0.9 % Sodium Chloride Flush 3 Ml Syringe) 3 ml IVFLUSH QSHIFT [facility] Last Admin: 01/25/24 07:34 Dose: 3 ml Documented By: PANFILO Thiamine HCl (Thiamine Hcl 100 Mg Tablet) 100 mg PO DAILY [facility] Last Admin: 01/25/24 07:51 Dose: 100 mg Documented By: PANFILO Labs 01/25/24 06:03 01/25/24 06:03 Labs: Laboratory Results - last 24 hr 01/24/24 01/24/24 01/25/24 16:10 20:18 06:03 MCV 88.4 MCH 30.3 MCHC 34.3 RDW 11.3 Plt Count 274 MPV 10.2 Immature Gran % (Auto) 0.4 Neut % (Auto) 70.2 Lymph % (Auto) 17.5 L [place] % (Auto) 10.2 Eos % (Auto) 1.1 Baso % (Auto) 0.6 Lymph # (Auto) 2.3 [place] # (Auto) 1.4 H Eos # (Auto) 0.2 Baso # (Auto) 0.1 Abs Immat Gran (auto) 0.06 H Absolute Neuts (auto) 9.4 H Absolute Nucleated RBC 0.000 Nucleated RBC % (auto) 0.0 Anion Gap 13 Estim Creat Clear Calc 68.5 Estimated GFR > 60 POC Glucose 265 H 309 H Fasting Glucose 200 H Calcium 9.6 D Total Bilirubin 0.3 AST 30 ALT 24 Alkaline Phosphatase 119 H Total Protein 7.6 Albumin 2.9 L 01/25/24 01/25/24 07:29 11:22 MCV MCH MCHC RDW Plt Count MPV Immature Gran % (Auto) Neut % (Auto) Lymph % (Auto) [place] % (Auto) Eos % (Auto) Baso % (Auto) Lymph # (Auto) [place] # (Auto) Eos # (Auto) Baso # (Auto) Abs Immat Gran (auto) Absolute Neuts (auto) Absolute Nucleated RBC Nucleated RBC % (auto) Anion Gap Estim Creat Clear Calc Estimated GFR POC Glucose 176 H 218 H Fasting Glucose Calcium Total Bilirubin AST ALT Alkaline Phosphatase Total Protein Albumin Microbiology Microbiology Results: Microbiology 01/22/24 09:55 Blood Culture - Preliminary Blood - Venous No growth after 48 hours. 01/22/24 09:40 Blood Culture - Preliminary Blood - Venous No growth after 48 hours. Assessment and Plan (1) Cellulitis of right lower extremity: Status: Acute Plan This is a 48 yaer old male with pertinent history of medication noncompliance, uncontrolled blood pressure, insulin-dependent diabetes mellitus, alcohol use disorder who presents to the emergency department for evaluation of generalized weakness and early alcohol withdrawal 1.Sepsis due to right lower extremity cellulitis -sepsis resolved -ceftriaxone/vancomycin (4) -blood cultures negative times 24 hours -daily CBC.. WBC improving 2.Acute kidney injury -responding to volume repletion -follow renals/divalents 3.Alcohol use disorder with concerns for alcohol withdrawal - CIWA protocol flat... will DC phenobarb at this point -addiction Medicine consult 3.Hypertensive urgency.. Resolved -acceptable control on current therapies -adjust as indicated by clinical presentation and renal function 4. Diabetes mellitus type 2 -lispro correctional scale -basal insulin as clinically indicated -adjust therapies as indicated Lovenox Full code Requires ongoing hospitalization for IV antibiotics to treat cellulitis and for monitoring/phenobarb protocol for alcohol withdrawal. High risk for outpatient failure Quality Stroke Does the patient have a stroke diagnosis?: No VTE Prior VTE?: No VTE Risk Level:: Medical - moderate - high VTE Device Contraindication: Treatment Not Indicated VTE Drug Contraindication: N/A - Med Ordered
[2024-01-25 16:00] VITALS: BP 119/60; PULSE 82; RESP 14; TEMP 37.7; O2SAT 94
--- NOTE | 2024-01-25 16:14 | HO.WOUND ---
Wound Consult: Initial 48yr old? admitted to [facility] on 01/21/24 - See progress notes and H&P for detailed history.? Wound consult placed for scrotum and right buttock wound.? Patient agreeable to assessment and photo documentation.? Patient reports he noted the wound to the right buttock prior to admission - he reports the wound started out tender and then he felt it transitioned up towards the scrotum. The patient is not able to recall more details. He reports he did not look to assess the area and did not notify providers about the wounds. He reports it has increased with pain and discomfort over the last few days. TT to Dr. Dougherty to have urology and surgery consult on pt - there is concern for Ashley gangrene that should be ruled out. Depth of 5cm up toward scrotum noted Right buttock, perineal and scrotum Etiology: Abscess Wound Bed: fluctuant eschar noted to scrotum Right buttock with wound bed with depth of 5cm toward scrotum Drainage / Odor: foul odor noted creamy purulent drainage noted adherent thick slough Edges: ? irregular Donna wound: red erythema, hyperpigmentation and firm swelling noted to perineal and scrotum Pain: pain reported Goals of Treatment: ? Defer to surgery and urology for assessment Recommendations: 1. Scrotum and Perineal area including right buttock - defer topical recommendations to surgery for assessment and debridement. Re-consult wound care Nurse for wound deterioration or wound changes.
[2024-01-25] MEDS: Enoxaparin Sodium 40 MG/0.4 ML SYRINGE SUBCUT (16:28)
[2024-01-25 16:37] LABS: Glucose, Whole Blood 228 mg/dL (60-115)
--- NOTE | 2024-01-25 18:32 | P.CDIM_ITS ---
PROVIDER RESPONSE TEXT: To clarify, the appropriate diagnosis supported by the clinical indicators: Deep Tissue Injury (DTI) scrotum QUERY TEXT: PHYSICIAN'S DOCUMENTATION REQUEST Date of Query: 01/25/2024 09:08 AM EDT Patient Name: Shad Butler Admit Date: 01/21/2024 Dear Michele Dougherty, A review of the medical record indicates additional documentation may be needed. Please review below and update the documentation accordingly. Clinical Indicators: Wound care nursing notes: DTI scrotum Black area noted, open to air, Triad applied. Based on the above, could you please provide further information regarding the ulcer/wound/injury: Deep Tissue Injury (DTI) scrotum Other (explain) Clinically unable to determine (explain) Thank you, Magda Oneil, CCS, CDIS Use of terms such as suspected, likely, concern for, or probable (associated with a specific diagnosi s that is being evaluated, monitored, or treated as if it exists) are acceptable and can be coded in the inpatient se tting, when documented at the time of discharge. Please use your independent medical judgment in providing your response. THIS QUERY IS PART OF THE PERMANENT MEDICAL RECORD
[2024-01-25 20:00] VITALS: BP 144/67; PULSE 86; RESP 17; TEMP 37.4; O2SAT 97
[2024-01-25 20:29] LABS: Glucose, Whole Blood 296 mg/dL (60-115)
[2024-01-25] MEDS: Insulin Glargine,Hum.rec.anlog 100 UNIT/ML 10 ML VIAL 20 UNIT SUBCUT (20:40)
[2024-01-26 03:15] VITALS: BP 167/81; PULSE 79; RESP 17; TEMP 36.5; O2SAT 95
[2024-01-26 06:34] LABS: MANUAL DIFF FLAG NO
[2024-01-26 06:40] LABS: Basophils Absolute Auto 0.1 X10*3/uL (0.0-0.2); Basophils Percent Auto 0.7 % (0-2); Eosinophils Absolute Auto 0.2 X10*3/uL (0.0-0.4); Eosinophils Percent Auto 1.7 % (0-4); Hematocrit 33.3 % (42.0-52.0); Hemoglobin 11.4 g/dl (14.0-18.0); Imm Gran Abs Auto 0.08 X10*3/uL (0.00-0.03); Imm Gran Pct Auto 0.7 % (0.0-0.4); Lymphocytes Percent Auto 16.8 % (20-40); Mean Corpuscular HGB Conc 34.2 g/dl (31.0-36.0); Mean Corpuscular Hemoglobin 30.4 pg (27.0-33.0); Mean Corpuscular Volume 88.8 fL (80.0-98.0); Mean Platelet Volume 11.5 fL (9.4-12.4); Monocytes Absolute Auto 1.4 X10*3/uL (0.1-1.2); Monocytes Percent Auto 11.3 % (2-11); Neutrophils Absolute Auto 8.2 x10*3/uL (2.0-8.3); Neutrophils Percent Auto 68.8 % (45-73); Platelet Count 249 X10*3/uL (160-400); Red Blood Count 3.75 X10*6/uL (4.60-5.80); Red Cell Distribution Width 11.1 % (11.0-16.0); White Blood Count 11.9 X10*3/uL (4.8-10.8)
[2024-01-26 07:08] LABS: Alanine Aminotransferase 30 U/L (0-40); Alkaline Phosphatase 146 U/L (39-117); Anion Gap 13 (12-20); Aspartate Amino Transferase 37 U/L (5-37); Bilirubin Total 0.3 mg/dL (0.0-1.0); Blood Urea Nitrogen 21 mg/dL (9-16); Calcium 9.8 mg/dL (8.4-10.2); Carbon Dioxide 25 mmol/L (22-29); Chloride 99 mmol/L (96-108); Creatinine Clr Calc Pharmacy 67.4; Estimated Glomerular Filt Rate 59; Glucose Fasting 252 mg/dL (60-99); Potassium 4.4 mmol/L (3.3-5.1); Sodium 133 mmol/L (135-145); Total Protein 7.8 g/dL (6.5-8.0)
[2024-01-26 07:38] VITALS: BP 150/81; PULSE 81; RESP 16; TEMP 36.8; O2SAT 98
[2024-01-26 07:46] LABS: Glucose, Whole Blood 231 mg/dL (60-115)
[2024-01-26] MEDS: Insulin Lispro 100 UNIT/ML 3 ML VIAL SUBCUT ×4 (08:24→20:56)
[2024-01-26] MEDS: amLODIPine Besylate 5 MG TABLET PO (08:25)
[2024-01-26] MEDS: Multivitamin TABLET 1 TAB PO (08:25)
[2024-01-26] MEDS: Thiamine HCL 100 MG TABLET PO (08:25)
[2024-01-26] MEDS: Magnesium Oxide 400 MG TABLET PO ×2 (08:25→17:27)
[2024-01-26] MEDS: glipiZIDE XL 10 MG TAB.ER.24 PO (08:25)
[2024-01-26] MEDS: carvediloL 6.25 MG TABLET PO ×2 (08:25→20:55)
[2024-01-26] MEDS: Folic Acid 1 MG TABLET PO (08:26)
[2024-01-26] MEDS: 0.9 % Sodium Chloride Flush 3 ML SYRINGE IVFLUSH ×3 (08:32→20:57)
[2024-01-26 09:21] LABS: Vancomycin Random 12.3 mcg/mL (15-20)
--- NOTE | 2024-01-26 09:30 | PC.NURSE ---
Patients IV due to be replaced, unable to get new one, msg sent to have staff member help with US guided IV placement
--- NOTE | 2024-01-26 09:48 | HE.PHANOTE ---
RE: VANCO DOSING Random came back as 12.3 (predicted 11.6). Due to indication of sepsis, dose is increased to 750 mg q12h (predicted eyq=354, trough=17.6), next random is scheduled for 01/27/24 @0900.
[2024-01-26] MEDS: cefTRIAXone sodium 1 GM in 0.9 % Sodium Chloride 50 ML IV (10:29)
[2024-01-26] MEDS: Milk of Magnesia 30 ML ORAL.SUSP PO (10:54)
[2024-01-26] MEDS: vancomycin HCL 750 MG in 0.9 % Sodium Chloride 250 ML 265 MG IV ×2 (11:31→22:23)
[2024-01-26 11:46] LABS: Glucose, Whole Blood 246 mg/dL (60-115)
[2024-01-26] MEDS: oxyCODONE HCl Immed Release 5 MG TABLET PO ×3 (13:42→23:41)
--- NOTE | 2024-01-26 14:43 | HO.PM.IMPN ---
Subjective Subjective Date of Service: 01/26/24 Interval History: No overt withdrawal symptoms since phenobarb protocol DC. Pain control with oxycodone. States feels better Review of Systems Denies chest pain Denies shortness of breath Denies nausea vomiting diarrhea Denies fever chills Physical Exam Vital Signs: Vital Signs: Last Vital Signs Temp 98.2 F 01/26/24 07:38 Pulse 81 01/26/24 07:38 Resp 16 01/26/24 07:38 BP 150/81 H 01/26/24 07:38 Pulse Ox 98 01/26/24 07:38 O2 Del Method Room Air 01/26/24 07:38 BMI result Body Mass Index 30.0 Const: Other: Awake/tremulous Resp: Other: Clear to auscultation bilaterally no rales rhonchi or wheezes Cardio: Other: No S4; positive S1-S2; no S3 murmurs rubs or gallops GI: Other: Soft nontender nondistended normoactive bowel sounds : Other: See wound care pictures Extrem: Other: No edema bilaterally Objective Data Active Medications Acetaminophen (Acetaminophen 325 Mg Tablet) 650 mg PO Q6H PRN PRN Reason: Pain, Mild (Pain Scale 1-3), fever or headache Last Admin: 01/23/24 03:37 Dose: 650 mg Documented By: ELA Amlodipine Besylate (Amlodipine Besylate 5 Mg Tablet) 5 mg PO DAILY [facility]; Protocol Last Admin: 01/26/24 08:25 Dose: 5 mg Documented By: SENTHIL Calcium Carbonate (Calcium Carbonate 750 Mg Tab.Chew) 750 mg PO Q4H PRN PRN Reason: Heartburn Carvedilol (Carvedilol 6.25 Mg Tablet) 6.25 mg PO BID [facility]; Protocol Last Admin: 01/26/24 08:25 Dose: 6.25 mg Documented By: SENTHIL Enoxaparin Sodium (Enoxaparin Sodium 40 Mg/0.4 Ml Syringe) 40 mg SUBCUT Q24H [facility] Last Admin: 01/25/24 16:28 Dose: 40 mg Documented By: PANFILO Folic Acid (Folic Acid 1 Mg Tablet) 1 mg PO DAILY [facility] Last Admin: 01/26/24 08:26 Dose: 1 mg Documented By: SENTHIL Glipizide (Glipizide Xl 10 Mg Tab.Er.24) 10 mg PO DAILY [facility] Last Admin: 01/26/24 08:25 Dose: 10 mg Documented By: SENTHIL Glucose (Glucose Gel 15 Gm Gel..Gram.) 15 gm PO Q15M PRN; Protocol PRN Reason: per Hypoglycemia Standing Ord. Dextrose (D10) 250 mls @ 750 mls/hr IV Q15M PRN; Protocol PRN Reason: per Hypoglycemia Standing Ord. Ceftriaxone Sodium 1 gm/ (Sodium Chloride) 50 mls @ 100 mls/hr IV Q24H [facility] Last Infusion: 01/26/24 11:35 Dose: Infused Documented By: SENTHIL Vancomycin HCl 750 mg/ Sodium (Chloride) 265 mls @ 265 mls/hr IV Q12H [facility] Last Infusion: 01/26/24 13:44 Dose: Infused Documented By: SENTHIL Insulin Glargine (Insulin Glargine,Hum.Rec.Anlog 100 Unit/Ml 10 Ml Vial) 20 unit SUBCUT BEDTIME [facility] Last Admin: 01/25/24 20:40 Dose: 20 unit Documented By: GRIS Insulin Human Lispro (Insulin Lispro 100 Unit/Ml 3 Ml Vial) 0 unit SUBCUT QIDACHS [facility]; Protocol Last Admin: 01/26/24 12:32 Dose: 4 unit Documented By: SENTHIL Magnesium Hydroxide (Milk Of Magnesia 30 Ml Oral.Susp) 30 ml PO DAILY PRN PRN Reason: Constipation Last Admin: 01/26/24 10:54 Dose: 30 ml Documented By: SENTHIL Magnesium Oxide (Magnesium Oxide 400 Mg Tablet) 400 mg PO BIDPC [facility] Last Admin: 01/26/24 08:25 Dose: 400 mg Documented By: SENTHIL Melatonin (Melatonin 3 Mg Tablet) 6 mg PO BEDTIME PRN PRN Reason: Insomnia Multivitamins/Vitamin C (Multivitamin Tablet) 1 tab PO DAILY [facility] Last Admin: 01/26/24 08:25 Dose: 1 tab Documented By: SENTHIL Ondansetron HCl (Ondansetron Hcl 4 Mg/2 Ml Vial) 4 mg IVPUSH Q8H PRN PRN Reason: Nausea and Vomiting Oxycodone HCl (Oxycodone Hcl Immed Release 5 Mg Tablet) 5 mg PO Q4H PRN PRN Reason: Pain, Moderate(Pain Scale 4-6) Last Admin: 01/26/24 13:42 Dose: 5 mg Documented By: SENTHIL Pharmacy Consult (Consult Rx Etoh Phenob Po Only) 1 each MISCELLANE ONCE PRN; Protocol PRN Reason: Consult order Pharmacy Consult (Consult Rx Vancomycin Dosing) 1 each MISCELLANE DAILY PRN PRN Reason: Consult order Pharmacy Consult (Consult Rx Etoh Phenob Po Only) 1 each MISCELLANE ONCE PRN; Protocol PRN Reason: Consult order Sodium Chloride (0.9 % Sodium Chloride Flush 3 Ml Syringe) 3 ml IVFLUSH QSHIFT [facility] Last Admin: 01/26/24 08:32 Dose: 3 ml Documented By: SENTHIL Thiamine HCl (Thiamine Hcl 100 Mg Tablet) 100 mg PO DAILY [facility] Last Admin: 01/26/24 08:25 Dose: 100 mg Documented By: SENTHIL Labs 01/26/24 05:40 01/26/24 05:40 Labs: Laboratory Results - last 24 hr 01/25/24 01/25/24 01/26/24 16:30 20:24 05:40 MCV 88.8 MCH 30.4 MCHC 34.2 RDW 11.1 Plt Count 249 MPV 11.5 Immature Gran % (Auto) 0.7 H Neut % (Auto) 68.8 Lymph % (Auto) 16.8 L [place] % (Auto) 11.3 H Eos % (Auto) 1.7 Baso % (Auto) 0.7 Lymph # (Auto) 2.0 [place] # (Auto) 1.4 H Eos # (Auto) 0.2 Baso # (Auto) 0.1 Abs Immat Gran (auto) 0.08 H Absolute Neuts (auto) 8.2 Absolute Nucleated RBC 0.000 Nucleated RBC % (auto) 0.0 Anion Gap 13 Estim Creat Clear Calc 67.4 Estimated GFR 59 POC Glucose 228 H 296 H Fasting Glucose 252 H Calcium 9.8 Total Bilirubin 0.3 AST 37 ALT 30 Alkaline Phosphatase 146 H Total Protein 7.8 Albumin 3.0 L Random Vancomycin 01/26/24 01/26/24 01/26/24 07:40 08:54 11:36 MCV MCH MCHC RDW Plt Count MPV Immature Gran % (Auto) Neut % (Auto) Lymph % (Auto) [place] % (Auto) Eos % (Auto) Baso % (Auto) Lymph # (Auto) [place] # (Auto) Eos # (Auto) Baso # (Auto) Abs Immat Gran (auto) Absolute Neuts (auto) Absolute Nucleated RBC Nucleated RBC % (auto) Anion Gap Estim Creat Clear Calc Estimated GFR POC Glucose 231 H 246 H Fasting Glucose Calcium Total Bilirubin AST ALT Alkaline Phosphatase Total Protein Albumin Random Vancomycin 12.3 L Assessment and Plan (1) Cellulitis of right lower extremity: Status: Acute (2) Type 2 diabetes mellitus with hyperglycemia: Status: Acute Plan This is a 48 yaer old male with pertinent history of medication noncompliance, uncontrolled blood pressure, insulin-dependent diabetes mellitus, alcohol use disorder who presents to the emergency department for evaluation of generalized weakness and early alcohol withdrawal 1.Sepsis due to right lower extremity cellulitis/scrotal cellulitis -sepsis resolved -urology consult -ceftriaxone/vancomycin (5) -blood cultures negative times 24 hours -daily CBC.. WBC improving 2.Acute kidney injury -responding to volume repletion -follow renals/divalents 3.Alcohol use disorder with concerns for alcohol withdrawal - CIWA protocol flat... No issues off phenobarb -addiction Medicine consult 3.Hypertensive urgency.. Resolved -acceptable control on current therapies -adjust as indicated by clinical presentation and renal function 4. Diabetes mellitus type 2 -lispro correctional scale -basal insulin as clinically indicated -adjust therapies as indicated Lovenox Full code Requires ongoing hospitalization for IV antibiotics to treat cellulitis and for monitoring/phenobarb protocol for alcohol withdrawal. High risk for outpatient failure Quality Stroke Does the patient have a stroke diagnosis?: No VTE Prior VTE?: No VTE Risk Level:: Medical - moderate - high VTE Device Contraindication: Treatment Not Indicated VTE Drug Contraindication: N/A - Med Ordered
--- NOTE | 2024-01-26 14:53 | PM.UROCN ---
History of Present Illness Consult details Consult date: 01/26/24 Requesting physician: Michele Dougherty Narrative: 48 yaer old male admitted on 01/20/23 with generalized weakness, history of medication noncompliance, uncontrolled blood pressure, insulin-dependent diabetes mellitus, alcohol use disorder. CTAP was done on 01/20/23 due to complaints of abdominal pain, results note- no acute abnormality. Called to evaluate for scrotal abscess. The patient states he has had pain in the testicles for about a week. He denies problems with urination. Review of Systems Review of Systems: Yes all other systems are reviewed and are negative Constitutional: Constitutional: Reports no additional constitutional complaints Eyes: Eyes: Reports no additional eye complaints ENT: Reports system reviewed and no additional complaints, except as documented Cardiovascular: Cardiovascular: Reports no additional cardiovascular complaints Respiratory: Respiratory: Reports no additional respiratory complaints Gastrointestinal: Gastrointestinal: Reports no additional gastrointestinal complaints Genitourinary: Genitourinary: Reports as per HPI Musculoskeletal: Musculoskeletal: Reports no additional musculoskeletal complaints Integumentary/Breasts: Skin/Breast: Reports system reviewed and no additional complaints, except as docu Neurologic: Reports system reviewed and no additional complaints, except as documented Psychiatric: Psychiatric: Reports no additional psychiatric complaints Endocrine: Endocrine: Reports no additional endocrine complaints Hematologic/Lymphatic: Hematologic/Lymphatic: Reports no additional hematologic/lymphatic complaints Allergic/Immunologic: Allergic/Immunologic: Reports no additional allergic/immunologic complaints [facility] Past Medical History Medical History Alcohol use disorder Hypertension Type 2 diabetes mellitus Social History Social History Household Members: None Housing: Apartment Do you presently have visiting nurse or other home services: No Alcohol intake: current Alcohol intake frequency: 3 or more drinks per day Alcohol type: hard liquor Patient Tobacco Use Status: Never used Tobacco Smoked in Last 30 Days: No Use of substances other than those prescribed or required for medical reasons: No Currently Displaying Signs/Symptoms of Drug Intoxication Withdrawal: No Have you been hit, kicked, punched, or otherwise hurt by someone within the past year? If so, by whom?: No Do you feel safe in your current relationship?: No Current Relationship Is there a partner from a previous relationship who is making you feel unsafe now?: No Are you made to feel afraid or neglected: No Advance Directives: No Do you have a plan to hurt others: No Plan Recently lost weight without trying: No How much weight loss: Not applicable Eating poorly because of decreased appetite: No Nutrition screen score: 0 Nutrition Risks: No Nutritional Risk Poor oral hygiene: No service: No Meds Allergies Allergy/AdvReac Type Severity Reaction Status Date / Time No Known Allergies Allergy Verified 01/21/24 11:13 Active Medications: Current Medications Acetaminophen (Acetaminophen 325 Mg Tablet) 650 mg PO Q6H PRN PRN Reason: Pain, Mild (Pain Scale 1-3), fever or headache Last Admin: 01/23/24 03:37 Dose: 650 mg Amlodipine Besylate (Amlodipine Besylate 5 Mg Tablet) 5 mg PO DAILY [facility]; Protocol Last Admin: 01/26/24 08:25 Dose: 5 mg Calcium Carbonate (Calcium Carbonate 750 Mg Tab.Chew) 750 mg PO Q4H PRN PRN Reason: Heartburn Carvedilol (Carvedilol 6.25 Mg Tablet) 6.25 mg PO BID [facility]; Protocol Last Admin: 01/26/24 08:25 Dose: 6.25 mg Enoxaparin Sodium (Enoxaparin Sodium 40 Mg/0.4 Ml Syringe) 40 mg SUBCUT Q24H [facility] Last Admin: 01/25/24 16:28 Dose: 40 mg Folic Acid (Folic Acid 1 Mg Tablet) 1 mg PO DAILY [facility] Last Admin: 01/26/24 08:26 Dose: 1 mg Glipizide (Glipizide Xl 10 Mg Tab.Er.24) 10 mg PO DAILY [facility] Last Admin: 01/26/24 08:25 Dose: 10 mg Glucose (Glucose Gel 15 Gm Gel..Gram.) 15 gm PO Q15M PRN; Protocol PRN Reason: per Hypoglycemia Standing Ord. Dextrose (D10) 250 mls @ 750 mls/hr IV Q15M PRN; Protocol PRN Reason: per Hypoglycemia Standing Ord. Ceftriaxone Sodium 1 gm/ (Sodium Chloride) 50 mls @ 100 mls/hr IV Q24H [facility] Last Infusion: 01/26/24 11:35 Dose: Infused Vancomycin HCl 750 mg/ Sodium (Chloride) 265 mls @ 265 mls/hr IV Q12H [facility] Last Infusion: 01/26/24 13:44 Dose: Infused Insulin Glargine (Insulin Glargine,Hum.Rec.Anlog 100 Unit/Ml 10 Ml Vial) 20 unit SUBCUT BEDTIME [facility] Last Admin: 01/25/24 20:40 Dose: 20 unit Insulin Human Lispro (Insulin Lispro 100 Unit/Ml 3 Ml Vial) 0 unit SUBCUT QIDACHS [facility]; Protocol Last Admin: 01/26/24 12:32 Dose: 4 unit Magnesium Hydroxide (Milk Of Magnesia 30 Ml Oral.Susp) 30 ml PO DAILY PRN PRN Reason: Constipation Last Admin: 01/26/24 10:54 Dose: 30 ml Magnesium Oxide (Magnesium Oxide 400 Mg Tablet) 400 mg PO BIDPC [facility] Last Admin: 01/26/24 08:25 Dose: 400 mg Melatonin (Melatonin 3 Mg Tablet) 6 mg PO BEDTIME PRN PRN Reason: Insomnia Multivitamins/Vitamin C (Multivitamin Tablet) 1 tab PO DAILY [facility] Last Admin: 01/26/24 08:25 Dose: 1 tab Ondansetron HCl (Ondansetron Hcl 4 Mg/2 Ml Vial) 4 mg IVPUSH Q8H PRN PRN Reason: Nausea and Vomiting Oxycodone HCl (Oxycodone Hcl Immed Release 5 Mg Tablet) 5 mg PO Q4H PRN PRN Reason: Pain, Moderate(Pain Scale 4-6) Last Admin: 01/26/24 13:42 Dose: 5 mg Pharmacy Consult (Consult Rx Etoh Phenob Po Only) 1 each MISCELLANE ONCE PRN; Protocol PRN Reason: Consult order Pharmacy Consult (Consult Rx Vancomycin Dosing) 1 each MISCELLANE DAILY PRN PRN Reason: Consult order Pharmacy Consult (Consult Rx Etoh Phenob Po Only) 1 each MISCELLANE ONCE PRN; Protocol PRN Reason: Consult order Sodium Chloride (0.9 % Sodium Chloride Flush 3 Ml Syringe) 3 ml IVFLUSH QSHIFT [facility] Last Admin: 01/26/24 08:32 Dose: 3 ml Thiamine HCl (Thiamine Hcl 100 Mg Tablet) 100 mg PO DAILY [facility] Last Admin: 01/26/24 08:25 Dose: 100 mg Home Medications ?Medication ?Instructions ?Recorded ?Confirmed ?Last Taken ?Type cephalexin 500 mg capsule 500 mg PO Q8H 01/21/24 01/21/24 01/18/24 History Physical Exam Vital Signs: Vital Signs: Last Vital Signs Temp 98.2 F 07/16/24 07:38 Pulse 81 01/26/24 07:38 Resp 16 01/26/24 07:38 BP 150/81 H 01/26/24 07:38 Pulse Ox 98 01/26/24 07:38 O2 Del Method Room Air 01/26/24 07:38 BMI result Body Mass Index 30.0 Const: General: no acute distress and well developed Orientation/consciousness: patient oriented x3 HEENT: Head: Yes normocephalic and Yes atraumatic Eyes: Conjunctivae: conjunctivae normal Neck: Neck: Yes normal visual inspection Chest: Chest palpation & inspection: normal inspection of the chest Resp: Effort & Inspection: normal respiratory effort Cardio: Rate: regular rate GI: Inspection: Yes normal to inspection Palpation (GI): Soft to palpation : Other: Left hemiscrotum - swelling and erythematous, firm, skin lnferiorly, eschar appearing tissue, below scrotum, perianal bilaterally open wounds, no drainage noted. Neuro: General: patient oriented x3 Psych: Appearance: grossly normal Affect: normal affect Results Labs 01/26/24 05:40 01/26/24 05:40 Labs: Abnormal lab results 01/25/24 01/25/24 01/26/24 Range/Units 16:30 20:24 05:40 WBC 11.9 H (4.8-10.8) X10*3/uL RBC 3.75 L (4.60-5.80) X10*6/uL Hgb 11.4 L (14.0-18.0) g/dl Hct 33.3 L (42.0-52.0) % Immature Gran % (Auto) 0.7 H (0.0-0.4) % Lymph % (Auto) 16.8 L (20-40) % [place] % (Auto) 11.3 H (2-11) % [place] # (Auto) 1.4 H (0.1-1.2) X10*3/uL Abs Immat Gran (auto) 0.08 H (0.00-0.03) X10*3/uL Sodium 133 L (135-145) mmol/L BUN 21 H (9-16) mg/dL POC Glucose 228 H 296 H (60-115) mg/dL Fasting Glucose 252 H (60-99) mg/dL Alkaline Phosphatase 146 H (39-117) U/L Albumin 3.0 L (3.5-5.0) g/dL Random Vancomycin (15-20) mcg/mL 01/26/24 01/26/24 01/26/24 Range/Units 07:40 08:54 11:36 WBC (4.8-10.8) X10*3/uL RBC (4.60-5.80) X10*6/uL Hgb (14.0-18.0) g/dl Hct (42.0-52.0) % Immature Gran % (Auto) (0.0-0.4) % Lymph % (Auto) (20-40) % [place] % (Auto) (2-11) % [place] # (Auto) (0.1-1.2) X10*3/uL Abs Immat Gran (auto) (0.00-0.03) X10*3/uL Sodium (135-145) mmol/L BUN (9-16) mg/dL POC Glucose 231 H 246 H (60-115) mg/dL Fasting Glucose (60-99) mg/dL Alkaline Phosphatase (39-117) U/L Albumin (3.5-5.0) g/dL Random Vancomycin 12.3 L (15-20) mcg/mL Short CBC 01/26/24 Range/Units 05:40 WBC 11.9 H (4.8-10.8) X10*3/uL Hgb 11.4 L (14.0-18.0) g/dl Hct 33.3 L (42.0-52.0) % Plt Count 249 (160-400) X10*3/uL BMP 01/26/24 05:40 Sodium 133 L Potassium 4.4 Chloride 99 Carbon Dioxide 25 BUN 21 H Creatinine 1.29 Calcium 9.8 Liver Function 01/26/24 Range/Units 05:40 Total Bilirubin 0.3 (0.0-1.0) mg/dL AST 37 (5-37) U/L ALT 30 (0-40) U/L Alkaline Phosphatase 146 H (39-117) U/L Albumin 3.0 L (3.5-5.0) g/dL Urine 01/21/24 Range/Units 14:21 Urine Color Yellow Urine Appearance Clear Urine pH 6.0 (5.0-9.0) Ur Specific [place] 1.015 (1.005-1.025) Urine Protein 300 (3+) H (Neg-Trace) mg/dL Urine Glucose (UA) >=1000 H (Negative) mg/dL All other labs normal. Imaging Additional studies: Date of Service: 01/21/24 EXAMINATION: CT ABDOMEN AND PELVIS WITHOUT CONTRAST CLINICAL INFORMATION: Abdominal pain COMPARISON: None available. TECHNIQUE: Multidetector volumetric imaging was performed from the superior aspect of the liver through the pubic symphysis. Sagittal and coronal reformatted images were obtained on the technologist's workstation. This CT examination was performed using dose optimization techniques as appropriate, variously including the following: *Automated exposure control *Adjustment of mA and/or kV according to patient size (this includes techniques or standardized protocols for targeted exams where dose is matched to indication/reason for exam; i.e. extremities or head) *Use of iterative reconstruction technique DLP: 554 mGy-cm FINDINGS: LUNG BASES: The visualized lung bases are unremarkable. LIVER, GALLBLADDER, AND BILIARY TREE: The liver is normal in size, shape, and attenuation. No focal hepatic lesion or biliary ductal dilatation is present. There are small calcified gallstones layer dependently in the gallbladder. Sludge within the gallbladder. No edema around the gallbladder. No dilatation of the bile ducts. PANCREAS: Unremarkable. SPLEEN: Unremarkable. ADRENAL GLANDS: Unremarkable. KIDNEYS AND URETERS: The kidneys are normal in size, shape, and attenuation. No hydronephrosis, hydroureter, or calculi seen. No perinephric stranding. BLADDER: Unremarkable. GASTROINTESTINAL TRACT: The small and large bowel are unremarkable. The appendix is unremarkable. ABDOMINAL WALL: No significant hernia is appreciated. LYMPH NODES: There are borderline lymph nodes in the groin bilaterally. VASCULAR: Vascular wall calcifications of aorta and iliac arteries. There is no aneurysm. PELVIC VISCERA: Unremarkable. OSSEOUS STRUCTURES: Unremarkable. IMPRESSION: No significant abnormality. Assessment and Plan (1) Scrotal swelling: Status: Acute (2) Epididymo-orchitis: Status: Acute (3) Cellulitis, scrotum: Status: Acute Plan Scrotal cellulitis and perianal Wound. Diabetes Comorbidity US Scrotum, CT pelvis, possible I and D tomorrow Pt on IV Vanco, recommend also IV Levaquin pt seen by would nurse, May benefit from ID consult Procedures Date of Service Date of Service: 01/26/24
[2024-01-26 15:53] VITALS: BP 143/75; PULSE 83; RESP 18; TEMP 37; O2SAT 98
[2024-01-26 16:24] LABS: Glucose, Whole Blood 263 mg/dL (60-115)
--- NOTE | 2024-01-26 16:30 | PC.NURSE ---
Addendum entered by Deanne Daniel RN 01/26/24 19:11: 1725 patient back in the room Original Note: Patient off the unit for CT scan and ultrasound
[2024-01-26] MEDS: levoFLOXacin/D5W 500 MG/100 ML PIGGYBACK 100 MG IV (17:34)
[2024-01-26] MEDS: levoFLOXacin/D5W 250 MG/50 ML PIGGYBACK 50 MG IV (19:25)
[2024-01-26 19:42] VITALS: BP 136/69; PULSE 84; RESP 18; TEMP 36.7; O2SAT 98
[2024-01-26 20:25] LABS: Glucose, Whole Blood 382 mg/dL (60-115)
[2024-01-26 20:55] VITALS: BP 136/69; PULSE 84
[2024-01-26] MEDS: Insulin Glargine,Hum.rec.anlog 100 UNIT/ML 10 ML VIAL 20 UNIT SUBCUT (20:57)
--- NOTE | 2024-01-26 21:51 | PC.NURSE ---
2020 POC-[id number] 10 units of lispro per sliding scale and 20 units of lantus given no addition insulin per
[2024-01-27] VITALS (11 sets, daily range): BP systolic 110–189; BP diastolic 51–90; PULSE 70–77; RESP 16–20; TEMP 36.1–37.4; O2SAT 92–98
[2024-01-27 07:02] LABS: Creatinine Clr Calc Pharmacy 70.1; Estimated Glomerular Filt Rate > 60
[2024-01-27 07:31] LABS: Glucose, Whole Blood 196 mg/dL (60-115)
[2024-01-27] MEDS: Multivitamin TABLET 1 TAB PO (07:55)
[2024-01-27] MEDS: amLODIPine Besylate 5 MG TABLET PO (07:55)
[2024-01-27] MEDS: Magnesium Oxide 400 MG TABLET PO (07:55)
[2024-01-27] MEDS: carvediloL 6.25 MG TABLET PO ×2 (07:55→22:18)
[2024-01-27] MEDS: Thiamine HCL 100 MG TABLET PO (07:55)
[2024-01-27] MEDS: Folic Acid 1 MG TABLET PO (07:55)
[2024-01-27] MEDS: 0.9 % Sodium Chloride Flush 3 ML SYRINGE IVFLUSH ×2 (07:56→22:19)
--- NOTE | 2024-01-27 07:57 | PC.NURSE ---
BS 196,patient NPO,no IV fluids ,Dr. Dougherty made aware,will hold insulin and Glipizide
[2024-01-27] MEDS: oxyCODONE HCl Immed Release 5 MG TABLET PO ×3 (08:11→18:35)
[2024-01-27 09:39] LABS: Vancomycin Random 16.8 mcg/mL (15-20)
[2024-01-27] MEDS: cefTRIAXone sodium 1 GM in 0.9 % Sodium Chloride 50 ML IV (10:14)
--- NOTE | 2024-01-27 10:59 | MHC.CLN ---
F/U SEEN BY WOUND RN FOR AREAS TO SCROTUM AND RIGHT BUTTOCKS. DESCRIBED ABSCESS AND NOT PRESSURE RELATED. DIET=DIABETIC 2000 KCALS, CARDIAC. ENSURE MAX BID (300 KCALS, 60 G PROTEIN) TO PROMOTE SKIN INTEGRITY. INTAKE AT MEALS USUALLY 100%. RD TO FOLLOW UP WEEKLY.
[2024-01-27 11:24] LABS: Glucose, Whole Blood 179 mg/dL (60-115)
--- NOTE | 2024-01-27 11:24 | MHC.CM.PN ---
Per MD rounds patient not medically cleared for dc. CM will continue to follow.
[2024-01-27] MEDS: vancomycin HCL 750 MG in 0.9 % Sodium Chloride 250 ML 265 MG IV (12:08)
--- NOTE | 2024-01-27 12:23 | HO.PM.IMPN ---
Subjective Subjective Date of Service: 01/27/24 Interval History: Pain control adequate. Remains NPO for questionable pending surgery with Urology Review of Systems Denies chest pain Denies shortness of breath Denies nausea vomiting diarrhea Denies fever chills Physical Exam Vital Signs: Vital Signs: Last Vital Signs Temp 97.9 F 01/27/24 07:25 Pulse 77 01/27/24 07:25 Resp 18 01/27/24 07:25 BP 162/87 H 01/27/24 07:25 Pulse Ox 92 01/27/24 07:25 O2 Del Method Room Air 01/27/24 07:25 BMI result Body Mass Index 30.0 Const: Other: Awake/tremulous Resp: Other: Clear to auscultation bilaterally no rales rhonchi or wheezes Cardio: Other: No S4; positive S1-S2; no S3 murmurs rubs or gallops GI: Other: Soft nontender nondistended normoactive bowel sounds : Other: See wound care pictures Extrem: Other: No edema bilaterally Objective Data Active Medications Acetaminophen (Acetaminophen 325 Mg Tablet) 650 mg PO Q6H PRN PRN Reason: Pain, Mild (Pain Scale 1-3), fever or headache Last Admin: 01/23/24 03:37 Dose: 650 mg Documented By: ELA Amlodipine Besylate (Amlodipine Besylate 5 Mg Tablet) 5 mg PO DAILY [facility]; Protocol Last Admin: 01/27/24 07:55 Dose: 5 mg Documented By: SAMUEL Calcium Carbonate (Calcium Carbonate 750 Mg Tab.Chew) 750 mg PO Q4H PRN PRN Reason: Heartburn Carvedilol (Carvedilol 6.25 Mg Tablet) 6.25 mg PO BID [facility]; Protocol Last Admin: 01/27/24 07:55 Dose: 6.25 mg Documented By: SAMUEL Enoxaparin Sodium (Enoxaparin Sodium 40 Mg/0.4 Ml Syringe) 40 mg SUBCUT Q24H [facility] Last Admin: 01/26/24 17:26 Dose: Not Given Documented By: SENTHIL Non-Admin Reason: possible procedure tomorrow Folic Acid (Folic Acid 1 Mg Tablet) 1 mg PO DAILY [facility] Last Admin: 01/27/24 07:55 Dose: 1 mg Documented By: SAMUEL Glipizide (Glipizide Xl 10 Mg Tab.Er.24) 10 mg PO DAILY [facility] Last Admin: 01/27/24 07:58 Dose: Not Given Documented By: SAMUEL Non-Admin Reason: NPO Glucose (Glucose Gel 15 Gm Gel..Gram.) 15 gm PO Q15M PRN; Protocol PRN Reason: per Hypoglycemia Standing Ord. Dextrose (D10) 250 mls @ 750 mls/hr IV Q15M PRN; Protocol PRN Reason: per Hypoglycemia Standing Ord. Ceftriaxone Sodium 1 gm/ (Sodium Chloride) 50 mls @ 100 mls/hr IV Q24H [facility] Last Infusion: 01/27/24 10:50 Dose: Infused Documented By: SAMUEL Vancomycin HCl 750 mg/ Sodium (Chloride) 265 mls @ 265 mls/hr IV Q12H [facility] Last Admin: 01/27/24 12:08 Dose: 265 mls/hr Documented By: SAMUEL Levofloxacin (Levaquin) 500 mg in 100 mls @ 100 mls/hr IV Q24H [facility] Last Infusion: 01/26/24 19:23 Dose: Infused Documented By: GRIS Levofloxacin (Levaquin) 250 mg in 50 mls @ 50 mls/hr IV Q24H [facility] Last Infusion: 01/26/24 20:30 Dose: Infused Documented By: GRIS Insulin Glargine (Insulin Glargine,Hum.Rec.Anlog 100 Unit/Ml 10 Ml Vial) 20 unit SUBCUT BEDTIME [facility] Last Admin: 01/26/24 20:57 Dose: 20 unit Documented By: GRIS Insulin Human Lispro (Insulin Lispro 100 Unit/Ml 3 Ml Vial) 0 unit SUBCUT QIDACHS [facility]; Protocol Last Admin: 01/27/24 11:58 Dose: Not Given Documented By: SAMUEL Non-Admin Reason: NPO Magnesium Hydroxide (Milk Of Magnesia 30 Ml Oral.Susp) 30 ml PO DAILY PRN PRN Reason: Constipation Last Admin: 01/26/24 10:54 Dose: 30 ml Documented By: SENTHIL Magnesium Oxide (Magnesium Oxide 400 Mg Tablet) 400 mg PO BIDPC [facility] Last Admin: 01/27/24 07:55 Dose: 400 mg Documented By: SAMUEL Melatonin (Melatonin 3 Mg Tablet) 6 mg PO BEDTIME PRN PRN Reason: Insomnia Multivitamins/Vitamin C (Multivitamin Tablet) 1 tab PO DAILY [facility] Last Admin: 01/27/24 07:55 Dose: 1 tab Documented By: SAMUEL Ondansetron HCl (Ondansetron Hcl 4 Mg/2 Ml Vial) 4 mg IVPUSH Q8H PRN PRN Reason: Nausea and Vomiting Oxycodone HCl (Oxycodone Hcl Immed Release 5 Mg Tablet) 5 mg PO Q4H PRN PRN Reason: Pain, Moderate(Pain Scale 4-6) Last Admin: 01/27/24 12:16 Dose: 5 mg Documented By: SAMUEL Pharmacy Consult (Consult Rx Etoh Phenob Po Only) 1 each MISCELLANE ONCE PRN; Protocol PRN Reason: Consult order Pharmacy Consult (Consult Rx Vancomycin Dosing) 1 each MISCELLANE DAILY PRN PRN Reason: Consult order Pharmacy Consult (Consult Rx Etoh Phenob Po Only) 1 each MISCELLANE ONCE PRN; Protocol PRN Reason: Consult order Sodium Chloride (0.9 % Sodium Chloride Flush 3 Ml Syringe) 3 ml IVFLUSH QSHIFT [facility] Last Admin: 01/27/24 07:56 Dose: 3 ml Documented By: SAMUEL Thiamine HCl (Thiamine Hcl 100 Mg Tablet) 100 mg PO DAILY [facility] Last Admin: 01/27/24 07:55 Dose: 100 mg Documented By: SAMUEL Labs 01/26/24 05:40 01/27/24 05:35 Labs: Laboratory Results - last 24 hr 01/26/24 01/26/24 01/27/24 16:13 20:19 05:35 Hold Purple Top SEE NOTE Estim Creat Clear Calc 70.1 Estimated GFR > 60 POC Glucose 263 H 382 H* Random Vancomycin 01/27/24 01/27/24 01/27/24 07:24 09:08 11:13 Hold Purple Top Estim Creat Clear Calc Estimated GFR POC Glucose 196 H 179 H Random Vancomycin 16.8 Microbiology Microbiology Results: Microbiology 01/21/24 13:05 Blood Culture - Final Blood - Venous No growth after 5 days. 01/21/24 13:05 Blood Culture - Final Blood - Venous No growth after 5 days. Assessment and Plan (1) Cellulitis, scrotum: Status: Acute Plan This is a 48 yaer old male with pertinent history of medication noncompliance, uncontrolled blood pressure, insulin-dependent diabetes mellitus, alcohol use disorder who presents to the emergency department for evaluation of generalized weakness and early alcohol withdrawal 1.Sepsis due to right lower extremity cellulitis/scrotal cellulitis -urology to determine surgery if needed -ceftriaxone/vancomycin (6) -blood cultures negative times 24 hours -daily CBC.. WBC improving 2.Acute kidney injury -responding to volume repletion -follow renals/divalents 3.Alcohol use disorder with concerns for alcohol withdrawal - CIWA protocol flat... No issues off phenobarb -addiction Medicine consult 3.Hypertensive urgency.. Resolved -acceptable control on current therapies -adjust as indicated by clinical presentation and renal function 4. Diabetes mellitus type 2 -lispro correctional scale -basal insulin as clinically indicated -adjust therapies as indicated Lovenox Full code Requires ongoing hospitalization for IV antibiotics to treat cellulitis and for monitoring/phenobarb protocol for alcohol withdrawal. High risk for outpatient failure Quality Stroke Does the patient have a stroke diagnosis?: No VTE Prior VTE?: No VTE Risk Level:: Medical - moderate - high VTE Device Contraindication: Treatment Not Indicated VTE Drug Contraindication: N/A - Med Ordered
--- NOTE | 2024-01-27 14:46 | PC.NURSE ---
patient transported to OR by OR staff
[2024-01-27 15:05] LABS: Glucose, Whole Blood 171 mg/dL (60-115)
--- NOTE | 2024-01-27 15:14 | PC.NURSE ---
report given to letty de jesus rn to continue nursing care.
--- NOTE | 2024-01-27 17:03 | MHC.SHP ---
Pre-Procedural Eval Section A - 24 Hr Update-Section A only Date of Service: 01/27/24 The patient is an INPATIENT: Yes The patient has been examined within 24 hours of the surgical procedure. The History & Physical has been completed within 30 days and I have reviewed it.: Yes Section B - Complete if H&P > 30 days Chief Complaint: Scrotal abscess Allergies: Allergies Allergy/AdvReac Type Severity Reaction Status Date / Time No Known Allergies Allergy Verified 01/21/24 11:13 Plan Diagnosis/Plan: Unchanged I have reviewed the history and physical and performed a pertinent physical examination on my patient. No changes have occurred unless specified. Incision and Drainage Scrotal abscess. Time Spent With Patient Time: Total time managing care of this patient today ____ minutes.
[2024-01-27] MEDS: levoFLOXacin/D5W 500 MG/100 ML PIGGYBACK 100 MG IV (17:31)
--- NOTE | 2024-01-27 17:44 | P.CONAN_ITS ---
[facility] Active Problems Active Problems: All Active Problems Cellulitis, scrotum (Acute) Epididymo-orchitis (Acute) Scrotal swelling (Acute) Hypertension (Acute) Cellulitis of right lower extremity (Acute) Fever (Acute) Alcohol use disorder, severe, dependence (Acute) Type 2 diabetes mellitus with hyperglycemia (Acute) Elevated BP without diagnosis of hypertension (Acute) Past Medical History Medical History Alcohol use disorder Hypertension Type 2 diabetes mellitus Family History Family history of problems with anesthesia: No Surgical History History of Problems with Anesthesia: No Social History Social History Household Members: None Housing: Apartment Do you presently have visiting nurse or other home services: No Alcohol intake: current Alcohol intake frequency: 3 or more drinks per day Alcohol type: hard liquor Patient Tobacco Use Status: Never used Tobacco Smoked in Last 30 Days: No Use of substances other than those prescribed or required for medical reasons: No Currently Displaying Signs/Symptoms of Drug Intoxication Withdrawal: No Have you been hit, kicked, punched, or otherwise hurt by someone within the past year? If so, by whom?: No Do you feel safe in your current relationship?: No Current Relationship Is there a partner from a previous relationship who is making you feel unsafe now?: No Are you made to feel afraid or neglected: No Are you DNR?: No Advance Directives: No Do you have a plan to hurt others: No Plan Recently lost weight without trying: No How much weight loss: Not applicable Eating poorly because of decreased appetite: No Nutrition screen score: 0 Nutrition Risks: No Nutritional Risk Poor oral hygiene: No service: No Meds Allergies Allergy/AdvReac Type Severity Reaction Status Date / Time No Known Allergies Allergy Verified 01/21/24 11:13 Active Medications: Current Medications Acetaminophen (Acetaminophen 325 Mg Tablet) 650 mg PO Q6H PRN PRN Reason: Pain, Mild (Pain Scale 1-3), fever or headache Last Admin: 01/23/24 03:37 Dose: 650 mg Amlodipine Besylate (Amlodipine Besylate 5 Mg Tablet) 5 mg PO DAILY [facility]; Protocol Last Admin: 01/27/24 07:55 Dose: 5 mg Calcium Carbonate (Calcium Carbonate 750 Mg Tab.Chew) 750 mg PO Q4H PRN PRN Reason: Heartburn Carvedilol (Carvedilol 6.25 Mg Tablet) 6.25 mg PO BID [facility]; Protocol Last Admin: 01/27/24 07:55 Dose: 6.25 mg Enoxaparin Sodium (Enoxaparin Sodium 40 Mg/0.4 Ml Syringe) 40 mg SUBCUT Q24H [facility] Last Admin: 01/26/24 17:26 Dose: Not Given Folic Acid (Folic Acid 1 Mg Tablet) 1 mg PO DAILY [facility] Last Admin: 01/27/24 07:55 Dose: 1 mg Glipizide (Glipizide Xl 10 Mg Tab.Er.24) 10 mg PO DAILY [facility] Last Admin: 01/27/24 07:58 Dose: Not Given Glucose (Glucose Gel 15 Gm Gel..Gram.) 15 gm PO Q15M PRN; Protocol PRN Reason: per Hypoglycemia Standing Ord. Dextrose (D10) 250 mls @ 750 mls/hr IV Q15M PRN; Protocol PRN Reason: per Hypoglycemia Standing Ord. Ceftriaxone Sodium 1 gm/ (Sodium Chloride) 50 mls @ 100 mls/hr IV Q24H [facility] Last Infusion: 01/27/24 10:50 Dose: Infused Vancomycin HCl 750 mg/ Sodium (Chloride) 265 mls @ 265 mls/hr IV Q12H [facility] Last Infusion: 01/27/24 14:15 Dose: Infused Levofloxacin (Levaquin) 500 mg in 100 mls @ 100 mls/hr IV Q24H [facility] Last Infusion: 01/26/24 19:23 Dose: Infused Levofloxacin (Levaquin) 250 mg in 50 mls @ 50 mls/hr IV Q24H [facility] Last Infusion: 01/26/24 20:30 Dose: Infused Insulin Glargine (Insulin Glargine,Hum.Rec.Anlog 100 Unit/Ml 10 Ml Vial) 20 unit SUBCUT BEDTIME [facility] Last Admin: 01/26/24 20:57 Dose: 20 unit Insulin Human Lispro (Insulin Lispro 100 Unit/Ml 3 Ml Vial) 0 unit SUBCUT QIDACHS [facility]; Protocol Last Admin: 01/27/24 11:58 Dose: Not Given Magnesium Hydroxide (Milk Of Magnesia 30 Ml Oral.Susp) 30 ml PO DAILY PRN PRN Reason: Constipation Last Admin: 01/26/24 10:54 Dose: 30 ml Magnesium Oxide (Magnesium Oxide 400 Mg Tablet) 400 mg PO BIDPC [facility] Last Admin: 01/27/24 07:55 Dose: 400 mg Melatonin (Melatonin 3 Mg Tablet) 6 mg PO BEDTIME PRN PRN Reason: Insomnia Multivitamins/Vitamin C (Multivitamin Tablet) 1 tab PO DAILY [facility] Last Admin: 01/27/24 07:55 Dose: 1 tab Ondansetron HCl (Ondansetron Hcl 4 Mg/2 Ml Vial) 4 mg IVPUSH Q8H PRN PRN Reason: Nausea and Vomiting Oxycodone HCl (Oxycodone Hcl Immed Release 5 Mg Tablet) 5 mg PO Q4H PRN PRN Reason: Pain, Moderate(Pain Scale 4-6) Last Admin: 01/27/24 12:16 Dose: 5 mg Pharmacy Consult (Consult Rx Etoh Phenob Po Only) 1 each MISCELLANE ONCE PRN; Protocol PRN Reason: Consult order Pharmacy Consult (Consult Rx Vancomycin Dosing) 1 each MISCELLANE DAILY PRN PRN Reason: Consult order Pharmacy Consult (Consult Rx Etoh Phenob Po Only) 1 each MISCELLANE ONCE PRN; Protocol PRN Reason: Consult order Sodium Chloride (0.9 % Sodium Chloride Flush 3 Ml Syringe) 3 ml IVFLUSH QSHIFT [facility] Last Admin: 01/27/24 14:39 Dose: Not Given Thiamine HCl (Thiamine Hcl 100 Mg Tablet) 100 mg PO DAILY [facility] Last Admin: 01/27/24 07:55 Dose: 100 mg Home Medications ?Medication ?Instructions ?Recorded ?Confirmed ?Last Taken ?Type cephalexin 500 mg capsule 500 mg PO Q8H 01/21/24 01/21/24 01/18/24 History Exam Height,Weight and Vital Signs: Height 5 ft 5 in Weight 81.8 kg Last Vital Signs Temp 98.0 F 01/27/24 15:00 Pulse 77 01/27/24 15:00 Resp 18 01/27/24 15:00 BP 144/75 H 01/27/24 15:00 Pulse Ox 95 01/27/24 15:00 O2 Del Method Room Air 01/27/24 15:00 Pertinent Lab Results Pertinent Lab Results: Laboratory Tests 01/21/24 01/21/24 01/21/24 11:18 11:45 13:05 WBC 19.6 H RBC 3.84 L Hgb 11.8 L Hct 33.3 L MCV 86.7 MCH 30.7 MCHC 35.4 RDW 11.3 Plt Count 265 D MPV 9.6 Immature Gran % (Auto) 0.6 H Neut % (Auto) 79.4 H Lymph % (Auto) 10.5 L Peach % (Auto) 8.9 Eos % (Auto) 0.3 Baso % (Auto) 0.3 Lymph # (Auto) 2.1 Peach # (Auto) 1.8 H Eos # (Auto) 0.1 Baso # (Auto) 0.1 Abs Immat Gran (auto) 0.12 H Absolute Neuts (auto) 15.6 H Absolute Nucleated RBC 0.000 Nucleated RBC % (auto) 0.0 Smear Tech's Comments VERIFIED Hold Purple Top VBG pH VBG pCO2 VBG pO2 VBG HCO3 VBG O2 Saturation VBG Base Excess Sodium 131 L Potassium 4.3 Chloride 95 L Carbon Dioxide 25 Anion Gap 15 BUN 33 H Creatinine 2.42 H Estim Creat Clear Calc 35.9 Estimated GFR 29 POC Glucose 267 H Random Glucose 285 H Fasting Glucose Lactic Acid 1.2 Lactic Acid F/U @ 2Hr Calcium 9.8 D Magnesium Total Bilirubin 1.0 AST 30 ALT 22 Alkaline Phosphatase 110 Total Protein 8.1 H Albumin 3.5 Beta-Hydroxybutyrate 1.25 H Urine Color Urine Appearance Urine pH Ur Specific Lorman Urine Protein Urine Glucose (UA) Urine Ketones Urine Blood Urine Nitrite Ur Leukocyte Esterase Urine RBC Urine WBC Ur Squamous Epith Cells Urine Bacteria Hyaline Casts Stl C. cayetanensis PCR Stool Rotavirus A PCR Stl Adenov F 40/41 PCR Stool Astrovirus (PCR) Stool Campylobacter PCR Stool Cryptosporidium PCR Stl Sh Tox Pr E STEC PCR Stool E coli O157 PCR Stl Enterotoxigenic E PCR Stool EPEC (PCR) Stool EAEC (PCR) Stl E. histolytica PCR Stool Giardia Lamblia PCR Stl P. shigelloides PCR Stool Salmonella PCR Stool Sapovirus (PCR) Stl Shigella/EIEC PCR St Y.enterocolitica PCR Stool Vibrio (PCR) Stl Vibrio cholerae PCR Stl Norovirus GI/GII PCR Random Vancomycin Urine Opiates Screen Ur Buprenorphine Scrn Ur Oxycodone Screen Urine Methadone Screen Urine Fentanyl Screen Ur Barbiturates Screen Ur Phencyclidine Scrn Ur Amphetamines Screen U Benzodiazepines Scrn Urine Cocaine Screen U Marijuana (THC) Screen Ethyl Alcohol < 10 C. difficile Tox B Gene C. difficile Toxin A&B C. difficile Interpret Influenza Type A (PCR) NEGATIVE Influenza Type B (PCR) NEGATIVE RSV RNA Qual (PCR) NEGATIVE SARS-CoV-2 RNA (RT-PCR) NEGATIVE 01/21/24 01/21/24 01/21/24 13:09 14:21 14:22 WBC RBC Hgb Hct MCV MCH MCHC RDW Plt Count MPV Immature Gran % (Auto) Neut % (Auto) Lymph % (Auto) Peach % (Auto) Eos % (Auto) Baso % (Auto) Lymph # (Auto) Peach # (Auto) Eos # (Auto) Baso # (Auto) Abs Immat Gran (auto) Absolute Neuts (auto) Absolute Nucleated RBC Nucleated RBC % (auto) Smear Tech's Comments Hold Purple Top VBG pH 7.42 VBG pCO2 44 VBG pO2 41 VBG HCO3 29 H VBG O2 Saturation 63.0 VBG Base Excess 4.5 Sodium Potassium Chloride Carbon Dioxide Anion Gap BUN Creatinine Estim Creat Clear Calc Estimated GFR POC Glucose Random Glucose Fasting Glucose Lactic Acid Lactic Acid F/U @ 2Hr Calcium Magnesium Total Bilirubin AST ALT Alkaline Phosphatase Total Protein Albumin Beta-Hydroxybutyrate Urine Color Yellow Urine Appearance Clear Urine pH 6.0 Ur Specific Lorman 1.015 Urine Protein 300 (3+) H Urine Glucose (UA) >=1000 H Urine Ketones Trace Urine Blood Moderate (2+) H Urine Nitrite Negative Ur Leukocyte Esterase Negative Urine RBC 0-2 Urine WBC 0-5 Ur Squamous Epith Cells 0-2 Urine Bacteria None Seen Hyaline Casts 3-5 Stl C. cayetanensis PCR Stool Rotavirus A PCR Stl Adenov F 40/41 PCR Stool Astrovirus (PCR) Stool Campylobacter PCR Stool Cryptosporidium PCR Stl Sh Tox Pr E STEC PCR Stool E coli O157 PCR Stl Enterotoxigenic E PCR Stool EPEC (PCR) Stool EAEC (PCR) Stl E. histolytica PCR Stool Giardia Lamblia PCR Stl P. shigelloides PCR Stool Salmonella PCR Stool Sapovirus (PCR) Stl Shigella/EIEC PCR St Y.enterocolitica PCR Stool Vibrio (PCR) Stl Vibrio cholerae PCR Stl Norovirus GI/GII PCR Random Vancomycin Urine Opiates Screen Not Detected Ur Buprenorphine Scrn Not Detected Ur Oxycodone Screen Not Detected Urine Methadone Screen Not Detected Urine Fentanyl Screen Not Detected Ur Barbiturates Screen POSITIVE H Ur Phencyclidine Scrn Not Detected Ur Amphetamines Screen Not Detected U Benzodiazepines Scrn Not Detected Urine Cocaine Screen Not Detected U Marijuana (THC) Screen Not Detected Ethyl Alcohol C. difficile Tox B Gene C. difficile Toxin A&B C. difficile Interpret Influenza Type A (PCR) Influenza Type B (PCR) RSV RNA Qual (PCR) SARS-CoV-2 RNA (RT-PCR) 01/21/24 01/21/24 01/21/24 16:50 19:46 21:41 WBC RBC Hgb Hct MCV MCH MCHC RDW Plt Count MPV Immature Gran % (Auto) Neut % (Auto) Lymph % (Auto) Peach % (Auto) Eos % (Auto) Baso % (Auto) Lymph # (Auto) Peach # (Auto) Eos # (Auto) Baso # (Auto) Abs Immat Gran (auto) Absolute Neuts (auto) Absolute Nucleated RBC Nucleated RBC % (auto) Smear Tech's Comments Hold Purple Top VBG pH VBG pCO2 VBG pO2 VBG HCO3 VBG O2 Saturation VBG Base Excess Sodium Potassium Chloride Carbon Dioxide Anion Gap BUN Creatinine Estim Creat Clear Calc Estimated GFR POC Glucose 226 H 163 H 211 H Random Glucose Fasting Glucose Lactic Acid Lactic Acid F/U @ 2Hr Calcium Magnesium Total Bilirubin AST ALT Alkaline Phosphatase Total Protein Albumin Beta-Hydroxybutyrate Urine Color Urine Appearance Urine pH Ur Specific Lorman Urine Protein Urine Glucose (UA) Urine Ketones Urine Blood Urine Nitrite Ur Leukocyte Esterase Urine RBC Urine WBC Ur Squamous Epith Cells Urine Bacteria Hyaline Casts Stl C. cayetanensis PCR Stool Rotavirus A PCR Stl Adenov F 40 PCR Stool Astrovirus (PCR) Stool Campylobacter PCR Stool Cryptosporidium PCR Stl Sh Tox Pr E STEC PCR Stool E coli O157 PCR Stl Enterotoxigenic E PCR Stool EPEC (PCR) Stool EAEC (PCR) Stl E. histolytica PCR Stool Giardia Lamblia PCR Stl P. shigelloides PCR Stool Salmonella PCR Stool Sapovirus (PCR) Stl Shigella/EIEC PCR St Y.enterocolitica PCR Stool Vibrio (PCR) Stl Vibrio cholerae PCR Stl Norovirus GI/GII PCR Random Vancomycin Urine Opiates Screen Ur Buprenorphine Scrn Ur Oxycodone Screen Urine Methadone Screen Urine Fentanyl Screen Ur Barbiturates Screen Ur Phencyclidine Scrn Ur Amphetamines Screen U Benzodiazepines Scrn Urine Cocaine Screen U Marijuana (THC) Screen Ethyl Alcohol C. difficile Tox B Gene C. difficile Toxin A&B C. difficile Interpret Influenza Type A (PCR) Influenza Type B (PCR) RSV RNA Qual (PCR) SARS-CoV-2 RNA (RT-PCR) 01/22/24 01/22/24 01/22/24 04:50 07:27 10:00 WBC 22.5 H RBC 3.63 L Hgb 11.1 L Hct 31.9 L MCV 87.9 MCH 30.6 MCHC 34.8 RDW 11.1 Plt Count 269 MPV 10.2 Immature Gran % (Auto) 0.8 H Neut % (Auto) 78.5 H Lymph % (Auto) 10.2 L Peach % (Auto) 9.9 Eos % (Auto) 0.2 Baso % (Auto) 0.4 Lymph # (Auto) 2.3 Peach # (Auto) 2.2 H Eos # (Auto) 0.1 Baso # (Auto) 0.1 Abs Immat Gran (auto) 0.17 H Absolute Neuts (auto) 17.7 H Absolute Nucleated RBC 0.000 Nucleated RBC % (auto) 0.0 Smear Tech's Comments VERIFIED Hold Purple Top VBG pH VBG pCO2 VBG pO2 VBG HCO3 VBG O2 Saturation VBG Base Excess Sodium 132 L Potassium 4.2 Chloride 98 Carbon Dioxide 23 Anion Gap 15 BUN 30 H Creatinine 1.89 H Estim Creat Clear Calc 46.0 Estimated GFR 38 POC Glucose 237 H Random Glucose 263 H Fasting Glucose Lactic Acid 3.1 H* Lactic Acid F/U @ 2Hr Calcium 9.0 D Magnesium 1.3 L* Total Bilirubin AST ALT Alkaline Phosphatase Total Protein Albumin Beta-Hydroxybutyrate Urine Color Urine Appearance Urine pH Ur Specific Lorman Urine Protein Urine Glucose (UA) Urine Ketones Urine Blood Urine Nitrite Ur Leukocyte Esterase Urine RBC Urine WBC Ur Squamous Epith Cells Urine Bacteria Hyaline Casts Stl C. cayetanensis PCR Stool Rotavirus A PCR Stl Adenov F 40/41 PCR Stool Astrovirus (PCR) Stool Campylobacter PCR Stool Cryptosporidium PCR Stl Sh Tox Pr E STEC PCR Stool E coli O157 PCR Stl Enterotoxigenic E PCR Stool EPEC (PCR) Stool EAEC (PCR) Stl E. histolytica PCR Stool Giardia Lamblia PCR Stl P. shigelloides PCR Stool Salmonella PCR Stool Sapovirus (PCR) Stl Shigella/EIEC PCR St Y.enterocolitica PCR Stool Vibrio (PCR) Stl Vibrio cholerae PCR Stl Norovirus GI/GII PCR Random Vancomycin Urine Opiates Screen Ur Buprenorphine Scrn Ur Oxycodone Screen Urine Methadone Screen Urine Fentanyl Screen Ur Barbiturates Screen Ur Phencyclidine Scrn Ur Amphetamines Screen U Benzodiazepines Scrn Urine Cocaine Screen U Marijuana (THC) Screen Ethyl Alcohol C. difficile Tox B Gene C. difficile Toxin A&B C. difficile Interpret Influenza Type A (PCR) Influenza Type B (PCR) RSV RNA Qual (PCR) SARS-CoV-2 RNA (RT-PCR) 01/22/24 01/22/24 01/22/24 10:16 11:27 13:36 WBC RBC Hgb Hct MCV MCH MCHC RDW Plt Count MPV Immature Gran % (Auto) Neut % (Auto) Lymph % (Auto) Peach % (Auto) Eos % (Auto) Baso % (Auto) Lymph # (Auto) Peach # (Auto) Eos # (Auto) Baso # (Auto) Abs Immat Gran (auto) Absolute Neuts (auto) Absolute Nucleated RBC Nucleated RBC % (auto) Smear Tech's Comments Hold Purple Top VBG pH VBG pCO2 VBG pO2 VBG HCO3 VBG O2 Saturation VBG Base Excess Sodium Potassium Chloride Carbon Dioxide Anion Gap BUN Creatinine Estim Creat Clear Calc Estimated GFR POC Glucose 231 H Random Glucose Fasting Glucose Lactic Acid Lactic Acid F/U @ 2Hr 2.5 H* Calcium Magnesium Total Bilirubin AST ALT Alkaline Phosphatase Total Protein Albumin Beta-Hydroxybutyrate Urine Color Urine Appearance Urine pH Ur Specific Lorman Urine Protein Urine Glucose (UA) Urine Ketones Urine Blood Urine Nitrite Ur Leukocyte Esterase Urine RBC Urine WBC Ur Squamous Epith Cells Urine Bacteria Hyaline Casts Stl C. cayetanensis PCR Not Detected Stool Rotavirus A PCR Not Detected Stl Adenov F 40/41 PCR Not Detected Stool Astrovirus (PCR) Not Detected Stool Campylobacter PCR Not Detected Stool Cryptosporidium PCR Not Detected Stl Sh Tox Pr E STEC PCR Not Detected Stool E coli O157 PCR Not applicable Stl Enterotoxigenic E PCR Not Detected Stool EPEC (PCR) Not Detected Stool EAEC (PCR) Not Detected Stl E. histolytica PCR Not Detected Stool Giardia Lamblia PCR Not Detected Stl P. shigelloides PCR Not Detected Stool Salmonella PCR Not Detected Stool Sapovirus (PCR) Not Detected Stl Shigella/EIEC PCR Not Detected St Y.enterocolitica PCR Not Detected Stool Vibrio (PCR) Not Detected Stl Vibrio cholerae PCR Not Detected Stl Norovirus GI/GII PCR Not Detected Random Vancomycin Urine Opiates Screen Ur Buprenorphine Scrn Ur Oxycodone Screen Urine Methadone Screen Urine Fentanyl Screen Ur Barbiturates Screen Ur Phencyclidine Scrn Ur Amphetamines Screen U Benzodiazepines Scrn Urine Cocaine Screen U Marijuana (THC) Screen Ethyl Alcohol C. difficile Tox B Gene POSITIVE A* C. difficile Toxin A&B Negative C. difficile Interpret SEE NOTE Influenza Type A (PCR) Influenza Type B (PCR) RSV RNA Qual (PCR) SARS-CoV-2 RNA (RT-PCR) 01/22/24 01/22/24 01/23/24 16:14 20:37 05:51 WBC 26.6 H RBC 3.56 L Hgb 11.0 L Hct 31.1 L MCV 87.4 MCH 30.9 MCHC 35.4 RDW 11.2 Plt Count 269 MPV 10.1 Immature Gran % (Auto) 1.6 H Neut % (Auto) 83.2 H Lymph % (Auto) 6.6 L Peach % (Auto) 8.2 Eos % (Auto) 0.1 Baso % (Auto) 0.3 Lymph # (Auto) 1.8 Peach # (Auto) 2.2 H Eos # (Auto) 0.0 Baso # (Auto) 0.1 Abs Immat Gran (auto) 0.42 H Absolute Neuts (auto) 22.1 H Absolute Nucleated RBC 0.000 Nucleated RBC % (auto) 0.0 Smear Tech's Comments VERIFIED Hold Purple Top VBG pH VBG pCO2 VBG pO2 VBG HCO3 VBG O2 Saturation VBG Base Excess Sodium 131 L Potassium 3.9 Chloride 99 Carbon Dioxide 23 Anion Gap 13 BUN 26 H Creatinine 1.56 H Estim Creat Clear Calc 55.7 Estimated GFR 47 POC Glucose 231 H 239 H Random Glucose 266 H Fasting Glucose Lactic Acid Lactic Acid F/U @ 2Hr Calcium 9.5 Magnesium 1.8 Total Bilirubin AST ALT Alkaline Phosphatase Total Protein Albumin Beta-Hydroxybutyrate Urine Color Urine Appearance Urine pH Ur Specific Lorman Urine Protein Urine Glucose (UA) Urine Ketones Urine Blood Urine Nitrite Ur Leukocyte Esterase Urine RBC Urine WBC Ur Squamous Epith Cells Urine Bacteria Hyaline Casts Stl C. cayetanensis PCR Stool Rotavirus A PCR Stl Adenov F 40 PCR Stool Astrovirus (PCR) Stool Campylobacter PCR Stool Cryptosporidium PCR Stl Sh Tox Pr E STEC PCR Stool E coli O157 PCR Stl Enterotoxigenic E PCR Stool EPEC (PCR) Stool EAEC (PCR) Stl E. histolytica PCR Stool Giardia Lamblia PCR Stl P. shigelloides PCR Stool Salmonella PCR Stool Sapovirus (PCR) Stl Shigella/EIEC PCR St Y.enterocolitica PCR Stool Vibrio (PCR) Stl Vibrio cholerae PCR Stl Norovirus GI/GII PCR Random Vancomycin Urine Opiates Screen Ur Buprenorphine Scrn Ur Oxycodone Screen Urine Methadone Screen Urine Fentanyl Screen Ur Barbiturates Screen Ur Phencyclidine Scrn Ur Amphetamines Screen U Benzodiazepines Scrn Urine Cocaine Screen U Marijuana (THC) Screen Ethyl Alcohol C. difficile Tox B Gene C. difficile Toxin A&B C. difficile Interpret Influenza Type A (PCR) Influenza Type B (PCR) RSV RNA Qual (PCR) SARS-CoV-2 RNA (RT-PCR) 01/23/24 01/23/24 01/23/24 07:47 11:07 16:05 WBC RBC Hgb Hct MCV MCH MCHC RDW Plt Count MPV Immature Gran % (Auto) Neut % (Auto) Lymph % (Auto) Peach % (Auto) Eos % (Auto) Baso % (Auto) Lymph # (Auto) Peach # (Auto) Eos # (Auto) Baso # (Auto) Abs Immat Gran (auto) Absolute Neuts (auto) Absolute Nucleated RBC Nucleated RBC % (auto) Smear Tech's Comments Hold Purple Top VBG pH VBG pCO2 VBG pO2 VBG HCO3 VBG O2 Saturation VBG Base Excess Sodium Potassium Chloride Carbon Dioxide Anion Gap BUN Creatinine Estim Creat Clear Calc Estimated GFR POC Glucose 227 H 229 H 275 H Random Glucose Fasting Glucose Lactic Acid Lactic Acid F/U @ 2Hr Calcium Magnesium Total Bilirubin AST ALT Alkaline Phosphatase Total Protein Albumin Beta-Hydroxybutyrate Urine Color Urine Appearance Urine pH Ur Specific Lorman Urine Protein Urine Glucose (UA) Urine Ketones Urine Blood Urine Nitrite Ur Leukocyte Esterase Urine RBC Urine WBC Ur Squamous Epith Cells Urine Bacteria Hyaline Casts Stl C. cayetanensis PCR Stool Rotavirus A PCR Stl Adenov F 40 PCR Stool Astrovirus (PCR) Stool Campylobacter PCR Stool Cryptosporidium PCR Stl Sh Tox Pr E STEC PCR Stool E coli O157 PCR Stl Enterotoxigenic E PCR Stool EPEC (PCR) Stool EAEC (PCR) Stl E. histolytica PCR Stool Giardia Lamblia PCR Stl P. shigelloides PCR Stool Salmonella PCR Stool Sapovirus (PCR) Stl Shigella/EIEC PCR St Y.enterocolitica PCR Stool Vibrio (PCR) Stl Vibrio cholerae PCR Stl Norovirus GI/GII PCR Random Vancomycin Urine Opiates Screen Ur Buprenorphine Scrn Ur Oxycodone Screen Urine Methadone Screen Urine Fentanyl Screen Ur Barbiturates Screen Ur Phencyclidine Scrn Ur Amphetamines Screen U Benzodiazepines Scrn Urine Cocaine Screen U Marijuana (THC) Screen Ethyl Alcohol C. difficile Tox B Gene C. difficile Toxin A&B C. difficile Interpret Influenza Type A (PCR) Influenza Type B (PCR) RSV RNA Qual (PCR) SARS-CoV-2 RNA (RT-PCR) 01/23/24 01/24/24 01/24/24 20:37 07:21 09:15 WBC RBC Hgb Hct MCV MCH MCHC RDW Plt Count MPV Immature Gran % (Auto) Neut % (Auto) Lymph % (Auto) Peach % (Auto) Eos % (Auto) Baso % (Auto) Lymph # (Auto) Peach # (Auto) Eos # (Auto) Baso # (Auto) Abs Immat Gran (auto) Absolute Neuts (auto) Absolute Nucleated RBC Nucleated RBC % (auto) Smear Tech's Comments Hold Purple Top VBG pH VBG pCO2 VBG pO2 VBG HCO3 VBG O2 Saturation VBG Base Excess Sodium Potassium Chloride Carbon Dioxide Anion Gap BUN Creatinine Estim Creat Clear Calc Estimated GFR POC Glucose 277 H 187 H Random Glucose Fasting Glucose Lactic Acid Lactic Acid F/U @ 2Hr Calcium Magnesium Total Bilirubin AST ALT Alkaline Phosphatase Total Protein Albumin Beta-Hydroxybutyrate Urine Color Urine Appearance Urine pH Ur Specific Lorman Urine Protein Urine Glucose (UA) Urine Ketones Urine Blood Urine Nitrite Ur Leukocyte Esterase Urine RBC Urine WBC Ur Squamous Epith Cells Urine Bacteria Hyaline Casts Stl C. cayetanensis PCR Stool Rotavirus A PCR Stl Adenov F 40/41 PCR Stool Astrovirus (PCR) Stool Campylobacter PCR Stool Cryptosporidium PCR Stl Sh Tox Pr E STEC PCR Stool E coli O157 PCR Stl Enterotoxigenic E PCR Stool EPEC (PCR) Stool EAEC (PCR) Stl E. histolytica PCR Stool Giardia Lamblia PCR Stl P. shigelloides PCR Stool Salmonella PCR Stool Sapovirus (PCR) Stl Shigella/EIEC PCR St Y.enterocolitica PCR Stool Vibrio (PCR) Stl Vibrio cholerae PCR Stl Norovirus GI/GII PCR Random Vancomycin 12.9 L Urine Opiates Screen Ur Buprenorphine Scrn Ur Oxycodone Screen Urine Methadone Screen Urine Fentanyl Screen Ur Barbiturates Screen Ur Phencyclidine Scrn Ur Amphetamines Screen U Benzodiazepines Scrn Urine Cocaine Screen U Marijuana (THC) Screen Ethyl Alcohol C. difficile Tox B Gene C. difficile Toxin A&B C. difficile Interpret Influenza Type A (PCR) Influenza Type B (PCR) RSV RNA Qual (PCR) SARS-CoV-2 RNA (RT-PCR) 01/24/24 01/24/24 01/24/24 09:16 11:04 16:10 WBC 18.1 H RBC 3.45 L Hgb 10.5 L Hct 30.9 L MCV 89.6 MCH 30.4 MCHC 34.0 RDW 11.2 Plt Count 255 MPV 10.3 Immature Gran % (Auto) 0.8 H Neut % (Auto) 78.3 H Lymph % (Auto) 10.8 L Peach % (Auto) 8.8 Eos % (Auto) 0.7 Baso % (Auto) 0.6 Lymph # (Auto) 2.0 Peach # (Auto) 1.6 H Eos # (Auto) 0.1 Baso # (Auto) 0.1 Abs Immat Gran (auto) 0.15 H Absolute Neuts (auto) 14.1 H Absolute Nucleated RBC 0.000 Nucleated RBC % (auto) 0.0 Smear Tech's Comments VERIFIED Hold Purple Top VBG pH VBG pCO2 VBG pO2 VBG HCO3 VBG O2 Saturation VBG Base Excess Sodium 131 L Potassium 3.9 Chloride 99 Carbon Dioxide 22 Anion Gap 14 BUN 27 H Creatinine 1.60 H Estim Creat Clear Calc 54.3 Estimated GFR 46 POC Glucose 233 H 265 H Random Glucose Fasting Glucose 279 H Lactic Acid Lactic Acid F/U @ 2Hr Calcium 8.9 D Magnesium Total Bilirubin 0.4 AST 28 ALT 22 Alkaline Phosphatase 111 Total Protein 7.3 Albumin 2.9 L Beta-Hydroxybutyrate Urine Color Urine Appearance Urine pH Ur Specific Lorman Urine Protein Urine Glucose (UA) Urine Ketones Urine Blood Urine Nitrite Ur Leukocyte Esterase Urine RBC Urine WBC Ur Squamous Epith Cells Urine Bacteria Hyaline Casts Stl C. cayetanensis PCR Stool Rotavirus A PCR Stl Adenov F 40/41 PCR Stool Astrovirus (PCR) Stool Campylobacter PCR Stool Cryptosporidium PCR Stl Sh Tox Pr E STEC PCR Stool E coli O157 PCR Stl Enterotoxigenic E PCR Stool EPEC (PCR) Stool EAEC (PCR) Stl E. histolytica PCR Stool Giardia Lamblia PCR Stl P. shigelloides PCR Stool Salmonella PCR Stool Sapovirus (PCR) Stl Shigella/EIEC PCR St Y.enterocolitica PCR Stool Vibrio (PCR) Stl Vibrio cholerae PCR Stl Norovirus GI/GII PCR Random Vancomycin Urine Opiates Screen Ur Buprenorphine Scrn Ur Oxycodone Screen Urine Methadone Screen Urine Fentanyl Screen Ur Barbiturates Screen Ur Phencyclidine Scrn Ur Amphetamines Screen U Benzodiazepines Scrn Urine Cocaine Screen U Marijuana (THC) Screen Ethyl Alcohol C. difficile Tox B Gene C. difficile Toxin A&B C. difficile Interpret Influenza Type A (PCR) Influenza Type B (PCR) RSV RNA Qual (PCR) SARS-CoV-2 RNA (RT-PCR) 01/24/24 01/25/24 01/25/24 20:18 06:03 07:29 WBC 13.4 H RBC 3.53 L Hgb 10.7 L Hct 31.2 L MCV 88.4 MCH 30.3 MCHC 34.3 RDW 11.3 Plt Count 274 MPV 10.2 Immature Gran % (Auto) 0.4 Neut % (Auto) 70.2 Lymph % (Auto) 17.5 L Peach % (Auto) 10.2 Eos % (Auto) 1.1 Baso % (Auto) 0.6 Lymph # (Auto) 2.3 Peach # (Auto) 1.4 H Eos # (Auto) 0.2 Baso # (Auto) 0.1 Abs Immat Gran (auto) 0.06 H Absolute Neuts (auto) 9.4 H Absolute Nucleated RBC 0.000 Nucleated RBC % (auto) 0.0 Smear Tech's Comments Hold Purple Top VBG pH VBG pCO2 VBG pO2 VBG HCO3 VBG O2 Saturation VBG Base Excess Sodium 135 Potassium 4.2 Chloride 102 Carbon Dioxide 24 Anion Gap 13 BUN 21 H Creatinine 1.27 Estim Creat Clear Calc 68.5 Estimated GFR > 60 POC Glucose 309 H 176 H Random Glucose Fasting Glucose 200 H Lactic Acid Lactic Acid F/U @ 2Hr Calcium 9.6 D Magnesium Total Bilirubin 0.3 AST 30 ALT 24 Alkaline Phosphatase 119 H Total Protein 7.6 Albumin 2.9 L Beta-Hydroxybutyrate Urine Color Urine Appearance Urine pH Ur Specific Lorman Urine Protein Urine Glucose (UA) Urine Ketones Urine Blood Urine Nitrite Ur Leukocyte Esterase Urine RBC Urine WBC Ur Squamous Epith Cells Urine Bacteria Hyaline Casts Stl C. cayetanensis PCR Stool Rotavirus A PCR Stl Adenov F 40/41 PCR Stool Astrovirus (PCR) Stool Campylobacter PCR Stool Cryptosporidium PCR Stl Sh Tox Pr E STEC PCR Stool E coli O157 PCR Stl Enterotoxigenic E PCR Stool EPEC (PCR) Stool EAEC (PCR) Stl E. histolytica PCR Stool Giardia Lamblia PCR Stl P. shigelloides PCR Stool Salmonella PCR Stool Sapovirus (PCR) Stl Shigella/EIEC PCR St Y.enterocolitica PCR Stool Vibrio (PCR) Stl Vibrio cholerae PCR Stl Norovirus GI/GII PCR Random Vancomycin Urine Opiates Screen Ur Buprenorphine Scrn Ur Oxycodone Screen Urine Methadone Screen Urine Fentanyl Screen Ur Barbiturates Screen Ur Phencyclidine Scrn Ur Amphetamines Screen U Benzodiazepines Scrn Urine Cocaine Screen U Marijuana (THC) Screen Ethyl Alcohol C. difficile Tox B Gene C. difficile Toxin A&B C. difficile Interpret Influenza Type A (PCR) Influenza Type B (PCR) RSV RNA Qual (PCR) SARS-CoV-2 RNA (RT-PCR) 01/25/24 01/25/24 01/25/24 11:22 16:30 20:24 WBC RBC Hgb Hct MCV MCH MCHC RDW Plt Count MPV Immature Gran % (Auto) Neut % (Auto) Lymph % (Auto) Peach % (Auto) Eos % (Auto) Baso % (Auto) Lymph # (Auto) Peach # (Auto) Eos # (Auto) Baso # (Auto) Abs Immat Gran (auto) Absolute Neuts (auto) Absolute Nucleated RBC Nucleated RBC % (auto) Smear Tech's Comments Hold Purple Top VBG pH VBG pCO2 VBG pO2 VBG HCO3 VBG O2 Saturation VBG Base Excess Sodium Potassium Chloride Carbon Dioxide Anion Gap BUN Creatinine Estim Creat Clear Calc Estimated GFR POC Glucose 218 H 228 H 296 H Random Glucose Fasting Glucose Lactic Acid Lactic Acid F/U @ 2Hr Calcium Magnesium Total Bilirubin AST ALT Alkaline Phosphatase Total Protein Albumin Beta-Hydroxybutyrate Urine Color Urine Appearance Urine pH Ur Specific Lorman Urine Protein Urine Glucose (UA) Urine Ketones Urine Blood Urine Nitrite Ur Leukocyte Esterase Urine RBC Urine WBC Ur Squamous Epith Cells Urine Bacteria Hyaline Casts Stl C. cayetanensis PCR Stool Rotavirus A PCR Stl Adenov F PCR Stool Astrovirus (PCR) Stool Campylobacter PCR Stool Cryptosporidium PCR Stl Sh Tox Pr E STEC PCR Stool E coli O157 PCR Stl Enterotoxigenic E PCR Stool EPEC (PCR) Stool EAEC (PCR) Stl E. histolytica PCR Stool Giardia Lamblia PCR Stl P. shigelloides PCR Stool Salmonella PCR Stool Sapovirus (PCR) Stl Shigella/EIEC PCR St Y.enterocolitica PCR Stool Vibrio (PCR) Stl Vibrio cholerae PCR Stl Norovirus GI/GII PCR Random Vancomycin Urine Opiates Screen Ur Buprenorphine Scrn Ur Oxycodone Screen Urine Methadone Screen Urine Fentanyl Screen Ur Barbiturates Screen Ur Phencyclidine Scrn Ur Amphetamines Screen U Benzodiazepines Scrn Urine Cocaine Screen U Marijuana (THC) Screen Ethyl Alcohol C. difficile Tox B Gene C. difficile Toxin A&B C. difficile Interpret Influenza Type A (PCR) Influenza Type B (PCR) RSV RNA Qual (PCR) SARS-CoV-2 RNA (RT-PCR) 01/26/24 01/26/24 01/26/24 05:40 07:40 08:54 WBC 11.9 H RBC 3.75 L Hgb 11.4 L Hct 33.3 L MCV 88.8 MCH 30.4 MCHC 34.2 RDW 11.1 Plt Count 249 MPV 11.5 Immature Gran % (Auto) 0.7 H Neut % (Auto) 68.8 Lymph % (Auto) 16.8 L Peach % (Auto) 11.3 H Eos % (Auto) 1.7 Baso % (Auto) 0.7 Lymph # (Auto) 2.0 Peach # (Auto) 1.4 H Eos # (Auto) 0.2 Baso # (Auto) 0.1 Abs Immat Gran (auto) 0.08 H Absolute Neuts (auto) 8.2 Absolute Nucleated RBC 0.000 Nucleated RBC % (auto) 0.0 Smear Tech's Comments Hold Purple Top VBG pH VBG pCO2 VBG pO2 VBG HCO3 VBG O2 Saturation VBG Base Excess Sodium 133 L Potassium 4.4 Chloride 99 Carbon Dioxide 25 Anion Gap 13 BUN 21 H Creatinine 1.29 Estim Creat Clear Calc 67.4 Estimated GFR 59 POC Glucose 231 H Random Glucose Fasting Glucose 252 H Lactic Acid Lactic Acid F/U @ 2Hr Calcium 9.8 Magnesium Total Bilirubin 0.3 AST 37 ALT 30 Alkaline Phosphatase 146 H Total Protein 7.8 Albumin 3.0 L Beta-Hydroxybutyrate Urine Color Urine Appearance Urine pH Ur Specific Lorman Urine Protein Urine Glucose (UA) Urine Ketones Urine Blood Urine Nitrite Ur Leukocyte Esterase Urine RBC Urine WBC Ur Squamous Epith Cells Urine Bacteria Hyaline Casts Stl C. cayetanensis PCR Stool Rotavirus A PCR Stl Adenov F 40/41 PCR Stool Astrovirus (PCR) Stool Campylobacter PCR Stool Cryptosporidium PCR Stl Sh Tox Pr E STEC PCR Stool E coli O157 PCR Stl Enterotoxigenic E PCR Stool EPEC (PCR) Stool EAEC (PCR) Stl E. histolytica PCR Stool Giardia Lamblia PCR Stl P. shigelloides PCR Stool Salmonella PCR Stool Sapovirus (PCR) Stl Shigella/EIEC PCR St Y.enterocolitica PCR Stool Vibrio (PCR) Stl Vibrio cholerae PCR Stl Norovirus GI/GII PCR Random Vancomycin 12.3 L Urine Opiates Screen Ur Buprenorphine Scrn Ur Oxycodone Screen Urine Methadone Screen Urine Fentanyl Screen Ur Barbiturates Screen Ur Phencyclidine Scrn Ur Amphetamines Screen U Benzodiazepines Scrn Urine Cocaine Screen U Marijuana (THC) Screen Ethyl Alcohol C. difficile Tox B Gene C. difficile Toxin A&B C. difficile Interpret Influenza Type A (PCR) Influenza Type B (PCR) RSV RNA Qual (PCR) SARS-CoV-2 RNA (RT-PCR) 01/26/24 01/26/24 01/26/24 11:36 16:13 20:19 WBC RBC Hgb Hct MCV MCH MCHC RDW Plt Count MPV Immature Gran % (Auto) Neut % (Auto) Lymph % (Auto) Peach % (Auto) Eos % (Auto) Baso % (Auto) Lymph # (Auto) Peach # (Auto) Eos # (Auto) Baso # (Auto) Abs Immat Gran (auto) Absolute Neuts (auto) Absolute Nucleated RBC Nucleated RBC % (auto) Smear Tech's Comments Hold Purple Top VBG pH VBG pCO2 VBG pO2 VBG HCO3 VBG O2 Saturation VBG Base Excess Sodium Potassium Chloride Carbon Dioxide Anion Gap BUN Creatinine Estim Creat Clear Calc Estimated GFR POC Glucose 246 H 263 H 382 H* Random Glucose Fasting Glucose Lactic Acid Lactic Acid F/U @ 2Hr Calcium Magnesium Total Bilirubin AST ALT Alkaline Phosphatase Total Protein Albumin Beta-Hydroxybutyrate Urine Color Urine Appearance Urine pH Ur Specific Lorman Urine Protein Urine Glucose (UA) Urine Ketones Urine Blood Urine Nitrite Ur Leukocyte Esterase Urine RBC Urine WBC Ur Squamous Epith Cells Urine Bacteria Hyaline Casts Stl C. cayetanensis PCR Stool Rotavirus A PCR Stl Adenov F 40/41 PCR Stool Astrovirus (PCR) Stool Campylobacter PCR Stool Cryptosporidium PCR Stl Sh Tox Pr E STEC PCR Stool E coli O157 PCR Stl Enterotoxigenic E PCR Stool EPEC (PCR) Stool EAEC (PCR) Stl E. histolytica PCR Stool Giardia Lamblia PCR Stl P. shigelloides PCR Stool Salmonella PCR Stool Sapovirus (PCR) Stl Shigella/EIEC PCR St Y.enterocolitica PCR Stool Vibrio (PCR) Stl Vibrio cholerae PCR Stl Norovirus GI/GII PCR Random Vancomycin Urine Opiates Screen Ur Buprenorphine Scrn Ur Oxycodone Screen Urine Methadone Screen Urine Fentanyl Screen Ur Barbiturates Screen Ur Phencyclidine Scrn Ur Amphetamines Screen U Benzodiazepines Scrn Urine Cocaine Screen U Marijuana (THC) Screen Ethyl Alcohol C. difficile Tox B Gene C. difficile Toxin A&B C. difficile Interpret Influenza Type A (PCR) Influenza Type B (PCR) RSV RNA Qual (PCR) SARS-CoV-2 RNA (RT-PCR) 01/27/24 01/27/24 01/27/24 05:35 07:24 09:08 WBC RBC Hgb Hct MCV MCH MCHC RDW Plt Count MPV Immature Gran % (Auto) Neut % (Auto) Lymph % (Auto) Peach % (Auto) Eos % (Auto) Baso % (Auto) Lymph # (Auto) Peach # (Auto) Eos # (Auto) Baso # (Auto) Abs Immat Gran (auto) Absolute Neuts (auto) Absolute Nucleated RBC Nucleated RBC % (auto) Smear Tech's Comments Hold Purple Top SEE NOTE VBG pH VBG pCO2 VBG pO2 VBG HCO3 VBG O2 Saturation VBG Base Excess Sodium Potassium Chloride Carbon Dioxide Anion Gap BUN Creatinine 1.24 Estim Creat Clear Calc 70.1 Estimated GFR > 60 POC Glucose 196 H Random Glucose Fasting Glucose Lactic Acid Lactic Acid F/U @ 2Hr Calcium Magnesium Total Bilirubin AST ALT Alkaline Phosphatase Total Protein Albumin Beta-Hydroxybutyrate Urine Color Urine Appearance Urine pH Ur Specific Lorman Urine Protein Urine Glucose (UA) Urine Ketones Urine Blood Urine Nitrite Ur Leukocyte Esterase Urine RBC Urine WBC Ur Squamous Epith Cells Urine Bacteria Hyaline Casts Stl C. cayetanensis PCR Stool Rotavirus A PCR Stl Adenov F 40/41 PCR Stool Astrovirus (PCR) Stool Campylobacter PCR Stool Cryptosporidium PCR Stl Sh Tox Pr E STEC PCR Stool E coli O157 PCR Stl Enterotoxigenic E PCR Stool EPEC (PCR) Stool EAEC (PCR) Stl E. histolytica PCR Stool Giardia Lamblia PCR Stl P. shigelloides PCR Stool Salmonella PCR Stool Sapovirus (PCR) Stl Shigella/EIEC PCR St Y.enterocolitica PCR Stool Vibrio (PCR) Stl Vibrio cholerae PCR Stl Norovirus GI/GII PCR Random Vancomycin 16.8 Urine Opiates Screen Ur Buprenorphine Scrn Ur Oxycodone Screen Urine Methadone Screen Urine Fentanyl Screen Ur Barbiturates Screen Ur Phencyclidine Scrn Ur Amphetamines Screen U Benzodiazepines Scrn Urine Cocaine Screen U Marijuana (THC) Screen Ethyl Alcohol C. difficile Tox B Gene C. difficile Toxin A&B C. difficile Interpret Influenza Type A (PCR) Influenza Type B (PCR) RSV RNA Qual (PCR) SARS-CoV-2 RNA (RT-PCR) 01/27/24 01/27/24 11:13 14:51 WBC RBC Hgb Hct MCV MCH MCHC RDW Plt Count MPV Immature Gran % (Auto) Neut % (Auto) Lymph % (Auto) Peach % (Auto) Eos % (Auto) Baso % (Auto) Lymph # (Auto) Peach # (Auto) Eos # (Auto) Baso # (Auto) Abs Immat Gran (auto) Absolute Neuts (auto) Absolute Nucleated RBC Nucleated RBC % (auto) Smear Tech's Comments Hold Purple Top VBG pH VBG pCO2 VBG pO2 VBG HCO3 VBG O2 Saturation VBG Base Excess Sodium Potassium Chloride Carbon Dioxide Anion Gap BUN Creatinine Estim Creat Clear Calc Estimated GFR POC Glucose 179 H 171 H Random Glucose Fasting Glucose Lactic Acid Lactic Acid F/U @ 2Hr Calcium Magnesium Total Bilirubin AST ALT Alkaline Phosphatase Total Protein Albumin Beta-Hydroxybutyrate Urine Color Urine Appearance Urine pH Ur Specific Lorman Urine Protein Urine Glucose (UA) Urine Ketones Urine Blood Urine Nitrite Ur Leukocyte Esterase Urine RBC Urine WBC Ur Squamous Epith Cells Urine Bacteria Hyaline Casts Stl C. cayetanensis PCR Stool Rotavirus A PCR Stl Adenov F 40/41 PCR Stool Astrovirus (PCR) Stool Campylobacter PCR Stool Cryptosporidium PCR Stl Sh Tox Pr E STEC PCR Stool E coli O157 PCR Stl Enterotoxigenic E PCR Stool EPEC (PCR) Stool EAEC (PCR) Stl E. histolytica PCR Stool Giardia Lamblia PCR Stl P. shigelloides PCR Stool Salmonella PCR Stool Sapovirus (PCR) Stl Shigella/EIEC PCR St Y.enterocolitica PCR Stool Vibrio (PCR) Stl Vibrio cholerae PCR Stl Norovirus GI/GII PCR Random Vancomycin Urine Opiates Screen Ur Buprenorphine Scrn Ur Oxycodone Screen Urine Methadone Screen Urine Fentanyl Screen Ur Barbiturates Screen Ur Phencyclidine Scrn Ur Amphetamines Screen U Benzodiazepines Scrn Urine Cocaine Screen U Marijuana (THC) Screen Ethyl Alcohol C. difficile Tox B Gene C. difficile Toxin A&B C. difficile Interpret Influenza Type A (PCR) Influenza Type B (PCR) RSV RNA Qual (PCR) SARS-CoV-2 RNA (RT-PCR) Airway Mallampati Class: III TM Dist: >3cm Neck ROM: Full Assessment and Plan Assessment Anesthesia Assessment: Anesthesia Plan Discussed and Chart Reviewed Final Anesthetic Review Family History of Problems with Anesthesia: No History of Problems with Anesthesia: No NPO: Yes ASA Class: III and Emergency Final Preanesthetic Review: No Changes in Pt Med Stat, Meds/Allgs Chart Reviewed, Consent Obtained/Reviewed and Anes Risks/Benef Reviewed Patient Risk: Intermediate Procedure Risk: Low Anesthetic Plan Anesthetic Plan: GA Disposition: Standard PACU
[2024-01-27] MEDS: levoFLOXacin/D5W 250 MG/50 ML PIGGYBACK 50 MG IV (18:20)
--- NOTE | 2024-01-27 18:20 | W.PM.OPN ---
Operative Note Operative Note Date of Service: 01/27/24 Narrative: PREOP DIAGNOSIS: Scrotal Abscess POSTOP DIAGNOSIS: Scrotal and perineal Abscess PROCEDURE: Incision and Drainage and Debridement Indications: Shad is a 48 year old, co morbidity diabetes and obesity with complaints of scrotal swelling and pain. Scrotal US-Collection of air in the left hemiscrotum, CT pelvis-Diffuse cellulitis of the scrotum, perineum, and right gluteal region with a 3.9 x 1.6 x 2 12 cm air-filled collection concerning for gas-forming organism. Details of procedure: The patient was brought into the operating room placed on the OR table in supine position. General anesthesia was administered. The patient was repositioned into lithotomy position, prepped and draped in the usual sterile fashion. Time-out was done per protocol. A rectal exam was done, no prostate bogginess. Gloves were changed. An incision was made in the inferior portion of the midline hemiscrotum, extending to the perineum on the right, pus immediately was noted Cultures obtained, finger dissection superiorly and towards the left hemiscrotum. Necrotic tissue was debrided of the necrotic tissue of the scrotal skin extending to the right perineal area and sent to path. Antibiotic Saline irrigation. Iodoform packing and wet/dry dressing applied. The patient was brought out of anesthesia and taken to recovery in stable condition. Complications: None Drains: None
[2024-01-27 20:20] LABS: Glucose, Whole Blood 200 mg/dL (60-115)
[2024-01-27] MEDS: Insulin Lispro 100 UNIT/ML 3 ML VIAL SUBCUT (22:18)
[2024-01-27] MEDS: Insulin Glargine,Hum.rec.anlog 100 UNIT/ML 10 ML VIAL 20 UNIT SUBCUT (22:19)
[2024-01-27] MEDS: hydrALAZINE HCl 20 MG/ML VIAL 10 MG IVPUSH (22:33)
[2024-01-28] VITALS (8 sets, daily range): BP systolic 103–142; BP diastolic 53–70; PULSE 76–87; RESP 16–20; TEMP 36.1–37.6; O2SAT 90–99
[2024-01-28] MEDS: vancomycin HCL 750 MG in 0.9 % Sodium Chloride 250 ML 265 MG IV (00:31)
[2024-01-28 06:42] LABS: MANUAL DIFF FLAG NO
[2024-01-28 06:55] LABS: Basophils Absolute Auto 0.1 X10*3/uL (0.0-0.2); Basophils Percent Auto 0.5 % (0-2); Eosinophils Percent Auto 0.2 % (0-4); Hematocrit 32.3 % (42.0-52.0); Hemoglobin 10.7 g/dl (14.0-18.0); Imm Gran Abs Auto 0.12 X10*3/uL (0.00-0.03); Imm Gran Pct Auto 0.7 % (0.0-0.4); Lymphocytes Absolute Auto 1.5 X10*3/uL (1.2-4.9); Lymphocytes Percent Auto 8.5 % (20-40); Mean Corpuscular HGB Conc 33.1 g/dl (31.0-36.0); Mean Corpuscular Hemoglobin 29.8 pg (27.0-33.0); Mean Platelet Volume 10.3 fL (9.4-12.4); Monocytes Absolute Auto 1.3 X10*3/uL (0.1-1.2); Monocytes Percent Auto 7.3 % (2-11); Neutrophils Absolute Auto 14.2 x10*3/uL (2.0-8.3); Neutrophils Percent Auto 82.8 % (45-73); Platelet Count 312 X10*3/uL (160-400); Red Blood Count 3.59 X10*6/uL (4.60-5.80); Red Cell Distribution Width 11.1 % (11.0-16.0); White Blood Count 17.2 X10*3/uL (4.8-10.8)
[2024-01-28 07:10] LABS: Alanine Aminotransferase 33 U/L (0-40); Albumin Level 2.9 g/dL (3.5-5.0); Alkaline Phosphatase 136 U/L (39-117); Anion Gap 16 (12-20); Aspartate Amino Transferase 41 U/L (5-37); Bilirubin Total 0.4 mg/dL (0.0-1.0); Blood Urea Nitrogen 21 mg/dL (9-16); Calcium 9.6 mg/dL (8.4-10.2); Carbon Dioxide 25 mmol/L (22-29); Chloride 100 mmol/L (96-108); Creatinine Clr Calc Pharmacy 62.1; Estimated Glomerular Filt Rate 54; Glucose Fasting 193 mg/dL (60-99); Potassium 4.6 mmol/L (3.3-5.1); Sodium 136 mmol/L (135-145); Total Protein 7.7 g/dL (6.5-8.0)
[2024-01-28 07:45] LABS: Glucose, Whole Blood 177 mg/dL (60-115)
[2024-01-28] MEDS: Multivitamin TABLET 1 TAB PO (08:01)
[2024-01-28] MEDS: 0.9 % Sodium Chloride Flush 3 ML SYRINGE IVFLUSH ×2 (08:01→15:19)
[2024-01-28] MEDS: carvediloL 6.25 MG TABLET PO ×2 (08:01→20:47)
[2024-01-28] MEDS: Folic Acid 1 MG TABLET PO (08:01)
[2024-01-28] MEDS: Thiamine HCL 100 MG TABLET PO (08:01)
[2024-01-28] MEDS: glipiZIDE XL 10 MG TAB.ER.24 PO (08:01)
[2024-01-28] MEDS: amLODIPine Besylate 5 MG TABLET PO (08:01)
[2024-01-28] MEDS: Magnesium Oxide 400 MG TABLET PO ×2 (08:01→17:36)
[2024-01-28] MEDS: oxyCODONE HCl Immed Release 5 MG TABLET PO ×2 (08:06→17:41)
[2024-01-28] MEDS: Insulin Lispro 100 UNIT/ML 3 ML VIAL SUBCUT ×4 (08:07→20:46)
--- NOTE | 2024-01-28 08:21 | HO.POSTANES ---
Post Anesthesia Evaluation Post Anesthesia Evaluation Date of Service: 01/27/24 Vital Signs: Vital Signs Temp Pulse Resp BP Pulse Ox O2 Del Method O2 Flow Rate 01/28/24 07:23 98.1 F 85 18 136/68 93 Nasal Cannula 2 01/28/24 03:18 96.9 F 76 16 105/57 L 97 Nasal Cannula 2 01/27/24 23:45 96.9 F 76 16 110/51 L 95 Nasal Cannula 2 01/27/24 22:00 97.1 F 77 18 189/87 H 98 Nasal Cannula 2 Anesthesia: General Mental Status: Awake Pain Control: Satisfactory Nausea/Vomiting: None Hydration: Adequate Anesthesia-Related Issues: No Anes. Related Issues
[2024-01-28 08:25] LABS: Vancomycin Random 22.4 mcg/mL (15-20)
--- NOTE | 2024-01-28 08:40 | HE.PHANOTE ---
JENNIFER Changed dose to 1250mg Q24H per high trough and declining renal function. next trough 01/28 @2100, predicted auc 495, predicted trough 14.2
[2024-01-28] MEDS: Acetaminophen 325 MG TABLET 650 MG PO (09:26)
[2024-01-28] MEDS: Piperacillin Sodium/Tazobactam 3.375 GM in 0.9 % Sodium Chloride 50 ML IV ×3 (09:26→20:59)
[2024-01-28 11:07] LABS: Glucose, Whole Blood 167 mg/dL (60-115)
[2024-01-28 11:32] LABS: Estimated Average Glucose 269 mg/dL
--- NOTE | 2024-01-28 15:56 | P.CONGS_ITS ---
History of Present Illness Consult details Consult date: 01/29/24 <Gurwinder White MD - Last Filed: 01/29/24 08:58> Narrative: This is a 48 year old male with pertinent history of medication noncompliance, uncontrolled blood pressure, insulin-dependent diabetes mellitus, alcohol use disorder who presents to the emergency department for evaluation of generalized weakness and early alcohol withdrawal. Found to have scrotal abscess on CT of pelvis. Underwent I&D and debridement of scrotal abscess yesterday with Urology. Pt complaining of continued significant pain that is partly relieved with medication. <Lauren Lloydarvinsy - Last Filed: 01/28/24 16:04> [facility] Past Medical History Medical History: Medical History Alcohol use disorder Hypertension Type 2 diabetes mellitus <Lauren Coronadosy - Last Filed: 01/28/24 16:04> Social History Social History: Social History Household Members: None Housing: Apartment Do you presently have visiting nurse or other home services: No Alcohol intake: current Alcohol intake frequency: 3 or more drinks per day Alcohol type: hard liquor Comment: medicated Patient Tobacco Use Status: Never used Tobacco Smoked in Last 30 Days: No Use of substances other than those prescribed or required for medical reasons: No Currently Displaying Signs/Symptoms of Drug Intoxication Withdrawal: No Have you been hit, kicked, punched, or otherwise hurt by someone within the past year? If so, by whom?: No Do you feel safe in your current relationship?: No Current Relationship Is there a partner from a previous relationship who is making you feel unsafe now?: No Are you made to feel afraid or neglected: No Are you DNR?: No Advance Directives: No Do you have a plan to hurt others: No Plan Recently lost weight without trying: No How much weight loss: Not applicable Eating poorly because of decreased appetite: No Nutrition screen score: 0 Nutrition Risks: No Nutritional Risk Poor oral hygiene: No service: No <Lauren Coronado - Last Filed: 01/28/24 16:04> Meds Allergies/Adverse reactions: Allergies Allergy/AdvReac Type Severity Reaction Status Date / Time No Known Allergies Allergy Verified 01/21/24 11:13 <Lauren Aguilera - Last Filed: 01/28/24 16:04> Active Medications: Current Medications Acetaminophen (Acetaminophen 325 Mg Tablet) 650 mg PO Q6H PRN PRN Reason: Pain, Mild (Pain Scale 1-3), fever or headache Last Admin: 01/28/24 09:26 Dose: 650 mg Amlodipine Besylate (Amlodipine Besylate 5 Mg Tablet) 5 mg PO DAILY [facility]; Protocol Last Admin: 01/28/24 08:01 Dose: 5 mg Calcium Carbonate (Calcium Carbonate 750 Mg Tab.Chew) 750 mg PO Q4H PRN PRN Reason: Heartburn Carvedilol (Carvedilol 6.25 Mg Tablet) 6.25 mg PO BID [facility]; Protocol Last Admin: 01/28/24 08:01 Dose: 6.25 mg Enoxaparin Sodium (Enoxaparin Sodium 40 Mg/0.4 Ml Syringe) 40 mg SUBCUT Q24H [facility] Last Admin: 01/28/24 00:33 Dose: Not Given Folic Acid (Folic Acid 1 Mg Tablet) 1 mg PO DAILY [facility] Last Admin: 01/28/24 08:01 Dose: 1 mg Glipizide (Glipizide Xl 10 Mg Tab.Er.24) 10 mg PO DAILY [facility] Last Admin: 01/28/24 08:01 Dose: 10 mg Glucose (Glucose Gel 15 Gm Gel..Gram.) 15 gm PO Q15M PRN; Protocol PRN Reason: per Hypoglycemia Standing Ord. Dextrose (D10) 250 mls @ 750 mls/hr IV Q15M PRN; Protocol PRN Reason: per Hypoglycemia Standing Ord. Piperacillin Sod/Tazobactam (Sod 3.375 gm/ Sodium Chloride) 50 mls @ 100 mls/hr IV Q6H [facility] Last Admin: 01/28/24 15:15 Dose: 100 mls/hr Vancomycin HCl 1,250 mg/ (Sodium Chloride) 250 mls @ 166.667 mls/hr IV Q24H [facility] Insulin Glargine (Insulin Glargine,Hum.Rec.Anlog 100 Unit/Ml 10 Ml Vial) 20 unit SUBCUT BEDTIME [facility] Last Admin: 01/27/24 22:19 Dose: 20 unit Insulin Human Lispro (Insulin Lispro 100 Unit/Ml 3 Ml Vial) 0 unit SUBCUT QIDACHS [facility]; Protocol Last Admin: 01/28/24 12:19 Dose: 2 unit Magnesium Hydroxide (Milk Of Magnesia 30 Ml Oral.Susp) 30 ml PO DAILY PRN PRN Reason: Constipation Last Admin: 01/26/24 10:54 Dose: 30 ml Magnesium Oxide (Magnesium Oxide 400 Mg Tablet) 400 mg PO BIDPC [facility] Last Admin: 01/28/24 08:01 Dose: 400 mg Melatonin (Melatonin 3 Mg Tablet) 6 mg PO BEDTIME PRN PRN Reason: Insomnia Multivitamins/Vitamin C (Multivitamin Tablet) 1 tab PO DAILY [facility] Last Admin: 01/28/24 08:01 Dose: 1 tab Ondansetron HCl (Ondansetron Hcl 4 Mg/2 Ml Vial) 4 mg IVPUSH Q8H PRN PRN Reason: Nausea and Vomiting Oxycodone HCl (Oxycodone Hcl Immed Release 5 Mg Tablet) 5 mg PO Q4H PRN PRN Reason: Pain, Moderate(Pain Scale 4-6) Last Admin: 01/28/24 08:06 Dose: 5 mg Pharmacy Consult (Consult Rx Etoh Phenob Po Only) 1 each MISCELLANE ONCE PRN; Protocol PRN Reason: Consult order Pharmacy Consult (Consult Rx Vancomycin Dosing) 1 each MISCELLANE DAILY PRN PRN Reason: Consult order Pharmacy Consult (Consult Rx Etoh Phenob Po Only) 1 each MISCELLANE ONCE PRN; Protocol PRN Reason: Consult order Sodium Chloride (0.9 % Sodium Chloride Flush 3 Ml Syringe) [facility] Last Admin: 01/28/24 15:19 Dose: 3 ml Thiamine HCl (Thiamine Hcl 100 Mg Tablet) 100 mg PO DAILY [facility] Last Admin: 01/28/24 08:01 Dose: 100 mg <Lauren Aguilera - Last Filed: 01/28/24 16:04> Home medications: Home Medications ?Medication ?Instructions ?Recorded ?Confirmed ?Last Taken ?Type cephalexin 500 mg capsule 500 mg PO Q8H 01/21/24 01/21/24 01/18/24 History <Lauren Aguilera - Last Filed: 01/28/24 16:04> Physical Exam 2 Vital Signs: Vital Signs: Last Vital Signs Temp 99.6 F 01/28/24 15:49 Pulse 86 01/28/24 15:49 Resp 20 07/18/24 15:49 BP 106/53 L 01/28/24 15:49 Pulse Ox 95 01/28/24 15:49 O2 Del Method Nasal Cannula 01/28/24 15:49 O2 Flow Rate 2 01/28/24 15:49 BMI result Body Mass Index 30.0 <[facility] Last Filed: 01/28/24 16:04> : Other: Dressings c/d/i covering scrotum, perineum, and extending to right buttock. There is no visible erythema, edema, warmth to touch, or drainage of the right buttock, and no tenderness to palpation surrounding the dressings. <[facility] Last Filed: 01/28/24 16:04> Results Labs Result diagrams: 01/29/24 05:39 01/29/24 05:39 <[facility] Filed: 01/28/24 16:04> Labs: Abnormal lab results 01/27/24 01/28/24 01/28/24 Range/Units 19:57 05:42 07:21 WBC 17.2 H (4.8-10.8) X10*3/uL RBC 3.59 L (4.60-5.80) X10*6/uL Hgb 10.7 L (14.0-18.0) g/dl Hct 32.3 L (42.0-52.0) % Immature Gran % (Auto) 0.7 H (0.0-0.4) % Neut % (Auto) 82.8 H (45-73) % Lymph % (Auto) 8.5 L (20-40) % [place] # (Auto) 1.3 H (0.1-1.2) X10*3/uL Abs Immat Gran (auto) 0.12 H (0.00-0.03) X10*3/uL Absolute Neuts (auto) 14.2 H (2.0-8.3) x10*3/uL BUN 21 H (9-16) mg/dL POC Glucose 200 H 177 H (60-115) mg/dL Fasting Glucose 193 H (60-99) mg/dL Hemoglobin A1c % 11.0 H (<6.0) % AST 41 H (5-37) U/L Alkaline Phosphatase 136 H (39-117) U/L Albumin 2.9 L (3.5-5.0) g/dL Random Vancomycin (15-20) mcg/mL 01/28/24 01/28/24 Range/Units 08:09 11:02 WBC (4.8-10.8) X10*3/uL RBC (4.60-5.80) X10*6/uL Hgb (14.0-18.0) g/dl Hct (42.0-52.0) % Immature Gran % (Auto) (0.0-0.4) % Neut % (Auto) (45-73) % Lymph % (Auto) (20-40) % [place] # (Auto) (0.1-1.2) X10*3/uL Abs Immat Gran (auto) (0.00-0.03) X10*3/uL Absolute Neuts (auto) (2.0-8.3) x10*3/uL BUN (9-16) mg/dL POC Glucose 167 H (60-115) mg/dL Fasting Glucose (60-99) mg/dL Hemoglobin A1c % (<6.0) % AST (5-37) U/L Alkaline Phosphatase (39-117) U/L Albumin (3.5-5.0) g/dL Random Vancomycin 22.4 H (15-20) mcg/mL Short CBC 01/28/24 Range/Units 05:42 WBC 17.2 H (4.8-10.8) X10*3/uL Hgb 10.7 L (14.0-18.0) g/dl Hct 32.3 L (42.0-52.0) % Plt Count 312 D (160-400) X10*3/uL BMP 01/28/24 05:42 Sodium 136 Potassium 4.6 Chloride 100 Carbon Dioxide 25 BUN 21 H Creatinine 1.40 Calcium 9.6 Liver Function 01/28/24 Range/Units 05:42 Total Bilirubin 0.4 (0.0-1.0) mg/dL AST 41 H (5-37) U/L ALT 33 (0-40) U/L Alkaline Phosphatase 136 H (39-117) U/L Albumin 2.9 L (3.5-5.0) g/dL Urine 01/21/24 Range/Units 14:21 Urine Color Yellow Urine Appearance Clear Urine pH 6.0 (5.0-9.0) Ur Specific [place] 1.015 (1.005-1.025) Urine Protein 300 (3+) H (Neg-Trace) mg/dL Urine Glucose (UA) >=1000 H (Negative) mg/dL All other labs normal. <[facility] - Last Filed: 01/28/24 16:04> Assessment and Plan (1) Cellulitis, scrotum: Status: Acute <[facility] - Last Filed: 01/28/24 16:04> Continue daily wound care per Urology. No further surgical intervention needed, abscess adequately drained. <[facility] - Last Filed: 01/28/24 16:04> Continue daily wound care per Urology. No further surgical intervention needed, abscess adequately drained. As noted above. No further acute surgical intervention warranted at this time. <Gurwinder White MD - Last Filed: 01/29/24 08:58> Procedures Date of Service Date of Service: 01/28/24 <Lauren Aguilera - Last Filed: 01/28/24 16:04> 01/29/24 <Gurwinder White MD - Last Filed: 01/29/24 08:58>
[2024-01-28 16:27] LABS: Glucose, Whole Blood 225 mg/dL (60-115)
[2024-01-28] MEDS: Enoxaparin Sodium 40 MG/0.4 ML SYRINGE SUBCUT (17:37)
--- NOTE | 2024-01-28 17:48 | P.PNIM_ITS ---
Subjective Subjective Date of Service: 01/28/24 Interval History: Seen and examined this morning Follow-up for scrotal abscess s/p I&D No overnight events Still reporting scrotal/perineal pain Review of Systems Review of Systems: Yes all other systems are reviewed and are negative Constitutional Constitutional: Denies chills and Denies fever(s) Cardiovascular Cardiovascular: Denies chest pain, Denies palpitations and Denies dyspnea Respiratory Respiratory: Denies cough and Denies dyspnea Endocrine Endocrine: Denies palpitations Physical Exam 2 Vital Signs: Vital Signs: Last Vital Signs Temp 99.6 F 01/28/24 15:49 Pulse 86 01/28/24 15:49 Resp 20 01/28/24 15:49 BP 106/53 L 01/28/24 15:49 Pulse Ox 95 01/28/24 15:49 O2 Del Method Nasal Cannula 01/28/24 15:49 O2 Flow Rate 2 01/28/24 15:49 BMI result Body Mass Index 30.0 Const: General: cooperative, comfortable, no acute distress, alert and awake Nutritional Appearance: overweight Orientation/consciousness: patient oriented x3 Resp: Effort & Inspection: normal respiratory effort, able to speak in complete sentences, no respiratory distress and no use of accessory muscles Cardio: Rate: regular rate GI: Inspection: No distended Palpation (GI): Soft to palpation and nontender : Other: scrotum erythematous with packing around perineum, did not remove packing Neuro: General: patient oriented x3, moves all extremities and CN's II-XI intact bilaterally Objective Data Active Medications Acetaminophen (Acetaminophen 325 Mg Tablet) 650 mg PO Q6H PRN PRN Reason: Pain, Mild (Pain Scale 1-3), fever or headache Last Admin: 01/28/24 09:26 Dose: 650 mg Documented By: JENNY Amlodipine Besylate (Amlodipine Besylate 5 Mg Tablet) 5 mg PO DAILY [facility]; Protocol Last Admin: 01/28/24 08:01 Dose: 5 mg Documented By: JENNY Calcium Carbonate (Calcium Carbonate 750 Mg Tab.Chew) 750 mg PO Q4H PRN PRN Reason: Heartburn Carvedilol (Carvedilol 6.25 Mg Tablet) 6.25 mg PO BID [facility]; Protocol Last Admin: 01/28/24 08:01 Dose: 6.25 mg Documented By: JENNY Enoxaparin Sodium (Enoxaparin Sodium 40 Mg/0.4 Ml Syringe) 40 mg SUBCUT Q24H [facility] Last Admin: 01/28/24 17:37 Dose: 40 mg Documented By: JENNY Folic Acid (Folic Acid 1 Mg Tablet) 1 mg PO DAILY [facility] Last Admin: 01/28/24 08:01 Dose: 1 mg Documented By: JENNY Glipizide (Glipizide Xl 10 Mg Tab.Er.24) 10 mg PO DAILY [facility] Last Admin: 01/28/24 08:01 Dose: 10 mg Documented By: JENNY Glucose (Glucose Gel 15 Gm Gel..Gram.) 15 gm PO Q15M PRN; Protocol PRN Reason: per Hypoglycemia Standing Ord. Dextrose (D10) 250 mls @ 750 mls/hr IV Q15M PRN; Protocol PRN Reason: per Hypoglycemia Standing Ord. Piperacillin Sod/Tazobactam (Sod 3.375 gm/ Sodium Chloride) 50 mls @ 100 mls/hr IV Q6H [facility] Last Infusion: 01/28/24 15:56 Dose: Infused Documented By: JENNY Vancomycin HCl 1,250 mg/ (Sodium Chloride) 250 mls @ 166.667 mls/hr IV Q24H [facility] Insulin Glargine (Insulin Glargine,Hum.Rec.Anlog 100 Unit/Ml 10 Ml Vial) 20 unit SUBCUT BEDTIME [facility] Last Admin: 01/27/24 22:19 Dose: 20 unit Documented By: JEANETTE Insulin Human Lispro (Insulin Lispro 100 Unit/Ml 3 Ml Vial) 0 unit SUBCUT QIDACHS [facility]; Protocol Last Admin: 01/28/24 17:37 Dose: 4 unit Documented By: JENNY Magnesium Hydroxide (Milk Of Magnesia 30 Ml Oral.Susp) 30 ml PO DAILY PRN PRN Reason: Constipation Last Admin: 01/26/24 10:54 Dose: 30 ml Documented By: SENTHIL Magnesium Oxide (Magnesium Oxide 400 Mg Tablet) 400 mg PO BIDPC [facility] Last Admin: 01/28/24 17:36 Dose: 400 mg Documented By: JENNY Melatonin (Melatonin 3 Mg Tablet) 6 mg PO BEDTIME PRN PRN Reason: Insomnia Multivitamins/Vitamin C (Multivitamin Tablet) 1 tab PO DAILY [facility] Last Admin: 01/28/24 08:01 Dose: 1 tab Documented By: JENNY Ondansetron HCl (Ondansetron Hcl 4 Mg/2 Ml Vial) 4 mg IVPUSH Q8H PRN PRN Reason: Nausea and Vomiting Oxycodone HCl (Oxycodone Hcl Immed Release 5 Mg Tablet) 5 mg PO Q4H PRN PRN Reason: Pain, Moderate(Pain Scale 4-6) Last Admin: 01/28/24 17:41 Dose: 5 mg Documented By: JENNY Pharmacy Consult (Consult Rx Etoh Phenob Po Only) 1 each MISCELLANE ONCE PRN; Protocol PRN Reason: Consult order Pharmacy Consult (Consult Rx Vancomycin Dosing) 1 each MISCELLANE DAILY PRN PRN Reason: Consult order Pharmacy Consult (Consult Rx Etoh Phenob Po Only) 1 each MISCELLANE ONCE PRN; Protocol PRN Reason: Consult order Sodium Chloride (0.9 % Sodium Chloride Flush 3 Ml Syringe) 3 ml IVFLUSH QSHIFT [facility] Last Admin: 01/28/24 15:19 Dose: 3 ml Documented By: JENNY Thiamine HCl (Thiamine Hcl 100 Mg Tablet) 100 mg PO DAILY [facility] Last Admin: 01/28/24 08:01 Dose: 100 mg Documented By: JENNY Labs 01/28/24 05:42 01/28/24 05:42 Labs: Laboratory Results - last 24 hr 01/27/24 01/28/24 01/28/24 19:57 05:42 07:21 MCV 90.0 MCH 29.8 MCHC 33.1 RDW 11.1 Plt Count 312 D MPV 10.3 Immature Gran % (Auto) 0.7 H Neut % (Auto) 82.8 H Lymph % (Auto) 8.5 L [place] % (Auto) 7.3 Eos % (Auto) 0.2 Baso % (Auto) 0.5 Lymph # (Auto) 1.5 [place] # (Auto) 1.3 H Eos # (Auto) 0.0 Baso # (Auto) 0.1 Abs Immat Gran (auto) 0.12 H Absolute Neuts (auto) 14.2 H Absolute Nucleated RBC 0.000 Nucleated RBC % (auto) 0.0 Anion Gap 16 Estim Creat Clear Calc 62.1 Estimated GFR 54 POC Glucose 200 H 177 H Fasting Glucose 193 H Estimat Average Glucose 269 Hemoglobin A1c % 11.0 H Calcium 9.6 Total Bilirubin 0.4 AST 41 H ALT 33 Alkaline Phosphatase 136 H Total Protein 7.7 Albumin 2.9 L Random Vancomycin 01/28/24 01/28/24 01/28/24 08:09 11:02 16:17 MCV MCH MCHC RDW Plt Count MPV Immature Gran % (Auto) Neut % (Auto) Lymph % (Auto) [place] % (Auto) Eos % (Auto) Baso % (Auto) Lymph # (Auto) [place] # (Auto) Eos # (Auto) Baso # (Auto) Abs Immat Gran (auto) Absolute Neuts (auto) Absolute Nucleated RBC Nucleated RBC % (auto) Anion Gap Estim Creat Clear Calc Estimated GFR POC Glucose 167 H 225 H Fasting Glucose Estimat Average Glucose Hemoglobin A1c % Calcium Total Bilirubin AST ALT Alkaline Phosphatase Total Protein Albumin Random Vancomycin 22.4 H Microbiology Microbiology Results: Microbiology 01/27/24 Unknown Gram Stain - Final Scrotum Routine Culture - Preliminary Gram negative leigha Assessment and Plan (1) Cellulitis, scrotum: Status: Acute Plan This is a 48 yaer old male with pertinent history of medication noncompliance, uncontrolled blood pressure, insulin-dependent diabetes mellitus, alcohol use disorder who presents to the emergency department for evaluation of generalized weakness and early alcohol withdrawal Sepsis due to right lower extremity cellulitis/scrotal cellulitis s/p I&D of scrotal/perineal abscess by urology 01/26 Seen by General surgery, no further surgical intervention required at this time Antibiotics broadened to Zosyn, vancomycin blood cultures negative to date wound culture growing gram negative leigha - follow final culture results ID consult pending Acute kidney injury responding to volume repletion, renal function improved from admission Alcohol use disorder with concerns for alcohol withdrawal CIWA protocol flat... No issues off phenobarb addiction Medicine consult Hypertensive urgency.. Resolved acceptable control on current therapies adjust as indicated by clinical presentation and renal function Diabetes mellitus type 2, uncontrolled hba1c 11.0 lispro correctional scale basal insulin as clinically indicated adjust therapies as indicated Lovenox Full code Requires ongoing hospitalization for IV antibiotics to treat cellulitis and for monitoring/phenobarb protocol for alcohol withdrawal. High risk for outpatient failure Quality Stroke Does the patient have a stroke diagnosis?: No VTE Prior VTE?: No VTE Risk Level:: Medical - moderate - high VTE Device Contraindication: Treatment Not Indicated VTE Drug Contraindication: N/A - Med Ordered
[2024-01-28 20:17] LABS: Glucose, Whole Blood 259 mg/dL (60-115)
[2024-01-28] MEDS: Insulin Glargine,Hum.rec.anlog 100 UNIT/ML 10 ML VIAL 20 UNIT SUBCUT (20:46)
[2024-01-28] MEDS: vancomycin HCL 1,250 MG in 0.9 % Sodium Chloride 250 ML 166.67 MG IV (22:33)
[2024-01-29] VITALS (9 sets, daily range): BP systolic 114–176; BP diastolic 60–85; PULSE 76–80; RESP 16–18; TEMP 36.1–36.6; O2SAT 89–97
[2024-01-29] MEDS: Piperacillin Sodium/Tazobactam 3.375 GM in 0.9 % Sodium Chloride 50 ML IV ×3 (02:30→14:16)
[2024-01-29] MEDS: oxyCODONE HCl Immed Release 5 MG TABLET PO ×4 (05:59→20:56)
[2024-01-29 06:27] LABS: MANUAL DIFF FLAG NO
[2024-01-29 06:50] LABS: Basophils Absolute Auto 0.1 X10*3/uL (0.0-0.2); Basophils Percent Auto 0.7 % (0-2); Eosinophils Absolute Auto 0.3 X10*3/uL (0.0-0.4); Eosinophils Percent Auto 2.4 % (0-4); Hematocrit 30.9 % (42.0-52.0); Hemoglobin 10.4 g/dl (14.0-18.0); Imm Gran Abs Auto 0.05 X10*3/uL (0.00-0.03); Imm Gran Pct Auto 0.5 % (0.0-0.4); Lymphocytes Absolute Auto 2.1 X10*3/uL (1.2-4.9); Lymphocytes Percent Auto 20.6 % (20-40); Mean Corpuscular HGB Conc 33.7 g/dl (31.0-36.0); Mean Corpuscular Hemoglobin 30.2 pg (27.0-33.0); Mean Corpuscular Volume 89.8 fL (80.0-98.0); Monocytes Absolute Auto 1.1 X10*3/uL (0.1-1.2); Neutrophils Absolute Auto 6.6 x10*3/uL (2.0-8.3); Neutrophils Percent Auto 64.8 % (45-73); Platelet Count 317 X10*3/uL (160-400); Red Blood Count 3.44 X10*6/uL (4.60-5.80); Red Cell Distribution Width 11.4 % (11.0-16.0); White Blood Count 10.2 X10*3/uL (4.8-10.8)
[2024-01-29 07:14] LABS: Alanine Aminotransferase 32 U/L (0-40); Aspartate Amino Transferase 38 U/L (5-37); Blood Urea Nitrogen 26 mg/dL (9-16); Creatinine Clr Calc Pharmacy 51.1; Estimated Glomerular Filt Rate 43
[2024-01-29 07:17] LABS: Alkaline Phosphatase 138 U/L (39-117); Anion Gap 14 (12-20); Bilirubin Total 0.3 mg/dL (0.0-1.0); Carbon Dioxide 25 mmol/L (22-29); Total Protein 7.5 g/dL (6.5-8.0)
[2024-01-29 07:18] LABS: Albumin Level 2.8 g/dL (3.5-5.0); Calcium 9.3 mg/dL (8.4-10.2); Chloride 100 mmol/L (96-108); Glucose Fasting 236 mg/dL (60-99); Potassium 4.2 mmol/L (3.3-5.1); Sodium 135 mmol/L (135-145)
[2024-01-29 07:38] LABS: Glucose, Whole Blood 186 mg/dL (60-115)
[2024-01-29] MEDS: amLODIPine Besylate 5 MG TABLET PO (08:26)
[2024-01-29] MEDS: Insulin Lispro 100 UNIT/ML 3 ML VIAL SUBCUT ×4 (08:26→20:45)
[2024-01-29] MEDS: Magnesium Oxide 400 MG TABLET PO ×2 (08:27→16:50)
[2024-01-29] MEDS: Folic Acid 1 MG TABLET PO (08:27)
[2024-01-29] MEDS: Multivitamin TABLET 1 TAB PO (08:27)
[2024-01-29] MEDS: Thiamine HCL 100 MG TABLET PO (08:27)
[2024-01-29] MEDS: carvediloL 6.25 MG TABLET PO ×2 (08:27→20:45)
[2024-01-29] MEDS: 0.9 % Sodium Chloride Flush 3 ML SYRINGE IVFLUSH (08:28)
--- NOTE | 2024-01-29 10:12 | PC.NURSE ---
Morphine [employer] pump set up her EMAR with second RN. 3.4ml included in priming of tubing. Patient educated on basal rate and ability to give self bolus doses. Patient verbalized understanding. Pain 5/10, VSS. All needs met.
--- NOTE | 2024-01-29 10:15 | P.PNGS_ITS ---
Subjective Subjective Date of Service: 01/29/24 Interval history: No new wound issues. Physical Exam 2 Vital Signs: Vital Signs: Last Vital Signs Temp 97.5 F 01/29/24 07:28 Pulse 76 01/29/24 07:28 Resp 17 01/29/24 07:28 BP 147/78 H 01/29/24 07:28 Pulse Ox 95 01/29/24 07:28 O2 Del Method Nasal Cannula 01/29/24 07:28 O2 Flow Rate 2.0 01/29/24 07:28 BMI result Body Mass Index 30.0 GI: Other: Sacral/perineal wound granulating well. No evidence of progression or cellulitis of the peritoneum were buttock were requiring any interventions Objective Data Active Medications Acetaminophen (Acetaminophen 325 Mg Tablet) 650 mg PO Q6H PRN PRN Reason: Pain, Mild (Pain Scale 1-3), fever or headache Last Admin: 01/28/24 09:26 Dose: 650 mg Documented By: JENNY Amlodipine Besylate (Amlodipine Besylate 5 Mg Tablet) 5 mg PO DAILY [facility]; Protocol Last Admin: 01/29/24 08:26 Dose: 5 mg Documented By: ALFREDO Calcium Carbonate (Calcium Carbonate 750 Mg Tab.Chew) 750 mg PO Q4H PRN PRN Reason: Heartburn Carvedilol (Carvedilol 6.25 Mg Tablet) 6.25 mg PO BID [facility]; Protocol Last Admin: 01/29/24 08:27 Dose: 6.25 mg Documented By: ALFREDO Enoxaparin Sodium (Enoxaparin Sodium 40 Mg/0.4 Ml Syringe) 40 mg SUBCUT Q24H [facility] Last Admin: 01/28/24 17:37 Dose: 40 mg Documented By: JENNY Folic Acid (Folic Acid 1 Mg Tablet) 1 mg PO DAILY [facility] Last Admin: 01/29/24 08:27 Dose: 1 mg Documented By: ALFREDO Glucose (Glucose Gel 15 Gm Gel..Gram.) 15 gm PO Q15M PRN; Protocol PRN Reason: per Hypoglycemia Standing Ord. Dextrose (D10) 250 mls @ 750 mls/hr IV Q15M PRN; Protocol PRN Reason: per Hypoglycemia Standing Ord. Piperacillin Sod/Tazobactam (Sod 3.375 gm/ Sodium Chloride) 50 mls @ 100 mls/hr IV Q6H [facility] Last Infusion: 01/29/24 09:09 Dose: Infused Documented By: ALFREDO Insulin Glargine (Insulin Glargine,Hum.Rec.Anlog 100 Unit/Ml 10 Ml Vial) 20 unit SUBCUT BEDTIME [facility] Last Admin: 01/28/24 20:46 Dose: 20 unit Documented By: MICKIE Insulin Human Lispro (Insulin Lispro 100 Unit/Ml 3 Ml Vial) 0 unit SUBCUT QIDACHS [facility]; Protocol Last Admin: 01/29/24 08:26 Dose: 2 unit Documented By: ALFREDO Magnesium Hydroxide (Milk Of Magnesia 30 Ml Oral.Susp) 30 ml PO DAILY PRN PRN Reason: Constipation Last Admin: 01/26/24 10:54 Dose: 30 ml Documented By: SENTHIL Magnesium Oxide (Magnesium Oxide 400 Mg Tablet) 400 mg PO BIDPC [facility] Last Admin: 01/29/24 08:27 Dose: 400 mg Documented By: ALFREDO Melatonin (Melatonin 3 Mg Tablet) 6 mg PO BEDTIME PRN PRN Reason: Insomnia Multivitamins/Vitamin C (Multivitamin Tablet) 1 tab PO DAILY [facility] Last Admin: 01/29/24 08:27 Dose: 1 tab Documented By: ALFREDO Ondansetron HCl (Ondansetron Hcl 4 Mg/2 Ml Vial) 4 mg IVPUSH Q8H PRN PRN Reason: Nausea and Vomiting Oxycodone HCl (Oxycodone Hcl Immed Release 5 Mg Tablet) 5 mg PO Q4H PRN PRN Reason: Pain, Moderate(Pain Scale 4-6) Last Admin: 01/29/24 05:59 Dose: 5 mg Documented By: MICKIE Pharmacy Consult (Consult Rx Etoh Phenob Po Only) 1 each MISCELLANE ONCE PRN; Protocol PRN Reason: Consult order Pharmacy Consult (Consult Rx Vancomycin Dosing) 1 each MISCELLANE DAILY PRN PRN Reason: Consult order Pharmacy Consult (Consult Rx Etoh Phenob Po Only) 1 each MISCELLANE ONCE PRN; Protocol PRN Reason: Consult order Sodium Chloride (0.9 % Sodium Chloride Flush 3 Ml Syringe) 3 ml IVFLUSH QSHIFT [facility] Last Admin: 01/29/24 08:28 Dose: 3 ml Documented By: ALFREDO Thiamine HCl (Thiamine Hcl 100 Mg Tablet) 100 mg PO DAILY [facility] Last Admin: 01/29/24 08:27 Dose: 100 mg Documented By: ALFREDO Labs 01/29/24 05:39 01/29/24 05:39 Labs: Laboratory Results - last 24 hr 01/28/24 01/28/24 01/28/24 05:42 11:02 16:17 MCV MCH MCHC RDW Plt Count MPV Immature Gran % (Auto) Neut % (Auto) Lymph % (Auto) [place] % (Auto) Eos % (Auto) Baso % (Auto) Lymph # (Auto) [place] # (Auto) Eos # (Auto) Baso # (Auto) Abs Immat Gran (auto) Absolute Neuts (auto) Absolute Nucleated RBC Nucleated RBC % (auto) Anion Gap Estim Creat Clear Calc Estimated GFR POC Glucose 167 H 225 H Fasting Glucose Estimat Average Glucose 269 Hemoglobin A1c % 11.0 H Calcium Total Bilirubin AST ALT Alkaline Phosphatase Total Protein Albumin 01/28/24 01/29/24 01/29/24 19:31 05:39 07:31 MCV 89.8 MCH 30.2 MCHC 33.7 RDW 11.4 Plt Count 317 MPV 10.0 Immature Gran % (Auto) 0.5 H Neut % (Auto) 64.8 Lymph % (Auto) 20.6 [place] % (Auto) 11.0 Eos % (Auto) 2.4 Baso % (Auto) 0.7 Lymph # (Auto) 2.1 [place] # (Auto) 1.1 Eos # (Auto) 0.3 Baso # (Auto) 0.1 Abs Immat Gran (auto) 0.05 H Absolute Neuts (auto) 6.6 Absolute Nucleated RBC 0.000 Nucleated RBC % (auto) 0.0 Anion Gap 14 Estim Creat Clear Calc 51.1 Estimated GFR 43 POC Glucose 259 H 186 H Fasting Glucose 236 H Estimat Average Glucose Hemoglobin A1c % Calcium 9.3 Total Bilirubin 0.3 AST 38 H ALT 32 Alkaline Phosphatase 138 H Total Protein 7.5 Albumin 2.8 L Microbiology Microbiology Results: Microbiology 01/27/24 Unknown Gram Stain - Final Scrotum Routine Culture - Final Escherichia coli Procedures Date of Service Date of Service: 01/29/24 Progress Note: A&P Assessment and plan (1) Cellulitis, scrotum: Status: Acute (2) Scrotal swelling: Status: Acute Plan Continue local therapy. We will follow up p.r.n.. Time Spent With Patient Time: Total time managing care of this patient today ____ minutes. Quality Stroke Does the patient have a stroke diagnosis?: No VTE Prior VTE?: No VTE Risk Level:: Medical - moderate - high VTE Device Contraindication: Treatment Not Indicated VTE Drug Contraindication: N/A - Med Ordered
[2024-01-29 11:36] LABS: Glucose, Whole Blood 260 mg/dL (60-115)
--- NOTE | 2024-01-29 11:56 | HO.PM.IMPN ---
Subjective Subjective Date of Service: 01/29/24 Interval History: Seen and examined this morning Follow-up for scrotal abscess Pain under adequate control, denies fever chills Review of Systems Review of Systems: Yes all other systems are reviewed and are negative Constitutional Constitutional: Denies chills and Denies fever(s) Cardiovascular Cardiovascular: Denies chest pain, Denies palpitations and Denies dyspnea Respiratory Respiratory: Denies cough and Denies dyspnea Endocrine Endocrine: Denies palpitations Physical Exam Vital Signs: Vital Signs: Last Vital Signs Temp 97.5 F 01/29/24 07:28 Pulse 76 01/29/24 07:28 Resp 17 01/29/24 07:28 BP 147/78 H 01/29/24 07:28 Pulse Ox 95 01/29/24 07:28 O2 Del Method Nasal Cannula 01/29/24 07:28 O2 Flow Rate 2.0 01/29/24 07:28 BMI result Body Mass Index 30.0 Const: General: cooperative, comfortable, no acute distress, alert and awake Nutritional Appearance: overweight Orientation/consciousness: patient oriented x3 Resp: Effort & Inspection: normal respiratory effort, able to speak in complete sentences, no respiratory distress and no use of accessory muscles Cardio: Rate: regular rate GI: Inspection: No distended Palpation (GI): Soft to palpation and nontender : Other: Neuro: General: patient oriented x3, moves all extremities and CN's II-XI intact bilaterally Objective Data Active Medications Acetaminophen (Acetaminophen 325 Mg Tablet) 650 mg PO Q6H PRN PRN Reason: Pain, Mild (Pain Scale 1-3), fever or headache Last Admin: 01/28/24 09:26 Dose: 650 mg Documented By: JENNY Amlodipine Besylate (Amlodipine Besylate 5 Mg Tablet) 5 mg PO DAILY [facility]; Protocol Last Admin: 01/29/24 08:26 Dose: 5 mg Documented By: ALFREDO Calcium Carbonate (Calcium Carbonate 750 Mg Tab.Chew) 750 mg PO Q4H PRN PRN Reason: Heartburn Carvedilol (Carvedilol 6.25 Mg Tablet) 6.25 mg PO BID [facility]; Protocol Last Admin: 01/29/24 08:27 Dose: 6.25 mg Documented By: ALFREDO Enoxaparin Sodium (Enoxaparin Sodium 40 Mg/0.4 Ml Syringe) 40 mg SUBCUT Q24H [facility] Last Admin: 01/28/24 17:37 Dose: 40 mg Documented By: JENNY Folic Acid (Folic Acid 1 Mg Tablet) 1 mg PO DAILY [facility] Last Admin: 01/29/24 08:27 Dose: 1 mg Documented By: ALFREDO Glucose (Glucose Gel 15 Gm Gel..Gram.) 15 gm PO Q15M PRN; Protocol PRN Reason: per Hypoglycemia Standing Ord. Dextrose (D10) 250 mls @ 750 mls/hr IV Q15M PRN; Protocol PRN Reason: per Hypoglycemia Standing Ord. Piperacillin Sod/Tazobactam (Sod 3.375 gm/ Sodium Chloride) 50 mls @ 100 mls/hr IV Q6H [facility] Last Infusion: 01/29/24 09:09 Dose: Infused Documented By: ALFREDO Insulin Glargine (Insulin Glargine,Hum.Rec.Anlog 100 Unit/Ml 10 Ml Vial) 20 unit SUBCUT BEDTIME [facility] Last Admin: 01/28/24 20:46 Dose: 20 unit Documented By: MICKIE Insulin Human Lispro (Insulin Lispro 100 Unit/Ml 3 Ml Vial) 0 unit SUBCUT QIDACHS [facility]; Protocol Last Admin: 01/29/24 08:26 Dose: 2 unit Documented By: ALFREDO Magnesium Hydroxide (Milk Of Magnesia 30 Ml Oral.Susp) 30 ml PO DAILY PRN PRN Reason: Constipation Last Admin: 01/26/24 10:54 Dose: 30 ml Documented By: BROPankaj Magnesium Oxide (Magnesium Oxide 400 Mg Tablet) 400 mg PO BIDPC [facility] Last Admin: 01/29/24 08:27 Dose: 400 mg Documented By: ALFREDO Melatonin (Melatonin 3 Mg Tablet) 6 mg PO BEDTIME PRN PRN Reason: Insomnia Multivitamins/Vitamin C (Multivitamin Tablet) 1 tab PO DAILY [facility] Last Admin: 01/29/24 08:27 Dose: 1 tab Documented By: ALFREDO Ondansetron HCl (Ondansetron Hcl 4 Mg/2 Ml Vial) 4 mg IVPUSH Q8H PRN PRN Reason: Nausea and Vomiting Oxycodone HCl (Oxycodone Hcl Immed Release 5 Mg Tablet) 5 mg PO Q4H PRN PRN Reason: Pain, Moderate(Pain Scale 4-6) Last Admin: 01/29/24 10:53 Dose: 5 mg Documented By: ALFREDO Pharmacy Consult (Consult Rx Etoh Phenob Po Only) 1 each MISCELLANE ONCE PRN; Protocol PRN Reason: Consult order Pharmacy Consult (Consult Rx Vancomycin Dosing) 1 each MISCELLANE DAILY PRN PRN Reason: Consult order Pharmacy Consult (Consult Rx Etoh Phenob Po Only) 1 each MISCELLANE ONCE PRN; Protocol PRN Reason: Consult order Sodium Chloride (0.9 % Sodium Chloride Flush 3 Ml Syringe) 3 ml IVFLUSH QSHIFT [facility] Last Admin: 01/29/24 08:28 Dose: 3 ml Documented By: ALFREDO Thiamine HCl (Thiamine Hcl 100 Mg Tablet) 100 mg PO DAILY [facility] Last Admin: 01/29/24 08:27 Dose: 100 mg Documented By: ALFREDO Labs 01/29/24 05:39 01/29/24 05:39 Labs: Laboratory Results - last 24 hr 01/28/24 01/28/24 01/29/24 16:17 19:31 05:39 MCV 89.8 MCH 30.2 MCHC 33.7 RDW 11.4 Plt Count 317 MPV 10.0 Immature Gran % (Auto) 0.5 H Neut % (Auto) 64.8 Lymph % (Auto) 20.6 Donley % (Auto) 11.0 Eos % (Auto) 2.4 Baso % (Auto) 0.7 Lymph # (Auto) 2.1 Donley # (Auto) 1.1 Eos # (Auto) 0.3 Baso # (Auto) 0.1 Abs Immat Gran (auto) 0.05 H Absolute Neuts (auto) 6.6 Absolute Nucleated RBC 0.000 Nucleated RBC % (auto) 0.0 Anion Gap 14 Estim Creat Clear Calc 51.1 Estimated GFR 43 POC Glucose 225 H 259 H Fasting Glucose 236 H Calcium 9.3 Total Bilirubin 0.3 AST 38 H ALT 32 Alkaline Phosphatase 138 H Total Protein 7.5 Albumin 2.8 L 01/29/24 01/29/24 07:31 11:32 MCV MCH MCHC RDW Plt Count MPV Immature Gran % (Auto) Neut % (Auto) Lymph % (Auto) Donley % (Auto) Eos % (Auto) Baso % (Auto) Lymph # (Auto) Donley # (Auto) Eos # (Auto) Baso # (Auto) Abs Immat Gran (auto) Absolute Neuts (auto) Absolute Nucleated RBC Nucleated RBC % (auto) Anion Gap Estim Creat Clear Calc Estimated GFR POC Glucose 186 H 260 H Fasting Glucose Calcium Total Bilirubin AST ALT Alkaline Phosphatase Total Protein Albumin Microbiology Microbiology Results: Microbiology 01/27/24 Unknown Gram Stain - Final Scrotum Routine Culture - Final Escherichia coli Assessment and Plan (1) Abscess of scrotum: Status: Acute Plan This is a 48 yaer old male with pertinent history of medication noncompliance, uncontrolled blood pressure, insulin-dependent diabetes mellitus, alcohol use disorder who presents to the emergency department for evaluation of generalized weakness and early alcohol withdrawal Sepsis due to right lower extremity cellulitis/scrotal cellulitis s/p I&D of scrotal/perineal abscess by urology 01/26 Seen by General surgery, no further surgical intervention required at this time leukocytosis resolved Antibiotics broadened to Zosyn, vancomycin. wound culture growing e.coli. will stop vancomycin. will continue zosyn for anaerobic coverage for now, but can likely de-escalate back to ceftriaxone in the next 24-48 hours blood cultures negative to date ID consult pending Acute kidney injury responding to volume repletion, now trending back up stop vancomycin resume IVF follow renal function Alcohol use disorder with concerns for alcohol withdrawal CIWA remains 0 will discontinue CIWA Seen by addiction Medicine team, resources provided Hypertensive urgency. Resolved Continue Norvasc, carvedilol adjust as indicated by clinical presentation and renal function Diabetes mellitus type 2, uncontrolled hba1c 11.0 lispro correctional scale basal insulin as clinically indicated adjust therapies as indicated diarrhea gi panel negative cdif PCR + but toxin negative - likely colonization diarrhea resolved Chronic Normocytic anemia H/H stable, above transfusion threshold Lovenox Full code Requires ongoing hospitalization for IV antibiotics to treat cellulitis/postoperative care Quality Stroke Does the patient have a stroke diagnosis?: No VTE Prior VTE?: No VTE Risk Level:: Medical - moderate - high VTE Device Contraindication: Treatment Not Indicated VTE Drug Contraindication: N/A - Med Ordered
[2024-01-29] MEDS: Lactated Ringers 1,000 ML 80 ML IVCONT (14:16)
--- NOTE | 2024-01-29 15:12 | MHC.CM.PN ---
Per MD rounds not medically cleared for dc. Requiring multiple dressing changes daily and awaiting ID consult. DC plan TBD. Patient lives alone and reports he does not have anyone to help w/ dressings at home. Unable to secure VNA as patient does not have a PCP. CM assistant project manager had patient added to wait list at [facility]. May be able to get hospital follow up appointment within a week of dc. Wound care could be managed by Wound Clinic until able to get VNA. Referral sent to wound clinic, as they are booking 2 weeks out. Patient would take shuttle to clinic. However, would not be able to independently change dressings on days not seen in clinic. Referral to [facility], who will try to skill patient in based on need for multiple dressing changes daily. Patient is agreeable to SNF if insurance approves. CM will continue to follow.
--- NOTE | 2024-01-29 15:23 | PC.NURSE ---
Daily dressing changed completed with idoform packing and wet to dry dressing. Previously changed overnight. Dressing needing to be changed when patient gets OOB to commode/chair.
[2024-01-29] MEDS: Enoxaparin Sodium 40 MG/0.4 ML SYRINGE SUBCUT (15:47)
[2024-01-29] MEDS: cefuroxime axetiL 500 MG TABLET PO (15:47)
[2024-01-29 16:08] LABS: Glucose, Whole Blood 295 mg/dL (60-115)
[2024-01-29 20:34] LABS: Glucose, Whole Blood 249 mg/dL (60-115)
[2024-01-29] MEDS: Insulin Glargine,Hum.rec.anlog 100 UNIT/ML 10 ML VIAL 20 UNIT SUBCUT (20:46)
--- NOTE | 2024-01-29 21:11 | P.CNID_ITS ---
History of Present Illness Data of Consult Service Date: 01/29/24 Requesting physician: Maral David Primary Care Provider: None Physician HPI Reason for consult: scrotal abscess He presents with pain and swelling in perineal area while sitting for a day and was found to have a scrotal abscess. He had area drained and showed E coli and found sensitive to Cephalsoproing. He has had UTIs in the past. Review of Systems 2 Review of Systems: Yes all other systems are reviewed and are negative Genitourinary: Genitourinary: Reports scrotal swelling PMFSH Past Medical History Medical History Alcohol use disorder Hypertension Type 2 diabetes mellitus Family History Family history: reviewed and not pertinent Social History Social History Household Members: None Housing: Apartment Do you presently have visiting nurse or other home services: No Alcohol intake: current Alcohol intake frequency: 3 or more drinks per day Alcohol type: hard liquor Comment: medicated Patient Tobacco Use Status: Never used Tobacco Smoked in Last 30 Days: No Use of substances other than those prescribed or required for medical reasons: No Currently Displaying Signs/Symptoms of Drug Intoxication Withdrawal: No Have you been hit, kicked, punched, or otherwise hurt by someone within the past year? If so, by whom?: No Do you feel safe in your current relationship?: No Current Relationship Is there a partner from a previous relationship who is making you feel unsafe now?: No Are you made to feel afraid or neglected: No Are you DNR?: No Advance Directives: No Do you have a plan to hurt others: No Plan Recently lost weight without trying: No How much weight loss: Not applicable Eating poorly because of decreased appetite: No Nutrition screen score: 0 Nutrition Risks: No Nutritional Risk Poor oral hygiene: No service: No Meds Allergies Allergy/AdvReac Type Severity Reaction Status Date / Time No Known Allergies Allergy Verified 01/21/24 11:13 Active Medications: Current Medications Acetaminophen (Acetaminophen 325 Mg Tablet) 650 mg PO Q6H PRN PRN Reason: Pain, Mild (Pain Scale 1-3), fever or headache Last Admin: 01/28/24 09:26 Dose: 650 mg Amlodipine Besylate (Amlodipine Besylate 5 Mg Tablet) 5 mg PO DAILY [facility]; Protocol Last Admin: 01/29/24 08:26 Dose: 5 mg Calcium Carbonate (Calcium Carbonate 750 Mg Tab.Chew) 750 mg PO Q4H PRN PRN Reason: Heartburn Carvedilol (Carvedilol 6.25 Mg Tablet) 6.25 mg PO BID [facility]; Protocol Last Admin: 01/29/24 20:45 Dose: 6.25 mg Cefuroxime Axetil (Cefuroxime Axetil 500 Mg Tablet) 500 mg PO Q12H [facility] Last Admin: 01/29/24 15:47 Dose: 500 mg Enoxaparin Sodium (Enoxaparin Sodium 40 Mg/0.4 Ml Syringe) 40 mg SUBCUT Q24H [facility] Last Admin: 01/29/24 15:47 Dose: 40 mg Folic Acid (Folic Acid 1 Mg Tablet) 1 mg PO DAILY [facility] Last Admin: 01/29/24 08:27 Dose: 1 mg Glucose (Glucose Gel 15 Gm Gel..Gram.) 15 gm PO Q15M PRN; Protocol PRN Reason: per Hypoglycemia Standing Ord. Dextrose (D10) 250 mls @ 750 mls/hr IV Q15M PRN; Protocol PRN Reason: per Hypoglycemia Standing Ord. Lactated Ringer's (Lr) 1,000 mls @ 80 mls/hr IVCONT .[id number] [facility] Last Admin: 01/29/24 14:16 Dose: 80 mls/hr Insulin Glargine (Insulin Glargine,Hum.Rec.Anlog 100 Unit/Ml 10 Ml Vial) 20 unit SUBCUT BEDTIME [facility] Last Admin: 01/29/24 20:46 Dose: 20 unit Insulin Human Lispro (Insulin Lispro 100 Unit/Ml 3 Ml Vial) 0 unit SUBCUT QIDACHS [facility]; Protocol Last Admin: 01/29/24 20:45 Dose: 4 unit Magnesium Hydroxide (Milk Of Magnesia 30 Ml Oral.Susp) 30 ml PO DAILY PRN PRN Reason: Constipation Last Admin: 01/26/24 10:54 Dose: 30 ml Magnesium Oxide (Magnesium Oxide 400 Mg Tablet) [address] [facility] Last Admin: 01/29/24 16:50 Dose: 400 mg Melatonin (Melatonin 3 Mg Tablet) 6 mg PO BEDTIME PRN PRN Reason: Insomnia Multivitamins/Vitamin C (Multivitamin Tablet) 1 tab PO DAILY [facility] Last Admin: 01/29/24 08:27 Dose: 1 tab Ondansetron HCl (Ondansetron Hcl 4 Mg/2 Ml Vial) 4 mg IVPUSH Q8H PRN PRN Reason: Nausea and Vomiting Oxycodone HCl (Oxycodone Hcl Immed Release 5 Mg Tablet) 5 mg PO Q4H PRN PRN Reason: Pain, Moderate(Pain Scale 4-6) Last Admin: 01/29/24 20:56 Dose: 5 mg Pharmacy Consult (Consult Rx Etoh Phenob Po Only) 1 each MISCELLANE ONCE PRN; Protocol PRN Reason: Consult order Pharmacy Consult (Consult Rx Etoh Phenob Po Only) 1 each MISCELLANE ONCE PRN; Protocol PRN Reason: Consult order Sodium Chloride (0.9 % Sodium Chloride Flush 3 Ml Syringe) 3 ml IVFLUSH QSHIFT [facility] Last Admin: 01/29/24 15:42 Dose: Not Given Thiamine HCl (Thiamine Hcl 100 Mg Tablet) 100 mg PO DAILY [facility] Last Admin: 01/29/24 08:27 Dose: 100 mg Home Medications ?Medication ?Instructions ?Recorded ?Confirmed ?Last Taken ?Type cephalexin 500 mg capsule 500 mg PO Q8H 01/21/24 01/21/24 01/18/24 History Physical Exam 2 Vital Signs: Vital Signs: Last Vital Signs Temp 97.9 F 01/29/24 19:19 Pulse 77 01/29/24 19:19 Resp 18 01/29/24 19:19 BP 114/60 01/29/24 15:24 Pulse Ox 92 01/29/24 16:15 O2 Del Method Nasal Cannula 01/29/24 16:15 O2 Flow Rate 2 01/29/24 12:25 Oxygen Flow Rate 2 01/29/24 16:15 BMI result Body Mass Index 30.0 : Other: scrotal swelling decreased erythema Results Labs 01/29/24 05:39 01/29/24 05:39 Labs: Short CBC 01/29/24 Range/Units 05:39 WBC 10.2 (4.8-10.8) X10*3/uL Hgb 10.4 L (14.0-18.0) g/dl Hct 30.9 L (42.0-52.0) % Plt Count 317 (160-400) X10*3/uL BMP 01/29/24 05:39 Sodium 135 Potassium 4.2 Chloride 100 Carbon Dioxide 25 BUN 26 H Creatinine 1.70 H Calcium 9.3 Liver Function 01/29/24 Range/Units 05:39 Total Bilirubin 0.3 (0.0-1.0) mg/dL AST 38 H (5-37) U/L ALT 32 (0-40) U/L Alkaline Phosphatase 138 H (39-117) U/L Albumin 2.8 L (3.5-5.0) g/dL Microbiology Microbiology Results: Microbiology 01/27/24 Unknown Scrotum Gram Stain - Final 01/27/24 Unknown Scrotum Routine Culture - Final Escherichia coli 01/22/24 09:55 Blood - Venous Blood Culture - Final No growth after 5 days. 01/22/24 09:40 Blood - Venous Blood Culture - Final No growth after 5 days. 01/21/24 13:05 Blood - Venous Blood Culture - Final No growth after 5 days. 01/21/24 13:05 Blood - Venous Blood Culture - Final No growth after 5 days. Assessment and Plan (1) Abscess of scrotum: Status: Acute (2) Cellulitis, scrotum: Status: Acute Plan Continue Ceftriaxone until ready to go home and then po cephalosporin for 14 days. Make sure he gets blood sugar under control.
--- NOTE | 2024-01-29 21:57 | PC.NURSE ---
This RN took over care of patient at 1500. Dressing to scrotum changed by previous nurse. Upon assessment at 1600 dsg was c/d/i. Patient walked to commode around 2029 and had a bm which required a dsg change. dsg is now c/d/i.
--- NOTE | 2024-01-30 02:46 | PC.NURSE ---
Pt up to commode. Pt's dressing soiled. Dressing changed; packed with iodoform, wet to dry devaughn, ABD pad.
[2024-01-30] MEDS: Lactated Ringers 1,000 ML 80 ML IVCONT ×2 (02:55→15:17)
[2024-01-30] MEDS: cefuroxime axetiL 500 MG TABLET PO ×2 (05:00→15:17)
[2024-01-30 06:53] LABS: MANUAL DIFF FLAG NO
[2024-01-30 07:05] LABS: Basophils Absolute Auto 0.1 X10*3/uL (0.0-0.2); Basophils Percent Auto 0.7 % (0-2); Eosinophils Absolute Auto 0.3 X10*3/uL (0.0-0.4); Eosinophils Percent Auto 2.4 % (0-4); Hematocrit 30.6 % (42.0-52.0); Hemoglobin 10.3 g/dl (14.0-18.0); Imm Gran Abs Auto 0.05 X10*3/uL (0.00-0.03); Imm Gran Pct Auto 0.4 % (0.0-0.4); Lymphocytes Absolute Auto 1.8 X10*3/uL (1.2-4.9); Mean Corpuscular HGB Conc 33.7 g/dl (31.0-36.0); Mean Corpuscular Hemoglobin 29.9 pg (27.0-33.0); Mean Platelet Volume 10.1 fL (9.4-12.4); Monocytes Percent Auto 8.2 % (2-11); Neutrophils Absolute Auto 8.8 x10*3/uL (2.0-8.3); Neutrophils Percent Auto 73.3 % (45-73); Platelet Count 316 X10*3/uL (160-400); Red Blood Count 3.44 X10*6/uL (4.60-5.80); Red Cell Distribution Width 11.4 % (11.0-16.0)
[2024-01-30 07:34] VITALS: BP 127/76; PULSE 86; RESP 17; TEMP 36.2; O2SAT 96
[2024-01-30 07:36] LABS: Alanine Aminotransferase 36 U/L (0-40); Alkaline Phosphatase 132 U/L (39-117); Anion Gap 14 (12-20); Aspartate Amino Transferase 44 U/L (5-37); Bilirubin Total 0.3 mg/dL (0.0-1.0); Blood Urea Nitrogen 20 mg/dL (9-16); Calcium 9.8 mg/dL (8.4-10.2); Carbon Dioxide 26 mmol/L (22-29); Chloride 100 mmol/L (96-108); Estimated Glomerular Filt Rate 55; Glucose Fasting 198 mg/dL (60-99); Potassium 4.3 mmol/L (3.3-5.1); Sodium 136 mmol/L (135-145); Total Protein 7.9 g/dL (6.5-8.0)
[2024-01-30 07:45] LABS: Glucose, Whole Blood 183 mg/dL (60-115)
[2024-01-30] MEDS: oxyCODONE HCl Immed Release 5 MG TABLET PO ×3 (08:04→20:39)
[2024-01-30] MEDS: amLODIPine Besylate 5 MG TABLET PO (08:05)
[2024-01-30] MEDS: carvediloL 6.25 MG TABLET PO ×2 (08:05→20:39)
[2024-01-30] MEDS: Thiamine HCL 100 MG TABLET PO (08:05)
[2024-01-30] MEDS: Multivitamin TABLET 1 TAB PO (08:05)
[2024-01-30] MEDS: Folic Acid 1 MG TABLET PO (08:06)
[2024-01-30] MEDS: Magnesium Oxide 400 MG TABLET PO ×2 (08:06→16:25)
[2024-01-30] MEDS: Insulin Lispro 100 UNIT/ML 3 ML VIAL SUBCUT ×4 (08:06→20:40)
--- NOTE | 2024-01-30 08:44 | MHC.CM.PN ---
[facility] IS CURRENTLY CONSIDERING ACCEPTING PT PENDING INSURANCE AUTH PT EVAL WILL BE OBTAINED TODAY [facility] WILL NEED INSURANCE AUTH, WHICH WILL NOT BE AVALABLE PRIOR TO THURSDAY
--- NOTE | 2024-01-30 10:38 | P.PNIM_ITS ---
Subjective Subjective Date of Service: 01/30/24 Interval History: Seen and examined this morning Follow-up for scrotal abscess Pain under adequate control, denies fever chills Review of Systems Review of Systems: Yes all other systems are reviewed and are negative Constitutional Constitutional: Denies chills and Denies fever(s) Cardiovascular Cardiovascular: Denies chest pain, Denies palpitations and Denies dyspnea Respiratory Respiratory: Denies cough and Denies dyspnea Endocrine Endocrine: Denies palpitations Physical Exam 2 Vital Signs: Vital Signs: Last Vital Signs Temp 97.2 F 01/30/24 07:34 Pulse 86 01/30/24 07:34 Resp 17 01/30/24 07:34 BP 127/76 01/30/24 07:34 Pulse Ox 96 01/30/24 07:34 O2 Del Method Room Air 01/30/24 07:34 O2 Flow Rate 2 01/29/24 12:25 Oxygen Flow Rate 2 01/29/24 16:15 BMI result Body Mass Index 30.0 Appearing in no acute distress lung sounds are clear to auscultation heart regular rate rhythm, clear S1, S2 positive bowel sounds, abdomen is soft, nontender neuro patient is alert x3, no focal deficits scrotal wound Objective Data Active Medications Acetaminophen (Acetaminophen 325 Mg Tablet) 650 mg PO Q6H PRN PRN Reason: Pain, Mild (Pain Scale 1-3), fever or headache Last Admin: 01/28/24 09:26 Dose: 650 mg Documented By: JENNY Amlodipine Besylate (Amlodipine Besylate 5 Mg Tablet) 5 mg PO DAILY [facility]; Protocol Last Admin: 01/30/24 08:05 Dose: 5 mg Documented By: DAVID Calcium Carbonate (Calcium Carbonate 750 Mg Tab.Chew) 750 mg PO Q4H PRN PRN Reason: Heartburn Carvedilol (Carvedilol 6.25 Mg Tablet) 6.25 mg PO BID [facility]; Protocol Last Admin: 01/30/24 08:05 Dose: 6.25 mg Documented By: DAVID Cefuroxime Axetil (Cefuroxime Axetil 500 Mg Tablet) 500 mg PO Q12H [facility] Last Admin: 01/30/24 05:00 Dose: 500 mg Documented By: ESEQUIEL Enoxaparin Sodium (Enoxaparin Sodium 40 Mg/0.4 Ml Syringe) 40 mg SUBCUT Q24H [facility] Last Admin: 01/29/24 15:47 Dose: 40 mg Documented By: DILCIA Folic Acid (Folic Acid 1 Mg Tablet) 1 mg PO DAILY [facility] Last Admin: 01/30/24 08:06 Dose: 1 mg Documented By: DAVID Glucose (Glucose Gel 15 Gm Gel..Gram.) 15 gm PO Q15M PRN; Protocol PRN Reason: per Hypoglycemia Standing Ord. Dextrose (D10) 250 mls @ 750 mls/hr IV Q15M PRN; Protocol PRN Reason: per Hypoglycemia Standing Ord. Lactated Ringer's (Lr) 1,000 mls @ 80 mls/hr IVCONT .[id number] [facility] Last Admin: 01/30/24 02:55 Dose: 80 mls/hr Documented By: ESEQUIEL Insulin Glargine (Insulin Glargine,Hum.Rec.Anlog 100 Unit/Ml 10 Ml Vial) 20 unit SUBCUT BEDTIME [facility] Last Admin: 01/29/24 20:46 Dose: 20 unit Documented By: DILCIA Insulin Human Lispro (Insulin Lispro 100 Unit/Ml 3 Ml Vial) 0 unit SUBCUT QIDACHS [facility]; Protocol Last Admin: 01/30/24 08:06 Dose: 2 unit Documented By: DAVID Magnesium Hydroxide (Milk Of Magnesia 30 Ml Oral.Susp) 30 ml PO DAILY PRN PRN Reason: Constipation Last Admin: 01/26/24 10:54 Dose: 30 ml Documented By: BROPankaj Magnesium Oxide (Magnesium Oxide 400 Mg Tablet) 400 mg PO BIDPC [facility] Last Admin: 01/30/24 08:06 Dose: 400 mg Documented By: DAVID Melatonin (Melatonin 3 Mg Tablet) 6 mg PO BEDTIME PRN PRN Reason: Insomnia Multivitamins/Vitamin C (Multivitamin Tablet) 1 tab PO DAILY [facility] Last Admin: 01/30/24 08:05 Dose: 1 tab Documented By: DAVID Ondansetron HCl (Ondansetron Hcl 4 Mg/2 Ml Vial) 4 mg IVPUSH Q8H PRN PRN Reason: Nausea and Vomiting Oxycodone HCl (Oxycodone Hcl Immed Release 5 Mg Tablet) 5 mg PO Q4H PRN PRN Reason: Pain, Moderate(Pain Scale 4-6) Last Admin: 01/30/24 08:04 Dose: 5 mg Documented By: DAVID Pharmacy Consult (Consult Rx Etoh Phenob Po Only) 1 each MISCELLANE ONCE PRN; Protocol PRN Reason: Consult order Pharmacy Consult (Consult Rx Etoh Phenob Po Only) 1 each MISCELLANE ONCE PRN; Protocol PRN Reason: Consult order Sodium Chloride (0.9 % Sodium Chloride Flush 3 Ml Syringe) 3 ml IVFLUSH QSHIFT [facility] Last Admin: 01/30/24 08:08 Dose: Not Given Documented By: DAVID Non-Admin Reason: IV Running Thiamine HCl (Thiamine Hcl 100 Mg Tablet) 100 mg PO DAILY [facility] Last Admin: 01/30/24 08:05 Dose: 100 mg Documented By: DAVID Labs 01/30/24 05:31 01/30/24 05:31 Labs: Laboratory Results - last 24 hr 01/29/24 01/29/24 01/29/24 11:32 16:04 19:44 MCV MCH MCHC RDW Plt Count MPV Immature Gran % (Auto) Neut % (Auto) Lymph % (Auto) [place] % (Auto) Eos % (Auto) Baso % (Auto) Lymph # (Auto) [place] # (Auto) Eos # (Auto) Baso # (Auto) Abs Immat Gran (auto) Absolute Neuts (auto) Absolute Nucleated RBC Nucleated RBC % (auto) Anion Gap Estim Creat Clear Calc Estimated GFR POC Glucose 260 H 295 H 249 H Fasting Glucose Calcium Total Bilirubin AST ALT Alkaline Phosphatase Total Protein Albumin 01/30/24 01/30/24 05:31 07:38 MCV 89.0 MCH 29.9 MCHC 33.7 RDW 11.4 Plt Count 316 MPV 10.1 Immature Gran % (Auto) 0.4 Neut % (Auto) 73.3 H Lymph % (Auto) 15.0 L [place] % (Auto) 8.2 Eos % (Auto) 2.4 Baso % (Auto) 0.7 Lymph # (Auto) 1.8 [place] # (Auto) 1.0 Eos # (Auto) 0.3 Baso # (Auto) 0.1 Abs Immat Gran (auto) 0.05 H Absolute Neuts (auto) 8.8 H Absolute Nucleated RBC 0.000 Nucleated RBC % (auto) 0.0 Anion Gap 14 Estim Creat Clear Calc 63.0 Estimated GFR 55 POC Glucose 183 H Fasting Glucose 198 H Calcium 9.8 Total Bilirubin 0.3 AST 44 H ALT 36 Alkaline Phosphatase 132 H Total Protein 7.9 Albumin 3.0 L Microbiology Microbiology Results: Microbiology 01/27/24 Unknown Gram Stain - Final Scrotum Routine Culture - Final Escherichia coli Assessment and Plan (1) Abscess of scrotum: Status: Acute Plan This is a 48 yaer old male with pertinent history of medication noncompliance, uncontrolled blood pressure, insulin-dependent diabetes mellitus, alcohol use disorder who presents to the emergency department for evaluation of generalized weakness and early alcohol withdrawal Sepsis due to right lower extremity cellulitis/scrotal cellulitis s/p I&D of scrotal/perineal abscess by urology 01/26 Seen by General surgery, no further surgical intervention required at this time Zosyn IV wound culture growing e.coli. blood cultures negative to date ID consult>cefuroxime 14 days o/p Acute kidney injury. Resolved s/p IV fluids vancomycin stopped follow renal function Alcohol use disorder with concerns for alcohol withdrawal CIWA remains 0 will discontinue CIWA Seen by addiction Medicine team, resources provided Hypertensive urgency. Resolved Continue Norvasc, carvedilol adjust as indicated by clinical presentation and renal function Diabetes mellitus type 2, uncontrolled hba1c 11.0 lispro correctional scale basal insulin as clinically indicated adjust therapies as indicated diarrhea gi panel negative cdif PCR + but toxin negative - likely colonization diarrhea resolved Chronic Normocytic anemia H/H stable, above transfusion threshold Lovenox Attending Dr. Dash Full code Requires ongoing hospitalization for IV antibiotics to treat cellulitis/postoperative care Quality Stroke Does the patient have a stroke diagnosis?: No VTE Prior VTE?: No VTE Risk Level:: Medical - moderate - high VTE Device Contraindication: Treatment Not Indicated VTE Drug Contraindication: N/A - Med Ordered
[2024-01-30 11:33] LABS: Glucose, Whole Blood 225 mg/dL (60-115)
[2024-01-30] MEDS: Enoxaparin Sodium 40 MG/0.4 ML SYRINGE SUBCUT (15:17)
[2024-01-30 15:28] VITALS: BP 136/79; PULSE 84; RESP 18; TEMP 36.2; O2SAT 94
[2024-01-30 15:59] LABS: Glucose, Whole Blood 173 mg/dL (60-115)
[2024-01-30 17:00] VITALS: O2SAT 94
[2024-01-30 20:34] LABS: Glucose, Whole Blood 283 mg/dL (60-115)
[2024-01-30 20:39] VITALS: PULSE 75
[2024-01-30] MEDS: Insulin Glargine,Hum.rec.anlog 100 UNIT/ML 10 ML VIAL 20 UNIT SUBCUT (20:40)
[2024-01-30 23:35] VITALS: BP 159/77; PULSE 82; RESP 17; TEMP 36.5; O2SAT 92
[2024-01-31 00:15] VITALS: BP 132/77
[2024-01-31] MEDS: cefuroxime axetiL 500 MG TABLET PO ×2 (03:50→15:03)
[2024-01-31] MEDS: Lactated Ringers 1,000 ML 80 ML IVCONT (03:50)
[2024-01-31 07:02] VITALS: BP 152/71; PULSE 82; RESP 18; TEMP 36.6; O2SAT 93
[2024-01-31 07:25] LABS: Glucose, Whole Blood 220 mg/dL (60-115)
[2024-01-31] MEDS: Insulin Lispro 100 UNIT/ML 3 ML VIAL SUBCUT ×4 (07:39→21:26)
[2024-01-31] MEDS: oxyCODONE HCl Immed Release 5 MG TABLET PO ×3 (07:39→21:26)
[2024-01-31] MEDS: Folic Acid 1 MG TABLET PO (07:40)
[2024-01-31] MEDS: Thiamine HCL 100 MG TABLET PO (07:40)
[2024-01-31] MEDS: Magnesium Oxide 400 MG TABLET PO ×2 (07:40→17:18)
[2024-01-31] MEDS: carvediloL 6.25 MG TABLET PO ×2 (07:40→21:27)
[2024-01-31] MEDS: Multivitamin TABLET 1 TAB PO (07:40)
[2024-01-31] MEDS: amLODIPine Besylate 5 MG TABLET PO (08:29)
--- NOTE | 2024-01-31 08:58 | HO.PM.IMPN ---
Subjective Subjective Date of Service: 01/31/24 Interval History: Seen and examined this morning Follow-up for scrotal abscess Pain under adequate control, denies fever chills Review of Systems Review of Systems: Yes all other systems are reviewed and are negative Constitutional Constitutional: Denies chills and Denies fever(s) Cardiovascular Cardiovascular: Denies chest pain, Denies palpitations and Denies dyspnea Respiratory Respiratory: Denies cough and Denies dyspnea Endocrine Endocrine: Denies palpitations Physical Exam Vital Signs: Vital Signs: Last Vital Signs Temp 98 F 01/31/24 07:02 Pulse 82 01/31/24 07:02 Resp 18 01/31/24 07:02 BP 152/71 H 01/31/24 07:02 Pulse Ox 93 01/31/24 07:02 O2 Del Method Room Air 01/31/24 07:02 O2 Flow Rate 2 01/29/24 12:25 Oxygen Flow Rate 2 01/29/24 16:15 BMI result Body Mass Index 30.0 Appearing in no acute distress lung sounds are clear to auscultation heart regular rate rhythm, clear S1, S2 positive bowel sounds, abdomen is soft, nontender neuro patient is alert x3, no focal deficits Objective Data Active Medications Acetaminophen (Acetaminophen 325 Mg Tablet) 650 mg PO Q6H PRN PRN Reason: Pain, Mild (Pain Scale 1-3), fever or headache Last Admin: 01/28/24 09:26 Dose: 650 mg Documented By: JENNY Amlodipine Besylate (Amlodipine Besylate 5 Mg Tablet) 5 mg PO DAILY [facility]; Protocol Last Admin: 01/31/24 08:29 Dose: 5 mg Documented By: DAVID Calcium Carbonate (Calcium Carbonate 750 Mg Tab.Chew) 750 mg PO Q4H PRN PRN Reason: Heartburn Carvedilol (Carvedilol 6.25 Mg Tablet) 6.25 mg PO BID [facility]; Protocol Last Admin: 01/31/24 07:40 Dose: 6.25 mg Documented By: DAVID Cefuroxime Axetil (Cefuroxime Axetil 500 Mg Tablet) 500 mg PO Q12H [facility] Last Admin: 01/31/24 03:50 Dose: 500 mg Documented By: JAIDA Enoxaparin Sodium (Enoxaparin Sodium 40 Mg/0.4 Ml Syringe) 40 mg SUBCUT Q24H [facility] Last Admin: 01/30/24 15:17 Dose: 40 mg Documented By: DAVID Folic Acid (Folic Acid 1 Mg Tablet) 1 mg PO DAILY [facility] Last Admin: 01/31/24 07:40 Dose: 1 mg Documented By: DAVID Glucose (Glucose Gel 15 Gm Gel..Gram.) 15 gm PO Q15M PRN; Protocol PRN Reason: per Hypoglycemia Standing Ord. Dextrose (D10) 250 mls @ 750 mls/hr IV Q15M PRN; Protocol PRN Reason: per Hypoglycemia Standing Ord. Lactated Ringer's (Lr) 1,000 mls @ 80 mls/hr IVCONT .[id number] [facility] Last Admin: 01/31/24 03:50 Dose: 80 mls/hr Documented By: JAIDA Insulin Glargine (Insulin Glargine,Hum.Rec.Anlog 100 Unit/Ml 10 Ml Vial) 20 unit SUBCUT BEDTIME [facility] Last Admin: 01/30/24 20:40 Dose: 20 unit Documented By: JAIDA Insulin Human Lispro (Insulin Lispro 100 Unit/Ml 3 Ml Vial) 0 unit SUBCUT QIDACHS [facility]; Protocol Last Admin: 01/31/24 07:39 Dose: 4 unit Documented By: DAVID Magnesium Hydroxide (Milk Of Magnesia 30 Ml Oral.Susp) 30 ml PO DAILY PRN PRN Reason: Constipation Last Admin: 01/26/24 10:54 Dose: 30 ml Documented By: BROPankaj Magnesium Oxide (Magnesium Oxide 400 Mg Tablet) 400 mg PO BIDPC [facility] Last Admin: 01/31/24 07:40 Dose: 400 mg Documented By: DAVID Melatonin (Melatonin 3 Mg Tablet) 6 mg PO BEDTIME PRN PRN Reason: Insomnia Multivitamins/Vitamin C (Multivitamin Tablet) 1 tab PO DAILY [facility] Last Admin: 01/31/24 07:40 Dose: 1 tab Documented By: DAVID Ondansetron HCl (Ondansetron Hcl 4 Mg/2 Ml Vial) 4 mg IVPUSH Q8H PRN PRN Reason: Nausea and Vomiting Oxycodone HCl (Oxycodone Hcl Immed Release 5 Mg Tablet) 5 mg PO Q4H PRN PRN Reason: Pain, Moderate(Pain Scale 4-6) Last Admin: 01/31/24 07:39 Dose: 5 mg Documented By: DAVID Pharmacy Consult (Consult Rx Etoh Phenob Po Only) 1 each MISCELLANE ONCE PRN; Protocol PRN Reason: Consult order Pharmacy Consult (Consult Rx Etoh Phenob Po Only) 1 each MISCELLANE ONCE PRN; Protocol PRN Reason: Consult order Sodium Chloride (0.9 % Sodium Chloride Flush 3 Ml Syringe) 3 ml IVFLUSH QSHIFT [facility] Last Admin: 01/31/24 07:42 Dose: Not Given Documented By: DAVID Non-Admin Reason: IV Running Thiamine HCl (Thiamine Hcl 100 Mg Tablet) 100 mg PO DAILY [facility] Last Admin: 01/31/24 07:40 Dose: 100 mg Documented By: DAVID Labs 01/30/24 05:31 01/30/24 05:31 Labs: Laboratory Results - last 24 hr 01/30/24 01/30/24 01/30/24 11:28 15:55 20:27 POC Glucose 225 H 173 H 283 H 01/31/24 07:01 POC Glucose 220 H Assessment and Plan (1) Abscess of scrotum: Status: Acute Plan This is a 48 yaer old male with pertinent history of medication noncompliance, uncontrolled blood pressure, insulin-dependent diabetes mellitus, alcohol use disorder who presents to the emergency department for evaluation of generalized weakness and early alcohol withdrawal Sepsis due to right lower extremity cellulitis/scrotal cellulitis s/p I&D of scrotal/perineal abscess by urology 01/26 Seen by General surgery, no further surgical intervention required at this time Zosyn IV wound culture growing e.coli. blood cultures negative to date ID consult>cefuroxime 14 days o/p Acute kidney injury. Resolved s/p IV fluids vancomycin stopped follow renal function Alcohol use disorder with concerns for alcohol withdrawal CIWA remains 0 will discontinue CIWA Seen by addiction Medicine team, resources provided Hypertensive urgency. Resolved Continue Norvasc, carvedilol adjust as indicated by clinical presentation and renal function Diabetes mellitus type 2, uncontrolled hba1c 11.0 lispro correctional scale basal insulin as clinically indicated adjust therapies as indicated diarrhea gi panel negative cdif PCR + but toxin negative - likely colonization diarrhea resolved Chronic Normocytic anemia H/H stable, above transfusion threshold Lovenox Attending Dr. Mlapah Full code DISPO STR when bed available Requires ongoing hospitalization for IV antibiotics to treat cellulitis/postoperative care Quality Stroke Does the patient have a stroke diagnosis?: No VTE Prior VTE?: No VTE Risk Level:: Medical - moderate - high VTE Device Contraindication: Treatment Not Indicated VTE Drug Contraindication: N/A - Med Ordered
[2024-01-31 11:10] LABS: Glucose, Whole Blood 181 mg/dL (60-115)
[2024-01-31] MEDS: Enoxaparin Sodium 40 MG/0.4 ML SYRINGE SUBCUT (15:03)
[2024-01-31 16:00] VITALS: BP 165/77; PULSE 88; RESP 14; TEMP 36.3; O2SAT 95
[2024-01-31 16:23] LABS: Glucose, Whole Blood 257 mg/dL (60-115)
[2024-01-31 20:48] LABS: Glucose, Whole Blood 253 mg/dL (60-115)
[2024-01-31] MEDS: Insulin Glargine,Hum.rec.anlog 100 UNIT/ML 10 ML VIAL 20 UNIT SUBCUT (21:26)
[2024-01-31 21:27] VITALS: PULSE 75
[2024-01-31] MEDS: 0.9 % Sodium Chloride Flush 3 ML SYRINGE IVFLUSH (21:44)
[2024-01-31 23:03] VITALS: BP 140/70; PULSE 86; RESP 18; TEMP 36.1; O2SAT 94
[2024-02-01] VITALS (9 sets, daily range): BP systolic 94–185; BP diastolic 51–92; PULSE 79–89; RESP 16–18; TEMP 36.4–36.6; O2SAT 91–94
[2024-02-01] MEDS: cefuroxime axetiL 500 MG TABLET PO ×2 (03:02→15:57)
[2024-02-01] MEDS: oxyCODONE HCl Immed Release 5 MG TABLET PO ×4 (03:02→20:34)
--- NOTE | 2024-02-01 07:32 | HO.PM.IMPN ---
Subjective Subjective Date of Service: 02/01/24 Interval History: Seen in follow-up for scrotal abscess Interval history: Reports pain is reasonably controlled at a 3/10. He is reporting positional lightheadedness. No palpitations, shortness of breath, chest pain. No dysuria, hematuria. No rectal bleeding Review of Systems Review of Systems: Yes all other systems are reviewed and are negative Physical Exam Vital Signs: Vital Signs: Last Vital Signs Temp 97.6 F 02/01/24 07:27 Pulse 82 02/01/24 07:27 Resp 16 02/01/24 07:27 BP 185/92 H 02/01/24 07:27 Pulse Ox 91 L 02/01/24 07:27 O2 Del Method Room Air 02/01/24 07:27 O2 Flow Rate 2 01/29/24 12:25 Oxygen Flow Rate 2 01/29/24 16:15 BMI result Body Mass Index 30.0 Constitutional - Awake and Alert, No apparent distress Eyes - PERRLA, EOMI Cardiovascular - S1S2, RRR, No edema Respiratory - Normal lung expansion, Normal respiratory effort, No respiratory distress, CTA bilaterally Gastrointestinal - NT / ND; +BS; No rebound or guarding - s/p scrotal I&D, wound with good granulation tissue, no necrosis/purulent drainage. No surrounding erythema Extremities - no calf tenderness bilaterally, no swelling Skin - Warm/Dry Neurological - Alert & oriented x3, CN II-XII in tact Psychological - Appropriate affect . Objective Data Active Medications Acetaminophen (Acetaminophen 325 Mg Tablet) 650 mg PO Q6H PRN PRN Reason: Pain, Mild (Pain Scale 1-3), fever or headache Last Admin: 01/28/24 09:26 Dose: 650 mg Documented By: JENNY Amlodipine Besylate (Amlodipine Besylate 5 Mg Tablet) 5 mg PO DAILY [facility]; Protocol Last Admin: 01/31/24 08:29 Dose: 5 mg Documented By: DAVID Calcium Carbonate (Calcium Carbonate 750 Mg Tab.Chew) 750 mg PO Q4H PRN PRN Reason: Heartburn Carvedilol (Carvedilol 6.25 Mg Tablet) 6.25 mg PO BID [facility]; Protocol Last Admin: 01/31/24 21:27 Dose: 6.25 mg Documented By: JAIDA Cefuroxime Axetil (Cefuroxime Axetil 500 Mg Tablet) 500 mg PO Q12H [facility] Last Admin: 02/01/24 03:02 Dose: 500 mg Documented By: JAIDA Enoxaparin Sodium (Enoxaparin Sodium 40 Mg/0.4 Ml Syringe) 40 mg SUBCUT Q24H [facility] Last Admin: 01/31/24 15:03 Dose: 40 mg Documented By: DAVID Folic Acid (Folic Acid 1 Mg Tablet) 1 mg PO DAILY [facility] Last Admin: 01/31/24 07:40 Dose: 1 mg Documented By: DAVID Glucose (Glucose Gel 15 Gm Gel..Gram.) 15 gm PO Q15M PRN; Protocol PRN Reason: per Hypoglycemia Standing Ord. Dextrose (D10) 250 mls @ 750 mls/hr IV Q15M PRN; Protocol PRN Reason: per Hypoglycemia Standing Ord. Insulin Glargine (Insulin Glargine,Hum.Rec.Anlog 100 Unit/Ml 10 Ml Vial) 20 unit SUBCUT BEDTIME [facility] Last Admin: 01/31/24 21:26 Dose: 20 unit Documented By: JAIDA Insulin Human Lispro (Insulin Lispro 100 Unit/Ml 3 Ml Vial) 0 unit SUBCUT QIDACHS [facility]; Protocol Last Admin: 01/31/24 21:26 Dose: 6 unit Documented By: JAIDA Magnesium Hydroxide (Milk Of Magnesia 30 Ml Oral.Susp) 30 ml PO DAILY PRN PRN Reason: Constipation Last Admin: 01/26/24 10:54 Dose: 30 ml Documented By: BROPankaj Magnesium Oxide (Magnesium Oxide 400 Mg Tablet) 400 mg PO BIDPC [facility] Last Admin: 01/31/24 17:18 Dose: 400 mg Documented By: DAVID Melatonin (Melatonin 3 Mg Tablet) 6 mg PO BEDTIME PRN PRN Reason: Insomnia Multivitamins/Vitamin C (Multivitamin Tablet) 1 tab PO DAILY [facility] Last Admin: 01/31/24 07:40 Dose: 1 tab Documented By: DAVID Ondansetron HCl (Ondansetron Hcl 4 Mg/2 Ml Vial) 4 mg IVPUSH Q8H PRN PRN Reason: Nausea and Vomiting Oxycodone HCl (Oxycodone Hcl Immed Release 5 Mg Tablet) 5 mg PO Q4H PRN PRN Reason: Pain, Moderate(Pain Scale 4-6) Last Admin: 02/01/24 03:02 Dose: 5 mg Documented By: JAIDA Pharmacy Consult (Consult Rx Etoh Phenob Po Only) 1 each MISCELLANE ONCE PRN; Protocol PRN Reason: Consult order Pharmacy Consult (Consult Rx Etoh Phenob Po Only) 1 each MISCELLANE ONCE PRN; Protocol PRN Reason: Consult order Sodium Chloride (0.9 % Sodium Chloride Flush 3 Ml Syringe) 3 ml IVFLUSH QSHIFT [facility] Last Admin: 01/31/24 21:44 Dose: 3 ml Documented By: JAIDA Thiamine HCl (Thiamine Hcl 100 Mg Tablet) 100 mg PO DAILY [facility] Last Admin: 01/31/24 07:40 Dose: 100 mg Documented By: DAVID Labs 01/30/24 05:31 01/30/24 05:31 Labs: Laboratory Results - last 24 hr 01/31/24 01/31/24 01/31/24 11:02 16:17 20:20 POC Glucose 181 H 257 H 253 H Assessment and Plan (1) Abscess of scrotum: Status: Acute Plan This is a 48 yaer old male with pertinent history of medication noncompliance, uncontrolled blood pressure, insulin-dependent diabetes mellitus, alcohol use disorder who presents to the emergency department for evaluation of generalized weakness and early alcohol withdrawal Sepsis due to right lower extremity cellulitis/scrotal cellulitis s/p I&D of scrotal/perineal abscess by urology 01/26 Seen by General surgery 01/31, no further surgical intervention required at this time. Outpt wound clinic, continue local wound care Zosyn IV changed to cefuroxime. Wound culture growing e coli blood cultures negative to date ID consult>cefuroxime 14 days (last dose 02/14) Orthostatic hypotension 01/31 SBP 127-->99 IV NS x1L repeat orthostatic vs am Acute kidney injury. Resolved s/p IV fluids vancomycin stopped follow renal function Alcohol use disorder with concerns for alcohol withdrawal CIWA remains 0 will discontinue CIWA Seen by addiction Medicine team, resources provided Hypertensive urgency. Resolved Continue Norvasc, carvedilol adjust as indicated by clinical presentation and renal function Diabetes mellitus type 2, uncontrolled hba1c 11.0 lispro correctional scale basal insulin as clinically indicated adjust therapies as indicated diarrhea gi panel negative cdif PCR + but toxin negative - likely colonization diarrhea resolved Chronic Normocytic anemia H/H stable, above transfusion threshold Lovenox Attending Dr. Dash Full code DISPO STR when bed available Requires ongoing hospitalization for IV antibiotics to treat cellulitis/postoperative care. Awaiting placement Quality Stroke Does the patient have a stroke diagnosis?: No VTE Prior VTE?: No VTE Risk Level:: Medical - moderate - high VTE Device Contraindication: Treatment Not Indicated VTE Drug Contraindication: N/A - Med Ordered
[2024-02-01 07:36] LABS: Glucose, Whole Blood 244 mg/dL (60-115)
[2024-02-01] MEDS: Insulin Lispro 100 UNIT/ML 3 ML VIAL SUBCUT ×4 (07:53→20:35)
[2024-02-01] MEDS: Multivitamin TABLET 1 TAB PO (07:54)
[2024-02-01] MEDS: 0.9 % Sodium Chloride Flush 3 ML SYRINGE IVFLUSH ×3 (07:54→20:37)
[2024-02-01] MEDS: carvediloL 6.25 MG TABLET PO ×2 (07:54→20:34)
[2024-02-01] MEDS: Thiamine HCL 100 MG TABLET PO (07:54)
[2024-02-01] MEDS: Magnesium Oxide 400 MG TABLET PO ×2 (07:54→18:47)
[2024-02-01] MEDS: amLODIPine Besylate 5 MG TABLET PO (07:54)
[2024-02-01] MEDS: Folic Acid 1 MG TABLET PO (07:54)
--- NOTE | 2024-02-01 08:43 | P.PNGS_ITS ---
Subjective Subjective Date of Service: 02/01/24 Interval history: Patient is getting close to be discharged. Was asked to review wound prior to these arrangements. Physical Exam 2 Vital Signs: Vital Signs: Last Vital Signs Temp 97.6 F 02/01/24 07:27 Pulse 82 02/01/24 07:27 Resp 16 02/01/24 07:27 BP 185/92 H 02/01/24 07:27 Pulse Ox 91 L 02/01/24 07:27 O2 Del Method Room Air 02/01/24 07:27 O2 Flow Rate 2 01/29/24 12:25 Oxygen Flow Rate 2 01/29/24 16:15 BMI result Body Mass Index 30.0 Skin: Other: Status post scrotal I&D. Wound granulating well. No acute or necrotic other areas need to be addressed at this time. Objective Data Active Medications Acetaminophen (Acetaminophen 325 Mg Tablet) 650 mg PO Q6H PRN PRN Reason: Pain, Mild (Pain Scale 1-3), fever or headache Last Admin: 01/28/24 09:26 Dose: 650 mg Documented By: JENNY Amlodipine Besylate (Amlodipine Besylate 5 Mg Tablet) 5 mg PO DAILY [facility]; Protocol Last Admin: 02/01/24 07:54 Dose: 5 mg Documented By: DILCIA Calcium Carbonate (Calcium Carbonate 750 Mg Tab.Chew) 750 mg PO Q4H PRN PRN Reason: Heartburn Carvedilol (Carvedilol 6.25 Mg Tablet) 6.25 mg PO BID [facility]; Protocol Last Admin: 02/01/24 07:54 Dose: 6.25 mg Documented By: DILCIA Cefuroxime Axetil (Cefuroxime Axetil 500 Mg Tablet) 500 mg PO Q12H [facility] Last Admin: 02/01/24 03:02 Dose: 500 mg Documented By: JAIDA Enoxaparin Sodium (Enoxaparin Sodium 40 Mg/0.4 Ml Syringe) 40 mg SUBCUT Q24H [facility] Last Admin: 01/31/24 15:03 Dose: 40 mg Documented By: DAVID Folic Acid (Folic Acid 1 Mg Tablet) 1 mg PO DAILY [facility] Last Admin: 02/01/24 07:54 Dose: 1 mg Documented By: DILCIA Glucose (Glucose Gel 15 Gm Gel..Gram.) 15 gm PO Q15M PRN; Protocol PRN Reason: per Hypoglycemia Standing Ord. Dextrose (D10) 250 mls @ 750 mls/hr IV Q15M PRN; Protocol PRN Reason: per Hypoglycemia Standing Ord. Insulin Glargine (Insulin Glargine,Hum.Rec.Anlog 100 Unit/Ml 10 Ml Vial) 20 unit SUBCUT BEDTIME [facility] Last Admin: 01/31/24 21:26 Dose: 20 unit Documented By: JAIDA Insulin Human Lispro (Insulin Lispro 100 Unit/Ml 3 Ml Vial) 0 unit SUBCUT QIDACHS [facility]; Protocol Last Admin: 02/01/24 07:53 Dose: 4 unit Documented By: DILCIA Magnesium Hydroxide (Milk Of Magnesia 30 Ml Oral.Susp) 30 ml PO DAILY PRN PRN Reason: Constipation Last Admin: 01/26/24 10:54 Dose: 30 ml Documented By: DOBROB Magnesium Oxide (Magnesium Oxide 400 Mg Tablet) 400 mg PO BIDPC [facility] Last Admin: 02/01/24 07:54 Dose: 400 mg Documented By: DILCIA Melatonin (Melatonin 3 Mg Tablet) 6 mg PO BEDTIME PRN PRN Reason: Insomnia Multivitamins/Vitamin C (Multivitamin Tablet) 1 tab PO DAILY [facility] Last Admin: 02/01/24 07:54 Dose: 1 tab Documented By: DILCIA Ondansetron HCl (Ondansetron Hcl 4 Mg/2 Ml Vial) 4 mg IVPUSH Q8H PRN PRN Reason: Nausea and Vomiting Oxycodone HCl (Oxycodone Hcl Immed Release 5 Mg Tablet) 5 mg PO Q4H PRN PRN Reason: Pain, Moderate(Pain Scale 4-6) Last Admin: 02/01/24 03:02 Dose: 5 mg Documented By: JAIDA Pharmacy Consult (Consult Rx Etoh Phenob Po Only) 1 each MISCELLANE ONCE PRN; Protocol PRN Reason: Consult order Pharmacy Consult (Consult Rx Etoh Phenob Po Only) 1 each MISCELLANE ONCE PRN; Protocol PRN Reason: Consult order Sodium Chloride (0.9 % Sodium Chloride Flush 3 Ml Syringe) [facility] Last Admin: 02/01/24 07:54 Dose: 3 ml Documented By: DILCIA Thiamine HCl (Thiamine Hcl 100 Mg Tablet) 100 mg PO DAILY [facility] Last Admin: 02/01/24 07:54 Dose: 100 mg Documented By: DILCIA Labs 01/30/24 05:31 01/30/24 05:31 Labs: Laboratory Results - last 24 hr 01/31/24 01/31/24 01/31/24 11:02 16:17 20:20 POC Glucose 181 H 257 H 253 H 02/01/24 07:31 POC Glucose 244 H Procedures Date of Service Date of Service: 02/01/24 Progress Note: A&P Assessment and plan (1) Abscess of scrotum: Status: Acute Plan No acute or new issues at the patient's scrotal abscess site. We will follow up p.r.n.. Continue local wound care Time Spent With Patient Time: Total time managing care of this patient today ____ minutes. Quality Stroke Does the patient have a stroke diagnosis?: No VTE Prior VTE?: No VTE Risk Level:: Medical - moderate - high VTE Device Contraindication: Treatment Not Indicated VTE Drug Contraindication: N/A - Med Ordered
[2024-02-01 11:42] LABS: Glucose, Whole Blood 276 mg/dL (60-115)
--- NOTE | 2024-02-01 11:44 | MHC.CM.PN ---
PT IS MEDICALLY CLEARED TO DC TO STR AT [facility] HAS SUBMITTED FOR INSURANCE AUTH
[2024-02-01] MEDS: Acetaminophen 325 MG TABLET 650 MG PO ×2 (14:25→20:34)
[2024-02-01] MEDS: 0.9 % Sodium Chloride 1,000 ML 999 ML IV (15:56)
[2024-02-01] MEDS: Enoxaparin Sodium 40 MG/0.4 ML SYRINGE SUBCUT (15:57)
[2024-02-01 16:10] LABS: Glucose, Whole Blood 264 mg/dL (60-115)
[2024-02-01 20:29] LABS: Glucose, Whole Blood 225 mg/dL (60-115)
[2024-02-01] MEDS: Insulin Glargine,Hum.rec.anlog 100 UNIT/ML 10 ML VIAL 20 UNIT SUBCUT (20:34)
[2024-02-02] VITALS (7 sets, daily range): BP systolic 87–165; BP diastolic 49–80; PULSE 75–89; RESP 16–18; TEMP 35.9–36.5; O2SAT 92–95
[2024-02-02] MEDS: cefuroxime axetiL 500 MG TABLET PO ×2 (04:00→16:14)
[2024-02-02] MEDS: oxyCODONE HCl Immed Release 5 MG TABLET PO ×3 (04:01→16:14)
[2024-02-02 06:09] LABS: Anion Gap 12 (12-20); Blood Urea Nitrogen 17 mg/dL (9-16); Calcium 9.7 mg/dL (8.4-10.2); Carbon Dioxide 26 mmol/L (22-29); Chloride 102 mmol/L (96-108); Creatinine Clr Calc Pharmacy 84.4; Estimated Glomerular Filt Rate > 60; Glucose Random 210 mg/dL (60-115); Sodium 136 mmol/L (135-145)
[2024-02-02 07:50] LABS: Glucose, Whole Blood 155 mg/dL (60-115)
[2024-02-02] MEDS: Folic Acid 1 MG TABLET PO (08:08)
[2024-02-02] MEDS: Thiamine HCL 100 MG TABLET PO (08:08)
[2024-02-02] MEDS: Magnesium Oxide 400 MG TABLET PO ×2 (08:08→16:14)
[2024-02-02] MEDS: Multivitamin TABLET 1 TAB PO (08:08)
[2024-02-02] MEDS: 0.9 % Sodium Chloride Flush 3 ML SYRINGE IVFLUSH ×3 (08:08→21:50)
[2024-02-02] MEDS: Insulin Lispro 100 UNIT/ML 3 ML VIAL SUBCUT ×4 (08:09→21:49)
[2024-02-02 09:51] LABS: Vancomycin Random < 2.0 mcg/mL (15-20)
[2024-02-02] MEDS: 0.9 % Sodium Chloride 1,000 ML 500 ML IVCONT (10:26)
[2024-02-02 12:03] LABS: Glucose, Whole Blood 186 mg/dL (60-115)
--- NOTE | 2024-02-02 13:59 | HO.PM.IMPN ---
Subjective Subjective Date of Service: 02/02/24 Interval History: scrotal abscess orthostatic hypotension Review of Systems feels tired no fevers orthostatic. Physical Exam Vital Signs: Vital Signs: Last Vital Signs Temp 96.7 F L 02/02/24 00:00 Pulse 77 02/02/24 08:05 Resp 16 02/02/24 00:00 BP 87/49 L 02/02/24 08:05 Pulse Ox 95 02/02/24 00:00 O2 Del Method Room Air 02/02/24 00:00 O2 Flow Rate 2 01/29/24 12:25 Oxygen Flow Rate 2 01/29/24 16:15 BMI result Body Mass Index 30.0 Appearance: Alert.? Oriented X3.? cvs: rrr, [id number] , no murmur res: clear to auscultation ,no rhonchii or wheezing abd: no rebound or guarding ,nt, bs present. - seems similar, s/p scrotal I&D, wound with good granulation tissue, no necrosis/purulent drainage. No surrounding erythema. ext pulses present , no cyanosis . neuro: nonfocal. Objective Data Active Medications Acetaminophen (Acetaminophen 325 Mg Tablet) 650 mg PO Q6H PRN PRN Reason: Pain, Mild (Pain Scale 1-3), fever or headache Last Admin: 02/01/24 20:34 Dose: 650 mg Documented By: JAIDA Calcium Carbonate (Calcium Carbonate 750 Mg Tab.Chew) 750 mg PO Q4H PRN PRN Reason: Heartburn Carvedilol (Carvedilol 6.25 Mg Tablet) 6.25 mg PO BID [facility]PL[facility] BY [facility]; Protocol Last Admin: 02/02/24 09:31 Dose: Not Given Documented By: JENNY Non-Admin Reason: low BP Cefuroxime Axetil (Cefuroxime Axetil 500 Mg Tablet) 500 mg PO Q12H [facility]PLAC[facility] BY [facility] Last Admin: 02/02/24 04:00 Dose: 500 mg Documented By: JAIDA Enoxaparin Sodium (Enoxaparin Sodium 40 Mg/0.4 Ml Syringe) 40 mg SUBCUT Q24H [facility]PL[facility] Last Admin: 02/01/24 15:57 Dose: 40 mg Documented By: KENYA Folic Acid (Folic Acid 1 Mg Tablet) 1 mg PO DAILY [facility] Last Admin: 02/02/24 08:08 Dose: 1 mg Documented By: JENNY Glucose (Glucose Gel 15 Gm Gel..Gram.) 15 gm PO Q15M PRN; Protocol PRN Reason: per Hypoglycemia Standing Ord. Dextrose (D10) 250 mls @ 750 mls/hr IV Q15M PRN; Protocol PRN Reason: per Hypoglycemia Standing Ord. Insulin Glargine (Insulin Glargine,Hum.Rec.Anlog 100 Unit/Ml 10 Ml Vial) 20 unit SUBCUT BEDTIME [facility] Last Admin: 02/01/24 20:34 Dose: 20 unit Documented By: JAIDA Insulin Human Lispro (Insulin Lispro 100 Unit/Ml 3 Ml Vial) 0 unit SUBCUT QIDACHS [facility]PL[facility]ED BY [facility]; Protocol Last Admin: 02/02/24 12:30 Dose: 2 unit Documented By: JENNY Magnesium Hydroxide (Milk Of Magnesia 30 Ml Oral.Susp) 30 ml PO DAILY PRN PRN Reason: Constipation Last Admin: 01/26/24 10:54 Dose: 30 ml Documented By: SENTHIL Magnesium Oxide (Magnesium Oxide 400 Mg Tablet) 400 mg PO BIDPC REPLACED BY [facility] Last Admin: 02/02/24 08:08 Dose: 400 mg Documented By: JENNY Melatonin (Melatonin 3 Mg Tablet) 6 mg PO BEDTIME PRN PRN Reason: Insomnia Multivitamins/Vitamin C (Multivitamin Tablet) 1 tab PO DAILY [facility] Last Admin: 02/02/24 08:08 Dose: 1 tab Documented By: JENNY Ondansetron HCl (Ondansetron Hcl 4 Mg/2 Ml Vial) 4 mg IVPUSH Q8H PRN PRN Reason: Nausea and Vomiting Oxycodone HCl (Oxycodone Hcl Immed Release 5 Mg Tablet) 5 mg PO Q4H PRN PRN Reason: Pain, Moderate(Pain Scale 4-6) Last Admin: 02/02/24 10:26 Dose: 5 mg Documented By: JENNY Pharmacy Consult (Consult Rx Etoh Phenob Po Only) 1 each MISCELLANE ONCE PRN; Protocol PRN Reason: Consult order Pharmacy Consult (Consult Rx Etoh Phenob Po Only) 1 each MISCELLANE ONCE PRN; Protocol PRN Reason: Consult order Sodium Chloride (0.9 % Sodium Chloride Flush 3 Ml Syringe) [facility] Last Admin: 02/02/24 08:08 Dose: 3 ml Documented By: JENNY Thiamine HCl (Thiamine Hcl 100 Mg Tablet) 100 mg PO DAILY [facility] Last Admin: 02/02/24 08:08 Dose: 100 mg Documented By: JENNY Labs 01/30/24 05:31 02/02/24 05:00 Labs: Laboratory Results - last 24 hr 02/01/24 02/01/24 02/02/24 16:06 20:24 05:00 Anion Gap 12 Estim Creat Clear Calc 84.4 Estimated GFR > 60 POC Glucose 264 H 225 H Random Glucose 210 H Calcium 9.7 Random Vancomycin 02/02/24 02/02/24 02/02/24 07:45 09:09 11:58 Anion Gap Estim Creat Clear Calc Estimated GFR POC Glucose 155 H 186 H Random Glucose Calcium Random Vancomycin < 2.0 L Assessment and Plan (1) Abscess of scrotum: Status: Acute Plan This is a 48 yaer old male with pertinent history of medication noncompliance, uncontrolled blood pressure, insulin-dependent diabetes mellitus, alcohol use disorder who presents to the emergency department for evaluation of generalized weakness and early alcohol withdrawal Sepsis due to right lower extremity cellulitis/scrotal cellulitis s/p I&D of scrotal/perineal abscess by urology 01/26 Seen by General surgery 01/31, no further surgical intervention required at this time. Outpt wound clinic, continue local wound care Zosyn IV changed to cefuroxime. Wound culture growing e coli blood cultures negative to date ID consult>cefuroxime 14 days (last dose 02/14) Orthostatic hypotension 01/31 SBP 127-->high 80's IV NS x1/2 liter moniter orthostatics [place] nephro eval. Acute kidney injury- Resolved . s/p IV fluids vancomycin stopped follow renal function Alcohol use disorder with concerns for alcohol withdrawal CIWA remains 0 will discontinue CIWA Seen by addiction Medicine team, resources provided Hypertensive urgency. Resolved Continue Norvasc, carvedilol adjust as indicated by clinical presentation and renal function Diabetes mellitus type 2, uncontrolled hba1c 11.0 lispro correctional scale basal insulin as clinically indicated adjust therapies as indicated diarrhea gi panel negative cdif PCR + but toxin negative - likely colonization diarrhea resolved Chronic Normocytic anemia H/H stable, above transfusion threshold Lovenox Full code DISPO STR when bed available Requires ongoing hospitalization for IV antibiotics to treat cellulitis/postoperative care. Awaiting placement Quality Stroke Does the patient have a stroke diagnosis?: No VTE Prior VTE?: No VTE Risk Level:: Medical - moderate - high VTE Device Contraindication: Treatment Not Indicated VTE Drug Contraindication: N/A - Med Ordered
[2024-02-02 16:03] LABS: Glucose, Whole Blood 265 mg/dL (60-115)
[2024-02-02] MEDS: Enoxaparin Sodium 40 MG/0.4 ML SYRINGE SUBCUT (16:14)
[2024-02-02 20:16] LABS: Glucose, Whole Blood 241 mg/dL (60-115)
[2024-02-02] MEDS: Insulin Glargine,Hum.rec.anlog 100 UNIT/ML 10 ML VIAL 20 UNIT SUBCUT (21:50)
[2024-02-03] VITALS (12 sets, daily range): BP systolic 99–167; BP diastolic 52–90; PULSE 82–90; RESP 16–18; TEMP 36.2–36.6; O2SAT 92–97
[2024-02-03] MEDS: oxyCODONE HCl Immed Release 5 MG TABLET PO ×3 (01:07→20:35)
--- NOTE | 2024-02-03 03:23 | PC.NURSE ---
Pt AOx3, flat affect, able to make needs known. See MAR for medication administration. Call hubbard within reach. Bed alarm on.
[2024-02-03] MEDS: cefuroxime axetiL 500 MG TABLET PO ×2 (04:20→16:49)
[2024-02-03 07:25] LABS: Glucose, Whole Blood 265 mg/dL (60-115)
[2024-02-03] MEDS: Folic Acid 1 MG TABLET PO (08:08)
[2024-02-03] MEDS: Insulin Lispro 100 UNIT/ML 3 ML VIAL SUBCUT ×4 (08:08→20:35)
[2024-02-03] MEDS: Acetaminophen 325 MG TABLET 650 MG PO (08:08)
[2024-02-03] MEDS: Multivitamin TABLET 1 TAB PO (08:08)
[2024-02-03] MEDS: Thiamine HCL 100 MG TABLET PO (08:08)
[2024-02-03] MEDS: Magnesium Oxide 400 MG TABLET PO ×2 (08:08→16:49)
[2024-02-03] MEDS: 0.9 % Sodium Chloride Flush 3 ML SYRINGE IVFLUSH ×2 (08:09→20:34)
[2024-02-03] MEDS: 0.9 % Sodium Chloride 1,000 ML 80 ML IVCONT ×2 (09:37→20:34)
--- NOTE | 2024-02-03 10:46 | MHC.CM.PN ---
Per MD rounds patient not medically cleared for dc. No change to dc plan. Auth pending for STR @ [facility].
[2024-02-03 11:14] LABS: Glucose, Whole Blood 237 mg/dL (60-115)
--- NOTE | 2024-02-03 14:11 | PM.CNNEP ---
History of Present Illness Reason for Consult Consult date: 02/03/24 Chief Complaint Chief complaint: Scrotal abscess History of Present Illness Narrative: 48 year old male with pertinent history of medication noncompliance, uncontrolled blood pressure, insulin-dependent diabetes mellitus, alcohol use disorder who presented to the emergency department for evaluation of generalized weakness and early alcohol withdrawal. He was found to have sepsis due to right lower extremity cellulitis/scrotal cellulitis. He underwent I&D of scrotal/perineal abscess by urology 01/26 & was seen by General surgery 01/31, no further surgical intervention required at this time. He is on cefuroxime. He has been having orthostatic hypotension & is off anti hypertensive medications. He has received IV fluids. He has protienuric CKD but had CONSTANCE which has improved. He also has been having diarrhea. Nephrology has been consulted to assist in his clinical care during his current hospital stay Review of Systems Review of Systems Yes all other systems are reviewed and are negative PMFSH Past Medical History Medical History Alcohol use disorder Hypertension Type 2 diabetes mellitus Family History Family history: reviewed and not pertinent Social History Social History Household Members: None Housing: Apartment Do you presently have visiting nurse or other home services: No Alcohol intake: current Alcohol intake frequency: 3 or more drinks per day Alcohol type: hard liquor Comment: medicated Patient Tobacco Use Status: Never used Tobacco Smoked in Last 30 Days: No Use of substances other than those prescribed or required for medical reasons: No Currently Displaying Signs/Symptoms of Drug Intoxication Withdrawal: No Have you been hit, kicked, punched, or otherwise hurt by someone within the past year? If so, by whom?: No Do you feel safe in your current relationship?: No Current Relationship Is there a partner from a previous relationship who is making you feel unsafe now?: No Are you made to feel afraid or neglected: No Are you DNR?: No Advance Directives: No Do you have a plan to hurt others: No Plan Recently lost weight without trying: No How much weight loss: Not applicable Eating poorly because of decreased appetite: No Nutrition screen score: 0 Nutrition Risks: No Nutritional Risk Poor oral hygiene: No service: No Meds Allergies Allergy/AdvReac Type Severity Reaction Status Date / Time No Known Allergies Allergy Verified 01/21/24 11:13 Active Medications: Current Medications Acetaminophen (Acetaminophen 325 Mg Tablet) 650 mg PO Q6H PRN PRN Reason: Pain, Mild (Pain Scale 1-3), fever or headache Last Admin: 02/03/24 08:08 Dose: 650 mg Calcium Carbonate (Calcium Carbonate 750 Mg Tab.Chew) 750 mg PO Q4H PRN PRN Reason: Heartburn Carvedilol (Carvedilol 6.25 Mg Tablet) 6.25 mg PO BID [facility]; Protocol Last Admin: 02/02/24 09:31 Dose: Not Given Cefuroxime Axetil (Cefuroxime Axetil 500 Mg Tablet) 500 mg PO Q12H [facility] Last Admin: 02/03/24 04:20 Dose: 500 mg Enoxaparin Sodium (Enoxaparin Sodium 40 Mg/0.4 Ml Syringe) 40 mg SUBCUT Q24H [facility] Last Admin: 02/02/24 16:14 Dose: 40 mg Folic Acid (Folic Acid 1 Mg Tablet) 1 mg PO DAILY [facility] Last Admin: 02/03/24 08:08 Dose: 1 mg Glucose (Glucose Gel 15 Gm Gel..Gram.) 15 gm PO Q15M PRN; Protocol PRN Reason: per Hypoglycemia Standing Ord. Dextrose (D10) 250 mls @ 750 mls/hr IV Q15M PRN; Protocol PRN Reason: per Hypoglycemia Standing Ord. Sodium Chloride (Ns) 1,000 mls @ 80 mls/hr IVCONT .[id number] [facility] Last Admin: 02/03/24 09:37 Dose: 80 mls/hr Insulin Glargine (Insulin Glargine,Hum.Rec.Anlog 100 Unit/Ml 10 Ml Vial) 20 unit SUBCUT BEDTIME [facility] Last Admin: 02/02/24 21:50 Dose: 20 unit Insulin Human Lispro (Insulin Lispro 100 Unit/Ml 3 Ml Vial) 0 unit SUBCUT QIDACHS [facility]; Protocol Last Admin: 02/03/24 12:06 Dose: 4 unit Magnesium Hydroxide (Milk Of Magnesia 30 Ml Oral.Susp) 30 ml PO DAILY PRN PRN Reason: Constipation Last Admin: 01/26/24 10:54 Dose: 30 ml Magnesium Oxide (Magnesium Oxide 400 Mg Tablet) 400 mg PO BIDPC [facility] Last Admin: 02/03/24 08:08 Dose: 400 mg Melatonin (Melatonin 3 Mg Tablet) 6 mg PO BEDTIME PRN PRN Reason: Insomnia Multivitamins/Vitamin C (Multivitamin Tablet) 1 tab PO DAILY [facility] Last Admin: 02/03/24 08:08 Dose: 1 tab Ondansetron HCl (Ondansetron Hcl 4 Mg/2 Ml Vial) 4 mg IVPUSH Q8H PRN PRN Reason: Nausea and Vomiting Oxycodone HCl (Oxycodone Hcl Immed Release 5 Mg Tablet) 5 mg PO Q4H PRN PRN Reason: Pain, Moderate(Pain Scale 4-6) Last Admin: 02/03/24 09:37 Dose: 5 mg Pharmacy Consult (Consult Rx Etoh Phenob Po Only) 1 each MISCELLANE ONCE PRN; Protocol PRN Reason: Consult order Pharmacy Consult (Consult Rx Etoh Phenob Po Only) 1 each MISCELLANE ONCE PRN; Protocol PRN Reason: Consult order Sodium Chloride (0.9 % Sodium Chloride Flush 3 Ml Syringe) 3 ml IVFLUSH QSHIFT [facility] Last Admin: 02/03/24 08:09 Dose: 3 ml Thiamine HCl (Thiamine Hcl 100 Mg Tablet) 100 mg PO DAILY [facility] Last Admin: 02/03/24 08:08 Dose: 100 mg Home Medications ?Medication ?Instructions ?Recorded ?Confirmed ?Last Taken ?Type cephalexin 500 mg capsule 500 mg PO Q8H 01/21/24 01/21/24 01/18/24 History Physical Exam Vital Signs: Last Vital Signs Temp 97.8 F 02/03/24 07:20 Pulse 84 02/03/24 08:31 Resp 18 02/03/24 07:20 BP 100/57 L 02/03/24 08:31 Pulse Ox 93 02/03/24 07:20 O2 Del Method Room Air 02/03/24 07:20 O2 Flow Rate 2 01/29/24 12:25 Oxygen Flow Rate 2 01/29/24 16:15 BMI result Body Mass Index 30.0 Const General: no acute distress Eyes EOM: EOMs intact bilaterally Neck Neck: Yes supple Resp Auscultation: diminished lung sounds Cardio Rate: regular rate GI Palpation (GI): Soft to palpation Neuro General: moves all extremities Results Lab Results 01/30/24 05:31 02/02/24 05:00 Lab results: Chemistry 02/02/24 05:00 Sodium 136 Potassium 4.0 Carbon Dioxide 26 BUN 17 H Creatinine 1.03 Calcium 9.7 Assessment and Plan (1) Proteinuria due to type 2 diabetes mellitus: Status: Acute (2) Orthostatic hypotension: Status: Acute (3) CKD stage 3 due to type 2 diabetes mellitus: Status: Acute Plan Shad had CONSTANCE due to sepsis which has been resolved He has proteinuria. I ordered urine protein creatinine ratio. Given his orthostasis, I ordered serum cortisol. All his antihypertensive medications are put on hold. He could receive intravenous fluids as needed. Continue current supportive care for now. He needs close follow-up with me in the office after hospital discharge. Procedures Date of Service Date of Service: 02/03/24
[2024-02-03 16:13] LABS: Glucose, Whole Blood 207 mg/dL (60-115)
[2024-02-03] MEDS: Enoxaparin Sodium 40 MG/0.4 ML SYRINGE SUBCUT (16:49)
--- NOTE | 2024-02-03 16:54 | HO.PM.IMPN ---
Subjective Subjective Date of Service: 02/03/24 Interval History: scrotal abscess,orthostatic hypotension Review of Systems still orthostatic , had some lightheadness no fevers Physical Exam Vital Signs: Vital Signs: Last Vital Signs Temp 97.9 F 02/03/24 15:50 Pulse 86 02/03/24 15:50 Resp 18 02/03/24 15:50 BP 157/85 H 02/03/24 15:50 Pulse Ox 97 02/03/24 15:50 O2 Del Method Room Air 02/03/24 15:50 O2 Flow Rate 2 01/29/24 12:25 Oxygen Flow Rate 2 01/29/24 16:15 BMI result Body Mass Index 30.0 Appearance: Alert.? Oriented X3.? cvs: [id number], [id number] , no murmur res: clear to auscultation ,no rhonchii or wheezing abd: no rebound or guarding ,nt, bs present. - seems similar, s/p scrotal I&D, wound with good granulation tissue, no necrosis/purulent drainage. No surrounding erythema. ext pulses present , no cyanosis . neuro: nonfocal. Objective Data Active Medications Acetaminophen (Acetaminophen 325 Mg Tablet) 650 mg PO Q6H PRN PRN Reason: Pain, Mild (Pain Scale 1-3), fever or headache Last Admin: 02/03/24 08:08 Dose: 650 mg Documented By: JENNY Calcium Carbonate (Calcium Carbonate 750 Mg Tab.Chew) 750 mg PO Q4H PRN PRN Reason: Heartburn Carvedilol (Carvedilol 6.25 Mg Tablet) 6.25 mg PO BID [facility]; Protocol Last Admin: 02/02/24 09:31 Dose: Not Given Documented By: JENNY Non-Admin Reason: low BP Cefuroxime Axetil (Cefuroxime Axetil 500 Mg Tablet) 500 mg PO Q12H [facility] Last Admin: 02/03/24 04:20 Dose: 500 mg Documented By: ENMANUEL Enoxaparin Sodium (Enoxaparin Sodium 40 Mg/0.4 Ml Syringe) 40 mg SUBCUT Q24H [facility] Last Admin: 02/02/24 16:14 Dose: 40 mg Documented By: JENNY Folic Acid (Folic Acid 1 Mg Tablet) 1 mg PO DAILY [facility] Last Admin: 02/03/24 08:08 Dose: 1 mg Documented By: JENNY Glucose (Glucose Gel 15 Gm Gel..Gram.) 15 gm PO Q15M PRN; Protocol PRN Reason: per Hypoglycemia Standing Ord. Dextrose (D10) 250 mls @ 750 mls/hr IV Q15M PRN; Protocol PRN Reason: per Hypoglycemia Standing Ord. Sodium Chloride (Ns) 1,000 mls @ 80 mls/hr IVCONT .[id number] [facility] Last Admin: 02/03/24 09:37 Dose: 80 mls/hr Documented By: JENNY Insulin Glargine (Insulin Glargine,Hum.Rec.Anlog 100 Unit/Ml 10 Ml Vial) 20 unit SUBCUT BEDTIME [facility] Last Admin: 02/02/24 21:50 Dose: 20 unit Documented By: ENMANUEL Insulin Human Lispro (Insulin Lispro 100 Unit/Ml 3 Ml Vial) 0 unit SUBCUT QIDACHS [facility]; Protocol Last Admin: 02/03/24 12:06 Dose: 4 unit Documented By: JENNY Magnesium Hydroxide (Milk Of Magnesia 30 Ml Oral.Susp) 30 ml PO DAILY PRN PRN Reason: Constipation Last Admin: 01/26/24 10:54 Dose: 30 ml Documented By: BROPankaj Magnesium Oxide (Magnesium Oxide 400 Mg Tablet) 400 mg PO BIDPC [facility] Last Admin: 02/03/24 08:08 Dose: 400 mg Documented By: JENNY Melatonin (Melatonin 3 Mg Tablet) 6 mg PO BEDTIME PRN PRN Reason: Insomnia Multivitamins/Vitamin C (Multivitamin Tablet) 1 tab PO DAILY [facility] Last Admin: 02/03/24 08:08 Dose: 1 tab Documented By: JENNY Ondansetron HCl (Ondansetron Hcl 4 Mg/2 Ml Vial) 4 mg IVPUSH Q8H PRN PRN Reason: Nausea and Vomiting Oxycodone HCl (Oxycodone Hcl Immed Release 5 Mg Tablet) 5 mg PO Q4H PRN PRN Reason: Pain, Moderate(Pain Scale 4-6) Last Admin: 02/03/24 09:37 Dose: 5 mg Documented By: JENNY Pharmacy Consult (Consult Rx Etoh Phenob Po Only) 1 each MISCELLANE ONCE PRN; Protocol PRN Reason: Consult order Pharmacy Consult (Consult Rx Etoh Phenob Po Only) 1 each MISCELLANE ONCE PRN; Protocol PRN Reason: Consult order Sodium Chloride (0.9 % Sodium Chloride Flush 3 Ml Syringe) 3 ml IVFLUSH QSHIFT [facility] Last Admin: 02/03/24 15:48 Dose: Not Given Documented By: JENNY Non-Admin Reason: IV Running Thiamine HCl (Thiamine Hcl 100 Mg Tablet) 100 mg PO DAILY [facility] Last Admin: 02/03/24 08:08 Dose: 100 mg Documented By: JENNY Labs 01/30/24 05:31 02/02/24 05:00 Labs: Laboratory Results - last 24 hr 02/02/24 02/03/24 02/03/24 20:13 07:19 11:07 POC Glucose 241 H 265 H 237 H 02/03/24 16:09 POC Glucose 207 H Assessment and Plan (1) Abscess of scrotum: Status: Acute Plan This is a 48 yaer old male with pertinent history of medication noncompliance, uncontrolled blood pressure, insulin-dependent diabetes mellitus, alcohol use disorder who presents to the emergency department for evaluation of generalized weakness and early alcohol withdrawal Orthostatic hypotension 01/31 SBP 127-->high 80's moniter orthostatics [place] stockings.hold coreg, ivf NS. nephro eval. Sepsis due to right lower extremity cellulitis/scrotal cellulitis s/p I&D of scrotal/perineal abscess by urology 01/26 Seen by General surgery 01/31, no further surgical intervention required at this time. Outpt wound clinic, continue local wound care Zosyn IV changed to cefuroxime. Wound culture growing e coli blood cultures negative to date ID consult>cefuroxime 14 days (last dose 02/14) Acute kidney injury- Resolved . s/p IV fluids vancomycin stopped follow renal function Alcohol use disorder with concerns for alcohol withdrawal CIWA remains 0 will discontinue CIWA Seen by addiction Medicine team, resources provided Hypertensive urgency. Resolved Continue Norvasc, carvedilol adjust as indicated by clinical presentation and renal function Diabetes mellitus type 2, uncontrolled hba1c 11.0 lispro correctional scale basal insulin as clinically indicated adjust therapies as indicated diarrhea gi panel negative cdif PCR + but toxin negative - likely colonization diarrhea resolved Chronic Normocytic anemia H/H stable, above transfusion threshold Lovenox Full code DISPO STR when bed available Requires ongoing hospitalization for IV antibiotics to treat cellulitis/postoperative care. Awaiting placement Quality Stroke Does the patient have a stroke diagnosis?: No VTE Prior VTE?: No VTE Risk Level:: Medical - moderate - high VTE Device Contraindication: Treatment Not Indicated VTE Drug Contraindication: N/A - Med Ordered
[2024-02-03 19:59] LABS: Glucose, Whole Blood 276 mg/dL (60-115)
[2024-02-03] MEDS: Insulin Glargine,Hum.rec.anlog 100 UNIT/ML 10 ML VIAL 20 UNIT SUBCUT (20:35)
[2024-02-04] VITALS (7 sets, daily range): BP systolic 96–168; BP diastolic 50–88; PULSE 79–87; RESP 14–20; TEMP 35.9–36.9; O2SAT 93–96
[2024-02-04] MEDS: oxyCODONE HCl Immed Release 5 MG TABLET PO ×3 (04:01→21:03)
[2024-02-04] MEDS: cefuroxime axetiL 500 MG TABLET PO ×2 (04:01→16:17)
[2024-02-04 04:35] LABS: Creatinine Urine 24.62 mg/dL; Protein/Creatinine Ratio, Ur 1.26 (<0.2); Total Protein Urine Random 31 mg/dL (<12)
[2024-02-04 06:50] LABS: Cortisol Random 7.4 ug/dL
[2024-02-04 08:01] LABS: Glucose, Whole Blood 179 mg/dL (60-115)
[2024-02-04] MEDS: Thiamine HCL 100 MG TABLET PO (08:07)
[2024-02-04] MEDS: Folic Acid 1 MG TABLET PO (08:07)
[2024-02-04] MEDS: Magnesium Oxide 400 MG TABLET PO ×2 (08:07→16:17)
[2024-02-04] MEDS: Multivitamin TABLET 1 TAB PO (08:07)
[2024-02-04] MEDS: Insulin Lispro 100 UNIT/ML 3 ML VIAL SUBCUT ×4 (08:08→20:57)
[2024-02-04] MEDS: 0.9 % Sodium Chloride 1,000 ML 80 ML IVCONT (09:22)
--- NOTE | 2024-02-04 10:15 | P.PNNP_ITS ---
Subjective Subjective Date of Service: 02/04/24 Interval history: scrotal abscess,orthostatic hypotension Physical Exam 2 Vital Signs: Vital Signs: Last Vital Signs Temp 97.1 F 02/04/24 07:34 Pulse 87 02/04/24 09:40 Resp 14 02/04/24 07:34 BP 96/50 L 02/04/24 09:40 Pulse Ox 95 02/04/24 07:34 O2 Del Method Room Air 02/04/24 07:34 O2 Flow Rate 2 01/29/24 12:25 Oxygen Flow Rate 2 01/29/24 16:15 BMI result Body Mass Index 30.0 Const: General: no acute distress Eyes: EOM: EOMs intact bilaterally Neck: Neck: Yes supple Resp: Auscultation: diminished lung sounds Cardio: Rate: regular rate GI: Palpation (GI): Soft to palpation Neuro: General: moves all extremities Objective Data Labs 01/30/24 05:31 02/02/24 05:00 Labs: Laboratory Results - last 24 hr 02/03/24 02/03/24 02/03/24 11:07 16:09 19:55 POC Glucose 237 H 207 H 276 H Random Cortisol U Random Total Protein Urine Creatinine Protein/Creatinin Ratio 02/04/24 02/04/24 02/04/24 04:05 05:14 07:40 POC Glucose 179 H Random Cortisol 7.4 U Random Total Protein 31 H Urine Creatinine 24.62 Protein/Creatinin Ratio 1.26 H Microbiology Microbiology Results: Microbiology 01/27/24 Unknown Scrotum Gram Stain - Final 01/27/24 Unknown Scrotum Routine Culture - Final Escherichia coli 01/22/24 09:55 Blood - Venous Blood Culture - Final No growth after 5 days. 01/22/24 09:40 Blood - Venous Blood Culture - Final No growth after 5 days. 01/21/24 13:05 Blood - Venous Blood Culture - Final No growth after 5 days. 01/21/24 13:05 Blood - Venous Blood Culture - Final No growth after 5 days. Procedures Date of Service Date of Service: 02/04/24 Assessment & Plan Assessment and plan (1) Proteinuria due to type 2 diabetes mellitus: Status: Acute (2) Orthostatic hypotension: Status: Acute (3) CKD stage 3 due to type 2 diabetes mellitus: Status: Acute Plan Shad had CONSTANCE due to sepsis which has been resolved He has proteinuria. urine protein creatinine ratio is 1.26 Supine HTN with Orthostatic hypotension USe short acting agents like CAptopril at night - when he is supine All take precautions including had an elevation at 30 degrees, tight stockings. serum cortisol. Lvels at 7.4 No need for further IV fluid Continue current supportive care for now. He needs close follow-up in the office after hospital discharge. Time Spent With Patient Time: Total time managing care of this patient today ____ minutes. Progress Note: Quality Stroke Does the patient have a stroke diagnosis?: No
[2024-02-04 11:51] LABS: Glucose, Whole Blood 254 mg/dL (60-115)
--- NOTE | 2024-02-04 13:54 | HO.PM.IMPN ---
Subjective Subjective Date of Service: 02/04/24 Interval History: sacrotal abscess,orthostatic hypotension Review of Systems orthostatic symptoms somewhat improving no fever or chills Physical Exam Vital Signs: Vital Signs: Last Vital Signs Temp 97.1 F 02/04/24 07:34 Pulse 87 02/04/24 09:40 Resp 14 02/04/24 07:34 BP 96/50 L 02/04/24 09:40 Pulse Ox 95 02/04/24 07:34 O2 Del Method Room Air 02/04/24 07:34 O2 Flow Rate 2 01/29/24 12:25 Oxygen Flow Rate 2 01/29/24 16:15 BMI result Body Mass Index 30.0 Appearance: Alert.? Oriented X3.? cvs: rrr, [id number] , no murmur res: clear to auscultation ,no rhonchii or wheezing abd: no rebound or guarding ,nt, bs present. - seems similar, s/p scrotal I&D, wound with good granulation tissue, no necrosis/purulent drainage. No surrounding erythema. ext pulses present , no cyanosis . neuro: nonfocal. Objective Data Active Medications Acetaminophen (Acetaminophen 325 Mg Tablet) 650 mg PO Q6H PRN PRN Reason: Pain, Mild (Pain Scale 1-3), fever or headache Last Admin: 02/03/24 08:08 Dose: 650 mg Documented By: JENNY Calcium Carbonate (Calcium Carbonate 750 Mg Tab.Chew) 750 mg PO Q4H PRN PRN Reason: Heartburn Carvedilol (Carvedilol 6.25 Mg Tablet) 6.25 mg PO BID [facility]; Protocol Last Admin: 02/02/24 09:31 Dose: Not Given Documented By: JENNY Non-Admin Reason: low BP Cefuroxime Axetil (Cefuroxime Axetil 500 Mg Tablet) 500 mg PO Q12H [facility] Last Admin: 02/04/24 04:01 Dose: 500 mg Documented By: RICHARD Enoxaparin Sodium (Enoxaparin Sodium 40 Mg/0.4 Ml Syringe) 40 mg SUBCUT Q24H [facility] Last Admin: 02/03/24 16:49 Dose: 40 mg Documented By: JENNY Folic Acid (Folic Acid 1 Mg Tablet) 1 mg PO DAILY [facility] Last Admin: 02/04/24 08:07 Dose: 1 mg Documented By: JENNY Glucose (Glucose Gel 15 Gm Gel..Gram.) 15 gm PO Q15M PRN; Protocol PRN Reason: per Hypoglycemia Standing Ord. Dextrose (D10) 250 mls @ 750 mls/hr IV Q15M PRN; Protocol PRN Reason: per Hypoglycemia Standing Ord. Sodium Chloride (Ns) 1,000 mls @ 80 mls/hr IVCONT .[id number] [facility] Last Admin: 02/04/24 09:22 Dose: 80 mls/hr Documented By: JENNY Insulin Glargine (Insulin Glargine,Hum.Rec.Anlog 100 Unit/Ml 10 Ml Vial) 20 unit SUBCUT BEDTIME [facility] Last Admin: 02/03/24 20:35 Dose: 20 unit Documented By: RICHARD Insulin Human Lispro (Insulin Lispro 100 Unit/Ml 3 Ml Vial) 0 unit SUBCUT QIDACHS [facility]; Protocol Last Admin: 02/04/24 12:21 Dose: 6 unit Documented By: JENNY Magnesium Hydroxide (Milk Of Magnesia 30 Ml Oral.Susp) 30 ml PO DAILY PRN PRN Reason: Constipation Last Admin: 01/26/24 10:54 Dose: 30 ml Documented By: BROPankaj Magnesium Oxide (Magnesium Oxide 400 Mg Tablet) 400 mg PO BIDPC [facility] Last Admin: 02/04/24 08:07 Dose: 400 mg Documented By: JENNY Melatonin (Melatonin 3 Mg Tablet) 6 mg PO BEDTIME PRN PRN Reason: Insomnia Multivitamins/Vitamin C (Multivitamin Tablet) 1 tab PO DAILY [facility] Last Admin: 02/04/24 08:07 Dose: 1 tab Documented By: JENNY Ondansetron HCl (Ondansetron Hcl 4 Mg/2 Ml Vial) 4 mg IVPUSH Q8H PRN PRN Reason: Nausea and Vomiting Oxycodone HCl (Oxycodone Hcl Immed Release 5 Mg Tablet) 5 mg PO Q4H PRN PRN Reason: Pain, Moderate(Pain Scale 4-6) Last Admin: 02/04/24 04:01 Dose: 5 mg Documented By: RICHARD Pharmacy Consult (Consult Rx Etoh Phenob Po Only) 1 each MISCELLANE ONCE PRN; Protocol PRN Reason: Consult order Pharmacy Consult (Consult Rx Etoh Phenob Po Only) 1 each MISCELLANE ONCE PRN; Protocol PRN Reason: Consult order Sodium Chloride (0.9 % Sodium Chloride Flush 3 Ml Syringe) 3 ml IVFLUSH QSHIFT [facility] Last Admin: 02/04/24 08:09 Dose: Not Given Documented By: JENNY Non-Admin Reason: IV Running Thiamine HCl (Thiamine Hcl 100 Mg Tablet) 100 mg PO DAILY [facility] Last Admin: 02/04/24 08:07 Dose: 100 mg Documented By: JENNY Labs 01/30/24 05:31 02/02/24 05:00 Labs: Laboratory Results - last 24 hr 02/03/24 02/03/24 02/04/24 16:09 19:55 04:05 POC Glucose 207 H 276 H Random Cortisol U Random Total Protein 31 H Urine Creatinine 24.62 Protein/Creatinin Ratio 1.26 H 02/04/24 02/04/24 02/04/24 05:14 07:40 11:46 POC Glucose 179 H 254 H Random Cortisol 7.4 U Random Total Protein Urine Creatinine Protein/Creatinin Ratio Assessment and Plan (1) Orthostatic hypotension: Status: Acute (2) Cellulitis, scrotum: Status: Acute (3) Abscess of scrotum: Status: Acute Plan This is a 48 yaer old male with pertinent history of medication noncompliance, uncontrolled blood pressure, insulin-dependent diabetes mellitus, alcohol use disorder who presents to the emergency department for evaluation of generalized weakness and early alcohol withdrawal Orthostatic hypotension symptoms somewhat improving kingston stockings. stopped coreg , also will stop fluids ,moniter bp off fluids nephro eval-noted,rec to add captopril small dose at night if needed for supine htn Sepsis due to right lower extremity cellulitis/scrotal cellulitis s/p I&D of scrotal/perineal abscess by urology 01/26 Seen by General surgery 01/31, no further surgical intervention required at this time. Outpt wound clinic, continue local wound care Zosyn IV changed to cefuroxime. Wound culture growing e coli blood cultures negative to date ID consult>cefuroxime 14 days (last dose 02/14) Acute kidney injury- Resolved . s/p IV fluids vancomycin stopped follow renal function Alcohol use disorder with concerns for alcohol withdrawal CIWA remains 0 will discontinue CIWA Seen by addiction Medicine team, resources provided HTn : blood pressure flacutaing currently off Norvasc, carvedilol nephro recomended to add captopril . Diabetes mellitus type 2, uncontrolled hba1c 11.0 lispro correctional scale basal insulin as clinically indicated adjust therapies as indicated diarrhea gi panel negative cdif PCR + but toxin negative - likely colonization diarrhea resolved Chronic Normocytic anemia H/H stable, above transfusion threshold Lovenox Full code DISPO STR when bed available Requires ongoing hospitalization for IV antibiotics to treat cellulitis/postoperative care ,also need close monitering for orthosattic hypotension/symptoms, Awaiting placement Quality Stroke Does the patient have a stroke diagnosis?: No VTE Prior VTE?: No VTE Risk Level:: Medical - moderate - high VTE Device Contraindication: Treatment Not Indicated VTE Drug Contraindication: N/A - Med Ordered
[2024-02-04 16:13] LABS: Glucose, Whole Blood 209 mg/dL (60-115)
[2024-02-04] MEDS: Enoxaparin Sodium 40 MG/0.4 ML SYRINGE SUBCUT (16:25)
[2024-02-04] MEDS: 0.9 % Sodium Chloride Flush 3 ML SYRINGE IVFLUSH ×2 (16:25→20:59)
[2024-02-04 20:16] LABS: Glucose, Whole Blood 221 mg/dL (60-115)
--- NOTE | 2024-02-04 20:51 | PM.EVENT ---
Event Note Date of Service: 02/04/24 Event Note: 8:26 PM - Contacted to notify patient is c/o itchiness and rash. I evaluated patient. He c/o itchiness throughout this body over the last 2 days. He has an e erythematous rash over the right antecubital area which is very demarcated (square-like) that is consistent with the adhesive placed from a prior IV access. He is a mild maculopapular rash over the anterior aspect of the left forearm and left leg. No rash noted in the truck, face and right leg. It could be secondary to medications such oxycodone and cefuroxime as well as contact dermatitis to the adhesive. We will order Benadryl PO, hold oxycodone for now (as it the latest med added) and continue to monitor the rash for now. Time Spent With Patient Time: Total time managing care of this patient today ____ minutes.
[2024-02-04] MEDS: diphenhydrAMINE HCL 25 MG CAPSULE 50 MG PO (20:54)
[2024-02-04] MEDS: Insulin Glargine,Hum.rec.anlog 100 UNIT/ML 10 ML VIAL 20 UNIT SUBCUT (20:57)
[2024-02-05] VITALS (8 sets, daily range): BP systolic 83–185; BP diastolic 52–98; PULSE 80–97; RESP 12–18; TEMP 36.1–36.6; O2SAT 93–96
[2024-02-05] MEDS: cefuroxime axetiL 500 MG TABLET PO ×2 (05:51→15:38)
[2024-02-05 07:57] LABS: Glucose, Whole Blood 197 mg/dL (60-115)
[2024-02-05] MEDS: Insulin Lispro 100 UNIT/ML 3 ML VIAL SUBCUT ×4 (08:45→21:29)
[2024-02-05] MEDS: Multivitamin TABLET 1 TAB PO (09:09)
[2024-02-05] MEDS: Ibuprofen 600 MG TABLET PO (09:09)
[2024-02-05] MEDS: Thiamine HCL 100 MG TABLET PO (09:09)
[2024-02-05] MEDS: Folic Acid 1 MG TABLET PO (09:09)
[2024-02-05] MEDS: Magnesium Oxide 400 MG TABLET PO ×2 (09:09→17:44)
[2024-02-05] MEDS: Acetaminophen 325 MG TABLET 975 MG PO ×3 (09:10→21:47)
[2024-02-05] MEDS: 0.9 % Sodium Chloride Flush 3 ML SYRINGE IVFLUSH ×2 (09:10→15:39)
[2024-02-05 11:02] LABS: Glucose, Whole Blood 283 mg/dL (60-115)
[2024-02-05] MEDS: captopriL 25 MG TABLET 6.25 MG PO (11:18)
[2024-02-05] MEDS: diphenhydrAMINE HCL 25 MG CAPSULE 50 MG PO (11:18)
--- NOTE | 2024-02-05 13:16 | P.PNNP_ITS ---
Subjective Subjective Date of Service: 02/05/24 Interval history: Events noted; Proteinuric; Has orthostatic hypotension Physical Exam 2 Vital Signs: Vital Signs: Last Vital Signs Temp 98 F 02/05/24 10:54 Pulse 97 02/05/24 10:54 Resp 12 02/05/24 10:54 BP 83/52 L 02/05/24 11:47 Pulse Ox 94 02/05/24 10:54 O2 Del Method Room Air 02/05/24 10:54 O2 Flow Rate 2 01/29/24 12:25 Oxygen Flow Rate 2 01/29/24 16:15 BMI result Body Mass Index 30.0 Const: General: no acute distress Eyes: EOM: EOMs intact bilaterally Resp: Auscultation: diminished lung sounds Cardio: Rate: regular rate GI: Palpation (GI): Soft to palpation Neuro: General: moves all extremities Objective Data Labs 01/30/24 05:31 02/02/24 05:00 Labs: Laboratory Results - last 24 hr 02/04/24 02/04/24 02/05/24 16:09 20:12 07:49 POC Glucose 209 H 221 H 197 H 02/05/24 10:58 POC Glucose 283 H Microbiology Microbiology Results: Microbiology 01/27/24 Unknown Scrotum Gram Stain - Final 01/27/24 Unknown Scrotum Routine Culture - Final Escherichia coli 01/22/24 09:55 Blood - Venous Blood Culture - Final No growth after 5 days. 01/22/24 09:40 Blood - Venous Blood Culture - Final No growth after 5 days. 01/21/24 13:05 Blood - Venous Blood Culture - Final No growth after 5 days. 01/21/24 13:05 Blood - Venous Blood Culture - Final No growth after 5 days. Procedures Date of Service Date of Service: 02/05/24 Assessment & Plan Assessment and plan (1) CKD stage 3 due to type 2 diabetes mellitus: Status: Acute (2) Orthostatic hypotension: Status: Acute (3) Proteinuria due to type 2 diabetes mellitus: Status: Acute Plan Shad had CONSTANCE due to sepsis which has been resolved He has proteinuria. urine protein creatinine ratio is 1.26 Supine HTN with Orthostatic hypotension Use short acting agents like Captopril when he is supine All take precautions including had an elevation at 30 degrees, tight stockings. serum cortisol. Levels at 7.4;Continue current supportive care for now. He needs close follow-up in the office after hospital discharge Progress Note: Quality Stroke Does the patient have a stroke diagnosis?: No
--- NOTE | 2024-02-05 14:10 | MHC.CM.PN ---
Per MD rounds patient is not medically cleared for dc. CM reached out to [facility] liaison via [employer] and telephone x4 re: insurance auth. Patient may be cleared over the weekend. No response. CM will continue to follow.
[2024-02-05] MEDS: HYDROmorphone HCl 2 MG TABLET 0.5 MG PO (15:39)
[2024-02-05] MEDS: Enoxaparin Sodium 40 MG/0.4 ML SYRINGE SUBCUT (15:39)
--- NOTE | 2024-02-05 15:58 | P.PNIM_ITS ---
Subjective Subjective Date of Service: 02/05/24 Interval History: sacrotal abscess,orthostatic hypotension Review of Systems orthostatic still but symptoms improving no fever or chills Physical Exam 2 Vital Signs: Vital Signs: Last Vital Signs Temp 96.9 F 02/05/24 15:14 Pulse 80 02/05/24 15:14 Resp 18 02/05/24 15:14 BP 154/98 H 02/05/24 15:14 Pulse Ox 96 02/05/24 15:14 O2 Del Method Room Air 02/05/24 15:14 O2 Flow Rate 2 01/29/24 12:25 Oxygen Flow Rate 2 01/29/24 16:15 BMI result Body Mass Index 30.0 Appearance: Alert.? Oriented X3.? cvs: rrr, [id number] , no murmur res: clear to auscultation ,no rhonchii or wheezing abd: no rebound or guarding ,nt, bs present. - seems similar, s/p scrotal I&D, wound with good granulation tissue, no necrosis/purulent drainage. No surrounding erythema. ext pulses present , no cyanosis . neuro: nonfocal. Objective Data Active Medications Acetaminophen (Acetaminophen 325 Mg Tablet) 975 mg PO Q6H [facility] Last Admin: 02/05/24 15:38 Dose: 975 mg Documented By: ЕЛЕНА Calcium Carbonate (Calcium Carbonate 750 Mg Tab.Chew) 750 mg PO Q4H PRN PRN Reason: Heartburn Captopril (Captopril 25 Mg Tablet) 6.25 mg PO ONCE [facility]; Protocol Last Admin: 02/05/24 11:18 Dose: 6.25 mg Documented By: ЕЛЕНА Captopril (Captopril 12.5 Mg Tablet) 6.25 mg PO BID [facility]; Protocol Cefuroxime Axetil (Cefuroxime Axetil 500 Mg Tablet) 500 mg PO Q12H [facility] Last Admin: 02/05/24 15:38 Dose: 500 mg Documented By: ЕЛЕНА Diphenhydramine HCl (Diphenhydramine Hcl 25 Mg Capsule) 50 mg PO Q6H PRN PRN Reason: Itching Last Admin: 02/05/24 11:18 Dose: 50 mg Documented By: ЕЛЕНА Enoxaparin Sodium (Enoxaparin Sodium 40 Mg/0.4 Ml Syringe) 40 mg SUBCUT Q24H [facility] Last Admin: 02/05/24 15:39 Dose: 40 mg Documented By: ЕЛЕНА Folic Acid (Folic Acid 1 Mg Tablet) 1 mg PO DAILY [facility] Last Admin: 02/05/24 09:09 Dose: 1 mg Documented By: ЕЛЕНА Glucose (Glucose Gel 15 Gm Gel..Gram.) 15 gm PO Q15M PRN; Protocol PRN Reason: per Hypoglycemia Standing Ord. Hydromorphone HCl (Hydromorphone Hcl 2 Mg Tablet) 0.5 mg PO Q4H PRN PRN Reason: Pain, Mild (Pain Scale 1-3) Last Admin: 02/05/24 15:39 Dose: 0.5 mg Documented By: ЕЛЕНА Dextrose (D10) 250 mls @ 750 mls/hr IV Q15M PRN; Protocol PRN Reason: per Hypoglycemia Standing Ord. Insulin Glargine (Insulin Glargine,Hum.Rec.Anlog 100 Unit/Ml 10 Ml Vial) 25 unit SUBCUT BEDTIME [facility] Insulin Human Lispro (Insulin Lispro 100 Unit/Ml 3 Ml Vial) 0 unit SUBCUT QIDACHS [facility]; Protocol Last Admin: 02/05/24 11:57 Dose: 6 unit Documented By: ЕЛЕНА Magnesium Hydroxide (Milk Of Magnesia 30 Ml Oral.Susp) 30 ml PO DAILY PRN PRN Reason: Constipation Last Admin: 01/26/24 10:54 Dose: 30 ml Documented By: SENTHIL Magnesium Oxide (Magnesium Oxide 400 Mg Tablet) 400 mg PO BIDPC [facility] Last Admin: 02/05/24 09:09 Dose: 400 mg Documented By: ЕЛЕНА Multivitamins/Vitamin C (Multivitamin Tablet) 1 tab PO DAILY [facility] Last Admin: 02/05/24 09:09 Dose: 1 tab Documented By: ЕЛЕНА Ondansetron HCl (Ondansetron Hcl 4 Mg/2 Ml Vial) 4 mg IVPUSH Q8H PRN PRN Reason: Nausea and Vomiting Pharmacy Consult (Consult Rx Etoh Phenob Po Only) 1 each MISCELLANE ONCE PRN; Protocol PRN Reason: Consult order Pharmacy Consult (Consult Rx Etoh Phenob Po Only) 1 each MISCELLANE ONCE PRN; Protocol PRN Reason: Consult order Sodium Chloride (0.9 % Sodium Chloride Flush 3 Ml Syringe) 3 ml IVFLUSH QSHIFT [facility] Last Admin: 02/05/24 15:39 Dose: 3 ml Documented By: ЕЛЕНА Thiamine HCl (Thiamine Hcl 100 Mg Tablet) 100 mg PO DAILY [facility] Last Admin: 02/05/24 09:09 Dose: 100 mg Documented By: ЕЛЕНА Labs 01/30/24 05:31 02/02/24 05:00 Labs: Laboratory Results - last 24 hr 02/04/24 02/04/24 02/05/24 16:09 20:12 07:49 POC Glucose 209 H 221 H 197 H 02/05/24 10:58 POC Glucose 283 H Assessment and Plan (1) Orthostatic hypotension: Status: Acute (2) Abscess of scrotum: Status: Acute Assessment and Plan: 48 yaer old male with pertinent history of medication noncompliance, uncontrolled blood pressure, insulin-dependent diabetes mellitus, alcohol use disorder who presents to the emergency department for evaluation of generalized weakness and early alcohol withdrawal Orthostatic hypotension symptoms somewhat improving [place]ston stockings. stopped coreg , also will stop fluids ,moniter bp off fluids nephro eval-noted,rec to add captopril small dose at night if needed for supine htn Sepsis due to right lower extremity cellulitis/scrotal cellulitis s/p I&D of scrotal/perineal abscess by urology 01/26 Seen by General surgery 01/31, no further surgical intervention required at this time. Outpt wound clinic, continue local wound care Zosyn IV changed to cefuroxime. Wound culture growing e coli blood cultures negative to date ID consult>cefuroxime 14 days (last dose 02/14) Acute kidney injury- Resolved . s/p IV fluids vancomycin stopped follow renal function Alcohol use disorder with concerns for alcohol withdrawal CIWA remains 0 will discontinue CIWA Seen by addiction Medicine team, resources provided HTn : blood pressure flacutaing currently off Norvasc, carvedilol nephro recomended to add captopril . Diabetes mellitus type 2, uncontrolled hba1c 11.0 lispro correctional scale basal insulin as clinically indicated adjust therapies as indicated diarrhea gi panel negative cdif PCR + but toxin negative - likely colonization diarrhea resolved Chronic Normocytic anemia H/H stable, above transfusion threshold Lovenox Full code DISPO STR when bed available Requires ongoing hospitalization for IV antibiotics to treat cellulitis/postoperative care ,also need close monitering for orthosattic hypotension/symptoms, Awaiting placemen Quality Stroke Does the patient have a stroke diagnosis?: No VTE Prior VTE?: No VTE Risk Level:: Medical - moderate - high VTE Device Contraindication: Treatment Not Indicated VTE Drug Contraindication: N/A - Med Ordered
[2024-02-05 16:26] LABS: Glucose, Whole Blood 240 mg/dL (60-115)
[2024-02-05 19:51] LABS: Glucose, Whole Blood 260 mg/dL (60-115)
[2024-02-05] MEDS: Insulin Glargine,Hum.rec.anlog 100 UNIT/ML 10 ML VIAL 25 UNIT SUBCUT (21:30)
[2024-02-06] MEDS: 0.9 % Sodium Chloride Flush 3 ML SYRINGE IVFLUSH ×3 (00:30→16:19)
[2024-02-06] MEDS: HYDROmorphone HCl 2 MG TABLET 0.5 MG PO ×2 (03:56→16:24)
[2024-02-06] MEDS: cefuroxime axetiL 500 MG TABLET PO ×2 (03:56→16:17)
[2024-02-06] MEDS: Acetaminophen 325 MG TABLET 975 MG PO ×4 (03:57→20:18)
[2024-02-06 07:31] LABS: Glucose, Whole Blood 173 mg/dL (60-115)
[2024-02-06 08:03] VITALS: BP 150/80; PULSE 82; RESP 12; TEMP 36.1; O2SAT 97
[2024-02-06] MEDS: Magnesium Oxide 400 MG TABLET PO ×2 (08:47→16:17)
[2024-02-06] MEDS: Insulin Lispro 100 UNIT/ML 3 ML VIAL SUBCUT ×4 (08:47→20:23)
[2024-02-06] MEDS: Multivitamin TABLET 1 TAB PO (08:48)
[2024-02-06] MEDS: Folic Acid 1 MG TABLET PO (08:48)
[2024-02-06] MEDS: Thiamine HCL 100 MG TABLET PO (08:48)
[2024-02-06 11:31] LABS: Glucose, Whole Blood 216 mg/dL (60-115)
--- NOTE | 2024-02-06 12:03 | HO.PM.IMPN ---
Subjective Subjective Date of Service: 02/06/24 Interval History: spine htn/orthostatic hypotension Review of Systems seems improving no new c/o Physical Exam Vital Signs: Vital Signs: Last Vital Signs Temp 96.9 F 02/06/24 08:03 Pulse 82 02/06/24 08:03 Resp 12 02/06/24 08:03 BP 150/80 H 02/06/24 08:03 Pulse Ox 97 02/06/24 08:03 O2 Del Method Room Air 02/06/24 08:03 O2 Flow Rate 2 01/29/24 12:25 Oxygen Flow Rate 2 01/29/24 16:15 BMI result Body Mass Index 30.0 Appearance: Alert.? Oriented X3.? cvs: [id number], [id number] , no murmur res: clear to auscultation ,no rhonchii or wheezing abd: no rebound or guarding ,nt, bs present. - sacrotal wound with good granulation tissue, no necrosis/purulent drainage. No surrounding erythema. ext pulses present , no cyanosis . neuro: nonfocal. Objective Data Active Medications Acetaminophen (Acetaminophen 325 Mg Tablet) 975 mg PO Q6H [facility] Last Admin: 02/06/24 08:47 Dose: 975 mg Documented By: DILCIA Calcium Carbonate (Calcium Carbonate 750 Mg Tab.Chew) 750 mg PO Q4H PRN PRN Reason: Heartburn Captopril (Captopril 25 Mg Tablet) 6.25 mg PO ONCE [facility]; Protocol Last Admin: 02/05/24 11:18 Dose: 6.25 mg Documented By: ЕЛЕНА Captopril (Captopril 12.5 Mg Tablet) 6.25 mg PO BID [facility]; Protocol Last Admin: 02/06/24 08:47 Dose: 6.25 mg Documented By: DILCIA Cefuroxime Axetil (Cefuroxime Axetil 500 Mg Tablet) 500 mg PO Q12H [facility] Last Admin: 02/06/24 03:56 Dose: 500 mg Documented By: NAUMOC Diphenhydramine HCl (Diphenhydramine Hcl 25 Mg Capsule) 50 mg PO Q6H PRN PRN Reason: Itching Last Admin: 02/05/24 11:18 Dose: 50 mg Documented By: ЕЛЕНА Enoxaparin Sodium (Enoxaparin Sodium 40 Mg/0.4 Ml Syringe) 40 mg SUBCUT Q24H [facility] Last Admin: 02/05/24 15:39 Dose: 40 mg Documented By: ЕЛЕНА Folic Acid (Folic Acid 1 Mg Tablet) 1 mg PO DAILY [facility] Last Admin: 02/06/24 08:48 Dose: 1 mg Documented By: DILCIA Glucose (Glucose Gel 15 Gm Gel..Gram.) 15 gm PO Q15M PRN; Protocol PRN Reason: per Hypoglycemia Standing Ord. Hydromorphone HCl (Hydromorphone Hcl 2 Mg Tablet) 0.5 mg PO Q4H PRN PRN Reason: Pain, Mild (Pain Scale 1-3) Last Admin: 02/06/24 03:56 Dose: 0.5 mg Documented By: VIDAL Dextrose (D10) 250 mls @ 750 mls/hr IV Q15M PRN; Protocol PRN Reason: per Hypoglycemia Standing Ord. Insulin Glargine (Insulin Glargine,Hum.Rec.Anlog 100 Unit/Ml 10 Ml Vial) 25 unit SUBCUT BEDTIME [facility] Last Admin: 02/05/24 21:30 Dose: 25 unit Documented By: VIDAL Insulin Human Lispro (Insulin Lispro 100 Unit/Ml 3 Ml Vial) 0 unit SUBCUT QIDACHS [facility]; Protocol Last Admin: 02/06/24 08:47 Dose: 2 unit Documented By: DILCIA Magnesium Hydroxide (Milk Of Magnesia 30 Ml Oral.Susp) 30 ml PO DAILY PRN PRN Reason: Constipation Last Admin: 01/26/24 10:54 Dose: 30 ml Documented By: DOBROB Magnesium Oxide (Magnesium Oxide 400 Mg Tablet) 400 mg PO BIDPC [facility] Last Admin: 02/06/24 08:47 Dose: 400 mg Documented By: DILCIA Multivitamins/Vitamin C (Multivitamin Tablet) 1 tab PO DAILY [facility] Last Admin: 02/06/24 08:48 Dose: 1 tab Documented By: DILCIA Ondansetron HCl (Ondansetron Hcl 4 Mg/2 Ml Vial) 4 mg IVPUSH Q8H PRN PRN Reason: Nausea and Vomiting Pharmacy Consult (Consult Rx Etoh Phenob Po Only) 1 each MISCELLANE ONCE PRN; Protocol PRN Reason: Consult order Pharmacy Consult (Consult Rx Etoh Phenob Po Only) 1 each MISCELLANE ONCE PRN; Protocol PRN Reason: Consult order Sodium Chloride (0.9 % Sodium Chloride Flush 3 Ml Syringe) 3 ml IVFLUSH QSHIFT [facility] Last Admin: 02/06/24 08:48 Dose: 3 ml Documented By: DILCIA Thiamine HCl (Thiamine Hcl 100 Mg Tablet) 100 mg PO DAILY [facility] Last Admin: 02/06/24 08:48 Dose: 100 mg Documented By: DILCIA Labs 01/30/24 05:31 02/02/24 05:00 Labs: Laboratory Results - last 24 hr 02/05/24 02/05/24 02/06/24 16:22 19:47 07:22 POC Glucose 240 H 260 H 173 H 02/06/24 11:24 POC Glucose 216 H Assessment and Plan (1) Orthostatic hypotension: Status: Acute (2) Abscess of scrotum: Status: Acute Assessment and Plan: 48 yaer old male with pertinent history of medication noncompliance, uncontrolled blood pressure, insulin-dependent diabetes mellitus, alcohol use disorder who presents to the emergency department for evaluation of generalized weakness and early alcohol withdrawal Orthostatic hypotension symptoms somewhat improving [place] stockings. stopped coreg , also will stop fluids ,moniter bp off fluids nephro eval-noted,continue captopril small dose at night if needed for supine htn Sepsis due to right lower extremity cellulitis/scrotal cellulitis s/p I&D of scrotal/perineal abscess by urology 01/26 Seen by General surgery 01/31, no further surgical intervention required at this time. Outpt wound clinic, continue local wound care Zosyn IV changed to cefuroxime. Wound culture growing e coli blood cultures negative to date ID consult>cefuroxime 14 days (last dose 02/14) Acute kidney injury- Resolved . s/p IV fluids vancomycin stopped follow renal function Alcohol use disorder with concerns for alcohol withdrawal CIWA remains 0 will discontinue CIWA Seen by addiction Medicine team, resources provided HTn : blood pressure flacutaing currently off Norvasc, carvedilol nephro recomended to add captopril . Diabetes mellitus type 2, uncontrolled hba1c 11.0 lispro correctional scale basal insulin as clinically indicated adjust therapies as indicated diarrhea gi panel negative cdif PCR + but toxin negative - likely colonization diarrhea resolved Chronic Normocytic anemia H/H stable, above transfusion threshold Lovenox Full code DISPO STR when bed available Requires ongoing hospitalization for IV antibiotics to treat cellulitis/postoperative care ,also need close monitering for orthosattic hypotension/symptoms, Awaiting placemen Quality Stroke Does the patient have a stroke diagnosis?: No VTE Prior VTE?: No VTE Risk Level:: Medical - moderate - high VTE Device Contraindication: Treatment Not Indicated VTE Drug Contraindication: N/A - Med Ordered
[2024-02-06 15:15] VITALS: BP 170/98; PULSE 84; RESP 18; TEMP 36.7; O2SAT 96
[2024-02-06 15:52] VITALS: BP 119/62; BP 174/85
[2024-02-06 15:53] VITALS: BP 82/50
[2024-02-06 16:01] LABS: Glucose, Whole Blood 236 mg/dL (60-115)
[2024-02-06] MEDS: Enoxaparin Sodium 40 MG/0.4 ML SYRINGE SUBCUT (16:18)
[2024-02-06 17:11] VITALS: BP 140/80
[2024-02-06] MEDS: amLODIPine Besylate 2.5 MG TABLET PO (17:11)
[2024-02-06] MEDS: Insulin Glargine,Hum.rec.anlog 100 UNIT/ML 10 ML VIAL 25 UNIT SUBCUT (20:20)
[2024-02-06 20:23] VITALS: BP 140/74
[2024-02-06 20:24] LABS: Glucose, Whole Blood 224 mg/dL (60-115)
[2024-02-07] VITALS: BP 158/79; PULSE 82; RESP 16; TEMP 36.8; O2SAT 94
[2024-02-07] MEDS: HYDROmorphone HCl 2 MG TABLET 0.5 MG PO ×2 (03:16→17:19)
[2024-02-07] MEDS: Acetaminophen 325 MG TABLET 975 MG PO ×3 (03:17→20:47)
[2024-02-07] MEDS: 0.9 % Sodium Chloride Flush 3 ML SYRINGE IVFLUSH ×4 (03:17→20:48)
[2024-02-07] MEDS: cefuroxime axetiL 500 MG TABLET PO ×2 (03:17→17:20)
[2024-02-07] MEDS: diphenhydrAMINE HCL 25 MG CAPSULE 50 MG PO (04:24)
[2024-02-07 07:59] LABS: Glucose, Whole Blood 227 mg/dL (60-115)
[2024-02-07 08:01] VITALS: BP 175/87; PULSE 87; RESP 18; TEMP 36.6; O2SAT 95
[2024-02-07] MEDS: Thiamine HCL 100 MG TABLET PO (08:20)
[2024-02-07] MEDS: Multivitamin TABLET 1 TAB PO (08:20)
[2024-02-07] MEDS: Insulin Lispro 100 UNIT/ML 3 ML VIAL SUBCUT ×4 (08:20→20:48)
[2024-02-07] MEDS: Folic Acid 1 MG TABLET PO (08:20)
[2024-02-07] MEDS: Magnesium Oxide 400 MG TABLET PO ×2 (08:20→17:20)
--- NOTE | 2024-02-07 11:31 | P.PNIM_ITS ---
Subjective Subjective Date of Service: 02/07/24 Interval History: supine htn/orthostasis Review of Systems seems improving denies dizziness no chest pain or sob or fevers Physical Exam 2 Vital Signs: Vital Signs: Last Vital Signs Temp 98 F 02/07/24 08:01 Pulse 87 02/07/24 08:01 Resp 18 02/07/24 08:01 BP 175/87 H 02/07/24 08:01 Pulse Ox 95 02/07/24 08:01 O2 Del Method Room Air 02/07/24 08:01 O2 Flow Rate 2 01/29/24 12:25 Oxygen Flow Rate 2 01/29/24 16:15 BMI result Body Mass Index 30.0 Appearance: Alert.? Oriented X3.? cvs: rrr, [id number] , no murmur res: clear to auscultation ,no rhonchii or wheezing abd: no rebound or guarding ,nt, bs present. - sacrotal wound with good granulation tissue, no necrosis/purulent drainage. No surrounding erythema. ext pulses present , no cyanosis . neuro: nonfocal. Objective Data Active Medications Acetaminophen (Acetaminophen 325 Mg Tablet) 975 mg PO Q6H [facility] Last Admin: 02/07/24 08:20 Dose: 975 mg Documented By: DILCIA Amlodipine Besylate (Amlodipine Besylate 2.5 Mg Tablet) 2.5 mg PO DAILY@1200 [facility] Calcium Carbonate (Calcium Carbonate 750 Mg Tab.Chew) 750 mg PO Q4H PRN PRN Reason: Heartburn Captopril (Captopril 12.5 Mg Tablet) 3.125 mg PO BID [facility]; Protocol Last Admin: 02/07/24 08:20 Dose: 3.125 mg Documented By: DILCIA Cefuroxime Axetil (Cefuroxime Axetil 500 Mg Tablet) 500 mg PO Q12H [facility] Last Admin: 02/07/24 03:17 Dose: 500 mg Documented By: VIDAL Diphenhydramine HCl (Diphenhydramine Hcl 25 Mg Capsule) 50 mg PO Q6H PRN PRN Reason: Itching Last Admin: 02/07/24 04:24 Dose: 50 mg Documented By: VIDAL Comments: Groin itching Enoxaparin Sodium (Enoxaparin Sodium 40 Mg/0.4 Ml Syringe) 40 mg SUBCUT Q24H [facility] Last Admin: 02/06/24 16:18 Dose: 40 mg Documented By: DILCIA Folic Acid (Folic Acid 1 Mg Tablet) 1 mg PO DAILY [facility] Last Admin: 02/07/24 08:20 Dose: 1 mg Documented By: DILCIA Glucose (Glucose Gel 15 Gm Gel..Gram.) 15 gm PO Q15M PRN; Protocol PRN Reason: per Hypoglycemia Standing Ord. Hydromorphone HCl (Hydromorphone Hcl 2 Mg Tablet) 0.5 mg PO Q4H PRN PRN Reason: Pain, Mild (Pain Scale 1-3) Last Admin: 02/07/24 03:16 Dose: 0.5 mg Documented By: ANTUMPAUL Dextrose (D10) 250 mls @ 750 mls/hr IV Q15M PRN; Protocol PRN Reason: per Hypoglycemia Standing Ord. Insulin Glargine (Insulin Glargine,Hum.Rec.Anlog 100 Unit/Ml 10 Ml Vial) 25 unit SUBCUT BEDTIME [facility] Last Admin: 02/06/24 20:20 Dose: 25 unit Documented By: MIGUEL Insulin Human Lispro (Insulin Lispro 100 Unit/Ml 3 Ml Vial) 0 unit SUBCUT QIDACHS [facility]; Protocol Last Admin: 02/07/24 08:20 Dose: 4 unit Documented By: DILCIA Magnesium Hydroxide (Milk Of Magnesia 30 Ml Oral.Susp) 30 ml PO DAILY PRN PRN Reason: Constipation Last Admin: 01/26/24 10:54 Dose: 30 ml Documented By: DOBROB Magnesium Oxide (Magnesium Oxide 400 Mg Tablet) 400 mg PO BIDPC [facility] Last Admin: 02/07/24 08:20 Dose: 400 mg Documented By: DILCIA Multivitamins/Vitamin C (Multivitamin Tablet) 1 tab PO DAILY [facility] Last Admin: 02/07/24 08:20 Dose: 1 tab Documented By: DILCIA Ondansetron HCl (Ondansetron Hcl 4 Mg/2 Ml Vial) 4 mg IVPUSH Q8H PRN PRN Reason: Nausea and Vomiting Pharmacy Consult (Consult Rx Etoh Phenob Po Only) 1 each MISCELLANE ONCE PRN; Protocol PRN Reason: Consult order Pharmacy Consult (Consult Rx Etoh Phenob Po Only) 1 each MISCELLANE ONCE PRN; Protocol PRN Reason: Consult order Sodium Chloride (0.9 % Sodium Chloride Flush 3 Ml Syringe) 3 ml IVFLUSH QSHIFT [facility] Last Admin: 02/07/24 08:21 Dose: 3 ml Documented By: DILCIA Thiamine HCl (Thiamine Hcl 100 Mg Tablet) 100 mg PO DAILY [facility] Last Admin: 02/07/24 08:20 Dose: 100 mg Documented By: DILCIA Labs 01/30/24 05:31 02/02/24 05:00 Labs: Laboratory Results - last 24 hr 02/06/24 02/06/24 02/06/24 11:24 15:57 20:20 POC Glucose 216 H 236 H 224 H 02/07/24 07:52 POC Glucose 227 H Assessment and Plan (1) Orthostatic hypotension: Status: Acute (2) Abscess of scrotum: Status: Acute Assessment and Plan: 48 yaer old male with pertinent history of medication noncompliance, uncontrolled blood pressure, insulin-dependent diabetes mellitus, alcohol use disorder who presents to the emergency department for evaluation of generalized weakness and early alcohol withdrawal Orthostatic hypotension symptoms somewhat improving kingston stockings. stopped coreg , also will stop fluids ,moniter bp off fluids nephro [id number] captopril 3.125 mg po bid,also added amlodipine 2.5 mg for mid day. Sepsis due to right lower extremity cellulitis/scrotal cellulitis s/p I&D of scrotal/perineal abscess by urology 01/26 Seen by General surgery 01/31, no further surgical intervention required at this time. Outpt wound clinic, continue local wound care Zosyn IV changed to cefuroxime. Wound culture growing e coli blood cultures negative to date ID consult>cefuroxime 14 days (last dose 02/14) Acute kidney injury- Resolved . s/p IV fluids vancomycin stopped follow renal function Alcohol use disorder with concerns for alcohol withdrawal CIWA remains 0 will discontinue CIWA Seen by addiction Medicine team, resources provided HTn : blood pressure flacutaing currently off Norvasc, carvedilol nephro recomended to add captopril . Diabetes mellitus type 2, uncontrolled hba1c 11.0 lispro correctional scale basal insulin as clinically indicated adjust therapies as indicated diarrhea gi panel negative cdif PCR + but toxin negative - likely colonization diarrhea resolved Chronic Normocytic anemia H/H stable, above transfusion threshold Lovenox Full code DISPO STR when bed available Requires ongoing hospitalization : Awaiting placement Quality Stroke Does the patient have a stroke diagnosis?: No VTE Prior VTE?: No VTE Risk Level:: Medical - moderate - high VTE Device Contraindication: Treatment Not Indicated VTE Drug Contraindication: N/A - Med Ordered
[2024-02-07 11:39] LABS: Glucose, Whole Blood 264 mg/dL (60-115)
[2024-02-07 11:53] VITALS: BP 103/60
[2024-02-07] MEDS: amLODIPine Besylate 2.5 MG TABLET PO (11:53)
[2024-02-07 15:41] VITALS: BP 135/90; PULSE 86; RESP 18; TEMP 36.3; O2SAT 97
[2024-02-07 16:24] LABS: Glucose, Whole Blood 217 mg/dL (60-115)
[2024-02-07] MEDS: Enoxaparin Sodium 40 MG/0.4 ML SYRINGE SUBCUT (17:20)
[2024-02-07 20:26] LABS: Glucose, Whole Blood 226 mg/dL (60-115)
[2024-02-07 20:41] VITALS: BP 131/70
[2024-02-07] MEDS: Insulin Glargine,Hum.rec.anlog 100 UNIT/ML 10 ML VIAL 25 UNIT SUBCUT (20:48)
--- NOTE | 2024-02-07 23:20 | HO.SKINPHOTO ---
Location: Category: Stage: Length: Width: Depth: cm Location: Category: Stage: Length: Width: Depth: cm Location: Category: Stage: Length: Width: Depth: cm Location: Category: Stage: Length: Width: Depth: cm Location: Category: Stage: Length: Width: Depth: cm Location: Category: Stage: Length: Width: Depth: cm
[2024-02-07 23:39] VITALS: BP 140/80; PULSE 84; RESP 16; TEMP 36.1; O2SAT 95
[2024-02-08] MEDS: Acetaminophen 325 MG TABLET 975 MG PO ×4 (03:17→20:47)
[2024-02-08] MEDS: cefuroxime axetiL 500 MG TABLET PO ×2 (03:17→16:01)
[2024-02-08 06:54] VITALS: BP 149/70; PULSE 84; RESP 16; TEMP 36.8; O2SAT 98
[2024-02-08 07:19] LABS: Glucose, Whole Blood 154 mg/dL (60-115)
[2024-02-08] MEDS: Insulin Lispro 100 UNIT/ML 3 ML VIAL SUBCUT ×4 (07:46→20:48)
[2024-02-08] MEDS: Thiamine HCL 100 MG TABLET PO (07:47)
[2024-02-08] MEDS: Folic Acid 1 MG TABLET PO (07:49)
[2024-02-08] MEDS: Magnesium Oxide 400 MG TABLET PO ×2 (07:49→16:53)
[2024-02-08] MEDS: Multivitamin TABLET 1 TAB PO (07:49)
[2024-02-08] MEDS: 0.9 % Sodium Chloride Flush 3 ML SYRINGE IVFLUSH ×3 (07:54→20:50)
[2024-02-08 11:19] LABS: Glucose, Whole Blood 195 mg/dL (60-115)
[2024-02-08 11:51] VITALS: BP 184/64
[2024-02-08] MEDS: amLODIPine Besylate 2.5 MG TABLET PO (11:51)
--- NOTE | 2024-02-08 12:12 | HO.PM.IMPN ---
Subjective Subjective Date of Service: 02/08/24 Interval History: orthostatic hypotension Physical Exam Vital Signs: Vital Signs: Last Vital Signs Temp 98.2 F 02/08/24 06:54 Pulse 84 02/08/24 06:54 Resp 16 02/08/24 06:54 BP 184/64 H 02/08/24 11:51 Pulse Ox 98 02/08/24 06:54 O2 Del Method Room Air 02/08/24 06:54 O2 Flow Rate 2 01/29/24 12:25 Oxygen Flow Rate 2 01/29/24 16:15 BMI result Body Mass Index 30.0 Objective Data Active Medications Acetaminophen (Acetaminophen 325 Mg Tablet) 975 mg PO Q6H [facility] Last Admin: 02/08/24 07:47 Dose: 975 mg Documented By: HILLARY Amlodipine Besylate (Amlodipine Besylate 2.5 Mg Tablet) 2.5 mg PO DAILY@1200 [facility] Last Admin: 02/08/24 11:51 Dose: 2.5 mg Documented By: HILLARY Calcium Carbonate (Calcium Carbonate 750 Mg Tab.Chew) 750 mg PO Q4H PRN PRN Reason: Heartburn Captopril (Captopril 12.5 Mg Tablet) 3.125 mg PO BID [facility]; Protocol Last Admin: 02/08/24 07:47 Dose: 3.125 mg Documented By: HILLARY Cefuroxime Axetil (Cefuroxime Axetil 500 Mg Tablet) 500 mg PO Q12H [facility] Last Admin: 02/08/24 03:17 Dose: 500 mg Documented By: GRIS Diphenhydramine HCl (Diphenhydramine Hcl 25 Mg Capsule) 50 mg PO Q6H PRN PRN Reason: Itching Last Admin: 02/07/24 04:24 Dose: 50 mg Documented By: VIDAL Comments: Groin itching Enoxaparin Sodium (Enoxaparin Sodium 40 Mg/0.4 Ml Syringe) 40 mg SUBCUT Q24H [facility] Last Admin: 02/07/24 17:20 Dose: 40 mg Documented By: DILCIA Folic Acid (Folic Acid 1 Mg Tablet) 1 mg PO DAILY [facility] Last Admin: 02/08/24 07:49 Dose: 1 mg Documented By: HILLARY Glucose (Glucose Gel 15 Gm Gel..Gram.) 15 gm PO Q15M PRN; Protocol PRN Reason: per Hypoglycemia Standing Ord. Hydromorphone HCl (Hydromorphone Hcl 2 Mg Tablet) 0.5 mg PO Q4H PRN PRN Reason: Pain, Mild (Pain Scale 1-3) Last Admin: 02/07/24 17:19 Dose: 0.5 mg Documented By: DOMINGUEZEMA Dextrose (D10) 250 mls @ 750 mls/hr IV Q15M PRN; Protocol PRN Reason: per Hypoglycemia Standing Ord. Insulin Glargine (Insulin Glargine,Hum.Rec.Anlog 100 Unit/Ml 10 Ml Vial) 25 unit SUBCUT BEDTIME [facility] Last Admin: 02/07/24 20:48 Dose: 25 unit Documented By: GRIS Insulin Human Lispro (Insulin Lispro 100 Unit/Ml 3 Ml Vial) 0 unit SUBCUT QIDACHS [facility]; Protocol Last Admin: 02/08/24 11:52 Dose: 2 unit Documented By: HILLARY Magnesium Hydroxide (Milk Of Magnesia 30 Ml Oral.Susp) 30 ml PO DAILY PRN PRN Reason: Constipation Last Admin: 01/26/24 10:54 Dose: 30 ml Documented By: SENTHIL Magnesium Oxide (Magnesium Oxide 400 Mg Tablet) 400 mg PO BIDPC [facility] Last Admin: 02/08/24 07:49 Dose: 400 mg Documented By: HILLARY Multivitamins/Vitamin C (Multivitamin Tablet) 1 tab PO DAILY [facility] Last Admin: 02/08/24 07:49 Dose: 1 tab Documented By: HILLARY Ondansetron HCl (Ondansetron Hcl 4 Mg/2 Ml Vial) 4 mg IVPUSH Q8H PRN PRN Reason: Nausea and Vomiting Pharmacy Consult (Consult Rx Etoh Phenob Po Only) 1 each MISCELLANE ONCE PRN; Protocol PRN Reason: Consult order Pharmacy Consult (Consult Rx Etoh Phenob Po Only) 1 each MISCELLANE ONCE PRN; Protocol PRN Reason: Consult order Sodium Chloride (0.9 % Sodium Chloride Flush 3 Ml Syringe) [facility] Admin: 02/08/24 07:54 Dose: 3 ml Documented By: HILLARY Thiamine HCl (Thiamine Hcl 100 Mg Tablet) 100 mg PO DAILY [facility] Last Admin: 02/08/24 07:47 Dose: 100 mg Documented By: HILLARY Labs 01/30/24 05:31 02/02/24 05:00 Labs: Laboratory Results - last 24 hr 02/07/24 02/07/24 02/08/24 16:19 20:19 07:16 POC Glucose 217 H 226 H 154 H 02/08/24 11:15 POC Glucose 195 H Assessment and Plan (1) Orthostatic hypotension: Status: Acute (2) Abscess of scrotum: Status: Acute Assessment and Plan: 48 yaer old male with pertinent history of medication noncompliance, uncontrolled blood pressure, insulin-dependent diabetes mellitus, alcohol use disorder who presents to the emergency department for evaluation of generalized weakness and early alcohol withdrawal Orthostatic hypotension symptoms somewhat improving [place] stockings. stopped coreg , also will stop fluids ,moniter bp off fluids nephro [id number] captopril 3.125 mg po bid, amlodipine 2.5 mg for mid day. Sepsis due to right lower extremity cellulitis/scrotal cellulitis s/p I&D of scrotal/perineal abscess by urology 01/26 Seen by General surgery 01/31, no further surgical intervention required at this time. Outpt wound clinic, continue local wound care Zosyn IV changed to cefuroxime. Wound culture growing e coli blood cultures negative to date ID consult>cefuroxime 14 days (last dose 02/14) wound care-following -may need wound vac-if needed urology/surgery followup. Acute kidney injury- Resolved . s/p IV fluids vancomycin stopped follow renal function Alcohol use disorder with concerns for alcohol withdrawal CIWA remains 0 will discontinue CIWA Seen by addiction Medicine team, resources provided HTn : blood pressure flacutaing currently off Norvasc, carvedilol nephro recomended to add captopril . Diabetes mellitus type 2, uncontrolled hba1c 11.0 lispro correctional scale basal insulin as clinically indicated adjust therapies as indicated diarrhea gi panel negative cdif PCR + but toxin negative - likely colonization diarrhea resolved Chronic Normocytic anemia H/H stable, above transfusion threshold Lovenox Full code DISPO STR when bed available Requires ongoing hospitalization : Awaiting placement, possible need wound vac/wound care followin Quality Stroke Does the patient have a stroke diagnosis?: No VTE Prior VTE?: No VTE Risk Level:: Medical - moderate - high VTE Device Contraindication: Treatment Not Indicated VTE Drug Contraindication: N/A - Med Ordered
[2024-02-08] MEDS: HYDROmorphone HCl 2 MG TABLET 1 MG PO (13:38)
[2024-02-08 14:11] VITALS: BP 184/64
[2024-02-08 15:53] VITALS: BP 118/64; PULSE 83; RESP 20; TEMP 36.1; O2SAT 99
[2024-02-08] MEDS: Enoxaparin Sodium 40 MG/0.4 ML SYRINGE SUBCUT (16:00)
[2024-02-08 16:21] LABS: Glucose, Whole Blood 233 mg/dL (60-115)
[2024-02-08 20:29] LABS: Glucose, Whole Blood 214 mg/dL (60-115)
[2024-02-08 20:46] VITALS: BP 126/65
--- NOTE | 2024-02-08 20:47 | HO.WOUND ---
Wound Consult: Initial / Follow up 48yr old? admitted to [facility] [place]21/24 - See progress notes and H&P for detailed history.? Wound consult placed for scrotum and right buttock abscess s/p debridement dressing option assessments.? Patient agreeable to assessment and photo documentation.? Initial Assessment Todays assessment 02/08/24 Right buttock, perineal and scrotum Etiology: Abscess s/p Debridement Wound Bed: Red clean wound bed Drainage / Odor: serosang drainage small amount no odor noted Edges: ? irregular Donna wound: MASD and Fungal Dermatitis - red erythema, hyperpigmentation, No fluctuance and no induration noted Pain: pain reported Goals of Treatment: ? Currently ordered with wet to moist dressing - Today Durafiber AG was applied will discuss with providers to consider Wound Vac placement for improved healing time given location of wound and difficult to dress area. TT to Dr. Murphy deferred to General Surgery - TT to Dr. White deferred to Urology - will TT Dr. Faulkner tomorrow as they are off service at this time. Dr Murphy will order topical antifungal treatment for periwound. The fungal dermatitis is likely in relation to the moisture with in the area from the dressing and the drainage, containment in a wound vac would likely benefit the periwound. Discussed case with Dr. Weir from the outpt wound clinic and she is in agreement if able to get a seal for the NPWT (Negative Pressure Wound Therapy) dressing it remains a viable option for wound healing. Recommendations: 1. Scrotum and Perineal area including right buttock - Cleanse and irrigate with NS, Pat dry. Apply Antifungal to periwound per provider orders. Lightly pack wound bed with Durafiber AG, cover with dry gauze, ABD pad and Mesh underwear. Change every other day and PRN for soiling. Re-consult wound care Nurse for wound deterioration or wound changes.
[2024-02-08] MEDS: Insulin Glargine,Hum.rec.anlog 100 UNIT/ML 10 ML VIAL 25 UNIT SUBCUT (20:49)
[2024-02-08] MEDS: diphenhydrAMINE HCL 25 MG CAPSULE 50 MG PO (21:04)
[2024-02-08 23:31] VITALS: BP 130/62; PULSE 80; RESP 19; TEMP 36.5; O2SAT 96
[2024-02-09] VITALS (7 sets, daily range): BP systolic 93–187; BP diastolic 54–88; PULSE 84–94; RESP 16–17; TEMP 36.4–36.8; O2SAT 92–98
[2024-02-09] MEDS: Acetaminophen 325 MG TABLET 975 MG PO ×3 (03:21→16:38)
[2024-02-09] MEDS: cefuroxime axetiL 500 MG TABLET PO ×2 (03:21→16:39)
[2024-02-09 07:25] LABS: Glucose, Whole Blood 168 mg/dL (60-115)
[2024-02-09] MEDS: Insulin Lispro 100 UNIT/ML 3 ML VIAL SUBCUT ×4 (07:57→20:28)
[2024-02-09] MEDS: Thiamine HCL 100 MG TABLET PO (07:58)
[2024-02-09] MEDS: Magnesium Oxide 400 MG TABLET PO ×2 (07:58→16:38)
[2024-02-09] MEDS: Folic Acid 1 MG TABLET PO (07:58)
[2024-02-09] MEDS: Multivitamin TABLET 1 TAB PO (07:58)
[2024-02-09] MEDS: 0.9 % Sodium Chloride Flush 3 ML SYRINGE IVFLUSH ×2 (08:03→16:43)
--- NOTE | 2024-02-09 09:07 | P.PNIM_ITS ---
Subjective Subjective Date of Service: 02/09/24 Interval History: f/u on scrotal abscess and cellulitis wound is healing well, no more abscess Physical Exam 2 Vital Signs: Vital Signs: Last Vital Signs Temp 98.2 F 02/09/24 07:16 Pulse 84 02/09/24 07:16 Resp 17 02/09/24 07:16 BP 137/73 02/09/24 07:16 Pulse Ox 98 02/09/24 07:16 O2 Del Method Room Air 02/09/24 07:16 O2 Flow Rate 2 01/29/24 12:25 Oxygen Flow Rate 2 01/29/24 16:15 BMI result Body Mass Index 30.0 General: AO X 3, no acute distress Resp: CTA bilateral CVS: S1,S2,RRR GI: +BS, NT, no distention Skin: Neuro: motor grossly intact Psych: appropriate affect Objective Data Active Medications Acetaminophen (Acetaminophen 325 Mg Tablet) 975 mg PO Q6H [facility] Last Admin: 02/09/24 07:57 Dose: 975 mg Documented By: HILLARY Amlodipine Besylate (Amlodipine Besylate 2.5 Mg Tablet) 2.5 mg PO DAILY@1200 [facility] Last Admin: 02/08/24 11:51 Dose: 2.5 mg Documented By: HILLARY Calcium Carbonate (Calcium Carbonate 750 Mg Tab.Chew) 750 mg PO Q4H PRN PRN Reason: Heartburn Captopril (Captopril 12.5 Mg Tablet) 3.125 mg PO BID [facility]; Protocol Last Admin: 02/09/24 07:58 Dose: 3.125 mg Documented By: HILLARY Cefuroxime Axetil (Cefuroxime Axetil 500 Mg Tablet) 500 mg PO Q12H [facility] Last Admin: 02/09/24 03:21 Dose: 500 mg Documented By: DANIAL Clotrimazole (Clotrimazole 1 % Cream 15 Gm Tube) 1 appl TOPICAL BID [facility]; Protocol Last Admin: 02/08/24 21:09 Dose: Not Given Documented By: DANIAL Non-Admin Reason: Med Not Available Diphenhydramine HCl (Diphenhydramine Hcl 25 Mg Capsule) 50 mg PO Q6H PRN PRN Reason: Itching Last Admin: 02/08/24 21:04 Dose: 50 mg Documented By: DANIAL Enoxaparin Sodium (Enoxaparin Sodium 40 Mg/0.4 Ml Syringe) 40 mg SUBCUT Q24H [facility] Last Admin: 02/08/24 16:00 Dose: 40 mg Documented By: HILLARY Folic Acid (Folic Acid 1 Mg Tablet) 1 mg PO DAILY [facility] Last Admin: 02/09/24 07:58 Dose: 1 mg Documented By: HILLARY Glucose (Glucose Gel 15 Gm Gel..Gram.) 15 gm PO Q15M PRN; Protocol PRN Reason: per Hypoglycemia Standing Ord. Hydromorphone HCl (Hydromorphone Hcl 2 Mg Tablet) 1 mg PO Q6H PRN PRN Reason: Pain, Moderate(Pain Scale 4-6) Last Admin: 02/08/24 13:38 Dose: 1 mg Documented By: HILLARY Dextrose (D10) 250 mls @ 750 mls/hr IV Q15M PRN; Protocol PRN Reason: per Hypoglycemia Standing Ord. Insulin Glargine (Insulin Glargine,Hum.Rec.Anlog 100 Unit/Ml 10 Ml Vial) 25 unit SUBCUT BEDTIME [facility] Last Admin: 02/08/24 20:49 Dose: 25 unit Documented By: DANIAL Insulin Human Lispro (Insulin Lispro 100 Unit/Ml 3 Ml Vial) 0 unit SUBCUT QIDACHS [facility]; Protocol Last Admin: 02/09/24 07:57 Dose: 2 unit Documented By: HILLARY Magnesium Hydroxide (Milk Of Magnesia 30 Ml Oral.Susp) 30 ml PO DAILY PRN PRN Reason: Constipation Last Admin: 01/26/24 10:54 Dose: 30 ml Documented By: SENTHIL Magnesium Oxide (Magnesium Oxide 400 Mg Tablet) 400 mg PO BIDPC [facility] Last Admin: 02/09/24 07:58 Dose: 400 mg Documented By: HILLARY Multivitamins/Vitamin C (Multivitamin Tablet) 1 tab PO DAILY [facility] Last Admin: 02/09/24 07:58 Dose: 1 tab Documented By: HILLARY Ondansetron HCl (Ondansetron Hcl 4 Mg/2 Ml Vial) 4 mg IVPUSH Q8H PRN PRN Reason: Nausea and Vomiting Pharmacy Consult (Consult Rx Etoh Phenob Po Only) 1 each MISCELLANE ONCE PRN; Protocol PRN Reason: Consult order Pharmacy Consult (Consult Rx Etoh Phenob Po Only) 1 each MISCELLANE ONCE PRN; Protocol PRN Reason: Consult order Sodium Chloride (0.9 % Sodium Chloride Flush 3 Ml Syringe) 3 ml IVFLUSH QSHIFT [facility] Last Admin: 02/09/24 08:03 Dose: 3 ml Documented By: HILLARY Thiamine HCl (Thiamine Hcl 100 Mg Tablet) 100 mg PO DAILY [facility] Last Admin: 02/09/24 07:58 Dose: 100 mg Documented By: HILLARY Labs 01/30/24 05:31 02/02/24 05:00 Labs: Laboratory Results - last 24 hr 02/08/24 02/08/24 02/08/24 11:15 16:11 20:26 POC Glucose 195 H 233 H 214 H 02/09/24 06:55 POC Glucose 168 H Assessment and Plan (1) Orthostatic hypotension: Status: Acute (2) Abscess of scrotum: Status: Acute Assessment and Plan: 48 yaer old male with pertinent history of medication noncompliance, uncontrolled blood pressure, insulin-dependent diabetes mellitus, alcohol use disorder who presented to the emergency department on 01/21/24 for evaluation of generalized weakness and admitted for alcohol withdrawal, CONSTANCE, HTN urgency, uncontrolled Diabetes. Hospital course complicated by sepsis d/t RLE cellulitis and Scrotal abscess/cellulitis, and now othrostatic Hypotension Orthostatic hypotension--likly med related -treated with IVF -Nephro advised stopping Coreg, low dose captopril 3.125 bid and Norvasc 2.5, Shawn stocking.. If persistent will add midodrine Sepsis due to right lower extremity cellulitis/scrotal cellulitis and abscess--cellulitis of leg resolved, sepsis resolved. -s/p I&D of scrotal/perineal abscess by urology 01/26 -Seen by General surgery 01/31, no further surgical intervention required at this time. -Wound looks clean--see pictures have wound vac applied -Blood culture negative -Wound culture E. coli -ID recommend Ceftin 500 bid x 14 days, ending 02/15/24 HTN: Controlled -Continue Captopril and Norvasc, Coreg stopped Diabetes mellitus type 2, Hgb A1C = 11, better control -Continue Lantus 25 HS and SSI, FBS 168 Chronic Normocytic anemia H/H stable, above transfusion threshold Resolved issues Acute kidney injury- Resolved with IV Alcohol withdrawal--treated with Pheno and resolved. diarrhea -gi panel negative -cdif PCR + but toxin negative - likely colonization, so no Treatement indicated -diarrhea resolved DVT prophylaxis: Lovenox Full code DISPO STR when bed available Requires ongoing hospitalization : Awaiting placement, possible need wound vac/wound care followin Quality Stroke Does the patient have a stroke diagnosis?: No VTE Prior VTE?: No VTE Risk Level:: Medical - moderate - high VTE Device Contraindication: Treatment Not Indicated VTE Drug Contraindication: N/A - Med Ordered
[2024-02-09 11:26] LABS: Glucose, Whole Blood 244 mg/dL (60-115)
[2024-02-09] MEDS: amLODIPine Besylate 2.5 MG TABLET PO (12:03)
--- NOTE | 2024-02-09 12:33 | P.PNNP_ITS ---
Subjective Subjective Date of Service: 02/09/24 Interval history: f/u on scrotal abscess and cellulitis wound is healing well, no more abscess Physical Exam 2 Vital Signs: Vital Signs: Last Vital Signs Temp 98.2 F 02/09/24 07:16 Pulse 94 02/09/24 11:59 Resp 16 02/09/24 11:59 BP 143/79 H 02/09/24 11:59 Pulse Ox 92 02/09/24 11:59 O2 Del Method Room Air 02/09/24 11:59 O2 Flow Rate 2 01/29/24 12:25 Oxygen Flow Rate 2 01/29/24 16:15 BMI result Body Mass Index 30.0 Const: General: no acute distress Eyes: EOM: EOMs intact bilaterally Neck: Neck: Yes supple Resp: Auscultation: diminished lung sounds Cardio: Rate: regular rate GI: Palpation (GI): Soft to palpation Neuro: General: moves all extremities Objective Data Labs 01/30/24 05:31 02/02/24 05:00 Labs: Laboratory Results - last 24 hr 02/08/24 02/08/24 02/09/24 16:11 20:26 06:55 POC Glucose 233 H 214 H 168 H 02/09/24 11:21 POC Glucose 244 H Microbiology Microbiology Results: Microbiology 01/27/24 Unknown Scrotum Gram Stain - Final 01/27/24 Unknown Scrotum Routine Culture - Final Escherichia coli 01/22/24 09:55 Blood - Venous Blood Culture - Final No growth after 5 days. 01/22/24 09:40 Blood - Venous Blood Culture - Final No growth after 5 days. 01/21/24 13:05 Blood - Venous Blood Culture - Final No growth after 5 days. 01/21/24 13:05 Blood - Venous Blood Culture - Final No growth after 5 days. Procedures Date of Service Date of Service: 02/09/24 Assessment & Plan Assessment and plan (1) Proteinuria due to type 2 diabetes mellitus: Status: Acute (2) Orthostatic hypotension: Status: Acute (3) CKD stage 3 due to type 2 diabetes mellitus: Status: Acute Plan Shad had CONSTANCE due to sepsis which has been resolved He has proteinuria. urine protein creatinine ratio is 1.26 Supine HTN with Orthostatic hypotension USe short acting agents like CAptopril at night - when he is supine All take precautions including had an elevation at 30 degrees, tight stockings. serum cortisol. Levels at 7.4 No need for further IV fluid Continue current supportive care for now. He needs follow-up in the office after hospital discharge. Time Spent With Patient Time: Total time managing care of this patient today ____ minutes. Progress Note: Quality Stroke Does the patient have a stroke diagnosis?: No
--- NOTE | 2024-02-09 15:50 | HO.WOUND ---
Wound Consult: Initial / Follow up 48yr old? admitted to [facility] [place] on 01/21/24 - See progress notes and H&P for detailed history.? Wound consult placed for scrotum and right buttock abscess s/p debridement dressing option follow up and wound vac placement.? Patient agreeable to assessment and photo documentation.? TT with Dr. Timothy Napier and she is agreeable to wound vac placement discussed with Dr. Dash and wound vac agreeable treatment at this time. As this writers days off this week will fall on Thu-Thursday the general surgery team has agreed to perform the dressing change agent the weekend. Inpatient wound care nurse will continue to follow. Initial Assessment Assessment 02/08/24 02/09/24 Right buttock, perineal and scrotum Etiology: Abscess s/p Debridement Wound Bed: Red clean wound bed Drainage / Odor: serosang drainage small amount no odor noted - of note no dressing in place as pt removed it at the last time we went to the bathroom several hours prior Edges: ? irregular Donna wound: MASD and Fungal Dermatitis - red erythema, hyperpigmentation, No fluctuance and no induration noted Pain: no pain reported - patient reports itching at groin area consistent with fungal dermatitis Goals of Treatment: ? Wound Vac applied set to 125mmHg continuous suction NPWT Suction Settings: 125mmHg - Setting Type: Continuous No Premedication Provided. Wound assessment: 12.5cm x 4cm x 2cm? - no undermining noted - irregular edges Wound bed: Red moist viable tissue noted Cleansed and irrigated with NS. pat dry. Nystatin powder applied to periwound and sealed with skin barrier wipe. The portion of the wound at 6 o'clock is flush to skin and was treated with Durafiber and hydrocolloid since it is flush to skin and close proximity to anus in an effort to create a seal. NPWT Dressing Application: 2 piece of black foam cut to size and applied to wound bed, Skin and wound edge protected with Paste Strip outlining edge.? Skin protected with Drape for Bridge one piece of black foam applied for bridge to right mid thigh avoiding high pressure areas such as trochanter. Dressing completed and no leak noted.? Suction set to 125mmHg - patient denies pain and or burning sensation. Patient tolerated well.? D/C plan - awaiting bed placement to facility and will need outpt follow up with Outpt wound clinic. Inpatient Nurse will continue to follow.
[2024-02-09 16:12] LABS: Glucose, Whole Blood 236 mg/dL (60-115)
[2024-02-09] MEDS: Enoxaparin Sodium 40 MG/0.4 ML SYRINGE SUBCUT (16:38)
[2024-02-09 20:13] LABS: Glucose, Whole Blood 270 mg/dL (60-115)
[2024-02-09] MEDS: HYDROmorphone HCl 2 MG TABLET 1 MG PO (20:27)
[2024-02-09] MEDS: Insulin Glargine,Hum.rec.anlog 100 UNIT/ML 10 ML VIAL 25 UNIT SUBCUT (20:28)
[2024-02-10] MEDS: HYDROmorphone HCl 2 MG TABLET 1 MG PO ×3 (03:39→20:40)
[2024-02-10] MEDS: cefuroxime axetiL 500 MG TABLET PO ×2 (03:42→16:35)
[2024-02-10 07:30] VITALS: BP 162/79; PULSE 82; RESP 16; TEMP 36.1; O2SAT 97
[2024-02-10 07:45] LABS: Glucose, Whole Blood 246 mg/dL (60-115)
[2024-02-10] MEDS: Multivitamin TABLET 1 TAB PO (07:57)
[2024-02-10] MEDS: Thiamine HCL 100 MG TABLET PO (07:57)
[2024-02-10] MEDS: Magnesium Oxide 400 MG TABLET PO ×2 (07:57→16:35)
[2024-02-10] MEDS: Folic Acid 1 MG TABLET PO (07:57)
[2024-02-10] MEDS: Insulin Lispro 100 UNIT/ML 3 ML VIAL SUBCUT ×4 (08:00→20:42)
[2024-02-10] MEDS: 0.9 % Sodium Chloride Flush 3 ML SYRINGE IVFLUSH ×2 (08:01→16:35)
--- NOTE | 2024-02-10 09:47 | HO.PM.IMPN ---
Subjective Subjective Date of Service: 02/10/24 Physical Exam Vital Signs: Vital Signs: Last Vital Signs Temp 96.9 F 02/10/24 07:30 Pulse 82 02/10/24 07:30 Resp 16 02/10/24 07:30 BP 162/79 H 02/10/24 07:30 Pulse Ox 97 02/10/24 07:30 O2 Del Method Room Air 02/10/24 07:30 O2 Flow Rate 2 01/29/24 12:25 Oxygen Flow Rate 2 01/29/24 16:15 BMI result Body Mass Index 30.0 Objective Data Active Medications Acetaminophen (Acetaminophen 325 Mg Tablet) 975 mg PO Q6H [facility] Last Admin: 02/10/24 08:00 Dose: Not Given Documented By: JENNY Non-Admin Reason: Patient Refused Amlodipine Besylate (Amlodipine Besylate 2.5 Mg Tablet) 2.5 mg PO DAILY@1200 [facility] Last Admin: 02/09/24 12:03 Dose: 2.5 mg Documented By: HILLARY Calcium Carbonate (Calcium Carbonate 750 Mg Tab.Chew) 750 mg PO Q4H PRN PRN Reason: Heartburn Captopril (Captopril 12.5 Mg Tablet) 3.125 mg PO BID [facility]; Protocol Last Admin: 02/10/24 07:57 Dose: 3.125 mg Documented By: JENNY Cefuroxime Axetil (Cefuroxime Axetil 500 Mg Tablet) 500 mg PO Q12H [facility] Last Admin: 02/10/24 03:42 Dose: 500 mg Documented By: JAIDA Diphenhydramine HCl (Diphenhydramine Hcl 25 Mg Capsule) 50 mg PO Q6H PRN PRN Reason: Itching Last Admin: 02/08/24 21:04 Dose: 50 mg Documented By: DANIAL Enoxaparin Sodium (Enoxaparin Sodium 40 Mg/0.4 Ml Syringe) 40 mg SUBCUT Q24H [facility] Last Admin: 02/09/24 16:38 Dose: 40 mg Documented By: HILLARY Folic Acid (Folic Acid 1 Mg Tablet) 1 mg PO DAILY [facility] Last Admin: 02/10/24 07:57 Dose: 1 mg Documented By: JENNY Glucose (Glucose Gel 15 Gm Gel..Gram.) 15 gm PO Q15M PRN; Protocol PRN Reason: per Hypoglycemia Standing Ord. Hydromorphone HCl (Hydromorphone Hcl 2 Mg Tablet) 1 mg PO Q6H PRN PRN Reason: Pain, Moderate(Pain Scale 4-6) Last Admin: 02/10/24 03:39 Dose: 1 mg Documented By: JAIDA Dextrose (D10) 250 mls @ 750 mls/hr IV Q15M PRN; Protocol PRN Reason: per Hypoglycemia Standing Ord. Insulin Glargine (Insulin Glargine,Hum.Rec.Anlog 100 Unit/Ml 10 Ml Vial) 25 unit SUBCUT BEDTIME [facility] Last Admin: 02/09/24 20:28 Dose: 25 unit Documented By: JAIDA Insulin Human Lispro (Insulin Lispro 100 Unit/Ml 3 Ml Vial) 0 unit SUBCUT QIDACHS [facility]; Protocol Last Admin: 02/10/24 08:00 Dose: 4 unit Documented By: JENNY Magnesium Hydroxide (Milk Of Magnesia 30 Ml Oral.Susp) 30 ml PO DAILY PRN PRN Reason: Constipation Last Admin: 01/26/24 10:54 Dose: 30 ml Documented By: SENTHIL Magnesium Oxide (Magnesium Oxide 400 Mg Tablet) 400 mg PO BIDPC [facility] Last Admin: 02/10/24 07:57 Dose: 400 mg Documented By: JENNY Multivitamins/Vitamin C (Multivitamin Tablet) 1 tab PO DAILY [facility] Last Admin: 02/10/24 07:57 Dose: 1 tab Documented By: JENNY Nystatin (Nystatin Powder 15 Gm Bottle) 1 appl TOPICAL DAILY [facility]; Protocol Last Admin: 02/10/24 07:52 Dose: Not Given Documented By: JENNY Non-Admin Reason: only to be used during VAC changes Ondansetron HCl (Ondansetron Hcl 4 Mg/2 Ml Vial) 4 mg IVPUSH Q8H PRN PRN Reason: Nausea and Vomiting Pharmacy Consult (Consult Rx Etoh Phenob Po Only) 1 each MISCELLANE ONCE PRN; Protocol PRN Reason: Consult order Pharmacy Consult (Consult Rx Etoh Phenob Po Only) 1 each MISCELLANE ONCE PRN; Protocol PRN Reason: Consult order Sodium Chloride (0.9 % Sodium Chloride Flush 3 Ml Syringe) 3 ml IVFLUSH QSHIFT [facility] Last Admin: 02/10/24 08:01 Dose: 3 ml Documented By: JENNY Thiamine HCl (Thiamine Hcl 100 Mg Tablet) 100 mg PO DAILY [facility] Last Admin: 02/10/24 07:57 Dose: 100 mg Documented By: JENNY Labs 01/30/24 05:31 02/02/24 05:00 Labs: Laboratory Results - last 24 hr 02/09/24 02/09/24 02/09/24 11:21 16:04 20:09 POC Glucose 244 H 236 H 270 H 02/10/24 07:33 POC Glucose 246 H Assessment and Plan (1) Orthostatic hypotension: Status: Acute (2) Abscess of scrotum: Status: Acute Assessment and Plan: 48 yaer old male with pertinent history of medication noncompliance, uncontrolled blood pressure, insulin-dependent diabetes mellitus, alcohol use disorder who presented to the emergency department on 01/21/24 for evaluation of generalized weakness and admitted for alcohol withdrawal, CONSTANCE, HTN urgency, uncontrolled Diabetes. Hospital course complicated by sepsis d/t RLE cellulitis and Scrotal abscess/cellulitis, and now othrostatic Hypotension Orthostatic hypotension--likly med related -treated with IVF, compression stocking -Nephro advised stopping Coreg, low dose captopril 3.125 bid and Norvasc 2.5, Shawn stocking.. If persistent will add midodrine Sepsis due to right lower extremity cellulitis/scrotal cellulitis and abscess--cellulitis of leg resolved, sepsis resolved. -s/p I&D of scrotal/perineal abscess by urology 01/26 -Seen by General surgery 01/31, no further surgical intervention required at this time. -Wound looks clean--see pictures -Wound Vac applied on 02/08 -Blood culture negative -Wound culture E. coli -ID recommend Ceftin 500 bid x 14 days, ending 02/15/24 HTN and orthostatic Hypotension -Continue Captopril and Norvasc, Coreg stopped Diabetes mellitus type 2, Hgb A1C = 11, better control -Continue Lantus increase to 30 HS and SSI, BS in 200s, FBS 246, Chronic Normocytic anemia H/H stable, above transfusion threshold check BmP and CBC today Resolved issues Acute kidney injury- Resolved with IV Alcohol withdrawal--treated with Pheno and resolved. diarrhea -gi panel negative -cdif PCR + but toxin negative - likely colonization, so no Treatement indicated -diarrhea resolved DVT prophylaxis: Lovenox Full code DISPO STR when bed available Requires ongoing hospitalization : Awaiting placement, possible need wound vac/wound care followin Quality Stroke Does the patient have a stroke diagnosis?: No VTE Prior VTE?: No VTE Risk Level:: Medical - moderate - high VTE Device Contraindication: Treatment Not Indicated VTE Drug Contraindication: N/A - Med Ordered
[2024-02-10 10:31] LABS: Hematocrit 33.3 % (42.0-52.0); Hemoglobin 10.8 g/dl (14.0-18.0); Mean Corpuscular HGB Conc 32.4 g/dl (31.0-36.0); Mean Corpuscular Hemoglobin 29.6 pg (27.0-33.0); Mean Corpuscular Volume 91.2 fL (80.0-98.0); Mean Platelet Volume 10.3 fL (9.4-12.4); Platelet Count 206 X10*3/uL (160-400); Red Blood Count 3.65 X10*6/uL (4.60-5.80); Red Cell Distribution Width 12.4 % (11.0-16.0); White Blood Count 8.8 X10*3/uL (4.8-10.8)
[2024-02-10 10:47] LABS: Anion Gap 10 (12-20); Blood Urea Nitrogen 18 mg/dL (9-16); Calcium 9.7 mg/dL (8.4-10.2); Carbon Dioxide 31 mmol/L (22-29); Chloride 99 mmol/L (96-108); Creatinine Clr Calc Pharmacy 75.6; Estimated Glomerular Filt Rate > 60; Glucose Random 286 mg/dL (60-115); Potassium 4.3 mmol/L (3.3-5.1); Sodium 136 mmol/L (135-145)
[2024-02-10 11:25] LABS: Glucose, Whole Blood 252 mg/dL (60-115)
[2024-02-10 11:50] VITALS: BP 162/79; PULSE 82; O2SAT 97
--- NOTE | 2024-02-10 13:16 | P.PNNP_ITS ---
Subjective Subjective Date of Service: 02/10/24 Interval history: Events noted. All recent data reviewed. Still has orthostasis. Proteinuric. Physical Exam 2 Vital Signs: Vital Signs: Last Vital Signs Temp 96.9 F 02/10/24 07:30 Pulse 82 02/10/24 11:50 Resp 16 02/10/24 07:30 BP 162/79 H 02/10/24 11:50 Pulse Ox 97 02/10/24 11:50 O2 Del Method Room Air 02/10/24 07:30 O2 Flow Rate 2 01/29/24 12:25 Oxygen Flow Rate 2 01/29/24 16:15 BMI result Body Mass Index 30.0 Const: General: comfortable and no acute distress O rientation/consciousness: patient oriented x3 HEENT: Head: Yes normocephalic Mouth: Normal oral and palatal mucosa present Eyes: EOM: EOMs intact bilaterally Neck: Neck: Yes supple Resp: Auscultation: clear to auscultation bilaterally Cardio: Jugular venous distension: no JVD Rate: regular rate GI: Palpation (GI): Soft to palpation Auscultation: normal bowel sounds Skin: General skin exam: no rashes or lesions noted Neuro: General: patient oriented x3 and moves all extremities Extrem: General: Yes no pedal edema Objective Data Labs 02/10/24 10:13 02/10/24 10:13 Labs: Laboratory Results - last 24 hr 02/09/24 02/09/24 02/10/24 16:04 20:09 07:33 WBC RBC Hgb Hct MCV MCH MCHC RDW Plt Count MPV Absolute Nucleated RBC Nucleated RBC % (auto) Sodium Potassium Chloride Carbon Dioxide Anion Gap BUN Creatinine Estim Creat Clear Calc Estimated GFR POC Glucose 236 H 270 H 246 H Random Glucose Calcium 02/10/24 02/10/24 10:13 11:12 WBC 8.8 RBC 3.65 L Hgb 10.8 L Hct 33.3 L MCV 91.2 MCH 29.6 MCHC 32.4 RDW 12.4 Plt Count 206 D MPV 10.3 Absolute Nucleated RBC 0.000 Nucleated RBC % (auto) 0.0 Sodium 136 Potassium 4.3 Chloride 99 Carbon Dioxide 31 H Anion Gap 10 L BUN 18 H Creatinine 1.15 Estim Creat Clear Calc 75.6 Estimated GFR > 60 POC Glucose 252 H Random Glucose 286 H Calcium 9.7 Microbiology Microbiology Results: Microbiology 01/27/24 Unknown Scrotum Gram Stain - Final 01/27/24 Unknown Scrotum Routine Culture - Final Escherichia coli 01/22/24 09:55 Blood - Venous Blood Culture - Final No growth after 5 days. 01/22/24 09:40 Blood - Venous Blood Culture - Final No growth after 5 days. 01/21/24 13:05 Blood - Venous Blood Culture - Final No growth after 5 days. 01/21/24 13:05 Blood - Venous Blood Culture - Final No growth after 5 days. Procedures Date of Service Date of Service: 02/10/24 Assessment & Plan Assessment and plan (1) CKD stage 3 due to type 2 diabetes mellitus: Status: Acute (2) Orthostatic hypotension: Status: Acute (3) Proteinuria due to type 2 diabetes mellitus: Status: Acute Plan Shad had CONSTANCE due to sepsis which has been resolved He has proteinuria. urine protein creatinine ratio is 1.26 Supine HTN with Orthostatic hypotension Has been Captopril and amlodipine All take precautions including had an elevation at 30 degrees, tight stockings. serum cortisol. Levels at 7.4;Continue current supportive care for now. He needs close follow-up in the office after hospital discharge Progress Note: Quality Stroke Does the patient have a stroke diagnosis?: No
--- NOTE | 2024-02-10 14:12 | MHC.CM.PN ---
Per MD rounds patient is medically cleared for STR. No bed offers at this time. [facility] previously offering, but is now closed to admissions. 43 referrals in [facility]. [place] is reviewing. 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 No bed offers at this time. CM will continue to seek STR placement.
--- NOTE | 2024-02-10 15:32 | HO.WOUND ---
Wound Consult: Follow up 48yr old? admitted to [facility] on 01/21/24 - See progress notes and H&P for detailed history.? Wound consult follow up for scrotum and right buttock wound vac placement.? Patient agreeable to assessment and photo documentation.? Wound vac assessed leaking noted - reinforced with drape suction obtained. Reassessed a few times throughout the day and suction maintained - alarm review shows brief periods of loss of suction with resolve - this is not abnormal given the location of the wound vac and the loose skin and close proximity to the anus. Discussed with patient to alert staff to alarms from wound vac and educated as to why we need suction at all times. He reported he was aware he lost suction at one point when he was up to the commode but once he returned to bed suction was regained. Alarm review confirms loss of suction. The dressing was assessed and remains intact with suction - patient educated that when he identifies the loss of suction to alert staff if it does not resolve once in the lying position - he reports understanding. Wound vac dressing due to be changed 02/11/24. From yesterdays assessment: Right buttock, perineal and scrotum Etiology: Abscess s/p Debridement Wound Bed: Red clean wound bed Drainage / Odor: serosang drainage small amount no odor noted - of note no dressing in place as pt removed it at the last time we went to the bathroom several hours prior Edges: ? irregular Donna wound: MASD and Fungal Dermatitis - red erythema, hyperpigmentation, No fluctuance and no induration noted Pain: no pain reported - patient reports itching at groin area consistent with fungal dermatitis Goals of Treatment: ? Wound Vac applied set to 125mmHg continuous suction NPWT Suction Settings: 125mmHg - Setting Type: Continuous No Premedication Provided. Wound assessment: 12.5cm x 4cm x 2cm? - no undermining noted - irregular edges Wound bed: Red moist viable tissue noted Cleansed and irrigated with NS. pat dry. Nystatin powder applied to periwound and sealed with skin barrier wipe. The portion of the wound at 6 o'clock is flush to skin and was treated with Durafiber and hydrocolloid since it is flush to skin and close proximity to anus in an effort to create a seal. NPWT Dressing Application: 2 piece of black foam cut to size and applied to wound bed, Skin and wound edge protected with Paste Strip outlining edge.? Skin protected with Drape for Bridge one piece of black foam applied for bridge to right mid thigh avoiding high pressure areas such as trochanter. Dressing completed and no leak noted.? Suction set to 125mmHg - patient denies pain and or burning sensation. Patient tolerated well.? D/C plan - awaiting bed placement to facility and will need outpt follow up with Outpt wound clinic. Inpatient Nurse will continue to follow.
[2024-02-10 15:36] VITALS: BP 148/71; PULSE 88; RESP 16; TEMP 36.1; O2SAT 93
[2024-02-10 16:02] LABS: Glucose, Whole Blood 187 mg/dL (60-115)
[2024-02-10] MEDS: Enoxaparin Sodium 40 MG/0.4 ML SYRINGE SUBCUT (16:35)
[2024-02-10 20:17] LABS: Glucose, Whole Blood 259 mg/dL (60-115)
[2024-02-10 20:41] VITALS: BP 162/48
[2024-02-10] MEDS: Insulin Glargine,Hum.rec.anlog 100 UNIT/ML 10 ML VIAL 28 UNIT SUBCUT (20:42)
[2024-02-10 23:18] VITALS: BP 163/92; PULSE 80; RESP 16; TEMP 36.3; O2SAT 95
[2024-02-11] MEDS: cefuroxime axetiL 500 MG TABLET PO ×2 (04:40→16:41)
[2024-02-11 07:30] VITALS: BP 129/69; PULSE 83; RESP 20; TEMP 37.1; O2SAT 97
[2024-02-11 07:47] LABS: Glucose, Whole Blood 287 mg/dL (60-115)
[2024-02-11] MEDS: Insulin Lispro 100 UNIT/ML 3 ML VIAL SUBCUT ×4 (08:32→20:40)
[2024-02-11] MEDS: 0.9 % Sodium Chloride Flush 3 ML SYRINGE IVFLUSH ×2 (08:32→16:42)
[2024-02-11] MEDS: Thiamine HCL 100 MG TABLET PO (08:32)
[2024-02-11] MEDS: Folic Acid 1 MG TABLET PO (08:32)
[2024-02-11] MEDS: Multivitamin TABLET 1 TAB PO (08:32)
[2024-02-11] MEDS: Magnesium Oxide 400 MG TABLET PO ×2 (08:32→16:42)
--- NOTE | 2024-02-11 09:01 | P.PNIM_ITS ---
Subjective Subjective Date of Service: 02/11/24 Interval History: f/u on scrotal abscess and cellulitis, and severe orthostatic hyopotension wound is healing well, no more abscess Physical Exam 2 Vital Signs: Vital Signs: Last Vital Signs Temp 98.7 F 02/11/24 07:30 Pulse 83 02/11/24 07:30 Resp 20 02/11/24 07:30 BP 129/69 02/11/24 07:30 Pulse Ox 97 02/11/24 07:30 O2 Del Method Room Air 02/11/24 07:30 O2 Flow Rate 2 01/29/24 12:25 Oxygen Flow Rate 2 01/29/24 16:15 BMI result Body Mass Index 30.0 General: AO X 3, no acute distress Resp: CTA bilateral CVS: S1,S2,RRR GI: +BS, NT, no distention Skin: Wound vac in place Neuro: motor grossly intact Psych: appropriate affect Objective Data Active Medications Acetaminophen (Acetaminophen 325 Mg Tablet) 975 mg PO Q6H [facility] Last Admin: 02/11/24 08:32 Dose: Not Given Documented By: JENNY Non-Admin Reason: Patient Refused Amlodipine Besylate (Amlodipine Besylate 2.5 Mg Tablet) 2.5 mg PO DAILY@1200 [facility] Last Admin: 02/10/24 13:22 Dose: Not Given Documented By: JENNY Non-Admin Reason: pt low BP when standing Calcium Carbonate (Calcium Carbonate 750 Mg Tab.Chew) 750 mg PO Q4H PRN PRN Reason: Heartburn Captopril (Captopril 12.5 Mg Tablet) 3.125 mg PO BID [facility]; Protocol Last Admin: 02/11/24 08:33 Dose: 3.125 mg Documented By: JENNY Cefuroxime Axetil (Cefuroxime Axetil 500 Mg Tablet) 500 mg PO Q12H [facility] Last Admin: 02/11/24 04:40 Dose: 500 mg Documented By: JAIDA Diphenhydramine HCl (Diphenhydramine Hcl 25 Mg Capsule) 50 mg PO Q6H PRN PRN Reason: Itching Last Admin: 02/08/24 21:04 Dose: 50 mg Documented By: DANIAL Enoxaparin Sodium (Enoxaparin Sodium 40 Mg/0.4 Ml Syringe) 40 mg SUBCUT Q24H [facility] Last Admin: 02/10/24 16:35 Dose: 40 mg Documented By: JENNY Folic Acid (Folic Acid 1 Mg Tablet) 1 mg PO DAILY [facility] Last Admin: 02/11/24 08:32 Dose: 1 mg Documented By: JENNY Glucose (Glucose Gel 15 Gm Gel..Gram.) 15 gm PO Q15M PRN; Protocol PRN Reason: per Hypoglycemia Standing Ord. Hydromorphone HCl (Hydromorphone Hcl 2 Mg Tablet) 1 mg PO Q6H PRN PRN Reason: Pain, Moderate(Pain Scale 4-6) Last Admin: 02/10/24 20:40 Dose: 1 mg Documented By: JAIDA Dextrose (D10) 250 mls @ 750 mls/hr IV Q15M PRN; Protocol PRN Reason: per Hypoglycemia Standing Ord. Insulin Glargine (Insulin Glargine,Hum.Rec.Anlog 100 Unit/Ml 10 Ml Vial) 28 unit SUBCUT BEDTIME [facility] Last Admin: 02/10/24 20:42 Dose: 28 unit Documented By: JAIDA Insulin Human Lispro (Insulin Lispro 100 Unit/Ml 3 Ml Vial) 0 unit SUBCUT QIDACHS [facility]; Protocol Last Admin: 02/11/24 08:32 Dose: 6 unit Documented By: JENNY Magnesium Hydroxide (Milk Of Magnesia 30 Ml Oral.Susp) 30 ml PO DAILY PRN PRN Reason: Constipation Last Admin: 01/26/24 10:54 Dose: 30 ml Documented By: SENTHIL Magnesium Oxide (Magnesium Oxide 400 Mg Tablet) 400 mg PO BIDPC [facility] Last Admin: 02/11/24 08:32 Dose: 400 mg Documented By: JENNY Multivitamins/Vitamin C (Multivitamin Tablet) 1 tab PO DAILY [facility] Last Admin: 02/11/24 08:32 Dose: 1 tab Documented By: JENNY Nystatin (Nystatin Powder 15 Gm Bottle) 1 appl TOPICAL DAILY [facility]; Protocol Last Admin: 02/10/24 07:52 Dose: Not Given Documented By: JENNY Non-Admin Reason: only to be used during VAC changes Ondansetron HCl (Ondansetron Hcl 4 Mg/2 Ml Vial) 4 mg IVPUSH Q8H PRN PRN Reason: Nausea and Vomiting Pharmacy Consult (Consult Rx Etoh Phenob Po Only) 1 each MISCELLANE ONCE PRN; Protocol PRN Reason: Consult order Pharmacy Consult (Consult Rx Etoh Phenob Po Only) 1 each MISCELLANE ONCE PRN; Protocol PRN Reason: Consult order Sodium Chloride (0.9 % Sodium Chloride Flush 3 Ml Syringe) 3 ml IVFLUSH QSHIFT [facility] Last Admin: 02/11/24 08:32 Dose: 3 ml Documented By: JENNY Thiamine HCl (Thiamine Hcl 100 Mg Tablet) 100 mg PO DAILY [facility] Last Admin: 02/11/24 08:32 Dose: 100 mg Documented By: JENNY Labs 02/10/24 10:13 02/10/24 10:13 Labs: Laboratory Results - last 24 hr 02/10/24 02/10/24 02/10/24 10:13 11:12 15:51 MCV 91.2 MCH 29.6 MCHC 32.4 RDW 12.4 Plt Count 206 D MPV 10.3 Absolute Nucleated RBC 0.000 Nucleated RBC % (auto) 0.0 Anion Gap 10 L Estim Creat Clear Calc 75.6 Estimated GFR > 60 POC Glucose 252 H 187 H Random Glucose 286 H Calcium 9.7 02/10/24 02/11/24 20:08 07:32 MCV MCH MCHC RDW Plt Count MPV Absolute Nucleated RBC Nucleated RBC % (auto) Anion Gap Estim Creat Clear Calc Estimated GFR POC Glucose 259 H 287 H Random Glucose Calcium Assessment and Plan (1) Orthostatic hypotension: Status: Acute (2) Abscess of scrotum: Status: Acute Assessment and Plan: 48/m with medication noncompliance, uncontrolled HTN, insulin-dependent DM, alcohol use disorder who presented to the ED on 01/21/24 for generalized weakness and admitted for alcohol withdrawal, CONSTANEC, HTN urgency, and uncontrolled Diabetes. Hospital course complicated by sepsis d/t RLE cellulitis and Scrotal abscess/cellulitis, and now severe othrostatic Hypotension impairing his functioning Orthostatic hypotension is likely due to a combination of diabetic autonomic dysfunction and medications. Management has included IV fluids, adjustment and reduction of blood pressure medications, and the use of DENNY stockings. However, he still experiences a significant drop in systolic blood pressure upon standing, from SBP of 180-190 to the 70s, causing severe symptoms and putting him at high risk for syncope, falls, and bodily injury. Nephrology is assisting with his management. Currently, he is unable to perform any activities other than lying in bed, he is not able to participate in PT. The next step may involve a trial of Florinef or Midodrine, provided his supine blood pressure is not alarmingly high. Sepsis due to right lower extremity cellulitis/scrotal cellulitis and abscess--cellulitis of leg resolved, sepsis resolved. -s/p I&D of scrotal/perineal abscess by urology 01/26 -Seen by General surgery 01/31, no further surgical intervention required at this time. -Wound looks clean--see pictures -Wound Vac applied on 02/08 -Blood culture negative -Wound culture E. coli -ID recommend Ceftin 500 bid x 14 days, ending 02/15/24 Supine HTN and orthostatic Hypotension -Continue Captopril and Norvasc at present dose, Coreg stopped Diabetes mellitus type 2, Hgb A1C = 11, better control -Continue Lantus increase to 30 HS and SSI, BS in 200s, Chronic Normocytic anemia H/H stable, above transfusion threshold Resolved issues Acute kidney injury- Resolved with IV Alcohol withdrawal--treated with Pheno and resolved. diarrhea -gi panel negative -cdif PCR + but toxin negative - likely colonization, so no Treatement indicated -diarrhea resolved DVT prophylaxis: Lovenox Full code DISPO STR when bed available Requires ongoing hospitalization : Placement once Severe orthostatic hypotension is better managed putting him at less risk of syncope, fall and bodily injury Quality Stroke Does the patient have a stroke diagnosis?: No VTE Prior VTE?: No VTE Risk Level:: Medical - moderate - high VTE Device Contraindication: Treatment Not Indicated VTE Drug Contraindication: N/A - Med Ordered
[2024-02-11 10:52] VITALS: BP 129/69; PULSE 83; O2SAT 97
[2024-02-11] MEDS: HYDROmorphone HCl 2 MG TABLET 1 MG PO ×2 (11:12→20:37)
[2024-02-11 11:33] LABS: Glucose, Whole Blood 256 mg/dL (60-115)
--- NOTE | 2024-02-11 13:39 | HO.WOUND ---
Wound Consult: Follow up 48yr old? admitted to [facility] on 01/21/24 - See progress notes and H&P for detailed history.? Wound consult follow up for scrotum wound vac change and assessment.? Patient agreeable to assessment and photo documentation.? As this writers days off this week will fall on Thu-Thursday the general surgery team has agreed to perform the dressing record changer tester the weekend. Inpatient wound care nurse will continue to follow. Initial Assessment Assessment 02/08/24 02/09/24 No new photo today but periwound and wound bed continue to show significant improvement. Scrotum Etiology: Abscess s/p Debridement Wound Bed: Red clean wound bed Drainage / Odor: serosang drainage small amount no odor noted Edges: ? irregular but well defined Donna wound: improving MASD and Fungal Dermatitis - red erythema, hyperpigmentation, No fluctuance and no induration noted Pain: mild pain and tenderness reported during wound vac dressing change Goals of Treatment: ? Wound Vac applied set to 125mmHg continuous suction NPWT Suction Settings: 125mmHg - Setting Type: Continuous Premedication Provided by direct care nurse - see MAR for details. Wound assessment: 13cm x 3.5cm x 2cm? - no undermining noted - irregular edges Wound bed: Red moist viable tissue noted Cleansed and irrigated with NS. pat dry. Nystatin powder applied to periwound and sealed with skin barrier wipe. The portion of the wound at 6 o'clock is flush to skin and was treated with Durafiber and drape since it is flush to skin and close proximity to anus in an effort to create a seal. Additionally barrier strip was ussed just below the wound to try to seal out anus. NPWT Dressing Application: 2 piece of black foam cut to size and applied to wound bed, Skin and wound edge protected with Paste Strip outlining edge.? Skin protected with Drape for Bridge one piece of black foam applied for bridge to right mid thigh avoiding high pressure areas such as trochanter. Dressing completed and no leak noted.? Suction set to 125mmHg - patient denies pain and or burning sensation. Patient tolerated well.? D/C plan - awaiting bed placement to facility and will need outpt follow up with Outpt wound clinic. Inpatient Nurse will continue to follow.
--- NOTE | 2024-02-11 13:45 | HO.WOUND ---
Wound Consult: Follow up 48yr old? admitted to [facility] on 01/21/24 - See progress notes and H&P for detailed history.? Wound consult follow up for scrotum wound vac change and assessment.? Patient agreeable to assessment and photo documentation.? As this writers days off this week will fall on Thu-Thursday the general surgery team has agreed to perform the dressing change attendant the weekend. Inpatient wound care nurse will continue to follow. Initial Assessment Assessment 02/08/24 02/09/24 No new photo today but periwound and wound bed continue to show significant improvement. Scrotum Etiology: Abscess s/p Debridement Wound Bed: Red clean wound bed Drainage / Odor: serosang drainage small amount no odor noted Edges: ? irregular but well defined Donna wound: improving MASD and Fungal Dermatitis - red erythema, hyperpigmentation, No fluctuance and no induration noted Pain: mild pain and tenderness reported during wound vac dressing change Goals of Treatment: ? Wound Vac applied set to 125mmHg continuous suction NPWT Suction Settings: 125mmHg - Setting Type: Continuous Premedication Provided by direct care nurse - see MAR for details. Wound assessment: 13cm x 3.5cm x 2cm? - no undermining noted - irregular edges Wound bed: Red moist viable tissue noted Cleansed and irrigated with NS. pat dry. Nystatin powder applied to periwound and sealed with skin barrier wipe. The portion of the wound at 6 o'clock is flush to skin and was treated with Durafiber and drape since it is flush to skin and close proximity to anus in an effort to create a seal. Additionally barrier strip was ussed just below the wound to try to seal out anus. NPWT Dressing Application: 1 piece of black foam cut to size and applied to wound bed, Skin and wound edge protected with Paste Strip outlining lower edge.? Skin protected with Drape for Bridge one piece of black foam applied for bridge to right mid thigh avoiding high pressure areas such as trochanter. Dressing completed and no leak noted.? Suction set to 125mmHg - patient denies pain and or burning sensation. Patient tolerated well.? D/C plan - awaiting bed placement to facility and will need outpt follow up with Outpt wound clinic. Of note general surgery agreed to follow up for wound vac dressing change attendant the weekend due to this writers days off. Inpatient Nurse will continue to follow.
[2024-02-11 15:17] VITALS: BP 179/87; PULSE 95; RESP 16; TEMP 36.2; O2SAT 94
[2024-02-11 16:27] LABS: Glucose, Whole Blood 253 mg/dL (60-115)
[2024-02-11] MEDS: Enoxaparin Sodium 40 MG/0.4 ML SYRINGE SUBCUT (16:42)
[2024-02-11 20:00] VITALS: BP 162/90; PULSE 89; RESP 16; TEMP 36.6; O2SAT 93
[2024-02-11 20:23] LABS: Glucose, Whole Blood 280 mg/dL (60-115)
[2024-02-11] MEDS: Insulin Glargine,Hum.rec.anlog 100 UNIT/ML 10 ML VIAL 30 UNIT SUBCUT (20:40)
[2024-02-12 03:11] VITALS: BP 150/82; PULSE 79; RESP 16; TEMP 36.5; O2SAT 95
[2024-02-12] MEDS: cefuroxime axetiL 500 MG TABLET PO ×2 (03:14→17:02)
[2024-02-12 07:22] VITALS: BP 163/79; PULSE 85; RESP 16; TEMP 36; O2SAT 96
[2024-02-12 07:39] LABS: Glucose, Whole Blood 243 mg/dL (60-115)
[2024-02-12] MEDS: Multivitamin TABLET 1 TAB PO (07:56)
[2024-02-12] MEDS: Folic Acid 1 MG TABLET PO (07:56)
[2024-02-12] MEDS: HYDROmorphone HCl 2 MG TABLET 1 MG PO (07:56)
[2024-02-12] MEDS: Thiamine HCL 100 MG TABLET PO (07:56)
[2024-02-12] MEDS: Insulin Lispro 100 UNIT/ML 3 ML VIAL SUBCUT ×4 (07:57→20:44)
[2024-02-12] MEDS: 0.9 % Sodium Chloride Flush 3 ML SYRINGE IVFLUSH ×3 (08:30→20:57)
[2024-02-12] MEDS: Magnesium Oxide 400 MG TABLET PO ×2 (08:30→18:14)
[2024-02-12 11:31] LABS: Glucose, Whole Blood 308 mg/dL (60-115)
--- NOTE | 2024-02-12 11:44 | MHC.CM.PN ---
[facility] IF OFFERING A BED, THEY HAVE THE WOUND VAC AND INSURANCE AUTH WELL, HOWEVER PT IS NOT MEDICALLY CLEAR. CM HAS REQUESTED THEY HOLD THE BED AND FOLLOW UP TOMORROW
--- NOTE | 2024-02-12 11:49 | HO.PM.IMPN ---
Subjective Subjective Date of Service: 02/12/24 Interval History: f/u on scrotal abscess and cellulitis, and severe orthostatic hyopotension wound is healing well, no more abscess. He remains severely orthostatic with standing BP in 60s and symptomatic this morning Physical Exam Vital Signs: Vital Signs: Last Vital Signs Temp 96.8 F 02/12/24 07:22 Pulse 85 02/12/24 07:22 Resp 16 02/12/24 07:22 BP 163/79 H 02/12/24 07:22 Pulse Ox 96 02/12/24 07:22 O2 Del Method Room Air 02/12/24 07:22 O2 Flow Rate 2 01/29/24 12:25 Oxygen Flow Rate 2 01/29/24 16:15 BMI result Body Mass Index 30.0 Objective Data Active Medications Acetaminophen (Acetaminophen 325 Mg Tablet) 975 mg PO Q6H [facility] Last Admin: 02/12/24 08:30 Dose: Not Given Documented By: JENNY Non-Admin Reason: Patient Refused Amlodipine Besylate (Amlodipine Besylate 2.5 Mg Tablet) 2.5 mg PO DAILY@1200 [facility] Last Admin: 02/11/24 13:04 Dose: Not Given Documented By: JENNY Non-Admin Reason: orthostatic when standing Calcium Carbonate (Calcium Carbonate 750 Mg Tab.Chew) 750 mg PO Q4H PRN PRN Reason: Heartburn Captopril (Captopril 12.5 Mg Tablet) 3.125 mg PO BID [facility]; Protocol Last Admin: 02/12/24 07:55 Dose: 3.125 mg Documented By: JENNY Cefuroxime Axetil (Cefuroxime Axetil 500 Mg Tablet) 500 mg PO Q12H [facility] Last Admin: 02/12/24 03:14 Dose: 500 mg Documented By: CALVIN Diphenhydramine HCl (Diphenhydramine Hcl 25 Mg Capsule) 50 mg PO Q6H PRN PRN Reason: Itching Last Admin: 02/08/24 21:04 Dose: 50 mg Documented By: DANIAL Enoxaparin Sodium (Enoxaparin Sodium 40 Mg/0.4 Ml Syringe) 40 mg SUBCUT Q24H [facility] Last Admin: 02/11/24 16:42 Dose: 40 mg Documented By: JENNY Folic Acid (Folic Acid 1 Mg Tablet) 1 mg PO DAILY [facility] Last Admin: 02/12/24 07:56 Dose: 1 mg Documented By: JENNY Glucose (Glucose Gel 15 Gm Gel..Gram.) 15 gm PO Q15M PRN; Protocol PRN Reason: per Hypoglycemia Standing Ord. Hydromorphone HCl (Hydromorphone Hcl 2 Mg Tablet) 1 mg PO Q6H PRN PRN Reason: Pain, Moderate(Pain Scale 4-6) Last Admin: 02/12/24 07:56 Dose: 1 mg Documented By: JENNY Dextrose (D10) 250 mls @ 750 mls/hr IV Q15M PRN; Protocol PRN Reason: per Hypoglycemia Standing Ord. Insulin Glargine (Insulin Glargine,Hum.Rec.Anlog 100 Unit/Ml 10 Ml Vial) 30 unit SUBCUT BEDTIME [facility] Last Admin: 02/11/24 20:40 Dose: 30 unit Documented By: NESTOR Insulin Human Lispro (Insulin Lispro 100 Unit/Ml 3 Ml Vial) 0 unit SUBCUT QIDACHS [facility]; Protocol Last Admin: 02/12/24 07:57 Dose: 4 unit Documented By: JENNY Magnesium Hydroxide (Milk Of Magnesia 30 Ml Oral.Susp) 30 ml PO DAILY PRN PRN Reason: Constipation Last Admin: 01/26/24 10:54 Dose: 30 ml Documented By: SENTHIL Magnesium Oxide (Magnesium Oxide 400 Mg Tablet) 400 mg PO BIDPC [facility] Last Admin: 02/12/24 08:30 Dose: 400 mg Documented By: JENNY Multivitamins/Vitamin C (Multivitamin Tablet) 1 tab PO DAILY [facility] Last Admin: 02/12/24 07:56 Dose: 1 tab Documented By: JENNY Nystatin (Nystatin Powder 15 Gm Bottle) 1 appl TOPICAL DAILY [facility]; Protocol Last Admin: 02/12/24 07:57 Dose: Not Given Documented By: JENNY Non-Admin Reason: only given for VAC changes Ondansetron HCl (Ondansetron Hcl 4 Mg/2 Ml Vial) 4 mg IVPUSH Q8H PRN PRN Reason: Nausea and Vomiting Pharmacy Consult (Consult Rx Etoh Phenob Po Only) 1 each MISCELLANE ONCE PRN; Protocol PRN Reason: Consult order Pharmacy Consult (Consult Rx Etoh Phenob Po Only) 1 each MISCELLANE ONCE PRN; Protocol PRN Reason: Consult order Sodium Chloride (0.9 % Sodium Chloride Flush 3 Ml Syringe) 3 ml IVFLUSH QSHIFT [facility] Last Admin: 02/12/24 08:30 Dose: 3 ml Documented By: JENNY Thiamine HCl (Thiamine Hcl 100 Mg Tablet) 100 mg PO DAILY [facility] Last Admin: 02/12/24 07:56 Dose: 100 mg Documented By: JENNY Labs 02/10/24 10:13 02/10/24 10:13 Labs: Laboratory Results - last 24 hr 02/11/24 02/11/24 02/12/24 16:17 19:12 07:26 POC Glucose 253 H 280 H 243 H 02/12/24 11:20 POC Glucose 308 H Assessment and Plan (1) Orthostatic hypotension: Status: Acute (2) Abscess of scrotum: Status: Acute Assessment and Plan: 48/m with medication noncompliance, uncontrolled HTN, insulin-dependent DM, alcohol use disorder who presented to the ED on 01/21/24 for generalized weakness and admitted for alcohol withdrawal, CONSTANCE, HTN urgency, and uncontrolled Diabetes. Hospital course complicated by sepsis d/t RLE cellulitis and Scrotal abscess/cellulitis, and now severe othrostatic Hypotension impairing his functioning Orthostatic hypotension is likely due to a combination of diabetic autonomic dysfunction and medications. Management has included IV fluids, adjustment and reduction of blood pressure medications, and the use of DENNY stockings. However, he still experiences a significant drop in systolic blood pressure upon standing, from SBP of 180-190 to the 70s, causing severe symptoms and putting him at high risk for syncope, falls, and bodily injury. Nephrology is assisting with his management. Currently, he is unable to perform any activities other than lying in bed, he is not able to participate in PT. The next step may involve a trial of Florinef or Midodrine, provided his supine blood pressure is not alarmingly high. Sepsis due to right lower extremity cellulitis/scrotal cellulitis and abscess--cellulitis of leg resolved, sepsis resolved. -s/p I&D of scrotal/perineal abscess by urology 01/26 -Seen by General surgery 01/31, no further surgical intervention required at this time. -Wound looks clean--see pictures -Wound Vac applied on 02/08 -Blood culture negative -Wound culture E. coli -ID recommend Ceftin 500 bid x 14 days, ending 02/15/24 Supine HTN andsevere orthostatic Hypotension -Continue Captopril and Norvasc at present dose, Coreg stopped -will discuss with renal Diabetes mellitus type 2, Hgb A1C = 11, better control -Continue Lantus increase to 30 HS and SSI, BS in 200s to 300, -add glipizide 2.5 bid Chronic Normocytic anemia H/H stable, above transfusion threshold Resolved issues Acute kidney injury- Resolved with IV Alcohol withdrawal--treated with Pheno and resolved. diarrhea -gi panel negative -cdif PCR + but toxin negative - likely colonization, so no Treatement indicated -diarrhea resolved DVT prophylaxis: Lovenox Full code DISPO STR when bed available Requires ongoing hospitalization : Placement once Severe orthostatic hypotension is better managed putting him at less risk of syncope, fall and bodily injury Quality Stroke Does the patient have a stroke diagnosis?: No VTE Prior VTE?: No VTE Risk Level:: Medical - moderate - high VTE Device Contraindication: Treatment Not Indicated VTE Drug Contraindication: N/A - Med Ordered
[2024-02-12 12:00] VITALS: BP 65/40; BP 95/58; PULSE 80; PULSE 81
[2024-02-12] MEDS: glipiZIDE 5 MG TABLET 2.5 MG PO ×2 (12:09→17:03)
--- NOTE | 2024-02-12 13:00 | P.PNNP_ITS ---
Subjective Subjective Date of Service: 02/12/24 Interval history: He remains severely orthostatic with standing BP in 60s and symptomatic this morning; all recent data reviewed. Discussed with hospitalist. Physical Exam 2 Vital Signs: Vital Signs: Last Vital Signs Temp 96.8 F 02/12/24 07:22 Pulse 80 02/12/24 12:00 Resp 16 02/12/24 07:22 BP 65/40 L 02/12/24 12:00 Pulse Ox 96 02/12/24 07:22 O2 Del Method Room Air 02/12/24 07:22 O2 Flow Rate 2 01/29/24 12:25 Oxygen Flow Rate 2 01/29/24 16:15 BMI result Body Mass Index 30.0 Const: General: comfortable and no acute distress O rientation/consciousness: patient oriented x3 HEENT: Head: Yes normocephalic Mouth: Normal oral and palatal mucosa present Eyes: EOM: EOMs intact bilaterally Neck: Neck: Yes supple Resp: Auscultation: clear to auscultation bilaterally Cardio: Jugular venous distension: no JVD Rate: regular rate GI: Palpation (GI): Soft to palpation Auscultation: normal bowel sounds : General: Yes no CVA tenderness Back/Spine/Pelvis: Back: no CVA tenderness Skin: General skin exam: no rashes or lesions noted Neuro: General: patient oriented x3 and moves all extremities Objective Data Labs 02/10/24 10:13 02/10/24 10:13 Labs: Laboratory Results - last 24 hr 02/11/24 02/11/24 02/12/24 16:17 19:12 07:26 POC Glucose 253 H 280 H 243 H 02/12/24 11:20 POC Glucose 308 H Microbiology Microbiology Results: Microbiology 01/27/24 Unknown Scrotum Gram Stain - Final 01/27/24 Unknown Scrotum Routine Culture - Final Escherichia coli 01/22/24 09:55 Blood - Venous Blood Culture - Final No growth after 5 days. 01/22/24 09:40 Blood - Venous Blood Culture - Final No growth after 5 days. 01/21/24 13:05 Blood - Venous Blood Culture - Final No growth after 5 days. 01/21/24 13:05 Blood - Venous Blood Culture - Final No growth after 5 days. Procedures Date of Service Date of Service: 02/12/24 Assessment & Plan Assessment and plan (1) CKD stage 3 due to type 2 diabetes mellitus: Status: Acute (2) Orthostatic hypotension: Status: Acute (3) Proteinuria due to type 2 diabetes mellitus: Status: Acute Plan Has CKD due to diabetes mellitus He has proteinuria. urine protein creatinine ratio is 1.26 Supine HTN with Orthostatic hypotension Has been on Captopril and amlodipine Shall discontinue regular amlodipine and give p.r.n. daily All take precautions including had an elevation at 30 degrees, tight stockings. serum cortisol levels at 7.4;Continue current supportive care for now. He needs close follow-up in the office after hospital discharge Progress Note: Quality Stroke Does the patient have a stroke diagnosis?: No
[2024-02-12 15:53] VITALS: BP 150/90; PULSE 88; RESP 12; TEMP 36.3; O2SAT 94
[2024-02-12 16:44] LABS: Glucose, Whole Blood 219 mg/dL (60-115)
[2024-02-12] MEDS: Enoxaparin Sodium 40 MG/0.4 ML SYRINGE SUBCUT (17:03)
[2024-02-12 19:39] VITALS: BP 140/70; PULSE 89; RESP 18; TEMP 36.5; O2SAT 95
[2024-02-12 20:27] LABS: Glucose, Whole Blood 228 mg/dL (60-115)
[2024-02-12] MEDS: Acetaminophen 325 MG TABLET 975 MG PO (20:45)
[2024-02-12] MEDS: Insulin Glargine,Hum.rec.anlog 100 UNIT/ML 10 ML VIAL 30 UNIT SUBCUT (20:45)
[2024-02-12 20:46] VITALS: BP 140/70
[2024-02-13] MEDS: Acetaminophen 325 MG TABLET 975 MG PO ×3 (03:18→20:40)
[2024-02-13] MEDS: cefuroxime axetiL 500 MG TABLET PO ×2 (03:18→15:15)
[2024-02-13 03:53] VITALS: BP 166/82; PULSE 88; RESP 16; TEMP 36.1; O2SAT 97
[2024-02-13 07:09] VITALS: BP 152/72; PULSE 78; RESP 16; TEMP 36.6; O2SAT 96
[2024-02-13 07:20] LABS: Glucose, Whole Blood 247 mg/dL (60-115)
[2024-02-13] MEDS: 0.9 % Sodium Chloride Flush 3 ML SYRINGE IVFLUSH ×3 (09:12→20:41)
[2024-02-13] MEDS: Insulin Lispro 100 UNIT/ML 3 ML VIAL SUBCUT ×4 (09:12→20:42)
[2024-02-13] MEDS: glipiZIDE 5 MG TABLET 2.5 MG PO ×2 (09:15→16:28)
[2024-02-13] MEDS: Thiamine HCL 100 MG TABLET PO (09:16)
[2024-02-13] MEDS: Magnesium Oxide 400 MG TABLET PO ×2 (09:16→16:28)
[2024-02-13] MEDS: Folic Acid 1 MG TABLET PO (09:16)
[2024-02-13] MEDS: Multivitamin TABLET 1 TAB PO (09:19)
--- NOTE | 2024-02-13 09:41 | HO.PM.IMPN ---
Subjective Subjective Date of Service: 02/13/24 Interval History: f/u on scrotal abscess and cellulitis, and severe orthostatic hyopotension wound is healing well, no more abscess. Still experiencing orthostatic hypotension with symptoms Physical Exam Vital Signs: Vital Signs: Last Vital Signs Temp 97.8 F 02/13/24 07:09 Pulse 78 02/13/24 07:09 Resp 16 02/13/24 07:09 BP 152/72 H 02/13/24 07:09 Pulse Ox 96 02/13/24 07:09 O2 Del Method Room Air 02/13/24 07:09 O2 Flow Rate 2 01/29/24 12:25 Oxygen Flow Rate 2 01/29/24 16:15 BMI result Body Mass Index 30.0 General: AO X 3, no acute distress Resp: CTA bilateral CVS: S1,S2,RRR GI: +BS, NT, no distention Skin: wound vac in place --see prior picture Neuro: motor grossly intact Psych: appropriate affect Objective Data Active Medications Acetaminophen (Acetaminophen 325 Mg Tablet) 975 mg PO Q6H [facility] Last Admin: 02/13/24 09:16 Dose: 975 mg Documented By: KENYA Amlodipine Besylate (Amlodipine Besylate 2.5 Mg Tablet) 2.5 mg PO DAILY@1200 [facility] Last Admin: 02/12/24 12:10 Dose: Not Given Documented By: JENNY Non-Admin Reason: standing BP 60/45 Calcium Carbonate (Calcium Carbonate 750 Mg Tab.Chew) 750 mg PO Q4H PRN PRN Reason: Heartburn Captopril (Captopril 12.5 Mg Tablet) 3.125 mg PO BID [facility]; Protocol Last Admin: 02/13/24 09:17 Dose: 3.125 mg Documented By: KENYA Cefuroxime Axetil (Cefuroxime Axetil 500 Mg Tablet) 500 mg PO Q12H [facility] Last Admin: 02/13/24 03:18 Dose: 500 mg Documented By: JORDAN Diphenhydramine HCl (Diphenhydramine Hcl 25 Mg Capsule) 50 mg PO Q6H PRN PRN Reason: Itching Last Admin: 02/08/24 21:04 Dose: 50 mg Documented By: DANIAL Enoxaparin Sodium (Enoxaparin Sodium 40 Mg/0.4 Ml Syringe) 40 mg SUBCUT Q24H [facility] Last Admin: 02/12/24 17:03 Dose: 40 mg Documented By: JENNY Folic Acid (Folic Acid 1 Mg Tablet) 1 mg PO DAILY [facility] Last Admin: 02/13/24 09:16 Dose: 1 mg Documented By: KENYA Glipizide (Glipizide 5 Mg Tablet) 2.5 mg PO BIDWM [facility] Last Admin: 02/13/24 09:15 Dose: 2.5 mg Documented By: KENYA Glucose (Glucose Gel 15 Gm Gel..Gram.) 15 gm PO Q15M PRN; Protocol PRN Reason: per Hypoglycemia Standing Ord. Hydromorphone HCl (Hydromorphone Hcl 2 Mg Tablet) 1 mg PO Q6H PRN PRN Reason: Pain, Moderate(Pain Scale 4-6) Last Admin: 02/12/24 07:56 Dose: 1 mg Documented By: JENNY Dextrose (D10) 250 mls @ 750 mls/hr IV Q15M PRN; Protocol PRN Reason: per Hypoglycemia Standing Ord. Insulin Glargine (Insulin Glargine,Hum.Rec.Anlog 100 Unit/Ml 10 Ml Vial) 34 unit SUBCUT BEDTIME [facility] Insulin Human Lispro (Insulin Lispro 100 Unit/Ml 3 Ml Vial) 0 unit SUBCUT QIDACHS [facility]; Protocol Last Admin: 02/13/24 09:12 Dose: 4 unit Documented By: KENYA Magnesium Hydroxide (Milk Of Magnesia 30 Ml Oral.Susp) 30 ml PO DAILY PRN PRN Reason: Constipation Last Admin: 01/26/24 10:54 Dose: 30 ml Documented By: SENTHIL Magnesium Oxide (Magnesium Oxide 400 Mg Tablet) 400 mg PO BIDPC [facility] Last Admin: 02/13/24 09:16 Dose: 400 mg Documented By: KENYA Multivitamins/Vitamin C (Multivitamin Tablet) 1 tab PO DAILY [facility] Last Admin: 02/13/24 09:19 Dose: 1 tab Documented By: KENYA Nystatin (Nystatin Powder 15 Gm Bottle) 1 appl TOPICAL DAILY [facility]; Protocol Last Admin: 02/13/24 09:38 Dose: Not Given Documented By: EV Non-Admin Reason: wound vac in place Ondansetron HCl (Ondansetron Hcl 4 Mg/2 Ml Vial) 4 mg IVPUSH Q8H PRN PRN Reason: Nausea and Vomiting Pharmacy Consult (Consult Rx Etoh Phenob Po Only) 1 each MISCELLANE ONCE PRN; Protocol PRN Reason: Consult order Pharmacy Consult (Consult Rx Etoh Phenob Po Only) 1 each MISCELLANE ONCE PRN; Protocol PRN Reason: Consult order Sodium Chloride (0.9 % Sodium Chloride Flush 3 Ml Syringe) 3 ml IVFLUSH QSHIFT [facility] Last Admin: 02/13/24 09:12 Dose: 3 ml Documented By: KENYA Thiamine HCl (Thiamine Hcl 100 Mg Tablet) 100 mg PO DAILY [facility] Last Admin: 02/13/24 09:16 Dose: 100 mg Documented By: KENYA Labs 02/10/24 10:13 02/10/24 10:13 Labs: Laboratory Results - last 24 hr 02/12/24 02/12/24 02/12/24 11:20 16:36 20:21 POC Glucose 308 H 219 H 228 H 02/13/24 07:16 POC Glucose 247 H Assessment and Plan (1) Orthostatic hypotension: Status: Acute (2) Abscess of scrotum: Status: Acute Assessment and Plan: 48/m with medication noncompliance, uncontrolled HTN, insulin-dependent DM, alcohol use disorder who presented to the ED on 01/21/24 for generalized weakness and admitted for alcohol withdrawal, CONSTANCE, HTN urgency, and uncontrolled Diabetes. Hospital course complicated by sepsis d/t RLE cellulitis and Scrotal abscess/cellulitis, and now severe othrostatic Hypotension impairing his functioning Orthostatic hypotension is likely due to a combination of diabetic autonomic dysfunction and medications. Management has included IV fluids, adjustment and reduction of blood pressure medications, and the use of DENNY stockings. However, he still experiences a significant drop in systolic blood pressure upon standing, from SBP of 180-190 to the 70s or 60s, causing severe symptoms and putting him at high risk for syncope, falls, and bodily injury. Nephrology is assisting with his management. Currently, he is unable to perform any activities other than lying in bed, he is not able to participate in PT. The next step may involve a trial of Florinef or Midodrine, provided his supine blood pressure is not alarmingly high. Sepsis due to right lower extremity cellulitis/scrotal cellulitis and abscess--cellulitis of leg resolved, sepsis resolved. -s/p I&D of scrotal/perineal abscess by urology 01/26 -Seen by General surgery 01/31, no further surgical intervention required at this time. -Wound looks clean--see pictures -Wound Vac applied on 02/08 -Blood culture negative -Wound culture E. coli -ID recommend Ceftin 500 bid x 14 days, ending 02/15/24 Supine HTN andsevere orthostatic Hypotension -Continue Captopril and Norvasc but PRN for SBP > 160 . , Coreg stopped -will discuss with renal Diabetes mellitus type 2, Hgb A1C = 11, better control -Continue Lantus increase to 34 HS and SSI, BS in 200s to 300, -add glipizide 2.5 bid on 02/11 Chronic Normocytic anemia H/H stable, above transfusion threshold Resolved issues Acute kidney injury- Resolved with IV Alcohol withdrawal--treated with Pheno and resolved. diarrhea -gi panel negative -cdif PCR + but toxin negative - likely colonization, so no Treatement indicated -diarrhea resolved DVT prophylaxis: Lovenox Full code DISPO STR when bed available Requires ongoing hospitalization : Placement once Severe orthostatic hypotension is better managed putting him at less risk of syncope, fall and bodily injury Quality Stroke Does the patient have a stroke diagnosis?: No VTE Prior VTE?: No VTE Risk Level:: Medical - moderate - high VTE Device Contraindication: Treatment Not Indicated VTE Drug Contraindication: N/A - Med Ordered
[2024-02-13 11:08] LABS: Glucose, Whole Blood 350 mg/dL (60-115)
[2024-02-13 11:20] LABS: Anion Gap 13 (12-20); Blood Urea Nitrogen 31 mg/dL (9-16); Calcium 9.5 mg/dL (8.4-10.2); Carbon Dioxide 28 mmol/L (22-29); Chloride 99 mmol/L (96-108); Creatinine Clr Calc Pharmacy 63.9; Estimated Glomerular Filt Rate 55; Glucose Random 421 mg/dL (60-115); Potassium 4.6 mmol/L (3.3-5.1); Sodium 135 mmol/L (135-145)
--- NOTE | 2024-02-13 14:27 | PC.NURSE ---
Refused APAP this afternoon.
[2024-02-13 15:22] VITALS: BP 142/88; PULSE 85; RESP 16; TEMP 35.9; O2SAT 99
[2024-02-13] MEDS: HYDROmorphone HCl 2 MG TABLET 1 MG PO (15:32)
[2024-02-13] MEDS: Enoxaparin Sodium 40 MG/0.4 ML SYRINGE SUBCUT (15:32)
[2024-02-13 15:50] LABS: Glucose, Whole Blood 307 mg/dL (60-115)
[2024-02-13 19:36] VITALS: BP 183/92; PULSE 84; RESP 21; TEMP 36.1; O2SAT 90
[2024-02-13 20:14] LABS: Glucose, Whole Blood 261 mg/dL (60-115)
[2024-02-13 20:41] VITALS: BP 183/92
[2024-02-13] MEDS: Insulin Glargine,Hum.rec.anlog 100 UNIT/ML 10 ML VIAL 34 UNIT SUBCUT (20:41)
[2024-02-13 20:46] VITALS: O2SAT 95
[2024-02-14] VITALS (7 sets, daily range): BP systolic 67–190; BP diastolic 47–93; PULSE 82–92; RESP 16–20; TEMP 36.4–36.6; O2SAT 94–98
[2024-02-14] MEDS: cefuroxime axetiL 500 MG TABLET PO ×2 (03:51→15:22)
[2024-02-14] MEDS: Acetaminophen 325 MG TABLET 975 MG PO ×4 (03:51→20:34)
[2024-02-14 07:16] LABS: Glucose, Whole Blood 163 mg/dL (60-115)
[2024-02-14] MEDS: Folic Acid 1 MG TABLET PO (07:56)
[2024-02-14] MEDS: Insulin Lispro 100 UNIT/ML 3 ML VIAL SUBCUT ×4 (07:56→20:35)
[2024-02-14] MEDS: Magnesium Oxide 400 MG TABLET PO ×2 (07:56→16:47)
[2024-02-14] MEDS: Multivitamin TABLET 1 TAB PO (07:56)
[2024-02-14] MEDS: Thiamine HCL 100 MG TABLET PO (07:56)
[2024-02-14] MEDS: glipiZIDE 5 MG TABLET 2.5 MG PO ×2 (07:57→16:47)
[2024-02-14] MEDS: 0.9 % Sodium Chloride Flush 3 ML SYRINGE IVFLUSH ×3 (07:59→20:36)
--- NOTE | 2024-02-14 09:45 | HO.PM.IMPN ---
Subjective Subjective Date of Service: 02/14/24 Interval History: Follow-up on scrotal abscess and cellulitis, and severe orthostatic hypotension: Wound is healing well, and the abscess has resolved, wound vac to be replaced tomorrow The patient is still experiencing orthostatic hypotension with symptoms, even sitting up and eating is causing him symptoms Physical Exam Vital Signs: Vital Signs: Last Vital Signs Temp 98 F 02/14/24 07:04 Pulse 88 02/14/24 07:04 Resp 17 02/14/24 07:04 BP 170/92 H 02/14/24 07:04 Pulse Ox 94 02/14/24 07:04 O2 Del Method Room Air 02/14/24 07:04 O2 Flow Rate 2 01/29/24 12:25 Oxygen Flow Rate 2 01/29/24 16:15 BMI result Body Mass Index 30.0 Objective Data Active Medications Acetaminophen (Acetaminophen 325 Mg Tablet) 975 mg PO Q6H [facility] Last Admin: 02/14/24 07:56 Dose: 975 mg Documented By: MESSI Amlodipine Besylate (Amlodipine Besylate 2.5 Mg Tablet) 2.5 mg PO DAILY@1200 PRN PRN Reason: SBP > 160 Calcium Carbonate (Calcium Carbonate 750 Mg Tab.Chew) 750 mg PO Q4H PRN PRN Reason: Heartburn Captopril (Captopril 12.5 Mg Tablet) 3.125 mg PO BID [facility]; Protocol Last Admin: 02/14/24 07:56 Dose: 3.125 mg Documented By: MESSI Cefuroxime Axetil (Cefuroxime Axetil 500 Mg Tablet) 500 mg PO Q12H [facility] Stop: 02/15/24 23:00 Last Admin: 02/14/24 03:51 Dose: 500 mg Documented By: WELLINGTONRISJoce Diphenhydramine HCl (Diphenhydramine Hcl 25 Mg Capsule) 50 mg PO Q6H PRN PRN Reason: Itching Last Admin: 02/08/24 21:04 Dose: 50 mg Documented By: DANIAL Enoxaparin Sodium (Enoxaparin Sodium 40 Mg/0.4 Ml Syringe) 40 mg SUBCUT Q24H [facility] Last Admin: 02/13/24 15:32 Dose: 40 mg Documented By: EV Folic Acid (Folic Acid 1 Mg Tablet) 1 mg PO DAILY [facility] Last Admin: 02/14/24 07:56 Dose: 1 mg Documented By: MESSI Glipizide (Glipizide 5 Mg Tablet) 2.5 mg PO BIDWM [facility] Last Admin: 02/14/24 07:57 Dose: 2.5 mg Documented By: MESSI Glucose (Glucose Gel 15 Gm Gel..Gram.) 15 gm PO Q15M PRN; Protocol PRN Reason: per Hypoglycemia Standing Ord. Hydromorphone HCl (Hydromorphone Hcl 2 Mg Tablet) 1 mg PO Q6H PRN PRN Reason: Pain, Severe (Pain Scale 7-10) Last Admin: 02/13/24 15:32 Dose: 1 mg Documented By: EV Dextrose (D10) 250 mls @ 750 mls/hr IV Q15M PRN; Protocol PRN Reason: per Hypoglycemia Standing Ord. Insulin Glargine (Insulin Glargine,Hum.Rec.Anlog 100 Unit/Ml 10 Ml Vial) 34 unit SUBCUT BEDTIME [facility] Last Admin: 02/13/24 20:41 Dose: 34 unit Documented By: WELLINGTONRISJoce Insulin Human Lispro (Insulin Lispro 100 Unit/Ml 3 Ml Vial) 0 unit SUBCUT QIDACHS [facility]; Protocol Last Admin: 02/14/24 07:56 Dose: 2 unit Documented By: MESSI Magnesium Hydroxide (Milk Of Magnesia 30 Ml Oral.Susp) 30 ml PO DAILY PRN PRN Reason: Constipation Last Admin: 01/26/24 10:54 Dose: 30 ml Documented By: BROPankaj Magnesium Oxide (Magnesium Oxide 400 Mg Tablet) 400 mg PO BIDPC [facility] Last Admin: 02/14/24 07:56 Dose: 400 mg Documented By: MESSI Multivitamins/Vitamin C (Multivitamin Tablet) 1 tab PO DAILY [facility] Last Admin: 02/14/24 07:56 Dose: 1 tab Documented By: MESSI Nystatin (Nystatin Powder 15 Gm Bottle) 1 appl TOPICAL DAILY [facility]; Protocol Last Admin: 02/14/24 08:00 Dose: Not Given Documented By: MESSI Non-Admin Reason: wound vac in place Ondansetron HCl (Ondansetron Hcl 4 Mg/2 Ml Vial) 4 mg IVPUSH Q8H PRN PRN Reason: Nausea and Vomiting Pharmacy Consult (Consult Rx Etoh Phenob Po Only) 1 each MISCELLANE ONCE PRN; Protocol PRN Reason: Consult order Pharmacy Consult (Consult Rx Etoh Phenob Po Only) 1 each MISCELLANE ONCE PRN; Protocol PRN Reason: Consult order Sodium Chloride (0.9 % Sodium Chloride Flush 3 Ml Syringe) 3 ml IVFLUSH QSHIFT [facility] Last Admin: 02/14/24 07:59 Dose: 3 ml Documented By: MESSI Thiamine HCl (Thiamine Hcl 100 Mg Tablet) 100 mg PO DAILY [facility] Last Admin: 02/14/24 07:56 Dose: 100 mg Documented By: MESSI Labs 02/10/24 10:13 02/13/24 09:58 Labs: Laboratory Results - last 24 hr 02/13/24 02/13/24 02/13/24 09:58 11:03 15:30 Hold Purple Top SEE NOTE Anion Gap 13 Estim Creat Clear Calc 63.9 Estimated GFR 55 POC Glucose 350 H* 307 H Random Glucose 421 H* Calcium 9.5 02/13/24 02/14/24 20:10 07:04 Hold Purple Top Anion Gap Estim Creat Clear Calc Estimated GFR POC Glucose 261 H 163 H Random Glucose Calcium Assessment and Plan (1) Orthostatic hypotension: Status: Acute (2) Abscess of scrotum: Status: Acute Assessment and Plan: 48/m with medication noncompliance, uncontrolled HTN, insulin-dependent DM, alcohol use disorder who presented to the ED on 01/21/24 for generalized weakness and admitted for alcohol withdrawal, CONSTANCE, HTN urgency, and uncontrolled Diabetes. Hospital course complicated by sepsis d/t RLE cellulitis and Scrotal abscess/cellulitis, and now severe othrostatic Hypotension impairing his functioning Orthostatic hypotension is likely due to a combination of diabetic autonomic dysfunction and medications. Management has included IV fluids, adjustment and reduction of blood pressure medications, and the use of DENNY stockings. However, he still experiences a significant drop in systolic blood pressure upon standing, from SBP of 180-190 to the 70s or 60s, causing severe symptoms and putting him at high risk for syncope, falls, and bodily injury. Nephrology is assisting with his management. Currently, he is unable to perform any activities other than lying in bed, he is not able to participate in PT. The next step may involve a trial of Florinef or Midodrine, provided his supine blood pressure is not alarmingly high. Sepsis due to right lower extremity cellulitis/scrotal cellulitis and abscess--cellulitis of leg resolved, sepsis resolved. -s/p I&D of scrotal/perineal abscess by urology 01/26 -Seen by General surgery 01/31, no further surgical intervention required at this time. -Wound looks clean--see pictures -Wound Vac applied on 02/08 -Blood culture negative -Wound culture E. coli -ID recommend Ceftin 500 bid x 14 days, ending 02/15/24 Supine HTN andsevere orthostatic Hypotension -Continue Captopril and Norvasc but PRN for SBP > 160 . , Coreg stopped -will discuss with renal Diabetes mellitus type 2, Hgb A1C = 11, better control -Continue Lantus increase to 34 HS and SSI, BS are better , FBS 163 -continue glipizide 2.5 bid on 02/11 Chronic Normocytic anemia H/H stable, above transfusion threshold Resolved issues Acute kidney injury- Resolved with IV Alcohol withdrawal--treated with Pheno and resolved. diarrhea -gi panel negative -cdif PCR + but toxin negative - likely colonization, so no Treatement indicated -diarrhea resolved DVT prophylaxis: Lovenox Full code DISPO STR when bed available Requires ongoing hospitalization : Placement once Severe orthostatic hypotension is better managed putting him at less risk of syncope, fall and bodily injury Quality Stroke Does the patient have a stroke diagnosis?: No VTE Prior VTE?: No VTE Risk Level:: Medical - moderate - high VTE Device Contraindication: Treatment Not Indicated VTE Drug Contraindication: N/A - Med Ordered
[2024-02-14 11:27] LABS: Glucose, Whole Blood 268 mg/dL (60-115)
[2024-02-14] MEDS: Enoxaparin Sodium 40 MG/0.4 ML SYRINGE SUBCUT (15:22)
[2024-02-14 16:31] LABS: Glucose, Whole Blood 276 mg/dL (60-115)
[2024-02-14 20:20] LABS: Glucose, Whole Blood 240 mg/dL (60-115)
[2024-02-14] MEDS: Insulin Glargine,Hum.rec.anlog 100 UNIT/ML 10 ML VIAL 34 UNIT SUBCUT (20:35)
[2024-02-15] MEDS: cefuroxime axetiL 500 MG TABLET PO ×2 (03:18→16:45)
[2024-02-15] MEDS: Acetaminophen 325 MG TABLET 975 MG PO ×2 (03:18→16:44)
[2024-02-15 03:37] VITALS: BP 144/86; PULSE 88; RESP 18; TEMP 36.3; O2SAT 98
[2024-02-15 07:51] VITALS: BP 171/88; PULSE 87; RESP 14; TEMP 36.4; O2SAT 98
[2024-02-15 07:57] LABS: Glucose, Whole Blood 187 mg/dL (60-115)
[2024-02-15] MEDS: Insulin Lispro 100 UNIT/ML 3 ML VIAL SUBCUT ×4 (08:05→20:21)
[2024-02-15] MEDS: Multivitamin TABLET 1 TAB PO (08:05)
[2024-02-15] MEDS: Thiamine HCL 100 MG TABLET PO (08:05)
[2024-02-15] MEDS: glipiZIDE 5 MG TABLET 2.5 MG PO (08:05)
[2024-02-15] MEDS: Folic Acid 1 MG TABLET PO (08:06)
[2024-02-15] MEDS: Magnesium Oxide 400 MG TABLET PO ×2 (08:06→16:46)
[2024-02-15] MEDS: 0.9 % Sodium Chloride Flush 3 ML SYRINGE IVFLUSH ×3 (08:08→20:21)
[2024-02-15 08:25] LABS: Hematocrit 37.4 % (42.0-52.0); Hemoglobin 12.6 g/dl (14.0-18.0); Mean Corpuscular HGB Conc 33.7 g/dl (31.0-36.0); Mean Corpuscular Hemoglobin 29.8 pg (27.0-33.0); Mean Corpuscular Volume 88.4 fL (80.0-98.0); Mean Platelet Volume 10.5 fL (9.4-12.4); Platelet Count 196 X10*3/uL (160-400); Red Blood Count 4.23 X10*6/uL (4.60-5.80); Red Cell Distribution Width 12.3 % (11.0-16.0); White Blood Count 7.6 X10*3/uL (4.8-10.8)
[2024-02-15 08:38] LABS: Anion Gap 11 (12-20); Blood Urea Nitrogen 21 mg/dL (9-16); Calcium 10.3 mg/dL (8.4-10.2); Carbon Dioxide 29 mmol/L (22-29); Chloride 102 mmol/L (96-108); Creatinine Clr Calc Pharmacy 84.4; Estimated Glomerular Filt Rate > 60; Glucose Random 208 mg/dL (60-115); Potassium 4.2 mmol/L (3.3-5.1); Sodium 138 mmol/L (135-145)
[2024-02-15 11:30] LABS: Glucose, Whole Blood 248 mg/dL (60-115)
--- NOTE | 2024-02-15 11:45 | HO.PM.IMPN ---
Subjective Subjective Date of Service: 02/15/24 Interval History: Follow-up on scrotal abscess and cellulitis, and severe orthostatic hypotension: Orthostatic hypotension persists Physical Exam Vital Signs: Vital Signs: Last Vital Signs Temp 97.5 F 02/15/24 07:51 Pulse 87 02/15/24 07:51 Resp 14 02/15/24 07:51 BP 171/88 H 02/15/24 07:51 Pulse Ox 98 02/15/24 07:51 O2 Del Method Room Air 02/15/24 07:51 O2 Flow Rate 2 01/29/24 12:25 Oxygen Flow Rate 2 01/29/24 16:15 BMI result Body Mass Index 30.0 General: AO X 3, no acute distress Resp: CTA bilateral CVS: S1,S2,RRR GI: +BS, NT, no distention Skin: wound vac in place --see prior picture Neuro: motor grossly intact Psych: appropriate affect Objective Data Active Medications Acetaminophen (Acetaminophen 325 Mg Tablet) 975 mg PO Q6H [facility] Last Admin: 02/15/24 08:08 Dose: Not Given Documented By: HILLARY Non-Admin Reason: Patient Refused Amlodipine Besylate (Amlodipine Besylate 2.5 Mg Tablet) 2.5 mg PO DAILY@1200 PRN PRN Reason: SBP > 160 Calcium Carbonate (Calcium Carbonate 750 Mg Tab.Chew) 750 mg PO Q4H PRN PRN Reason: Heartburn Captopril (Captopril 12.5 Mg Tablet) 3.125 mg PO BID [facility]; Protocol Last Admin: 02/15/24 08:06 Dose: 3.125 mg Documented By: HILLARY Cefuroxime Axetil (Cefuroxime Axetil 500 Mg Tablet) 500 mg PO Q12H [facility] Stop: 02/15/24 23:00 Last Admin: 02/15/24 03:18 Dose: 500 mg Documented By: ENMANUEL Diphenhydramine HCl (Diphenhydramine Hcl 25 Mg Capsule) 50 mg PO Q6H PRN PRN Reason: Itching Last Admin: 02/08/24 21:04 Dose: 50 mg Documented By: DANIAL Enoxaparin Sodium (Enoxaparin Sodium 40 Mg/0.4 Ml Syringe) 40 mg SUBCUT Q24H [facility] Last Admin: 02/14/24 15:22 Dose: 40 mg Documented By: MESSI Folic Acid (Folic Acid 1 Mg Tablet) 1 mg PO DAILY [facility] Last Admin: 02/15/24 08:06 Dose: 1 mg Documented By: HILLARY Glipizide (Glipizide 5 Mg Tablet) 2.5 mg PO BIDWM [facility] Last Admin: 02/15/24 08:05 Dose: 2.5 mg Documented By: HILLARY Glucose (Glucose Gel 15 Gm Gel..Gram.) 15 gm PO Q15M PRN; Protocol PRN Reason: per Hypoglycemia Standing Ord. Hydromorphone HCl (Hydromorphone Hcl 2 Mg Tablet) 1 mg PO Q6H PRN PRN Reason: Pain, Severe (Pain Scale 7-10) Last Admin: 02/13/24 15:32 Dose: 1 mg Documented By: EV Dextrose (D10) 250 mls @ 750 mls/hr IV Q15M PRN; Protocol PRN Reason: per Hypoglycemia Standing Ord. Insulin Glargine (Insulin Glargine,Hum.Rec.Anlog 100 Unit/Ml 10 Ml Vial) 34 unit SUBCUT BEDTIME [facility] Last Admin: 02/14/24 20:35 Dose: 34 unit Documented By: ENMANUEL Insulin Human Lispro (Insulin Lispro 100 Unit/Ml 3 Ml Vial) 0 unit SUBCUT QIDACHS [facility]; Protocol Last Admin: 02/15/24 08:05 Dose: 2 unit Documented By: HILLARY Magnesium Hydroxide (Milk Of Magnesia 30 Ml Oral.Susp) 30 ml PO DAILY PRN PRN Reason: Constipation Last Admin: 01/26/24 10:54 Dose: 30 ml Documented By: SENTHIL Magnesium Oxide (Magnesium Oxide 400 Mg Tablet) 400 mg PO BIDPC [facility] Last Admin: 02/15/24 08:06 Dose: 400 mg Documented By: HILLARY Multivitamins/Vitamin C (Multivitamin Tablet) 1 tab PO DAILY [facility] Last Admin: 02/15/24 08:05 Dose: 1 tab Documented By: HILLARY Nystatin (Nystatin Powder 15 Gm Bottle) 1 appl TOPICAL DAILY [facility]; Protocol Last Admin: 02/15/24 10:51 Dose: Not Given Documented By: HILLARY Non-Admin Reason: wound vac in place Ondansetron HCl (Ondansetron Hcl 4 Mg/2 Ml Vial) 4 mg IVPUSH Q8H PRN PRN Reason: Nausea and Vomiting Pharmacy Consult (Consult Rx Etoh Phenob Po Only) 1 each MISCELLANE ONCE PRN; Protocol PRN Reason: Consult order Pharmacy Consult (Consult Rx Etoh Phenob Po Only) 1 each MISCELLANE ONCE PRN; Protocol PRN Reason: Consult order Sodium Chloride (0.9 % Sodium Chloride Flush 3 Ml Syringe) 3 ml IVFLUSH QSHIFT [facility] Last Admin: 02/15/24 08:08 Dose: 3 ml Documented By: HILLARY Thiamine HCl (Thiamine Hcl 100 Mg Tablet) 100 mg PO DAILY [facility] Last Admin: 02/15/24 08:05 Dose: 100 mg Documented By: HILLARY Labs 02/15/24 07:53 02/15/24 07:53 Labs: Laboratory Results - last 24 hr 02/14/24 02/14/24 02/15/24 16:24 20:13 07:53 MCV 88.4 MCH 29.8 MCHC 33.7 RDW 12.3 Plt Count 196 MPV 10.5 Absolute Nucleated RBC 0.000 Nucleated RBC % (auto) 0.0 Anion Gap 11 L Estim Creat Clear Calc 84.4 Estimated GFR > 60 POC Glucose 276 H 240 H 187 H Random Glucose 208 H Calcium 10.3 H D 02/15/24 11:12 MCV MCH MCHC RDW Plt Count MPV Absolute Nucleated RBC Nucleated RBC % (auto) Anion Gap Estim Creat Clear Calc Estimated GFR POC Glucose 248 H Random Glucose Calcium Assessment and Plan (1) Orthostatic hypotension: Status: Acute (2) Abscess of scrotum: Status: Acute Assessment and Plan: 48/m with medication noncompliance, uncontrolled HTN, insulin-dependent DM, alcohol use disorder who presented to the ED on 01/21/24 for generalized weakness and admitted for alcohol withdrawal, CONSTANCE, HTN urgency, and uncontrolled Diabetes. Hospital course complicated by sepsis d/t RLE cellulitis and Scrotal abscess/cellulitis, and now severe othrostatic Hypotension impairing his functioning Orthostatic hypotension is likely due to a combination of diabetic autonomic dysfunction and medications. Management has included IV fluids, adjustment and reduction of blood pressure medications, and the use of DENNY stockings. However, he still experiences a significant drop in systolic blood pressure upon standing, from SBP of 180-190 to the 70s or 60s, causing severe symptoms and putting him at high risk for syncope, falls, and bodily injury. Nephrology is assisting with his management. Currently, he is unable to perform any activities other than lying in bed, he is not able to participate in PT. The next step may involve a trial of Florinef or Midodrine, provided his supine blood pressure is not alarmingly high. Sepsis due to right lower extremity cellulitis/scrotal cellulitis and abscess--cellulitis of leg resolved, sepsis resolved. -s/p I&D of scrotal/perineal abscess by urology 01/26 -Seen by General surgery 01/31, no further surgical intervention required at this time. -Wound looks clean--see pictures -Wound Vac applied on 02/08 -Blood culture negative -Wound culture E. coli -ID recommend Ceftin 500 bid x 14 days, ending 02/15/24 Supine HTN andsevere orthostatic Hypotension -Continue Captopril and Norvasc but PRN for SBP > 160 . , Coreg stopped -will discuss with renal Diabetes mellitus type 2, Hgb A1C = 11, better control -Continue Lantus increase to 34 HS and SSI, BS are better , FBS 163 -continue glipizide 2.5 bid on 02/11 Chronic Normocytic anemia H/H stable, above transfusion threshold Resolved issues Acute kidney injury- Resolved with IV Alcohol withdrawal--treated with Pheno and resolved. diarrhea -gi panel negative -cdif PCR + but toxin negative - likely colonization, so no Treatement indicated -diarrhea resolved DVT prophylaxis: Lovenox Full code DISPO STR when bed available Requires ongoing hospitalization : Placement once Severe orthostatic hypotension is better managed putting him at less risk of syncope, fall and bodily injury Quality Stroke Does the patient have a stroke diagnosis?: No VTE Prior VTE?: No VTE Risk Level:: Medical - moderate - high VTE Device Contraindication: Treatment Not Indicated VTE Drug Contraindication: N/A - Med Ordered
[2024-02-15 15:27] VITALS: BP 159/93; PULSE 91; RESP 18; TEMP 37.1; O2SAT 97
--- NOTE | 2024-02-15 15:53 | HO.WOUND ---
Wound Consult: Follow up 48yr old? [place] [facility] [place] See progress notes and H&P for detailed history.? Wound consult follow up for scrotum wound vac change and assessment.? Patient agreeable to assessment and photo documentation.? Last wound vac change was 02/11/24by this science writer. Inpatient wound care nurse will continue to follow. Initial Assessment Assessment 02/08/24 s/p Debridement with Dr. Timothy Napier 02/09/24 02/15/24 Scrotum Etiology: Abscess s/p Debridement Wound Bed: Red clean wound bed - viable granulation tissue noted Drainage / Odor: serosang drainage small amount no odor noted Edges: ? irregular but well defined Donna wound: improving MASD and Fungal Dermatitis - red erythema, hyperpigmentation, No fluctuance and no induration noted Pain: mild pain and tenderness reported during wound vac dressing change Goals of Treatment: ? Wound Vac applied set to 125mmHg continuous suction NPWT Suction Settings: 125mmHg - Setting Type: Continuous No premedication neede today. Wound assessment: Improving overall 12cm x 3cm x 2cm? - no undermining noted - irregular edges Wound bed: Red moist viable tissue noted Cleansed and irrigated with NS. pat dry. Nystatin powder applied to periwound and sealed with skin barrier wipe. The portion of the wound at 6 o'clock is flush to skin and was treated with Durafiber and drape since it is flush to skin and close proximity to anus in an effort to create a seal. Additionally barrier strip was used just below the wound to try to seal out anus. NPWT Dressing Application: 2 piece of black foam cut to size and applied to wound bed, Skin and wound edge protected with Paste Strip outlining lower edge.? Skin protected with Drape for Bridge one piece of black foam applied for bridge to right mid thigh avoiding high pressure areas such as trochanter. Dressing completed and no leak noted.? Suction set to 125mmHg - patient denies pain and or burning sensation. Patient tolerated well.? D/C plan - awaiting bed placement to facility and will need outpt follow up with Outpt wound clinic. Inpatient Nurse will continue to follow.
[2024-02-15 16:11] LABS: Glucose, Whole Blood 228 mg/dL (60-115)
--- NOTE | 2024-02-15 16:15 | PM.DS ---
DS: Providers Provider Date of Service: 02/16/24 Date of admission: 01/21/24 16:14 Date of discharge: 02/16/24 Primary care physician: None Physician Consults: 01/21/24 16:24 Addiction Medicine Routine Consulting Provider: Addiction Covering Reason for consultation: alcohol use disorder 01/22/24 06:45 Consult to Wound Care Routine Reason for consultation: wounds to bilateral legs 01/23/24 02:47 Consult to Wound Care Routine Reason for consultation: unstageable? rt buttock and under scrotum 01/25/24 17:09 Consult to Urology Routine Consulting Provider: [facility] Reason for consultation: scroral abcess Has provider been notified: Yes 01/28/24 07:36 Consult to Infectious Diseases Routine Consulting Provider: [facility] Reason for consultation: scrotal abscess Has provider been notified: No 01/28/24 07:47 Consult to General Surgery Routine Consulting Provider: [facility] Reason for consultation: perineal/buttock abscess; diabetic; scrotal abscess I&D by Uro 01/30/24 11:01 Consult to Wound Care Routine Reason for consultation: reevaluate wound post debridement, recommendations for further wound care 02/02/24 09:41 Consult to Nephrology Routine Consulting Provider: [facility] Reason for consultation: Orthostatic hypotension Has provider been notified: No DS: Diagnosis Discharge Diagnosis (1) Orthostatic hypotension: Status: Acute (2) Abscess of scrotum: Status: Acute DS: Summary Hospital Course Hospital Course: Chief Complaint: Generalized weakness This is a 48 yaer old male with pertinent history of medication noncompliance, uncontrolled blood pressure, insulin-dependent diabetes mellitus, alcohol use disorder who presents to the emergency department for evaluation of generalized weakness. Patient admits that he has not been compliant with p.o. prescription medications. Patient states that for the last 2-3 days he has been feeling unwell. Reduced p.o. intake. He is only consuming alcohol. His last alcohol drink was on the day of presentation. Does have a history of alcohol withdrawal. No fever, chills, nausea, vomiting, abdominal pain, diarrhea. No chest discomfort, palpitations or shortness of breath. In the emergency department, creatinine found to be elevated. Patient was initiated on phenobarb protocol for concerns of alcohol withdrawal. Hospital course: Patient with history of medication noncompliance, uncontrolled HTN, insulin-dependent DM, alcohol use disorder who presented to the ED on 01/21/24 for generalized weakness and admitted for alcohol withdrawal, CONSTANCE, HTN urgency, and uncontrolled Diabetes. Hospital course has been complicated by sepsis d/t RLE cellulitis and Scrotal abscess/cellulitis and has been experiencing severe othrostatic Hypotension impairing his functioning Hospital course by problem Alcohol withdrawal--treated with Phenobarbital and vitamins replacement (folate, thiamine and multivamin). Resolved and counceled on the dangers of alcohol on his overal health. CONSTANCE on CKD--likely from pre renal azotemia--treated with IVF and resolved. Sepsis due to right lower extremity cellulitis as well as scrotal cellulitis and abscess. Cellulitis of leg resolved. Scrotal abscess required I&D by urology 01/26. He was initially treated with IV zosyn, and vanco. Wound culture grew E.coli and so antibiotics were changed to Ceftriaxone which was later changed to Ceftin for a total of 14 days ending February 15, 2024. The wound looks clean with no sings of active infection. A wound vac was applied on 02/08. He will benefit from follow up in the wound clinic Orthostatic hypotension is likely due to diabetic autonomic dysfunction and medications. Management has included IV fluids, adjustment and reduction of blood pressure medications, and the use of DENNY stockings. Unfortunately However, he still experiencing a significant drop in systolic blood pressure upon standing, but has gotten better. Blood pressure medications have been significantly reduced and presently is only on Captopril 3.5 bid and Norvasc 2.5 to be given on PRN basis only during the day. Much caution should be taken when the patient is going from sitting to lying position, and should pause at least 5 minutes in between and should lay down with any sings of dizziness. Supine HTN and severe orthostatic Hypotension -Continue Captopril and Norvasc but PRN for SBP > 160 . , Coreg stopped Diabetes mellitus type 2, Hgb A1C = 11 which is down from 14, Diabetes was uncontrolled on presentation. His med have been adjusted to Lantus now 35 at bedtime, and glipizide 5 mg twice daily. Diabetic diet, check sugars before meals and at bedtime Chronic Normocytic anemia H/H stable, above transfusion threshold diarrhea -gi panel negative -cdif PCR + but toxin negative - likely colonization, so no Treatement indicated -diarrhea resolved Time Attestation Discharge Coordination Time (in mins): 50 Quality: Safe Use of Opioids Does Pt have an Active Cancer Diagnosis on the Problem List?: No Quality: Stroke Does the patient have a stroke diagnosis?: No Physical Exam Vital Signs: Vital Signs: Selected Entries 02/16/24 07:50 02/16/24 08:19 Temperature 98.1 F Pulse Rate 88 Respiratory Rate 16 Blood Pressure 163/93 H Pulse Oximetry 98 Oxygen Delivery Me thod Room Air DS: Data Data Completed and Pending Completed studies during hospitalization [Text1]: Pending at discharge 01/27/24 17:50 Surgical [PTH] Routine Labs on day of discharge: Laboratory Results - last 24 hr 02/14/24 02/14/24 02/15/24 16:24 20:13 07:53 WBC 7.6 RBC 4.23 L Hgb 12.6 L Hct 37.4 L MCV 88.4 MCH 29.8 MCHC 33.7 RDW 12.3 Plt Count 196 MPV 10.5 Absolute Nucleated RBC 0.000 Nucleated RBC % (auto) 0.0 Sodium 138 Potassium 4.2 Chloride 102 Carbon Dioxide 29 Anion Gap 11 L BUN 21 H Creatinine 1.03 Estim Creat Clear Calc 84.4 Estimated GFR > 60 POC Glucose 276 H 240 H 187 H Random Glucose 208 H Calcium 10.3 H D 02/15/24 02/15/24 11:12 15:50 WBC RBC Hgb Hct MCV MCH MCHC RDW Plt Count MPV Absolute Nucleated RBC Nucleated RBC % (auto) Sodium Potassium Chloride Carbon Dioxide Anion Gap BUN Creatinine Estim Creat Clear Calc Estimated GFR POC Glucose 248 H 228 H Random Glucose Calcium Discharge Plan Discharge Anticipated Discharge Date/Time: 02/16/24 09:42 Patient Disposition: Xfer SNF Discharge Diagnosis: Orthostatic Hyotension, Scrotal cellulitis and abscess, CONSTANCE Referrals: [facility] [Outside] - 1 Day (short term rehab) Andrew Lynn MD [Physician] - 1 Week Physician,None [Primary Care Provider] - 1 Week (You are on a wait list for a new PCP at [facility]. Please call to schedule hospital follow up appointment as soon as possible. [phone]) Kait Weir MD [Physician] - 1 Week Discharge Medications: New acetaminophen 325 mg Tablet 650 mg PO Q6H Qty: 60 0RF insulin glargine [Lantus U-100 Insulin] 100 unit/mL Solution 35 unit subcut BEDTIME Qty: 10 0RF amlodipine 2.5 mg Tablet 2.5 mg PO DAILY@1200 PRN (Reason: Sbp > 160) Qty: 30 0RF captopril 12.5 mg Tablet 3.125 mg PO BID Qty: 60 0RF Protocol: Hold for SBP< HOLD for SBP < : 90 insulin lispro [Admelog U-100 Insulin lispro] 100 unit/mL Solution See Protocol subcut QIDACHS Qty: 10 0RF Protocol: Insulin Correction Scale Less than or equal to 110 ---- Give (units): 0 111 to 150 Give (units): 0 151 to 200 Give (units): 2 201 to 250 Give (units): 4 251 to 300 Give (units): 6 301 to 350 Give (units): 8 Greater than 350 Give (units): 10 Call MD if Blood Glucose > : 350 Rx Instructions: BG <111 0 units, 111-150 - 0 units, 151-200 2 units, 201-250 4 units, 251-300 6 units, 301-350 8 units, >350 10 units multivitamin [Daily-Ramon] Tablet 1 tab PO DAILY Qty: 30 0RF folic acid 1 mg Tablet 1 mg PO DAILY Qty: 30 0RF nystatin 100,000 unit/gram Powder 1 appl topical DAILY Qty: 30 0RF Protocol: Apply to: Apply to: Scrotal area Rx Instructions: apply perineal areas with fungal rash thiamine mononitrate (vit B1) 100 mg Tablet 100 mg PO DAILY Qty: 30 0RF glipizide 5 mg Tablet 5 mg PO DAILY Qty: 30 0RF Rx Instructions: in the morning glipizide 2.5 mg tablet 2.5 mg PO QPM Qty: 30 0RF Rx Instructions: 5 pm Continued magnesium oxide 400 mg (241.3 mg magnesium) Tablet 400 mg PO BIDPC Qty: 60 0RF Discontinued cephalexin 500 mg capsule 500 mg PO Q8H Rx Instructions: End date 01-05-24 amlodipine 5 mg Tablet 5 mg PO DAILY Qty: 30 0RF Protocol: Hold for SBP< HOLD for SBP < : 90 glipizide 10 mg tablet extended release 24hr 10 mg PO DAILY Qty: 30 0RF insulin glargine [Lantus Solostar U-100 Insulin] 100 unit/mL (3 mL) Insulin Pen 25 unit SUBCUT QPM Qty: 15 2RF No Action (DME) FreeStyle Lite Strips Strip Qty: 100 0RF Rx Instructions: Test four times a day or as directed. (DME) blood-glucose meter [FreeStyle Lite Meter] Kit Qty: 1 0RF Rx Instructions: As Directed (DME) pen needle, diabetic 32 gauge x 1/4 needle Qty: 100 0RF Rx Instructions: Use four times a day or as directed. (DME) lancets [FreeStyle Lancets] 28 gauge misc Qty: 100 0RF Rx Instructions: Test four times a day or as directed. Discharge Orders: Discharge Order (Routine); Ordered 02/16/24 Ordered By: Reuben Dash Diet: Diabetic diet Activity on Discharge: As tolerated Stand Alone Forms: Patient Portal Discharge page Print Language: Venezuelan Activity Restrictions/Additional Instructions: Wound Consult Topical Recommendations: Last wound vac change was Yesterday 02/15/24. Plan for d/c today at 1:00pm to facility where they will continue Wound vac to scrotum with changes every other day. NPWT Suction Settings: 125mmHg - Setting Type: Continuous No premedication needed. Wound assessment: Improving overall 12cm x 3cm x 2cm? - no undermining noted - irregular edges Wound bed: Red moist viable tissue noted Cleansed and irrigated with NS. pat dry. Nystatin powder applied to periwound and sealed with skin barrier wipe. The portion of the wound at 6 o'clock is flush to skin and was treated with Durafiber and drape since it is flush to skin and close proximity to anus in an effort to create a seal. Additionally barrier strip was used just below the wound to try to seal out anus. NPWT Dressing Application: 2 piece of black foam cut to size and applied to wound bed, Skin and wound edge protected with Paste Strip outlining lower edge.? Skin protected with Drape for Bridge one piece of black foam applied for bridge to right mid thigh avoiding high pressure areas such as trochanter. Dressing completed and no leak noted.? Suction set to 125mmHg - patient denies pain and or burning sensation. Patient tolerated well.? D/C plan - To facility and will need outpt follow up with Outpt wound clinic. Care Plan Goals: recovery orthostatic hypotension and be able to ADLs Healing of scrotal wound and cellulitis Health Concerns: scrotal cellulitis and abscess severe orthostatic hypotension diabetes Plan of Treatment: continue wound VAC with wound dressing change every other day follow-up with the Wound Clinic at [place]. Follow-up if Nephrology group at [place] for further evaluation of orthostatic hypertension and blood pressure management. Assessment: See above
[2024-02-15] MEDS: glipiZIDE 5 MG TABLET PO (16:45)
[2024-02-15] MEDS: Enoxaparin Sodium 40 MG/0.4 ML SYRINGE SUBCUT (16:46)
[2024-02-15 19:10] VITALS: BP 146/82; PULSE 91; RESP 18; TEMP 36.7; O2SAT 97
[2024-02-15 20:07] LABS: Glucose, Whole Blood 315 mg/dL (60-115)
[2024-02-15] MEDS: Insulin Glargine,Hum.rec.anlog 100 UNIT/ML 10 ML VIAL 35 UNIT SUBCUT (20:20)
[2024-02-15] MEDS: HYDROmorphone HCl 2 MG TABLET 1 MG PO (20:26)
[2024-02-16 03:53] VITALS: BP 160/92; PULSE 84; RESP 18; TEMP 36.8; O2SAT 96
--- NOTE | 2024-02-16 06:08 | PC.NURSE ---
Pt Aox4, vague in his answers. Pt declined Tylenol, see MAR for alternate pain administration. Wound vac patent. He is using the urinal bedside. Call hubbard within reach, bed alarm on.
[2024-02-16 07:50] VITALS: BP 163/93; PULSE 88; RESP 16; TEMP 36.7; O2SAT 98
[2024-02-16 07:55] LABS: Glucose, Whole Blood 157 mg/dL (60-115)
[2024-02-16 08:19] VITALS: BP 163/93
[2024-02-16] MEDS: Acetaminophen 325 MG TABLET 975 MG PO (08:20)
[2024-02-16] MEDS: Thiamine HCL 100 MG TABLET PO (08:20)
[2024-02-16] MEDS: glipiZIDE 5 MG TABLET PO (08:21)
[2024-02-16] MEDS: Magnesium Oxide 400 MG TABLET PO (08:21)
[2024-02-16] MEDS: Multivitamin TABLET 1 TAB PO (08:21)
[2024-02-16] MEDS: Folic Acid 1 MG TABLET PO (08:21)
[2024-02-16] MEDS: Insulin Lispro 100 UNIT/ML 3 ML VIAL SUBCUT ×2 (08:21→12:08)
[2024-02-16] MEDS: 0.9 % Sodium Chloride Flush 3 ML SYRINGE IVFLUSH (08:21)
[2024-02-16] MEDS: Nystatin Powder 15 GM BOTTLE 1 APPL TOPICAL (08:27)
[2024-02-16 11:20] LABS: Glucose, Whole Blood 233 mg/dL (60-115)
--- NOTE | 2024-02-16 11:53 | MHC.CM.PN ---
Addendum entered by Lena Castro RN 02/16/24 11:55: Additionally, per [facility] request, referral was faxed to [facility] [place] on 02/10. [facility] [place] aware. Original Note: Per patient medically cleared for dc to STR @ [facility] via BLS at 1pm. Patient, RNMD aware. [facility] has auth and wound vac.
--- NOTE | 2024-02-16 12:01 | HO.WOUND ---
Wound Consult: Follow up 48yr old? admitted to [facility] on 01/21/24 - See progress notes and H&P for detailed history.? Wound consult follow up for scrotum wound vac assessment.? Patient agreeable to assessment and photo documentation.? Last wound vac change was Yesterday 02/15/24 by this report writer. Inpatient wound care nurse will continue to follow while patient remains inpatient. Plan for d/c today at 1:00pm to facility where they will continue Wound vac to scrotum with changes every other day. NPWT Suction Settings: 125mmHg - Setting Type: Continuous No premedication needed. Wound assessment: Improving overall 12cm x 3cm x 2cm? - no undermining noted - irregular edges Wound bed: Red moist viable tissue noted Cleansed and irrigated with NS. pat dry. Nystatin powder applied to periwound and sealed with skin barrier wipe. The portion of the wound at 6 o'clock is flush to skin and was treated with Durafiber and drape since it is flush to skin and close proximity to anus in an effort to create a seal. Additionally barrier strip was used just below the wound to try to seal out anus. NPWT Dressing Application: 2 piece of black foam cut to size and applied to wound bed, Skin and wound edge protected with Paste Strip outlining lower edge.? Skin protected with Drape for Bridge one piece of black foam applied for bridge to right mid thigh avoiding high pressure areas such as trochanter. Dressing completed and no leak noted.? Suction set to 125mmHg - patient denies pain and or burning sensation. Patient tolerated well.? D/C plan - To facility and will need outpt follow up with Outpt wound clinic. Initial Assessment Assessment 02/08/24 s/p Debridement with Dr. Timothy Napier 02/09/24 02/15/24 Scrotum Etiology: Abscess s/p Debridement Wound Bed: Red clean wound bed - viable granulation tissue noted Drainage / Odor: serosang drainage small amount no odor noted Edges: ? irregular but well defined Donna wound: improving MASD and Fungal Dermatitis - red erythema, hyperpigmentation, No fluctuance and no induration noted Pain: mild pain and tenderness reported during wound vac dressing change Goals of Treatment: ? Wound Vac applied set to 125mmHg continuous suction NPWT Suction Settings: 125mmHg - Setting Type: Continuous No premedication neede today. Wound assessment: Improving overall 12cm x 3cm x 2cm? - no undermining noted - irregular edges Wound bed: Red moist viable tissue noted Cleansed and irrigated with NS. pat dry. Nystatin powder applied to periwound and sealed with skin barrier wipe. The portion of the wound at 6 o'clock is flush to skin and was treated with Durafiber and drape since it is flush to skin and close proximity to anus in an effort to create a seal. Additionally barrier strip was used just below the wound to try to seal out anus. NPWT Dressing Application: 2 piece of black foam cut to size and applied to wound bed, Skin and wound edge protected with Paste Strip outlining lower edge.? Skin protected with Drape for Bridge one piece of black foam applied for bridge to right mid thigh avoiding high pressure areas such as trochanter. Dressing completed and no leak noted.? Suction set to 125mmHg - patient denies pain and or burning sensation. Patient tolerated well.? D/C plan - To facility and will need outpt follow up with Outpt wound clinic.
== END 2024-02-16 13:06 | disposition skilled nursing facility (03) | DRG 720 ==
LOC: HO.ED 16:33 → HO.EDOVER 16:54 → HO.S3 01-22 05:42
PROVIDERS: Hospitalist; Internal Medicine; Internal Medicine Nephrology; Nurse Practitioner Acute Care; Physician Assistant; Physician Assistant Medical; Urology; Admitting Provider Student in an Organized Health Care Education/Training Program; Emergency Provider Emergency Medicine Emergency Medical Services; Visit Provider Internal Medicine
PROC: 0V950ZZ Drainage of Scrotum, Open Approach (ICD-10-PCS; principal; 2024-01-27 16:30)
DX: A41.9 Sepsis, unspecified organism (principal); N17.9 Acute kidney failure, unspecified; E11.52 Type 2 diabetes mellitus with diabetic peripheral angiopathy with gangrene; L89.896 Pressure-induced deep tissue damage of other site; E11.22 Type 2 diabetes mellitus with diabetic chronic kidney disease; D63.1 Anemia in chronic kidney disease; E11.43 Type 2 diabetes mellitus with diabetic autonomic (poly)neuropathy; E11.628 Type 2 diabetes mellitus with other skin complications; I16.0 Hypertensive urgency; L03.115 Cellulitis of right lower limb; E11.65 Type 2 diabetes mellitus with hyperglycemia; N49.2 Inflammatory disorders of scrotum; R19.7 Diarrhea, unspecified; I12.9 Hypertensive chronic kidney disease with stage 1 through stage 4 chronic kidney disease, or unspecified chronic kidney disease; E66.9 Obesity, unspecified; I95.2 Hypotension due to drugs; N18.30 Chronic kidney disease, stage 3 unspecified; Z68.30 Body mass index [BMI] 30.0-30.9, adult; B96.20 Unspecified Escherichia coli [E. coli] as the cause of diseases classified elsewhere; F11.20 Opioid dependence, uncomplicated; Z22.1 Carrier of other intestinal infectious diseases; Z91.148 Patient's other noncompliance with medication regimen for other reason; Z91.199 Patient's noncompliance with other medical treatment and regimen due to unspecified reason; Z87.440 Personal history of urinary (tract) infections; Z79.899 Other long term (current) drug therapy
CPT/HCPCS: 0241U; 36415; 71045; 71250; 72192; 74176; 76870; 80048; 80053; 80202; 80307; 81001; 82010; 82533; 82565; 82570; 82803; 82947; 83036; 83605; 83735; 84156; 85025; 85027; 87040; 87070; 87077; 87186; 87205; 87324; 87493; 87507; 88304; 93005; 97110; 97116; 97162; 97530; 99285; J0131; J0360; J0696; J1100; J1650; J1956; J2250; J2405; J2543; J2704; J2795; J3010; J3370; J3371; J3475; J7120

== ENCOUNTER → 2024-01-21 11:15 | Outpatient (BNV) | payer OTHER, SELFPAY | PROVIDERS: Admitting Provider Student in an Organized Health Care Education/Training Program; Emergency Provider Emergency Medicine Emergency Medical Services; Visit Provider Internal Medicine Cardiovascular Disease | DX: R94.31 Abnormal electrocardiogram [ECG] [EKG] (principal) | CPT/HCPCS: 93010 ==

== ENCOUNTER → 2024-01-21 11:30 | Outpatient (BNV) | payer OTHER, SELFPAY | PROVIDERS: Emergency Provider Emergency Medicine Emergency Medical Services; Visit Provider Student in an Organized Health Care Education/Training Program | DX: N49.2 Inflammatory disorders of scrotum (principal) | CPT/HCPCS: 99223; 99231; 99232; 99233; 99239; 99499 ==

== ENCOUNTER → 2024-01-21 16:14 | Outpatient (BNV) | payer OTHER, SELFPAY | PROVIDERS: Admitting Provider Student in an Organized Health Care Education/Training Program; Emergency Provider Emergency Medicine Emergency Medical Services; Visit Provider Urology | DX: L02.215 Cutaneous abscess of perineum (principal); N49.2 Inflammatory disorders of scrotum | CPT/HCPCS: 11004; 55100; 99222 ==

== ENCOUNTER → 2024-01-21 16:14 | Outpatient (BNV) | payer OTHER, SELFPAY | PROVIDERS: Admitting Provider Student in an Organized Health Care Education/Training Program; Emergency Provider Emergency Medicine Emergency Medical Services; Visit Provider Internal Medicine Nephrology | DX: E11.22 Type 2 diabetes mellitus with diabetic chronic kidney disease (principal); N18.30 Chronic kidney disease, stage 3 unspecified; I95.1 Orthostatic hypotension; R80.9 Proteinuria, unspecified | CPT/HCPCS: 99222; 99232 ==

== ENCOUNTER → 2024-01-21 16:14 | Outpatient (BNV) | payer OTHER, SELFPAY | PROVIDERS: Admitting Provider Student in an Organized Health Care Education/Training Program; Emergency Provider Emergency Medicine Emergency Medical Services; Visit Provider Surgery | DX: N49.2 Inflammatory disorders of scrotum (principal) | CPT/HCPCS: 99222; 99232 ==

== ENCOUNTER → 2024-01-21 16:14 | Outpatient (BNV) | payer OTHER, SELFPAY | PROVIDERS: Admitting Provider Student in an Organized Health Care Education/Training Program; Emergency Provider Emergency Medicine Emergency Medical Services; Visit Provider Internal Medicine | DX: N49.2 Inflammatory disorders of scrotum (principal) | CPT/HCPCS: 99222 ==

== ENCOUNTER 2024-03-08 11:53 | Outpatient (AMB) | payer OTHER, SELFPAY ==
--- NOTE | 2024-03-08 11:59 | HO.NEPHOV ---
Vital Signs 03/08/24 12:05 Height 5 ft 5 in Weight 178 lb BMI 29.6 BP 102/62 Blood Pressure Location Rt brachial Position Sitting Pulse 91 Pulse Source Pulse Oximeter Pulse Oximetry (%) 94 Oxygen Delivery Method Room Air Intake Visit Reasons: [facility] HFU/ Conf Ancillary Services Manager Required: No Accompanied by: Self / Same As Patient Allergies No Known Allergies Allergy (Verified 03/08/24 12:08) HPI Comments Details: 48-year-old man with a history of diabetes mellitus and hypertension was recently seen for acute kidney injury. Renal function improved and has returned to baseline. He continues to have supine hypertension with orthostatic hypotension. He is on amlodipine 2.5 mg in the morning along with captopril 3.125 mg b.i.d.. He complains of lightheadedness and his blood pressure is very low when he stands up. [facility] Medical History Alcohol use disorder Hypertension Type 2 diabetes mellitus Social History Household Members: None Housing: Apartment Do you presently have visiting nurse or other home services: No Alcohol intake: current Alcohol intake frequency: 3 or more drinks per day Alcohol type: hard liquor Comment: medicated Patient Tobacco Use Status: Never used Tobacco service: No Physical Exam Vital Signs: Last Vital Signs Pulse 91 03/08/24 12:05 BP 102/62 03/08/24 12:05 Pulse Ox 94 03/08/24 12:05 Oxygen Delivery Method Room Air 03/08/24 12:05 BMI result Body Mass Index 29.6 Neck Neck: Yes supple Resp Auscultation: clear to auscultation bilaterally Cardio Palpation: no palpable S3 Heart sounds: no rubs GI Palpation (GI): Soft to palpation Auscultation: normal bowel sounds Neuro Motor exam (neuro): no asterixis Results Reviewed Nephrology Results: Hgb 12.6 g/dl (14.0-18.0) L 02/15/24 WBC 7.6 X10*3/uL (4.8-10.8) 02/15/24 Plt Count 196 X10*3/uL (160-400) 02/15/24 Sodium 138 mmol/L (135-145) 02/15/24 Potassium 4.2 mmol/L (3.3-5.1) 02/15/24 Chloride 102 mmol/L (96-108) 02/15/24 Carbon Dioxide 29 mmol/L (22-29) 02/15/24 BUN 21 mg/dL (9-16) H 02/15/24 Creatinine 1.03 mg/dL (0.5-1.4) 02/15/24 Calcium 10.3 mg/dL (8.4-10.2) H 02/15/24 Urine Protein 300 (3+) mg/dL (Neg-Trace) H 01/21/24 Urine Creatinine 24.62 mg/dL 02/04/24 Protein/Creatinin Ratio 1.26 (<0.2) H 02/04/24 Assessment & Plan Assessment & Plan (1) Orthostatic hypotension: Code(s): I95.1 - Orthostatic hypotension Category: Medical (2) CKD stage 3 due to type 2 diabetes mellitus: Code(s): E11.22 - Type 2 diabetes mellitus with diabetic chronic kidney disease; N18.30 - Chronic kidney disease, stage 3 unspecified Category: Medical Plan 48-year-old man with longstanding diabetes mellitus with supine hypertension and orthostatic hypotension. Acute kidney injury has resolved. Recommendation would include to change Change CAptopril to 12.5 mg Q PM DC Amlodipine If SBP < 100 mmHG during daytime, ADD MIDODRINE 2.5 mg Q AM Use all orthostatic precautions including had an elevation at 30 degrees, tight stockings, gradual change in position while transition from supine to standing. Stay on regular salt diet. Orders: Orders Basic Metabolic Panel 3 Months E11.22 - Type 2 diabetes mellitus with diabetic chronic kidney disease, I95.1 - Orthostatic hypotension, N18.30 - Chronic kidney disease, stage 3 unspecified Coding Level of Care Code Est Pt Level 4 (94347) Diagnoses Orthostatic hypotension I95.1 CKD stage 3 due to type 2 diabetes mellitus E11.22; N18.30
[2024-03-08 12:05] VITALS: BP 102/62; PULSE 91; O2SAT 94; BMI 29.6
== END 2024-03-08 12:27 | disposition home or self-care (01) ==
PROVIDERS: Visit Provider Internal Medicine Hypertension Specialist
DX: I95.1 Orthostatic hypotension (principal); E11.22 Type 2 diabetes mellitus with diabetic chronic kidney disease; N18.30 Chronic kidney disease, stage 3 unspecified
CPT/HCPCS: 99214

== ENCOUNTER → 2024-03-08 11:53 | Outpatient (BNVA) | payer OTHER, SELFPAY | PROVIDERS: Visit Provider Internal Medicine Hypertension Specialist | DX: E11.22 Type 2 diabetes mellitus with diabetic chronic kidney disease (principal); I10 Essential (primary) hypertension; I95.1 Orthostatic hypotension; N18.30 Chronic kidney disease, stage 3 unspecified | CPT/HCPCS: 99212 ==